=== PATIENT | female | born 1955 | race African-American/Black ===

== ENCOUNTER 2017-09-14 10:41 | Observation (INO) | payer OTHER ==
--- OUTSIDE RECORDS SUMMARY | 2017-09-14 10:44 | XMS REPORT ---
:1955 [facility] [address] [place] [address] Care Team Providers Name Role Phone UNKNOWN, REFFERING Primary Care Provider Unavailable NOAH NAJERA Unavailable Unavailable Problems This patient has no known problems. Allergies, Adverse Reactions, Alerts This patient has no known allergies or adverse reactions. Medications This patient has no known medications. Results Test Description Test Time Test Comments Text Results Atomic Results Result Comments POC Glucose, Blood 2016-12-09 21:00:00 Test Item Value Reference Range Comments POC Glucose (test code=POCGLUC) 102 mg/dL 70-115 If you consider your patient critically ill, the Finn Accu-Chek InformII metershould not be used for Glucose determinations.Draw a venous Glucose and send to the Main Lab for Analysis. POC Glucose, [id number] 16:22:00 Test Item Value Reference Range Comments POC Glucose (test 82 mg/dL 70-115 If you consider your patient code=POCGLUC) critically ill, the Finn Accu-Chek InformII metershould not be used for Glucose determinations.Draw a venous Glucose and send to the Main Lab for Analysis. POC Glucose, [id number] 08:07:00 Test Item Value Reference Range Comments POC Glucose (test 76 mg/dL 70-115 If you consider your patient code=POCGLUC) critically ill, the Finn Accu-Chek InformII metershould not be used for Glucose determinations.Draw a venous Glucose and send to the Main Lab for Analysis. POC Glucose, [id number] 20:48:00 Test Item Value Reference Range Comments POC Glucose (test 107 mg/dL 70-115 If you consider your patient code=POCGLUC) critically ill, the Finn Accu-Chek InformII metershould not be used for Glucose determinations.Draw a venous Glucose and send to the Main Lab for Analysis. POC Glucose, [id number] 07:18:00 Test Item Value Reference Range Comments POC Glucose (test 75 mg/dL 70-115 If you consider your patient code=POCGLUC) critically ill, the Finn Accu-Chek InformII metershould not be used for Glucose determinations.Draw a venous Glucose and send to the Main Lab for Analysis. POC Glucose, [id number] 21:10:00 Test Item Value Reference Range Comments POC Glucose (test 129 mg/dL 70-115 If you consider your patient code=POCGLUC) critically ill, the Finn Accu-Chek InformII metershould not be used for Glucose determinations.Draw a venous Glucose and send to the Main Lab for Analysis. POC Glucose, [id number] 07:44:00 Test Item Value Reference Range Comments POC Glucose (test 91 mg/dL 70-115 If you consider your patient code=POCGLUC) critically ill, the Finn Accu-Chek InformII metershould not be used for Glucose determinations.Draw a venous Glucose and send to the Main Lab for Analysis. US ABD B-SCAN, [id number] 09:21:21DICTATION LOCATION: [id number]: distended. COMPARISON: None available.TECHNIQUE: Sonography ofthe abdomen. Color and spectral Doppler of theportal vein was performed.FINDINGS:Liver: 19.0 cm. Heterogeneous echotexture.Bile ducts: Normal caliber. Common hepatic duct measures 4 mm. Theportal vein is patent and demonstrates normal directional flow.Gallbladder: Status post cholecystectomy.Pancreas: Visualized portions are within normal limits.Spleen: 9.8 cm. Grossly unremarkableRight kidney: 8.8cm. 8 mm right renal cyst. Cortical atrophy withincreased cortical echogenicity. No hydronephrosis.Left kidney: 8.3 cm. Cortical atrophy with increased corticalechogenicity. No hydronephrosis.Ascites: Abdominopelvic ascites noted.Aorta and IVC: Limited grayscale evaluation of the aorta and IVC areunremarkable. IMPRESSION: 1. Hepatomegaly with heterogeneous echotexture. Findings may representhepatic steatosis or underlying hepatic dysfunction. Correlateclinically with LFTs.2. Renal cortical atrophywith increased cortical echogenicitycompatible with medical renal disease. No hydronephrosis.3. Status post cholecystectomy.4. Abdominopelvic ascites.XR ABDOMEN [id number] 07: 58:20EXAM: KUBLocation: [id number]: DistendedCOMPARISON: NoneDISCUSSION:A frontal view of the abdomen is submitted.There is overall increased density of the abdomen with relativelycentralized bowel gas and obscured abdominal fat planes, suggestive ofascites. Right upper quadrant surgical clips suggest priorcholecystectomy. No bowel obstruction or gross evidence ofintra-abdominal free air is seen. No acute bony or normalities areidentified.IMPRESSION: Findings suggest ascites. No evidence of bowel obstructionor intraperitoneal free air.POC Glucose, [id number] 20:27:00 Test Item Value Reference Range Comments POC Glucose (test 107 mg/dL 70-115 If you consider your patient code=POCGLUC) critically ill, the Finn Accu-Chek InformII metershould not be used for Glucose determinations.Draw a venous Glucose and send to the Main Lab for Analysis. POC Glucose, [id number] 21:14:00 Test Item Value Reference Range Comments POC Glucose (test 141 mg/dL 70-115 If you consider your patient code=POCGLUC) critically ill, the Finn Accu-Chek InformII metershould not be used for Glucose determinations.Draw a venous Glucose and send to the Main Lab for Analysis. Comprehensive Metabolic [id number] 06:45:00 Test Item Value Reference Range Comments Sodium (test code=NA) 135 mmol/L 135-145 Potassium (test code=K) 4.5 mmol/L 3.5-5.1 Chloride (test code=CL) 94 mmol/L 98-105 Carbon Dioxide (test 27 mmol/L 22-29 code=CO2) Glucose (test code=GLU) 90 mg/dL 70-115 Blood Urea Nitrogen (test 28 mg/dL 8-23 code=BUN) Creatinine (test 6.6 mg/dL 0.5-0.9 code=CREAT) Calcium (test code=CA) 9.2 mg/dL 8.3-10.5 Prot Total (test code=TP) 8.7 g/dL 6.4-8.3 Albumin (test code=ALB) 4.2 g/dL 3.5-5.2 A/G Ratio (test 0.9 Ratio code=AGRATIO) Globulin (test code=GLOB) 4.5 2.9-3.1 Bili Total (test 0.6 mg/dL 0.1-0.9 code=TBIL) Alk Phos (test 83 U/L 35-104 code=APHOS) AST (test code=AST) 11 U/L 1-32 ALT (test code=ALT) 7 U/L 1-33 BUN/Creatinine Ratio 4.2 (test code=BCRATIO) Anion Gap (test 14 mmol/L 7-16 code=AGAP) Estimated GFR (test 8 mL/min/1.73m2 eGFR (estimated Glomerular code=GFR) Filtration Rate) is an estimated value,calculated from the patient's serum creatinine using the MDRD equation.It is NOT the patient's actual GFR. The eGFR provides a more clinicallyuseful measure of kidney disease than serum creatinine alone.This calculation takes sex and race into account, if the informationis provided. If the race is not provided, and the patient isAfrican-Cymraes, multiply by 1.212. If sex is not provided, and thepatient is female, multiply by 0.742. Results for patients <18 years ofage have not been validated by the MDRD study and should be interpretedwith caution.eGFR Result Interpretation:eGFR > or=60 is in the Normal RangeeGFR < 60 may mean kidney diseaseeGFR < 15 may mean kidney failureRanges recommended by the National Kidney Foundation,http://nkdep.nih. gov CBC with [id number] 06:27:00 Test Item Value Reference Range Comments WBC (test code=WBC) 4.2 K/cumm 4.4-10.5 RBC (test code=RBC) 4.34 M/cumm 3.75-5.20 Hemoglobin (test code=HGB) 11.8 gm/dL 12.2-14.8 Hematocrit (test code=HCT) 39.4 % 36.5-44.4 MCV (test code=MCV) 90.9 fL 80-100 MCH (test code=MCH) 27.2 pg 27.0-32.5 MCHC (test code=MCHC) 29.9 g/dL 32.0-37.5 RDW (test code=RDW) 17.2 % 11.5-14.5 Platelet Count (test code=PLTCT) 146 K/cumm 140-440 MPV (test code=MPV) 9.1 fL Diff Method (test code=DIFFM) Auto Neutrophil (test code=NEUT) 60.0 % 36-70 Lymphocyte (test code=LYMPH) 27.5 % 12-44 Monocyte (test code=MONO) 8.2 % 0-11 Eosinophil (test code=EOS) 3.8 % 0-7 Basophil (test code=BASO) 0.4 % 0-2 Neutro Abs (test code=ANEUT) 2.5 K/cumm 1.6-7.4 Lymph Abs (test code=ALYMPH) 1.1 K/cumm 0.5-4.6 Monona Abs (test code=AMONO) 0.4 K/cumm 0.0-1.2 Eos Abs (test code=AEOS) 0.16 K/cumm 0.00-0.74 Baso Abs (test code=ABASO) 0.0 K/cumm 0.00-0.21 Hypochromic (test code=HYPO) Slight Hep B Surface [id number] 21:04:00 Test Item Value Reference Range Comments Hep Bs Ag (test code=HBSAG) Nonreactive Non-Reactive [id number] 14:36:00 Test Item Value Reference Range Comments NT ProBnp (test code=PBNP) >03060 pg/mL 0-124 Troponin [id number] 14:36:00 Test Item Value Reference Range Comments Troponin T (test code=AARON) 0.040 ng/mL 0.000-0.090 CBC with [id number] 14:14:00 Test Item Value Reference Range Comments WBC (test code=WBC) 4.0 K/cumm 4.4-10.5 RBC (test code=RBC) 4.45 M/cumm 3.75-5.20 Hemoglobin (test code=HGB) 12.0 gm/dL 12.2-14.8 Hematocrit (test code=HCT) 41.8 % 36.5-44.4 MCV (test code=MCV) 94.0 fL 80-100 MCH (test code=MCH) 26.9 pg 27.0-32.5 MCHC (test code=MCHC) 28.6 g/dL 32.0-37.5 RDW (test code=RDW) 18.4 % 11.5-14.5 Platelet Count (test code=PLTCT) 137 K/cumm 140-440 MPV (test code=MPV) 10.7 fL Diff Method (test code=DIFFM) Manual Neutrophil (test code=NEUT) 53.0 % 36-70 Lymphocyte (test code=LYMPH) 28.8 % 12-44 Monocyte (test code=MONO) 13.5 % 0-11 Eosinophil (test code=EOS) 4.2 % 0-7 Basophil (test code=BASO) 0.5 % 0-2 Neutro Abs (test code=ANEUT) 2.1 K/cumm 1.6-7.4 Monona Abs (test code=AMONO) 0.5 K/cumm 0.0-1.2 Eos Abs (test code=AEOS) 0.17 K/cumm 0.00-0.74 Baso Abs (test code=ABASO) 0.0 K/cumm 0.00-0.21 RBC Morphology (test code=RBCMRPH) Normal Platelet Est (test code=PLTEST) Normal Platelet on Smear Prothrombin [id number] 14:07:00 Test Item Value Reference Range Comments PT (test code=PT) 13.30 seconds 9.78-13.35 INR (test code=INR) 1.17 Ratio 0.6-1.2 Partial Thromboplastin [id number] 14:07:00 Test Item Value Reference Range Comments aPTT (test code=PTT) 37.50 seconds 24.39-37.25 Basic Metabolic [id number] 13:57:00 Test Item Value Reference Range Comments Sodium (test code=NA) 132 mmol/L 135-145 Potassium (test code=K) 5.8 mmol/L 3.5-5.1 Chloride (test code=CL) 95 mmol/L 98-105 Carbon Dioxide (test 23 mmol/L 22-29 code=CO2) Glucose (test code=GLU) 97 mg/dL 70-115 Blood Urea Nitrogen (test 47 mg/dL 8-23 code=BUN) Creatinine (test 8.2 mg/dL 0.5-0.9 code=CREAT) Calcium (test code=CA) 9.0 mg/dL 8.3-10.5 BUN/Creatinine Ratio 5.7 (test code=BCRATIO) Anion Gap (test 14 mmol/L 7-16 code=AGAP) Estimated GFR (test 5 mL/min/1.73m2 eGFR (estimated Glomerular code=GFR) Filtration Rate) is an estimated value,calculated from the patient's serum creatinine using the MDRD equation.It is NOT the patient's actual GFR. The eGFR provides a more clinicallyuseful measure of kidney disease than serum creatinine alone.This calculation takes sex and race into account, if the informationis provided. If the race is not provided, and the patient isAfrican-[place]ym[place], multiply by 1.212. If sex is not provided, and thepatient is female, multiply by 0.742. Results for patients <18 years ofage have not been validated by the MDRD study and should be interpretedwith caution.eGFR Result Interpretation:eGFR > or=60 is in the Normal RangeeGFR < 60 may mean kidney diseaseeGFR < 15 may mean kidney failureRanges recommended by the National Kidney Foundation,http://nkdep.nih. gov XR CHEST 1 [id number] 13:31:50CLINICAL INFORMATION: End-stage renal disease. Missed dialysis recently.Dictation Location: R 16Comparison: No prior study available at this time. Technique: Portable AP upright 1255 hoursFINDINGS : There is globular cardiomegaly with central vascularprominence. Mild aortic tortuosity. Elevated right hemidiaphragm.Nonspecific increase in lung markings. No destructive bone lesionidentified.Impression:1. Changes in the chest suggest cardiac decompensation or fluidoverload.2. Chronic appearing elevated right hemidiaphragm.
--- OUTSIDE RECORDS SUMMARY | 2017-09-14 10:44 | XMS REPORT | Clinical Summary ---
:1955 Author Organization [facility] Address [address] [place] [address] Care Team Providers Name Role Phone Asked, No Pcp Primary Care Provider Unavailable Allergies Active Allergy Reactions Severity Noted Date Comments Aspirin 04/21/2017 On Plavix Clonidine 04/21/2017 Nausea, vomiting Codeine 04/21/2017 Hallucinations Prochlorperazine Edisylate 04/21/2017 Nausea, vomiting Propoxyphene N-Acetaminophen Other (See Comments) 04/21/2017 drowsiness Meperidine Other (See Comments) 04/21/2017 hallucinations Hydromorphone Other (See Comments) 04/21/2017 hallucinations Hydroxyzine 04/21/2017 Levofloxacin 04/21/2017 hallucinations Morphine Other (See Comments) 04/21/2017 hallucinations No Known Drug Allergies 08/19/2015 Ondansetron 04/21/2017 Nausea, vomitong Pantoprazole 04/21/2017 Nausea, vomiting Promethazine 04/21/2017 Nausea, vomiting Tramadol 04/21/2017 Hallucinations Current Medications Prescription Sig. Disp. Refills Start Date End Date Status gabapentin Take 300 mg by Active (NEURONTIN) 300 mg mouth nightly. capsule clopidogrel Take 75 mg by Active (PLAVIX) 75 mg mouth daily. tablet Every other day, taken midodrine Take 15 mg by Active (PROAMATINE) 10 MG mouth 2 (two) tablet times a day. latanoprost Administer 1 1.5 mL 0 04/26/2017 (XALATAN) 0.005 % drop to both 8 ophthalmic eyes nightly for solution 30 days. timolol (TIMOPTIC) Administer 1 0.31 mL 0 04/27/2017 0.5 % ophthalmic drop to both 8 solution eyes every morning for 30 days. cephalexin Take 1 capsule 56 capsule 0 04/26/2017 Discontinued (KEFLEX) 250 MG (250 mg total) 8 capsule by mouth 4 (four) times a day for 14 days. cephalexin Take 1 capsule 14 capsule 0 04/26/2017 (KEFLEX) 500 MG (500 mg total) 8 capsule by mouth daily for 14 days. Active Problems Problem Noted Date Pain 04/24/2017 Low blood pressure 04/22/2017 Hypotension 04/21/2017 Encounters Date Type Specialty Care Team Description 08/29/2017 Hospital Encounter Procedural Hernesto Mcclendon Encounter for other preprocedural examination ; Cardiology MD Jane Encounter regarding vascular access for dialysis for ESRD 08/26/2017 Orders Only General Surgery Kasey, Encounter regarding vascular access for dialysis for ESRD (Primary Dx); CATHRYN Nash Encounter for other preprocedural examination 08/25/2017 Office Visit General Surgery Hernesto Mcclendon ESRD (end stage renal MD Jane disease) on dialysis (Primary Dx) 07/10/2017 Office Visit General Surgery Hernesto Mcclendon End-stage renal MD Jane disease (Primary Dx) 05/15/2017 Office Visit General Surgery Hernesto Mcclendon End-stage renal disease (Primary Dx); MD Jane Surgery follow-up examination; AV graft malfunction, sequela 05/12/2017 Abstract Transplant Stock, Lolis 05/01/2017 Telephone General Surgery Pat Monreal PA 04/24/2017 Anesthesia Event General Surgery Stanley Cabrera MD 04/24/2017 Procedure Pass General Surgery 04/24/2017 Surgery General Surgery Hernesto Mcclendon INSERTION OF TUNNELED MD Jane DIALYSIS CATHETER WITH C-ARM 04/21/2017 - Hospital Encounter General Surgery Hernesto Mcclendon Hypotension , unspecified hypotension type (Primary Dx); 04/26/2017 MD Jane Severe anemia; Zeus Cook Hemorrhage; MD Toi A-V fistula; Vicki, ESRD (end stage renal disease); MD Susanna Metabolic acidosis; Anmol Irvin Hypoalbuminemia; MD Iris Chronic arterial ischemic stroke; End stage renal disease 04/21/2017 Anesthesia Event General Surgery Stanley Cabrera MD 04/21/2017 Procedure Pass General Surgery 04/21/2017 Surgery General Surgery Hernesto Mcclendon LEFT LUCY Lara MD ARTERIOVENOUS GRAFT EXCISION, LEFT FEMORAL DIALYSIS CATHETER PLACEMENT after 09/13/2016 Social History Tobacco Use Types Packs/Day Years Used Date Never Smoker Smokeless Tobacco: Never Used Sex Assigned at Date Recorded Not on file Last Filed Vital Signs Vital Sign Reading Time Taken Blood Pressure 108/54 04/26/2017 1:46 PM [employer] Pulse 71 04/26/2017 1:46 PM [employer] Temperature 36.5 C (97.7 F) 04/26/2017 11:44 AM [employer] Respiratory Rate 18 04/26/2017 11:44 AM [employer] Oxygen Saturation 98% 04/26/2017 11:44 AM [employer] Inhaled Oxygen Concentration - - Weight 79.4 kg (175 lb) 04/24/2017 2:48 PM [employer] Height 160 cm (5' 3") 04/24/2017 2:48 PM [employer] Body Mass Index 31 04/24/2017 2:48 PM [employer] Plan of Treatment Health Maintenance Due Date Last Done Comments CERVICAL CANCER SCREENING 1976 COLON CANCER SCREENING 2005 SHINGRIX VACCINE (#1) 2005 BREAST CANCER SCREENING 09/01/2010 09/01/2008 ZOSTER VACCINE 2015 INFLUENZA VACCINE 11/05/2017 Implants Implanted Type Area Camera Systems Engineer Device Expiration Model / Identifier Date Serial / Lot Catheter Emboltmy Nenita 5fr 80cm Artrl Tube Pack - [id number] Surgical Left : THURMAN 11/05/2018 [id number] / Implanted: Qty: 1 on 04/21/2017 by Hernesto Mcclendon MD Implants; Arm LIFESCIENCES / Expanders; Extenders; Surgical Wires Tray Cath Dialys Straight 3lumen 24cm 13fr Power-Trialysis - [id number] Surgical Right: BARD ACCESS 09/04/2017 [id number] / Implanted: Qty: 1 on 04/21/2017 by Isaura Parikh MD Implants; Arm SYSTEMS / Expanders; Extenders; Surgical Wires Explanted Type Area Camera Systems Engineer Device Expiration Model / Identifier Date Serial / Lot Catheter Dialysis Glidepath [id number] Symmetric Tip - [id number] Implantable Left: BARD PERIPHERAL 08/04/2018 [id number] / Implanted: Qty: 1 Infusion Ports Groin VASCULAR / Explanted: Qty: 1 on 04/21/2017 by Dennis Sorto MD or Accessories [id number] Procedures Procedure Name Priority Date/Time Associated Diagnosis Comments HEMODIALYSIS Routine 04/25/2017 2:21 PM [employer] RI AN ELECTIVE Routine 04/24/2017 4:09 PM SUPRAGLOTTIC AIRWAY [employer] Procedure Note - Ramon Nava MD - 04/24/2017 4:08 PM [employer] Airway Performed by: RAMON NAVA Authorized by: RAMON NAVA Location: OR Urgency: Elective Difficult Airway: No Anesthesiologist: RAMON NAVA Preoxygenated with 100% O2: Yes C-spine Precautions Maintained Throughout: Yes Mask Ventilation: Not attempted Final Airway Type: Supraglottic airway Final LMA: Classic LMA Size: 4 Number of Attempts at Approach: 1 INSERTION OF TUNNELED DIALYSIS 04/24/2017 3:00 PM [employer] End stage renal disease CATHETER WITH C-ARM Special Needs C-ARM HEMODIALYSIS Routine 04/23/2017 3:53 PM [employer] HEMODIALYSIS Routine 04/21/2017 4:33 PM [employer] ANESTHESIA INTUBATION Routine 04/21/2017 9:22 AM [employer] Procedure Note - Stanley Cabrera MD - 04/21/2017 9:21 AM [employer] Airway Performed by: STANLEY CABRERA Authorized by: STANLEY CABRERA Location: OR Difficult Airway: No Preoxygenated with 100% O2: Yes C-spine Precautions Maintained Throughout: Yes Mask Ventilation: Easy mask Final Airway Type: Endotracheal airway Final Endotracheal Airway: ETT Cuffed: Yes Blade Type: Moncada Laryngoscope Blade/Videolaryngoscope Blade Size: 2 ETT Size (mm): 7.0 Cuff at minimum occlusion pressure: Yes Measured from: Lips ETT to Lips (cm): 21 Placement Verified by: CO2 detection, direct visualization and equal breath sounds Rapid Sequence Induction (RSI): No Modified RSI: No Number of Attempts at Approach: 1 LEFT ARM ARTERIOVENOUS GRAFT 04/21/2017 7:30 AM [employer] AV GRAFT MALFUNCTION EXCISION, LEFT FEMORAL DIALYSIS CATHETER PLACEMENT after 09/13/2016 Results Pv duplex venous upper extremity (08/29/2017 11:51 AM) Specimen Performing Laboratory [facility] [address] [place] [address] Narrative Vascular Ultrasound Laboratory Upper Extremity Venous Report [id number] [address] Pat.Name:GREGORIA PADILLA Pat.ID:[id number] .Date: 08/29/2017 Refer.MD:HERNESTO MCCLENDON MD Exam Time: 11:16:00 AM Study Type:UE Venous DOBAge:1955,62YSex: FEMALE Sonogrphr: Elio Montilla RN, RVTPat. Stat.:Outpatient TapeVol: DP, CPT - 4: 68042 Echo Event ID:[id number] Order ID:[id number] Reason for Study:Left upper arm pain status post excisxion of infected AVG., 05/2017. Procedures:Colorflow, Grayscale/2D, Pulsed wave Doppler Race:-[place] SUMMARY: DUPLEX SCAN OBSERVATIONS Right Left IJNormal Normal SubclavianNormal Normal AxillaryNormal Normal BrachialNormal Normal BasilicNormal Not Visualized CephalicNot Visualized Not Visualized RIGHT:There is normal compressibility and no evidence of echogenic material noted within the lumen of the visualized veins. Colorflow and Doppler signals are normal. LEFT:There is normal compressibility and no evidence of echogenic material noted within the lumen of the visualized veins. Colorflow and Doppler signals are normal. PRELIMINARY FINDINGS 1.Normal venous duplex scan of the visualized veins. PHYSICIAN INTERPRETATION 1.Venous examination of both upper extremities and neck demonstrates no evidence of venous thrombosis. Signed 08/30/2017 08:06 AM Stephan Huffman MD Procedure Note Interface, Radiology Results In - 08/30/2017 8:07 AM CDT Vascular Ultrasound Laboratory Upper Extremity Venous Report [address] [place] [address] Pat.Name: GREGORIA PADILLA Pat.ID: [id number] .Date: 08/29/2017 Refer.MD: HERNESTO MCCLENDON MD Exam Time: 11:16:00 AM Study Type:UE Venous Age: 12 1955,62Y Sex: FEMALE Sonogrphr: Elio Montilla RN, RVT Pat. Stat.:Outpatient Tape Vol: DP, CPT - 4: 24428 Echo Event ID:[id number] Order ID: [id number] Reason for Study:Left upper arm pain status post excisxion of infected AVG., 05/2017. Procedures:Colorflow, Grayscale/2D, Pulsed wave Doppler Race: -[place] SUMMARY: DUPLEX SCAN OBSERVATIONS Right Left IJ Normal Normal Subclavian Normal Normal Axillary Normal Normal Brachial Normal Normal Basilic Normal Not Visualized Cephalic Not Visualized Not Visualized RIGHT: There is normal compressibility and no evidence of echogenic material noted within the lumen of the visualized veins. Colorflow and Doppler signals are normal. LEFT: There is normal compressibility and no evidence of echogenic material noted within the lumen of the visualized veins. Colorflow and Doppler signals are normal. PRELIMINARY FINDINGS 1. Normal venous duplex scan of the visualized veins. PHYSICIAN INTERPRETATION 1. Venous examination of both upper extremities and neck demonstrates no evidence of venous thrombosis. Signed 08/30/2017 08:06 AM Stephan Huffman MD POC glucose (04/26/2017 11:43 AM)Only the most recent of22 resultswithin the time period is included. Component Value Ref Range POC glucose 103 (H) 65 - 99 mg/dL Comment: [facility] Notified RN Meter ID: [id number] [employer] Superintendent: Nelia Qiu Specimen Performing Laboratory [facility] DEPARTMENT OF PATHOLOGY AND GENOMIC MEDICINE [address] [place] [address] Estimated GFR (04/26/2017 4:34 AM)Only the most recent of7 resultswithin the time period is included. Component Value Ref Range GFR Non Af Amer 11 (A) mL/min/1.73 m2 GFR Af Amer 14 (A) mL/min/1.73 m2 Comment: Chronic kidney disease: <60 mL/min/1.73m2 Kidney failure: <15 mL/min/1.73m2 The estimated GFR is calculated from the IDMS-traceable Modification of Diet in Renal Disease Equation. The accuracy of the calculation is poor when the creatinine is normal. Calculated values >90 mL/min/1.73m2 are not reported. This equation has not been validated in children (<18 years), women, the elderly (>70 years), or ethnic groups other than Caucasians and Americans. Specimen Performing Laboratory Plasma specimen [facility] DEPARTMENT OF PATHOLOGY AND GENOMIC MEDICINE [address] [place] [address] CBC with platelet and differential (04/26/2017 4:34 AM)Only the most recent of6 resultswithin the time period is included. Component Value Ref Range WBC 4.68Comment: WBC was corrected for NRBCs 4.50 - 11.00 k/uL RBC 2.74 (L) 4.20 - 5.50 m/uL HGB 7.7 (L) 12.0 - 16.0 g/dL HCT 26.0 (L) 37.0 - 47.0 % MCV 94.9 82.0 - 100.0 fL MCH 28.1 27.0 - 34.0 pg MCHC 29.6 (L) 31.0 - 37.0 g/dL RDW - SD 59.8 (H) 37.0 - 55.0 fL MPV 10.3 8.8 - 13.2 fL Platelet count 148 (L) 150 - 400 k/uL Nucleated RBC 2.60 /100 WBC Neutrophils 58.7 39.0 - 69.0 % Lymphocytes 21.4 (L) 25.0 - 45.0 % Monocytes 13.9 (H) 0.0 - 10.0 % Eosinophils 4.7 0.0 - 5.0 % Basophils 0.4 0.0 - 1.0 % Immature granulocytes 0.9Comment: "Immature granulocytes" 0.0 - 1.0 % (promyelocytes, myelocytes, metamyelocytes) Specimen Performing Laboratory Blood [facility] DEPARTMENT OF PATHOLOGY AND [facility] MEDICINE [address] [place] [address] Basic metabolic panel (04/26/2017 4:34 AM)Only the most recent of5 resultswithin the time period is included. Component Value Ref Range Sodium 138 135 - 148 mEq/L Potassium 4.2 3.5 - 5.0 mEq/L Chloride 96 (L) 98 - 112 mEq/L CO2 25 24 - 31 mEq/L Anion gap 17 (H) 7 - 15 mEq/L Comment: Starting from July , anion gap calculation no longer incorporates potassium. Please note the change. BUN 14 8 - 23 mg/dL Creatinine 4.0 (H) 0.5 - 0.9 mg/dL Glucose 96 65 - 99 mg/dL Calcium 8.2 (L) 8.8 - 10.2 mg/dL Specimen Performing Laboratory Plasma specimen [facility] DEPARTMENT OF PATHOLOGY AND GENOMIC MEDICINE [address] [place] [address] XR Chest 1 Vw Portable (04/24/2017 5:30 PM)Only the most recent of3 resultswithin the time period is included. Specimen [facility] [address] [place] [address] Narrative EXAMINATION:XR CHEST 1 VW PORTABLE CLINICAL HISTORY:New dialysis catheter COMPARISON:None. IMPRESSION: Right dialysis catheter terminates in the superior vena cava, there is no evidence of pneumothorax Heart is enlarged Atelectasis in the lung bases. Degenerative changes are present throughout the bony structures without evidence of a suspicious focal lesion. [facility]-[id number] Procedure Note Interface, Radiology Results Incoming - 04/24/2017 6:28 PM [employer] EXAMINATION: XR CHEST 1 VW PORTABLE CLINICAL HISTORY: New dialysis catheter COMPARISON: None. IMPRESSION: Right dialysis catheter terminates in the superior vena cava, there is no evidence of pneumothorax Heart is enlarged Atelectasis in the lung bases. Degenerative changes are present throughout the bony structures without evidence of a suspicious focal lesion. [facility]-[id number] OR [place] < 1 Hour (04/24/2017 4:50 PM) Specimen Performing Laboratory [address] [address] Narrative EXAMINATION:OR [place] 1 HOUR C-arm fluoroscopy was requested in OR. LOCATION: [facility] OR 06 PROCEDURE: C-Arm for INSERTION OF TUNNELED DIALYSIS CATHETER START TIME: 1635 FINISH TIME: 1650 FLUORO TIME: 0.1 min DOSE: mGy:1.06 TECH(S): PHAN MENDOZA IMPRESSION: Separate operative report will be issued by the physician performing the procedure. [id number] Procedure Note Interface, Radiology Results Incoming - 04/24/2017 10:13 PM [employer] EXAMINATION: OR [place] 1 HOUR C-arm fluoroscopy was requested in OR. LOCATION: [facility] OR 06 PROCEDURE: C-Arm for INSERTION OF TUNNELED DIALYSIS CATHETER START TIME: 1635 FINISH TIME: 1650 FLUORO TIME: 0.1 min DOSE: mGy: 1.06 TECH(S): PHAN MENDOZA IMPRESSION: Separate operative report will be issued by the physician performing the procedure. [id number] Partial thromboplastin time, activated (04/24/2017 4:05 AM)Only the most recent of2 resultswithin the time period is included. Component Value Ref Range PTT 35.1 23.0 - 36.0 sec Comment: PTT therapeutic range for unfractionated heparin is 61.0-112.0 seconds which corresponds to Anti-Xa 0.3-0.7 U/ml. Specimen Performing Laboratory Blood [facility] DEPARTMENT OF PATHOLOGY AND [facility] MEDICINE [address] [place] [address] Prothrombin time with INR (04/24/2017 4:05 AM)Only the most recent of3 resultswithin the time period is included. Component Value Ref Range Prothrombin time 15.5 (H) 12.0 - 15.0 sec INR 1.2 Comment: The International Normalized Ratio (INR) is a therapeutic monitoring tool for patients who are stable on oral anticoagulant therapy. An INR of 2.0-3.0 is suggested for deep vein thrombosis/pulmonary embolism. Specimen Performing Laboratory Blood [facility] DEPARTMENT OF PATHOLOGY AND [facility] MEDICINE [address] [place] [address] Phosphorus level (04/24/2017 4:00 AM) Component Value Ref Range Phosphorus 3.9 2.4 - 4.5 mg/dL Specimen Performing Laboratory Plasma specimen [facility] DEPARTMENT OF PATHOLOGY AND [address] [address] Magnesium level (04/24/2017 4:00 AM) Component Value Ref Range Magnesium 1.9 1.6 - 2.4 mg/dL Specimen Performing Laboratory Plasma specimen [facility] DEPARTMENT OF PATHOLOGY AND [facility] MEDICINE [address] [place] [address] Vancomycin level, random (04/23/2017 9:55 AM) Component Value Ref Range Vancomycin, random 9.1 ug/mL Specimen Performing Laboratory Serum [facility] DEPARTMENT OF PATHOLOGY [facility] MEDICINE [address] [place] [address] ECG 12 lead (04/23/2017 9:45 AM) Component Value Ref Range Ventricular rate 80 Atrial rate 80 RI interval 214 QRSD interval 166 QT interval 436 QTC interval 502 P axis 1 51 QRS axis 1 -62 T wave axis -1 EKG impression Sinus rhythm with sinus arrhythmia with 1st degree AV block- Left axis deviation-Right bundle branch block-T wave abnormality, consider lateral ischemia-Abnormal ECG-In automated comparison with ECG of 1 05-FEB-2014 19:02,-T wave inversion more evident in Anterior leads-Electronically Signed By Fitz Hogan ([id number]) on 2017 8:15:04 AM Specimen Performing Laboratory [facility] MUSE [address] [place] [address] Comprehensive metabolic panel (04/22/2017 4:00 AM)Only the most recent of2 resultswithin the time period is included. Component Value Ref Range Sodium 140 135 - 148 mEq/L Potassium 4.7 3.5 - 5.0 mEq/L Chloride 98 98 - 112 mEq/L CO2 26 24 - 31 mEq/L Anion gap 16 (H) 7 - 15 mEq/L Comment: Starting from July , anion gap calculation no longer incorporates potassium. Please note the change. BUN 20 8 - 23 mg/dL Creatinine 4.6 (H) 0.5 - 0.9 mg/dL Glucose 105 (H) 65 - 99 mg/dL Calcium 8.6 (L) 8.8 - 10.2 mg/dL Protein 7.7 6.3 - 8.3 g/dL Comment: [place] 4.6-7.0 g/dL 1 week 4.4-7.6 g/dL 7 months-1year5.1-7.3 g/dL 1-2 years5.6-7.5 g/dL >3 years6.0-8.0 g/dL 18-150 6.3-8.3 g/dL Albumin 3.2 (L) 3.5 - 5.0 g/dL A/G ratio 0.7 0.7 - 3.8 Alkaline phosphatase 102 35 - 104 U/L AST 16 10 - 35 U/L ALT 7 5 - 50 U/L Total bilirubin 0.4 0.0 - 1.2 mg/dL Specimen Performing Laboratory Plasma specimen [facility] DEPARTMENT OF PATHOLOGY AND GENOMIC MEDICINE [address] [place] [address] ECG ED Preliminary Interpretation - NOT AN ORDER (04/21/2017 5:55 PM) Pat Cook MD 04/21/20175:55 PM ECG ED Preliminary Interpretation - Not an Order Performed by: ZEUS COOK Authorized by: ZEUS COOK ECG reviewed by ED Physician in the absence of a metal inspector: yes Interpretation: Interpretation: normal Rate: ECG rate:74 ECG rate assessment: normal Rhythm: Rhythm: sinus rhythm QRS: QRS axis:Normal QRS intervals:Normal ST segments: ST segments:Normal Hepatitis B surface antigen (04/21/2017 2:16 PM) Component Value Ref Range Hepatitis B surface Ag Non-reactive Non-reactive Specimen Performing Laboratory Blood [facility] DEPARTMENT OF PATHOLOGY AND GENOMIC MEDICINE [address] [place] [address] Surgical pathology request (04/21/2017 10:58 AM) Component Value Ref Range Surgical pathology report See link below for PDF Lab Report Result status This is Final Report to [id number] Specimen Performing Laboratory [facility] DEPARTMENT OF PATHOLOGY AND GENOMIC MEDICINE [address] [place] [address] Fungus smear (04/21/2017 10:04 AM) Component Value Ref Range Fungus smear No fungi observed. Comment: Specimen Information Specimen Source: Graft Specimen Site: left arm arteriovenous graft Specimen Performing Laboratory [facility] DEPARTMENT OF PATHOLOGY AND GENOMIC MEDICINE [address] [place] [address] AFB culture (04/21/2017 10:04 AM) Component Value Ref Range AFB culture isolate No growth after 6 weeks of incubation. Comment: Specimen Information Specimen Source: Graft Specimen Site: left arm arteriovenous graft Specimen Performing Laboratory Implant - Other [facility] DEPARTMENT OF PATHOLOGY AND GENOMIC MEDICINE [address] [place] [address] Aerobic culture (04/21/2017 10:04 AM) Component Value Ref Range Aerobic culture isolate Staphylococcus aureus Occasional This organism is Methicillin Sensitive. (A) Comment: Specimen Information Specimen Source: Graft Specimen Site: left arm arteriovenous graft Specimen Performing Laboratory [facility] DEPARTMENT OF PATHOLOGY AND GENOMIC MEDICINE [address] [place] [address] Organism Antibiotic Method Susceptibility Staphylococcus aureus Ampicillin MANI mcg/mL: Resistant Staphylococcus aureus Clindamycin MANI <=0.5 mcg/mL: Susceptible Staphylococcus aureus Erythromycin MANI <=0.5 mcg/mL: Susceptible Staphylococcus aureus Levofloxacin MANI <=1 mcg/mL: Susceptible Staphylococcus aureus Linezolid MANI <=1 mcg/mL: Susceptible Staphylococcus aureus Minocycline MANI <=1 mcg/mL: Susceptible Staphylococcus aureus Oxacillin MANI 0.5 mcg/mL: Susceptible Staphylococcus aureus Penicillin G MANI >1 mcg/mL: Resistant Staphylococcus aureus Rifampin MANI <=0.5 mcg/mL: Susceptible Staphylococcus aureus Trimethoprim/Sulfamethoxazo MANI <=0.5/9.5 mcg/mL: Susceptible le Staphylococcus aureus Tetracycline MANI <=0.5 mcg/mL: Susceptible Staphylococcus aureus Vancomycin MANI 1 mcg/mL: Susceptible Gram stain (04/21/2017 10:04 AM) Component Value Ref Range Gram stain isolate Few WBC's No organisms seen Comment: Specimen Information Specimen Source: Graft Specimen Site: left arm arteriovenous graft Specimen Performing Laboratory [facility] DEPARTMENT OF PATHOLOGY AND GENOMIC MEDICINE [address] [place] [address] AFB stain (04/21/2017 10:04 AM) Component Value Ref Range AFB stain No acid fast bacilli (AFB) seen. Comment: Specimen Information Specimen Source: Graft Specimen Site: left arm arteriovenous graft Specimen Performing Laboratory [facility] [place] [address] Fungus culture (04/21/2017 10:04 AM) Component Value Ref Range Fungus culture isolate No growth after 4 weeks of incubation. Comment: Specimen Information Specimen Source: Graft Specimen Site: left arm arteriovenous graft Specimen Performing Laboratory Implant - Other [facility] DEPARTMENT OF PATHOLOGY AND GENOMIC MEDICINE [address] [place] [address] Transfuse RBC (04/21/2017 7:08 AM)Troponin (04/21/2017 3:59 AM)Only the most recent of2 resultswithin the time period is included. Component Value Ref Range Troponin <0.30 0.00 - 0.30 ng/mL Comment: 0.30 - 1.49 ng/mlMay indicate increased risk of acute coronary syndrome. >=1.5 ng/mlConsistent with acute myocardial infarction. The diagnostic value of a single normal or non-diagnostic result is questionable.Serial samples at 2-6 hour intervals are required to rule out acute myocardial injury. Specimen Performing Laboratory Plasma specimen [facility] DEPARTMENT OF PATHOLOGY AND [facility] MEDICINE [address] [place] [address] Blood culture, aerobic & anaerobic (04/21/2017 3:59 AM) Component Value Ref Range Blood culture isolate No growth after 5 days of incubation. Comment: Specimen Information Specimen Source: Blood Specimen Site: Peripheral Arm Right Specimen Performing Laboratory Blood [facility] DEPARTMENT OF PATHOLOGY AND GENOMIC MEDICINE [address] [place], [place] [id number] Hepatic function panel (04/21/2017 3:59 AM) Component Value Ref Range Albumin 3.0 (L) 3.5 - 5.0 g/dL Total bilirubin <0.2 0.0 - 1.2 mg/dL Bilirubin direct <0.2 0.0 - 0.3 mg/dL Alkaline phosphatase 109 (H) 35 - 104 U/L Protein 7.4 6.3 - 8.3 g/dL Comment: 4.6-7.0 g/dL 1 week 4.4-7.6 g/dL 7 months-1year5.1-7.3 g/dL 1-2 years5.6-7.5 g/dL >3 years6.0-8.0 g/dL 18-150 6.3-8.3 g/dL ALT 13 5 - 50 U/L AST 15 10 - 35 U/L Specimen Performing Laboratory Plasma specimen [facility] DEPARTMENT OF PATHOLOGY AND GENOMIC MEDICINE [address] [place] [address] [id number] ALT (SGPT) (04/21/2017 2:39 AM) Component Value Ref Range ALT Footnote 5 - 50 U/L Specimen Performing Laboratory Plasma specimen [facility] DEPARTMENT OF PATHOLOGY AND GENOMIC MEDICINE [address] [place] [address] [id number] AST (SGOT) (04/21/2017 2:39 AM) Component Value Ref Range AST Footnote 10 - 35 U/L Specimen Performing Laboratory Plasma specimen [facility] DEPARTMENT OF PATHOLOGY AND GENOMIC MEDICINE [address] [place] [address] [id number] Potassium level (04/21/2017 2:39 AM) Component Value Ref Range Potassium Footnote 3.5 - 5.0 mEq/L Comment: Unable to perform testing, specimen is HEMOLYZED.Recollect requested for K,AST,ALT.RUSSEL GRESHAM notified by KXG at04/21/201703:48 . Specimen Performing Laboratory Plasma specimen [facility] DEPARTMENT OF PATHOLOGY AND [facility] MEDICINE [address] [place] [address] [id number] Prepare RBC, 2 Units (04/21/2017 1:35 AM) Component Value Ref Range Product name Red Cells AS1 Leukored Irrad Unit number [id number] Product code [id number] Dispense status Transfused Blood expiration date 20170504 Blood type code 7300 Blood type B POSITIVE Product name Red Cells AS1 Leukored Irrad Unit number [id number] Product code [id number] Dispense status Transfused Blood expiration date 20170505 Blood type code 7300 Blood type B POSITIVE Specimen Performing Laboratory [facility] DEPARTMENT OF PATHOLOGY AND GENOMIC MEDICINE [address] [place] [address] [id number] Type and screen (04/21/2017 1:35 AM) Component Value Ref Range ABO grouping B Rh type POS Antibody screen (gel) NEG Specimen Performing Laboratory Blood [facility] DEPARTMENT OF PATHOLOGY AND GENOMIC MEDICINE [address] [place] [address] 61721 B natriuretic peptide (04/21/2017 1:35 AM) Component Value Ref Range BNP 582 (H) 0 - 100 pg/mL Specimen Performing Laboratory Blood [facility] DEPARTMENT OF PATHOLOGY AND GENOMIC MEDICINE [address] [place] [id number] after 09/13/2016 Insurance Payer Benefit Plan / Group Subscriber ID Type Phone Address MEDICARE MEDICARE PART A AND B xxxxxxxxxxx Medicare [place], [place]
[2017-09-14] MEDS ORDERED: D50W 25 GM/50 ML SYRINGE IV ONE ×3 (11:03→12:53)
[2017-09-14] MEDS ORDERED: D5 0.45 NS 1,000 ML IV ONE (11:15)
[2017-09-14 11:45] LABS: Absolute Lymphocytes (CBC) 0.7 K/uL (0.7-4.9); Absolute Monocytes 0.3 K/uL (0.1-1.3); Absolute Neutrophil 2.1 K/uL (1.8-8.0); Basophils % 0.8 % (0-1.3); Eosinophils % 3.9 % (0-4.4); Hematocrit 36.7 % (36.0-45.0); Lymphocytes % 21.2 % (15.3-44.8); MCH 25.7 pg (27.0-35.0); MCV 83.6 fL (80-100); MPV 9.8 fL (7.6-11.3); Monocytes % 8.9 % (3.3-12.3); RBC Red Blood Cell Count 4.39 M/uL (3.86-4.86)
[2017-09-14 11:51] LABS: Protime INR 1.11
[2017-09-14 12:13] LABS: Albumin 4.1 g/dL (3.2-5.5); Bilirubin Direct 0.1 mg/dL (0-0.2); Bilirubin Total 0.7 mg/dL (0.3-1.2); CKMB Creatine Kinase MB 2.4 ng/ml (0.3-4.0); Magnesium 2.1 mg/dL (1.8-2.5); Protein, Total 8.9 g/dL (6.0-8.3)
[2017-09-14 12:15] LABS: Potassium 7.6 mEq/L (3.6-5.0)
--- NOTE | 2017-09-14 12:33 | RAD REPORT ---
EXAM DESCRIPTION: CT - Chest Abd Pelvis Wo Con - 09/14/2017 11:59 am CLINICAL HISTORY: Chest and abdominal pain COMPARISON: December 2016 TECHNIQUE: Computed axial tomography of the chest, abdomen and pelvis was obtained. Oral contrast wa s given. IV contrast was not requested. All CT scans are performed using dose optimization technique as appropriate and may include automated exposure control or mA/KV adjustment according to patient size. FINDINGS: The evaluation of mediastinum, alf, vessels and solid organs is limited secondary to the lack of IV contrast administration No mediastinal or hilar lymphadenopathy is seen. The heart is enlarged A pleural effusion is not present. A pericardial effusion is not seen. Mild ground-glass opacities are present within the lungs. The liver, spleen, pancreas, and adrenals appear grossly normal. The kidneys are mildly diminished in size. There is no evidence of diverticulitis. A small umbilical hernia is present. A moderate to large amount of ascites is present. It has diminished in caliber since the prior CAT sc an IMPRESSION: Mild ground-glass opacities within the lungs indicative of a mild alveolitis Moderate to large amount of ascites diminished in caliber from the prior CAT scan
--- NOTE | 2017-09-14 12:34 | RAD REPORT ---
EXAM DESCRIPTION: [facility] Single View09/14/2017 11:31 am CLINICAL HISTORY: cough COMPARISON: April 2017 FINDINGS: Mild bilateral pulmonary opacities are present. The heart is moderately enlarged Central venous catheter has its tip in the proximal superior vena cava IMPRESSION: Mild bilateral pulmonary opacities may indicate mild interstitial pulmonary edema
[2017-09-14] MEDS ORDERED: INSULIN -REGULAR HUMAN 50 UNIT/0.5 ML ML ONE (12:53)
[2017-09-14] MEDS ORDERED: SOD POLYSTYREN SUL 15 GM/60 ML UCUP ONE (12:53)
[2017-09-14] MEDS ORDERED: ALBUTEROL 2.5 MG/3 ML NEB SOL ONE (12:53)
--- NOTE | 2017-09-14 12:56 | ER ---
Nurse's Notes [facility] Name: Liya Sullivan Age: 62 yrs Sex: Female : 1955 Arrival Date: 09/14/2017 Time: 10:52 Bed 15 Private MD: Diagnosis: End stage renal disease;Hyperkalemia;Hypoglycemia, unspecified Presentation: 09/14 10:50 Presenting complaint: EMS states: low blood sugar, hypertension and weakness. Patient aj1 states that she woke up this morning feeling weak and disoriented. Patient appears drowsy, responds to verbal stimuli, answer questions appropriately, but slowly. FSBS on EMS arrivan was 52. Patient was given oral glucose twice, which only brought here FSBS up to 57. 10:50 Transition of care: patient was not received from another setting of care. Onset of aj1 symptoms is unknown. Risk Assessment: Do you want to hurt yourself or someone else? Patient reports no desire to harm self or others. Initial Sepsis Screen: Does the patient meet any 2 criteria? No. Patient's initial sepsis screen is negative. Does the patient have a suspected source of infection? No. Patient's initial sepsis screen is negative. Care prior to arrival: None. 10:50 Method Of Arrival: EMS: [facility] aj1 10:50 Acuity: STEPHNAIE 2 aj1 Triage Assessment: 11:34 General: Appears in no apparent distress. uncomfortable, Behavior is drowsy. Pain: aj1 Complains of pain in generalized body aches. Historical: - Allergies: 11:34 Aspirin; aj1 11:34 butorphanol tartrate; aj1 11:34 Clonidine; aj1 11:34 Codeine; aj1 11:34 Compazine; aj1 11:34 Darvocet-N 100; aj1 11:34 Demerol; aj1 11:34 diphenhydramine HCl; aj1 11:34 Hydromorphone; aj1 11:34 hydroxyzine HCl; aj1 11:34 Levaquin; aj1 11:34 Levofloxacin; aj1 11:34 Morphine; aj1 11:34 Ondansetron HCl; aj1 11:34 pantoprazole sodium; aj1 11:34 promethazine HCl; aj1 11:34 Protonix; aj1 11:34 Stadol; aj1 11:34 tramadol; aj1 - Home Meds: 11:34 Acetaminophen Oral [Active]; cephalexin 500 mg Oral tab daily [Active]; clopidogrel 75 aj1 mg Oral tab 1 tab once daily [Active]; gabapentin 300 mg Oral cap 1 cap every night [Active]; latanoprost 0.005 % ophthalmic drop 1 drop once daily [Active]; midodrine 15mg Oral tab 1 tab twice a day [Active]; timolol maleate 0.5 % Opht drop 1 drop to both eyes every morning [Active]; - PMHx: 11:34 CVA; Diabetes - IDDM; Dialysis; ESRD; aj1 - Immunization history:: Flu vaccine is up to date. - Social history:: Smoking status: Patient/guardian denies using tobacco. - Family history:: not pertinent. - Ebola Screening: : Patient denies travel to an Ebola-affected area in the 21 days before illness onset. Screenin:50 Abuse screen: Denies threats or abuse. Denies injuries from another. Nutritional aj1 screening: No deficits noted. Tuberculosis screening: No symptoms or risk factors identified. 14:03 Fall Risk No fall in past 12 months (0 pts). No secondary diagnosis (0 pts). IV access aj1 (20 points). Ambulatory Aid- None/Bed Rest/Nurse Assist (0 pts). Gait- Impaired (20 pts.). Mental Status- Oriented to own ability (0 pts). Assessment: 10:50 General: Appears uncomfortable, Behavior is drowsy, restless. Pain: Complains of pain aj1 in generalized body aches Unable to use pain scale. When asked to rate pain on scale of 1 to 10 patient states "I can't, it just hurts". Neuro: Level of Consciousness is obeys commands, drowsy. Oriented to person, place, time, situation, Speech slow. Cardiovascular: Patient's skin is warm and dry. Respiratory: Airway is patent Respiratory effort is even, unlabored, Respiratory pattern is regular, symmetrical. GI: Abdomen is round distended, Abd is soft X 4 quads Abdomen is tender to palpation X 4 quads. : Reports that she missed dialysis on Friday because she was not feeling good. EENT: No signs and/or symptoms were reported regarding the EENT system. Derm: No signs and/or symptoms reported regarding the dermatologic system. Skin is normal. Musculoskeletal: Circulation, motion, and sensation intact. 11:46 Reassessment: Patient appears in no apparent distress at this time. No changes from aj1 previously documented assessment. Patient and/or family updated on plan of care and expected duration. Pain level reassessed. Patient is alert, oriented x 3, equal unlabored respirations, skin warm/dry/pink. Patient transported to CT via stretcher. 12:42 Reassessment: Patient appears in no apparent distress at this time. No changes from aj1 previously documented assessment. Patient and/or family updated on plan of care and expected duration. Pain level reassessed. Patient is alert, oriented x 3, equal unlabored respirations, skin warm/dry/pink. 13:45 Reassessment: Patient appears in no apparent distress at this time. No changes from aj1 previously documented assessment. Patient and/or family updated on plan of care and expected duration. Pain level reassessed. Patient is alert, oriented x 3, equal unlabored respirations, skin warm/dry/pink. Vital Signs: 10:50 BP 113 / 96; Pulse 72; Resp 20; Temp 97.5(O); Pulse Ox 96% on 2 lpm NC; Weight 77.11 aj1 kg; Height 5 ft. 3 in. (160.02 cm); 11:45 BP 119 / 73; Pulse 81; Resp 17; Pulse Ox 97% on 2 lpm NC; aj1 12:19 BP 132 / 82; Pulse 91; Resp 18; Pulse Ox 98% on 2 lpm NC; aj1 12:41 BP 147 / 88; Pulse 71; Resp 18; Pulse Ox 98% on 2 lpm NC; aj1 10:50 Body Mass Index 30.11 (77.11 kg, 160.02 cm) [facility] ED Course: 10:50 No provider procedures requiring assistance completed. Missed attempt(s): 22 gauge in aj right antecubital area. Bleeding controlled, band aid applied, catheter tip intact. 10:50 Patient has correct armband on for positive identification. Bed in low position. Call [facility] light in reach. Side rails up X 1. 10:52 Patient arrived in ED. iw 10:59 Rima Canela RN is Primary Nurse. aj 11:00 Gildardo Florez MD is Attending Physician. phil 11:05 Inserted saline lock: 22 gauge in right wrist, using aseptic technique. Blood collected.aj1 11:25 Inserted saline lock: 18 gauge in right EJ, using aseptic technique. Blood collected. iw IV inserted by Dr. Florez. 11:31 XRAY Chest (1 view) In Process Unspecified. EDMS 11:31 X-ray completed. Portable x-ray completed in exam room. Patient tolerated procedure kw well. 11:31 Triage completed. aj1 11:34 Arm band placed on. aj1 11:59 CT Chest Abdomen Pelvis W/O Contrast: no oral, no iv In Process Unspecified. EDMS 12:54 Vern Kovacs MD is Hospitalizing Provider. [facility] 13:41 Report given to KRISTINA Stewart in ICU. aj1 14:01 Patient admitted, IV remains in place. aj1 Administered Medications: Discontinued: D5-1/2 NS 1000 ml IV at 75 ml/hr continuous 11:05 Drug: D50W 50 ml Route: IVP; Site: left wrist; aj1 11:40 Follow up: Response: No adverse reaction; Blood sugar is elevated iw 11:25 Drug: D5-1/2 NS 1000 ml Route: IV; Rate: 75 ml/hr; Site: right jugular; iw 13:00 Drug: Sodium Bicarbonate 1 amp Route: IVP; Site: right jugular; iw 13:25 Follow up: Response: No adverse reaction iw 13:00 Drug: D50W 50 ml Route: IVP; Site: left jugular; iw 13:15 Follow up: Response: No adverse reaction iw 13:05 Drug: Insulin Regular Human 10 units {Co-Signature: em (Alberto Landeros SALES ARCHITECT).} Route: IVP; iw Site: right jugular; 13:59 Follow up: Response: No adverse reaction iw 13:15 Drug: Albuterol - atroVENT (3:1) (2.5 mg - 0.5 mg) 3 ml Route: Nebulizer; iw 13:58 Follow up: Response: No adverse reaction iw 13:20 Drug: Lasix 100 mg Route: IVP; Site: right jugular; iw 13:45 Follow up: Response: No adverse reaction iw 13:25 Drug: Calcium Gluconate 1 grams Route: IVPB; Infused Over: 10 mins; Site: right jugular;iw 13:35 Follow up: IV Status: Completed infusion iw 13:44 Drug: Kayexalate 60 grams {Note: pt only able to drink 30 gm.} Route: PO; iw 13:58 Follow up: Response: No adverse reaction iw Point of Care Testing: Blood Glucose: 10:50 Blood Glucose: 58 mg/dL; aj1 11:45 Blood Glucose: 82 mg/dL; aj1 12:41 Blood Glucose: 102 mg/dL; aj1 13:30 Blood Glucose: 153 mg/dL; iw Ranges: Outcome: 12:56 Decision to Hospitalize by Provider. phil 14:04 Admitted to ICU accompanied by nurse, accompanied by tech, via stretcher, with oxygen, aj1 on monitor, with chart. 14:04 critical 14:04 Instructed on the need for admit, Demonstrated understanding of instructions. 14:08 Patient left the ED. aj1 Signatures: Dispatcher [employer] Rima Fang, KRISTINA RN aj1 Gildardo Florez MD MD cha Williams, Irene, Akiko Grewal RN SALES ARCHITECT em Corrections: (The following items were deleted from the chart) 11:37 11:34 BP 113 / 96; Pulse 72bpm; Resp 20bpm; Pulse Ox 96% 2 lpm Nasal Cannula; Temp aj1 97.5F Oral; 77.11 kg; Height 5 ft. 3 in.; BMI: 30.1; aj1
--- NOTE | 2017-09-14 12:57 | EDPHYS ---
Physician Documentation [facility] Name: Liya Sullivan Age: 62 yrs Sex: Female : 1955 Arrival Date: 09/14/2017 Time: 10:52 Bed 15 Private MD: ED Physician Gildardo Florez HPI: 09/14 11:22 This 62 yrs old Black Female presents to ER via Unassigned with complaints of Low Blood phil Sugar. 11:22 This 62 yrs old Black Female presents to ER via Unassigned with complaints of Low Blood phil Sugar. 11:22 The patient or guardian reports hypoglycemia, that was potentially precipitated by no phil particular event. Onset: The symptoms/episode began/occurred just prior to arrival. Associated signs and symptoms: Pertinent positives: nausea. Current symptoms: In the emergency department the patient's symptoms are unchanged from the initial presentation, despite home interventions. The patient has experienced similar episodes in the past, a few times. Historical: - Allergies: 11:34 Aspirin; aj1 11:34 butorphanol tartrate; aj1 11:34 Clonidine; aj1 11:34 Codeine; aj1 11:34 Compazine; aj1 11:34 Darvocet-N 100; aj1 11:34 Demerol; aj1 11:34 diphenhydramine HCl; aj1 11:34 Hydromorphone; aj1 11:34 hydroxyzine HCl; aj1 11:34 Levaquin; aj1 11:34 Levofloxacin; aj1 11:34 Morphine; aj1 11:34 Ondansetron HCl; aj1 11:34 pantoprazole sodium; aj1 11:34 promethazine HCl; aj1 11:34 Protonix; aj1 11:34 Stadol; aj1 11:34 tramadol; aj1 - Home Meds: 11:34 Acetaminophen Oral [Active]; cephalexin 500 mg Oral tab daily [Active]; clopidogrel 75 aj1 mg Oral tab 1 tab once daily [Active]; gabapentin 300 mg Oral cap 1 cap every night [Active]; latanoprost 0.005 % ophthalmic drop 1 drop once daily [Active]; midodrine 15mg Oral tab 1 tab twice a day [Active]; timolol maleate 0.5 % Opht drop 1 drop to both eyes every morning [Active]; - PMHx: 11:34 CVA; Diabetes - IDDM; Dialysis; ESRD; aj1 - Immunization history:: Flu vaccine is up to date. - Social history:: Smoking status: Patient/guardian denies using tobacco. - Family history:: not pertinent. - Ebola Screening: : Patient denies travel to an Ebola-affected area in the 21 days before illness onset. ROS: 11:23 Constitutional: Negative for fever, chills, and weight loss, Eyes: Negative for injury, phil pain, redness, and discharge, ENT: Negative for injury, pain, and discharge, Neck: Negative for injury, pain, and swelling, Cardiovascular: Negative for chest pain, palpitations, and edema, Respiratory: Negative for shortness of breath, cough, wheezing, and pleuritic chest pain, Back: Negative for injury and pain, : Negative for injury, bleeding, discharge, and swelling, MS/Extremity: Negative for injury and deformity, Skin: Negative for injury, rash, and discoloration, Psych: Negative for depression, anxiety, suicide ideation, homicidal ideation, and hallucinations, Allergy/Immunology: Negative for hives, rash, and allergies, Endocrine: Negative for neck swelling, polydipsia, polyuria, polyphagia, and marked weight changes. 11:23 Abdomen/GI: Positive for abdominal pain, abdominal cramps, abdominal distension. 11:23 Neuro: Positive for altered mental status, dizziness, weakness. Exam: 11:23 Constitutional: This is a well developed, well nourished patient who is awake, alert, phil and in no acute distress. Head/Face: Normocephalic, atraumatic. Eyes: Pupils equal round and reactive to light, extra-ocular motions intact. Lids and lashes normal. Conjunctiva and sclera are non-icteric and not injected. Cornea within normal limits. Periorbital areas with no swelling, redness, or edema. ENT: Nares patent. No nasal discharge, no septal abnormalities noted. Tympanic membranes are normal and external auditory canals are clear. Oropharynx with no redness, swelling, or masses, exudates, or evidence of obstruction, uvula midline. Mucous membranes moist. Neck: Trachea midline, no thyromegaly or masses palpated, and no cervical lymphadenopathy. Supple, full range of motion without nuchal rigidity, or vertebral point tenderness. No Meningismus. Chest/axilla: Normal chest wall appearance and motion. Nontender with no deformity. No lesions are appreciated. Cardiovascular: Regular rate and rhythm with a normal S1 and S2. No gallops, murmurs, or rubs. Normal PMI, no JVD. No pulse deficits. Respiratory: Lungs have equal breath sounds bilaterally, clear to auscultation and percussion. No rales, rhonchi or wheezes noted. No increased work of breathing, no retractions or nasal flaring. Back: No spinal tenderness. No costovertebral tenderness. Full range of motion. Female : Normal external genitalia. Skin: Warm, dry with normal turgor. Normal color with no rashes, no lesions, and no evidence of cellulitis. MS/ Extremity: Pulses equal, no cyanosis. Neurovascular intact. Full, normal range of motion. Psych: Awake, alert, with orientation to person, place and time. Behavior, mood, and affect are within normal limits. 11:23 Abdomen/GI: Inspection: distension, Bowel sounds: normal, Palpation: mild abdominal tenderness, moderate abdominal tenderness, in all quadrants, Liver: no appreciated palpable abnormalities, Hernia: incarceration. 11:23 Skin: Appearance: Color: normal in color, Temperature: warm, Moisture: dry, petechiae, noted on the right arm and left arm, ecchymosis, not noted. Vital Signs: 10:50 BP 113 / 96; Pulse 72; Resp 20; Temp 97.5(O); Pulse Ox 96% on 2 lpm NC; Weight 77.11 aj1 kg; Height 5 ft. 3 in. (160.02 cm); 11:45 BP 119 / 73; Pulse 81; Resp 17; Pulse Ox 97% on 2 lpm NC; aj1 12:19 BP 132 / 82; Pulse 91; Resp 18; Pulse Ox 98% on 2 lpm NC; aj1 12:41 BP 147 / 88; Pulse 71; Resp 18; Pulse Ox 98% on 2 lpm NC; aj1 10:50 Body Mass Index 30.11 (77.11 kg, 160.02 cm) aj1 MDM: 11:00 [facility]. [facility] 11[facility]25 Data reviewed: vital signs, nurses notes, lab test result(s), EKG, radiologic studies, [facility] scan, plain films. 09/14 11:02 Order name: Basic Metabolic Panel; Complete Time: 12:46 [facility] 09/14 11:02 Order name: BNP; Complete Time: 12:46 [facility] 09/14 11:02 Order name: CBC with Diff; Complete Time: 12:06 [facility] 09/14 11:02 Order name: Ckmb; Complete Time: 12:46 [facility] 09/14 11:02 Order name: CPK; Complete Time: 12:46 [facility] 09/14 11:02 Order name: LFT's; Complete Time: 12:46 [facility] 09/14 11:02 Order name: Magnesium; Complete Time: 12:46 [facility] 09/14 11:02 Order name: PT-INR; Complete Time: 12:06 [facility] 09/14 11:02 Order name: Ptt, Activated; Complete Time: 12:06 [facility] 09/14 11:02 Order name: Troponin (emerg Dept Use Only); Complete Time: 12:46 [facility] 09/14 11:02 Order name: Urine Culture [facility] 09/14 11:02 Order name: Blood Culture Adult (2) [facility] 09/14 13:02 Order name: Basic Metabolic Panel [facility] 09/14 13:02 Order name: Basic Metabolic Panel [facility] 09/14 11:02 Order name: XRAY Chest (1 view); Complete Time: 12:46 [facility] 09/14 11:22 Order name: CT Chest Abdomen Pelvis W/O Contrast: no oral, no iv; Complete Time: 12:46 [facility] 09/14 13:02 Order name: CBC with Automated Diff [facility] 09/14 13:02 Order name: CBC with Automated Diff [facility] 09/14 13:02 Order name: Troponin I [facility] 09/14 13:02 Order name: Troponin I [facility] 09/14 13:02 Order name: Troponin I [facility] 09/14 13:02 Order name: Chest Single View [facility] 09/14 13:02 Order name: Chest Single View [facility] 09/14 11:02 Order name: EKG; Complete Time: 11:02 [facility] 09/14 11:02 Order name: Cardiac monitoring; Complete Time: 12:05 [facility] 09/14 11:02 Order name: EKG - Nurse/Tech; Complete Time: 12:17 [facility] 09/14 11:02 Order name: IV Saline Lock; Complete Time: 11:26 [facility] 09/14 11:02 Order name: Labs collected and sent; Complete Time: 11:26 [facility] 09/14 11:02 Order name: O2 Per Protocol; Complete Time: 11:26 [facility] 09/14 11:02 Order name: O2 Sat Monitoring; Complete Time: 11:26 [facility] 09/14 13:02 Order name: CONS Physician Consult EDMS 09/14 13:02 Order name: Consistent Carb (ADA) 1800 Julio EDMS 09/14 13:02 Order name: EKG Electrocardiogram EDMS 09/14 13:02 Order name: EKG Electrocardiogram EDMS 09/14 13:02 Order name: EKG Electrocardiogram EDMS 09/14 13:02 Order name: EKG Electrocardiogram EDMS Administered Medications: Discontinued: D5-1/2 NS 1000 ml IV at 75 ml/hr continuous 11:05 Drug: D50W 50 ml Route: IVP; Site: left wrist; aj1 11:40 Follow up: Response: No adverse reaction; Blood sugar is elevated iw 11:25 Drug: D5-1/2 NS 1000 ml Route: IV; Rate: 75 ml/hr; Site: right jugular; iw 13:00 Drug: Sodium Bicarbonate 1 amp Route: IVP; Site: right jugular; iw 13:25 Follow up: Response: No adverse reaction iw 13:00 Drug: D50W 50 ml Route: IVP; Site: left jugular; iw 13:15 Follow up: Response: No adverse reaction iw 13:05 Drug: Insulin Regular Human 10 units {Co-Signature: milan (Alberto Landeros [employer]ISTANT).} Route: IVP; iw Site: right jugular; 13:59 Follow up: Response: No adverse reaction iw 13:15 Drug: Albuterol - atroVENT (3:1) (2.5 mg - 0.5 mg) 3 ml Route: Nebulizer; iw 13:58 Follow up: Response: No adverse reaction iw 13:20 Drug: Lasix 100 mg Route: IVP; Site: right jugular; iw 13:45 Follow up: Response: No adverse reaction iw 13:25 Drug: Calcium Gluconate 1 grams Route: IVPB; Infused Over: 10 mins; Site: right jugular;iw 13:35 Follow up: IV Status: Completed infusion iw 13:44 Drug: Kayexalate 60 grams {Note: pt only able to drink 30 gm.} Route: PO; iw 13:58 Follow up: Response: No adverse reaction iw Point of Care Testing: Blood Glucose: 10:50 Blood Glucose: 58 mg/dL; aj1 11:45 Blood Glucose: 82 mg/dL; aj1 12:41 Blood Glucose: 102 mg/dL; 1 13:30 Blood Glucose: 153 mg/dL; Ranges: Critical Glucose Levels:Adult <50 mg/dl or >400 mg/dl <40 mg/dl or >180 mg/dl Disposition: 09/14/17 12:56 Hospitalization ordered by Vern Kovacs for Inpatient Admission. Preliminary diagnosis are End stage renal disease, Hyperkalemia, Hypoglycemia, unspecified. - Bed requested for Intensive Care Unit. - Status is Inpatient Admission. aj1 - Condition is Serious. - Problem is new. - Symptoms have improved. UTI on Admission? No Signatures: Dispatcher [employer] EDSharon Rouse Angela, KRISTINA ACEVEDO aj1 Gildardo Florez MD MD cha Williams, Irene, RN RN Alberto CHRISTIANSONN em Corrections: (The following items were deleted from the chart) 13:15 12:56 Hospitalization Ordered by Vern Kovacs MD for Inpatient Admission. Preliminary bd diagnosis is End stage renal disease; Hyperkalemia; Hypoglycemia, unspecified. Bed requested for Intensive Care Unit. Status is Inpatient Admission. Condition is Serious. Problem is new. Symptoms have improved. UTI on Admission? No. [facility] 14:00 11:02 Urine Dipstick-Ancillary ordered. [facility] 14:08 13:15 09/14/2017 12:56 Hospitalization Ordered by Vern Kovacs MD for Inpatient [facility] Admission. Preliminary diagnosis is End stage renal disease; Hyperkalemia; Hypoglycemia, unspecified. Bed requested for Intensive Care Unit. Status is Inpatient Admission. Condition is Serious. Problem is new. Symptoms have improved. UTI on Admission? No. bd
[2017-09-14] MEDS ORDERED: ONDANSETRON 4 MG/2 ML VIAL IV PRN (12:59)
[2017-09-14] MEDS ORDERED: GLUCAGON 1 MG/VIAL IM PRN (13:00)
[2017-09-14] MEDS ORDERED: D50W 25 GM/50 ML SYRINGE IV PRN (13:00)
[2017-09-14] MEDS ORDERED: FUROSEMIDE 100 MG/10 ML VIAL IV ONE (13:18)
[2017-09-14] MEDS ORDERED: ALBUMIN HUMAN 25% 50 ML IV SCH (14:00)
[2017-09-14] MEDS ORDERED: NA CHLORIDE 0.9% 1,000 ML IV PRN (14:00)
[2017-09-14] MEDS ORDERED: CALCIUM GLUCONATE 1gm/100 ML NS (4.65 mEq/100mL) IV ONE ×2 (14:00)
[2017-09-14] MEDS ORDERED: MANNITOL 25% 12.5 GM/50 ML VIAL IV PRN (14:00)
[2017-09-14] MEDS: ALBUTEROL 2.5 MG/3 ML NEB SOL NEB SCH ×2 (14:00→21:06)
[2017-09-14] MEDS ORDERED: LIDOCAINE 1% MPF 5 ML VIAL IJ SCH (15:00)
[2017-09-14] MEDS ORDERED: FUROSEMIDE 40 MG/4 ML VIAL IV ONE (15:44)
[2017-09-14] MEDS: INSULIN -REGULAR HUMAN 50 UNIT/0.5 ML ML SQ SCH ×2 (16:30→20:47)
--- NOTE | 2017-09-14 17:09 | HP ---
Date of Admission: 09/14/2017 History Of Present Illness: The patient is a 62-year-old female with end-stage renal disease, on kenia lysis, has dialysis appointments this week. She started feeling disoriented, fatigued and tired, cam e to emergency room. She was found to be having volume overload with hyperkalemia and she was admitt ed for that. Review of Systems: General: Fatigue. Cardiovascular: No complaints. Gastrointestinal: Mild nausea. No vomiting. No other complaints. Genitourinary: No complaints. Skeletomuscular: No complaints. Neurological: No complaints. Past Medical History: 1.As mentioned, end-stage renal dialysis, on dialysis. 2.Type 2 diabetes. 3.History of CVA in the past. 4.Anemia of chronic illness. 5.Congestive heart failure, diastolic. 6.Hypertension. 7.Peripheral neuropathy. 8.History of anxiety. Family History: Noncontributory. Social History: No smoking, alcohol, or drug abuse history. Medications: Include Plavix 75 mg daily, Neurontin 300 mg p.o. at bedtime, promethazine 50 mg p.o. t .i.d., insulin NPH 20 units subcutaneous at bedtime. Allergies: PROMETHAZINE, LEVOFLOXACIN, ASPIRIN, AND BUTORPHANOL. Physical Examination: General: The patient is sitting, in no acute distress. She knew me as soon as I stepped into the ro om. She is not disoriented. She just complained to me of being fatigued and lethargic. Vital Signs: Her blood pressure 120/74, pulse 80, temperature 98.2, pulse oximetry on 2 L oxygen lila al cannula 97%. Heart: Regular rate and rhythm. Chest: Clear to auscultation. Abdomen: Soft, nontender. Bowel sounds are active. Extremities: 1+ pedal and tibial edema. Neurological: Alert, oriented, nonfocal. Grossly intact. Imaging: Chest x-ray; mild interstitial pulmonary edema. Abdominal and pelvic CT; mild alveolitis i n the lungs, [id number] amount of ascites. Laboratory Data: White cell count 3.2, hemoglobin 11.3, hematocrit 36.7, platelets 123. Potassium 7 .6, creatinine 13.3. Troponin 0.03. BNP 1118. Assessment And Plan: 1.Hyperkalemia secondary to end-stage renal disease, on dialysis which has been skipped by the patie nt. 2.Volume overload secondary to also noncompliance with dialysis. The patient is being admitted. Ka yexalate q.6 hours given to the patient. Nephrology consulted for dialysis. We will continue home m edications. We will monitor her electrolytes, also monitor her blood sugar fingersticks. We will pu t her on regular insulin sliding scale. Look orders for details. MFS/MODL Voice ID: [id number]
[2017-09-14] MEDS ORDERED: SOD POLYSTYREN SUL 15 GM/60 ML UCUP PO SCH (20:00)
[2017-09-15] MEDS: ACETAMINOPHEN 500 MG TAB PO PRN ×3 (01:15→14:52)
[2017-09-15] MEDS: ALBUTEROL 2.5 MG/3 ML NEB SOL NEB SCH ×4 (01:29→19:45)
[2017-09-15 05:30] LABS: Absolute Lymphocytes (CBC) 0.5 K/uL (0.7-4.9); Absolute Monocytes 0.3 K/uL (0.1-1.3); Absolute Neutrophil 2.9 K/uL (1.8-8.0); Basophils % 0.6 % (0-1.3); Eosinophils % 2.8 % (0-4.4); Hematocrit 32.4 % (36.0-45.0); Lymphocytes % 12.1 % (15.3-44.8); MCV 82.4 fL (80-100); MPV 9.2 fL (7.6-11.3); Monocytes % 8.6 % (3.3-12.3); RBC Red Blood Cell Count 3.93 M/uL (3.86-4.86)
[2017-09-15 05:55] LABS: Potassium 4.6 mEq/L (3.6-5.0)
--- NOTE | 2017-09-15 06:31 | EKG ---
Test Date: 2017-09-14 Test Time: 12:12:44 Rn Oncology Research: DORIS MEASUREMENT RESULTS: Intervals: Rate: 75 [place]: 184 QRSD: 170 QT: 486 QTc: 542 [place]: P: 64 [place]: 184 QRS: -61 T: 16 INTERPRETIVE STATEMENTS: Normal sinus rhythm Right bundle branch block Left anterior fascicular block Bifascicular block Abnormal ECG Compared to ECG 04/20/2017 20:27:20 no significant change from previous ECG Electronically Signed On 09-15-17 06:29:49 CDT by Charles Jaimes
[2017-09-15] MEDS: INSULIN -REGULAR HUMAN 50 UNIT/0.5 ML ML SQ SCH ×4 (07:30→21:00)
--- NOTE | 2017-09-15 08:26 | RAD REPORT ---
EXAM DESCRIPTION: Laith Single View09/15/2017 6:36 am CLINICAL HISTORY: Chest pain COMPARISON: September 14, 2017 FINDINGS: The mild bilateral interstitial lung opacities have resolved. The heart remains enlarged. Central venous catheter remains in place. IMPRESSION: Resolution of mild interstitial pulmonary edema
--- NOTE | 2017-09-15 09:28 | EKG ---
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
[2017-09-15] MEDS ORDERED: MIDODRINE HCL 5 MG TABLET PO SCH (13:00)
[2017-09-15] MEDS: SEVELAMER CARBONATE 800 MG TABLET PO SCH ×2 (13:10→17:15)
--- NOTE | 2017-09-15 13:59 | PN ---
Subjective: The patient is doing well. No new complaint. She is being dialyzed right now with seco nd time since this admission. Objective: Vital Signs: Blood pressure 102/56, pulse 84, temperature 97. Heart: Regular rate and rhythm. Chest: Clear to auscultation. Abdomen: Soft, benign. Neurological: Alert, oriented, nonfocal. Grossly intact. Laboratory Data: White cell count 3.9, hemoglobin 10.2, hematocrit 32.4, platelets 106. Chemistry; BUN 64, creatinine 11.19. Assessment And Plan: Volume overload and end-stage renal disease, on dialysis with hyperkalemia. Th e patient's potassium dropped down to 4.6 on Kayexalate and dialysis, and she has been dialyzed the s econd time. Now, I think the patient is recovering well. We will continue her treatment for chronic medical illnesses and discharge is according to Nephrology. MFS/MODL Voice ID: [id number] Report ID: [id number]
[2017-09-15] MEDS ORDERED: CYCLOBENZAPRINE 10 MG TAB PO ONE (14:00)
[2017-09-15] MEDS ORDERED: ALPRAZOLAM 0.25 MG TABLET PO PRN (16:05)
--- NOTE | 2017-09-16 01:30 | CON ---
Date of Consultation: 09/15/2017 Chief Complaint: End-stage renal disease on dialysis. History Of Present Illness: The patient presented to the hospital because of generalized weakness, fatigue, and altered mental status. She was found to have severe hyperkalemia. Potassium was 7.4 and stat dialysis was ordered to control hyperkalemia. The patient received dialysis yesterday. The patient came to the hospital yesterday and was found to have metabolic acidosis. Bicarbonate was 18. The patient has history of intradialytic hypotension. She is admitted to ICU and started on midodrine for blood pressure support. Today, potassium improved to 4.6, and the patient is to have dialysis for metabolic clearance. The patient is a 62-year-old female with history of end-stage renal disease, on dialysis. She came because she was confused, disoriented, and fatigued, came to the emergency room and was evaluated for fatigue. Cardiac workup was started and the patient was admitted to ICU because of severe hyperkalemia. Nephrology consultation was requested for emergent dialysis and dialysis was done last night. Review of Systems: Constitutional: Denies syncope. Eyes: Denies vision changes. Ears, Nose, Mouth, and Throat: Denies sore throat or earache. Respiratory: Had some dyspnea on exertion. GI: Denies nausea or vomiting. : Denies dysuria or hematuria. Musculoskeletal: Complaining of generalized weakness, muscle aches. All other systems reviewed and all are negative. Past Medical History: End-stage renal disease, on dialysis; diabetes mellitus type 2; diabetic neuropathy, nephropathy, retinopathy; history of CVA; anemia of chronic kidney disease; congestive heart failure; diastolic dysfunction; hypertension; peripheral neuropathy; and anxiety. Family History: No kidney disease in the family. Social History: Denies tobacco, alcohol, or illicit drugs. Physical Examination: General: Not in acute distress. Eyes: Anicteric sclerae. EOMI. Ears, Nose, mouth, and Throat: Oral mucosa moist. No pallor. Neck: Supple. No JVD. No bruit. Lungs: Few crackles at bases. Heart: S1, S2. No pericardial friction rub. Abdomen: Obese, soft, nontender. Extremities: Slight edema in both legs. Vital Signs: Blood pressure 120/74, heart rate 80, temperature 98.2, SpO2 of 97 % on 2 L of nasal cannula. Neurological: Moving extremities. Cranial nerves intact. Psychiatric: Alert and oriented x3. Normal affect. Laboratory Data: Sodium 134, potassium 7.6, chloride 102, CO2 of 18. BUN 86, creatinine 13.3, glucose 72, calcium 8.9, magnesium 2.1. AST 11, ALT 9, total protein 8.9. Troponin 0.03. BNP 1118. Albumin is 4.1. Hemoglobin 10.2, WBC 3.9, platelet count 106,000. Diagnostic Data: Chest x-ray, bilateral pulmonary opacities indicating mild interstitial pulmonary edema. CT scan of the abdomen and pelvis without contrast showed mild ground-glass opacities in the lungs indicative of mild alveolitis, iyclhvhz-[id number] amount of ascites. Kidneys mildly diminished in size. Liver, spleen, pancreas, adrenal glands normal. Pericardial effusion is not seen. Impression And Plan: 1. End-stage renal disease, severe hyperkalemia. The patient was treated with stat dialysis and received medication to stabilize potassium. After dialysis, potassium level has improved. Today potassium is 4.6, sodium 139, chloride 105, CO2 of 24. BUN 64, creatinine 11.9, calcium 8.3. The patient received dialysis for metabolic clearance and to provide ultrafiltration. The patient was found to have pulmonary edema. She presented to the hospital because of severe fatigue, which was due to congestive heart failure with diastolic dysfunction, [id number], triggered by fluid overload. The patient will continue p.o. fluid restriction and strict prerenal diet with low potassium diet. I discussed with the patient low-potassium diet and necessity and importance to follow low-potassium diet instruction. 2. Anemia in chronic kidney disease. Monitor hemoglobin level. Continue to adjust BRITTANY as needed. 3. Renal osteodystrophy. Monitor phosphorus level. Adjust binders. The patient will resume Renvela. 4. Intradialytic hypotension. The patient will resume midodrine for blood pressure support to facilitate ultrafiltration to prevent intradialytic hypotension. 5. Lqjyx-kx-npbavep congestive heart failure. Workup was initiated to rule out acute coronary syndrome. Troponin level was within normal limits. JOSLYN/KURT Voice ID: [id number] Report ID: [id number] GRACIA
[2017-09-16] MEDS: ALBUTEROL 2.5 MG/3 ML NEB SOL NEB SCH ×4 (01:44→19:51)
[2017-09-16] MEDS: INSULIN -REGULAR HUMAN 50 UNIT/0.5 ML ML SQ SCH ×4 (07:30→21:00)
[2017-09-16] MEDS: SEVELAMER CARBONATE 800 MG TABLET PO SCH ×3 (08:00→17:17)
--- NOTE | 2017-09-17 01:57 | PN ---
Date of Progress Note: 09/16/2017 Subjective: The patient is doing better. Was admitted with hyperkalemia, overload, stat status post dialysis [id number] the day before and yesterday, tolerated well. Physical Examination: Vital Signs: Blood pressure 121/79, pulse of 80. Chest: Crackles in the base. Heart: S1, S2. Regular. Abdomen: Soft, nontender. Extremities: No edema. Laboratory Data: WBC 3.9, H and H 10.2/32.4, platelet 106. Sodium 139, potassium 4.6, bicarb 24, BU N 64, creatinine 11.1, calcium 8.3. Medications: Current medications include; 1.Renvela. 2.Flexeril. 3.Albuterol. 4.Heparin. 5.Tylenol. 6.Zofran. 7.Insulin. Assessment And Plan: 1.End-stage renal disease, over volume with hyperkalemia, recovered. Normal volume currently. 2.Hypertension, controlled, optimal. I am going to continue current medication. 3.Congestive heart failure with over volume, recovered, resolved. 4.Hyperkalemia, status post dialysis, resolved. JACKLYN Voice ID: [id number] Report ID: [id number]
[2017-09-17] MEDS: ALBUTEROL 2.5 MG/3 ML NEB SOL NEB SCH ×2 (02:00→07:47)
[2017-09-17 03:02] LABS: HBsAG Nonreactive (Nonreactive)
[2017-09-17 05:19] LABS: Potassium 4.9 mEq/L (3.6-5.0)
[2017-09-17 06:19] VITALS: BMI 29.8
[2017-09-17] MEDS: INSULIN -REGULAR HUMAN 50 UNIT/0.5 ML ML SQ SCH ×2 (07:30→11:30)
[2017-09-17] MEDS: SEVELAMER CARBONATE 800 MG TABLET PO SCH ×2 (08:30→13:00)
--- NOTE | 2017-09-17 11:49 | PN ---
Date of Progress Note: 09/17/2017 Subjective: The patient doing better. No nausea. No vomiting. Still complaining from itching. Physical Examination: Vital Signs: Blood pressure 120/52, pulse of 67. Chest: Clear to auscultation. Heart: S1, S2. Regular. Abdomen: Soft, nontender. Extremity: No edema. Laboratory Data: WBC 3.9, H and H 10.2/32.4. Sodium 136, potassium 4.9, bicarb 21, BUN 58, creatini ne of 10.7, calcium of 9. Medications: Current medications the patient on its include: 1.Albuterol. 2.Midodrine. 3.Tylenol. 4.Alprazolam. 5.Renvela. 6.Zofran. Assessment And Plan: 1.End-stage renal disease with hyperkalemia and over volume, currently normal volume. Hyperkalemia resolved. We will continue dialysis Friday, Friday, Friday. The patient will be cleared from the Renal standpoint for discharge planning after dialysis today. 2.Hypotension. Continue midodrine predialysis. 3.Hyperkalemia status post dialysis, recovered, resolved. 4.Secondary hyperparathyroidism. Continue Renvela. 5.Anemia. Continue Epogen. 6.Over volume status post dialysis, currently normal volume. Continue dialysis Friday, Friday, Friday. Case discussed with the patient. Discussed with Dr. Sa nunez, agreed on the plan. JACKLYN Voice ID: [id number] Report ID: [id number]
[2017-09-17 13:58] VITALS: O2SAT 99
[2017-09-17 16:02] VITALS: BP 126/81; TEMP 97.5
--- NOTE | 2017-11-07 14:46 | DS ---
Date of Discharge: 09/17/2017 History Of Present Illness: A 62-year-old female with end-stage renal disease, on dialysis. She has been skipping dialysis sessions and presented to emergency room with increased shortness of breath, fatigue, and being disoriented. She was found to have fluid overload and was admitted for that. Past Medical History: As per admit note. Social History: As per admit note. Family History: As per admit note. Medications: As per admit note. Allergies: PER ADMIT NOTE. Physical Examination: As per admit note. Diagnostic Data: As per admit note. Hospital Course: The patient was admitted to the hospital. Nephrology was consulted for dialysis an d also for her hyperkalemia. We put her on Kayexalate orally. We monitored her electrolytes. We al so monitored her blood sugar fingersticks and put her on a sliding scale. We continued the rest of h er home medicines for her chronic medical illnesses. The patient was dialyzed and put back on her di alysis regimen with Nephrology. Her potassium also dropped down to 4.6 with fluid overload. The pat ient improved significantly. The patient is stable enough to be discharged with emphasis for her to follow up with dialysis and not to skip and continue the rest of her home medications for her chronic medical illnesses. Look discharge orders for details. MFS/MODL Voice ID: [id number] Report ID: [id number]
== END 2017-09-17 15:30 | disposition home or self-care (01) ==
LOC: ER 10:41 → INTOOBSV 12:57 → ERHOLD 12:57 → 3RD-ICU 13:40
PROVIDERS: ADMIT Internal Medicine; ATTEND Internal Medicine
PROC: 5A1D70Z Performance of Urinary Filtration, Intermittent, Less than 6 Hours Per Day (ICD-10-PCS; principal; 2017-09-14)
PROC: 5A1D70Z Performance of Urinary Filtration, Intermittent, Less than 6 Hours Per Day (ICD-10-PCS; 2017-09-14)
PROC: 5A1D70Z Performance of Urinary Filtration, Intermittent, Less than 6 Hours Per Day (ICD-10-PCS; 2017-09-14)
DX: I13.2 Hypertensive heart and chronic kidney disease with heart failure and with stage 5 chronic kidney disease, or end stage renal disease (principal); E11.22 Type 2 diabetes mellitus with diabetic chronic kidney disease; N18.6 End stage renal disease; I50.33 Acute on chronic diastolic (congestive) heart failure; E87.5 Hyperkalemia; E87.2 Acidosis; I95.3 Hypotension of hemodialysis; Z86.73 Personal history of transient ischemic attack (TIA), and cerebral infarction without residual deficits; Z91.15 Patient's noncompliance with renal dialysis
CPT/HCPCS: 36415 ×2; 71045 ×2; 71250; 74176; 80048 ×3; 80076; 82550; 82553; 82962 ×20; 83735; 83880; 84132; 84484 ×3; 85025 ×2; 85610; 85730; 86317; 86704; 86706; 87040 ×2; 87340; 90935 ×3; 93005 ×2; 94640; 99285; G0378 ×2; J0610; J7030 ×2

== ENCOUNTER 2017-11-03 11:05 | Inpatient (IN) | payer OTHER ==
--- OUTSIDE RECORDS SUMMARY | 2017-11-03 11:09 | XMS REPORT ---
:1955 [facility] Address [address] [place] [address] Care Team Providers Name Role Phone UNKNOWN, [...] the Main Lab for Analysis. POC Glucose, [id number] 16:22:00 Test Item Value Reference Range Comments POC Glucose (test 82 mg/dL 70-115 If you consider your patient code=POCGLUC) critically ill, the Finn Accu-Chek InformII metershould not be used for Glucose determinations.Draw a venous Glucose and send to the Main Lab for Analysis. POC Glucose, [id number] 08:07:00 Test Item Value Reference Range Comments POC Glucose (test 76 mg/dL 70-115 If you consider your patient code=POCGLUC) critically ill, the [place] Accu-Chek InformII metershould not be used for Glucose determinations.Draw a venous Glucose and send to the Main Lab for Analysis. POC Glucose, [id number] 20:48:00 Test Item Value Reference Range Comments POC Glucose (test 107 mg/dL 70-115 If you consider your patient code=POCGLUC) critically ill, the [place] Accu-Chek InformII metershould not be used for Glucose determinations.Draw a venous Glucose and send to the Main Lab for Analysis. POC Glucose, [id number] 07:18:00 Test Item Value Reference Range Comments POC Glucose (test 75 mg/dL 70-115 If you consider your patient code=POCGLUC) critically ill, the [place] Accu-Chek InformII metershould not be used for Glucose determinations.Draw a venous Glucose and send to the Main Lab for Analysis. POC Glucose, [id number] 21:10:00 Test Item Value Reference Range Comments POC Glucose (test 129 mg/dL 70-115 If you consider your patient code=POCGLUC) critically ill, the [place] Accu-Chek InformII metershould not be used for Glucose determinations.Draw a venous Glucose and send to the Main Lab for Analysis. POC Glucose, [id number] 07:44:00 Test Item Value Reference Range Comments POC Glucose (test 91 mg/dL 70-115 If you consider your patient code=POCGLUC) critically ill, the [place] Accu-Chek InformII metershould not be used for Glucose determinations.Draw a venous Glucose and send to the Main Lab for Analysis. US ABD B-SCAN, [id number] 09:21:21DICTATION LOCATION: [id number]: distended. COMPARISON: None available.TECHNIQUE: Sonography ofthe abdomen. [...] Status post cholecystectomy.4. Abdominopelvic ascites.XR ABDOMEN KUB [id number] 07: 58:20EXAM: KUBLocation: [id number]: DistendedCOMPARISON: NoneDISCUSSION:A frontal view of the abdomen is submitted.There is overall increased density of the abdomen with relativelycentralized bowel gas and obscured abdominal fat planes, suggestive ofascites. Right upper quadrant surgical clips suggest priorcholecystectomy. No bowel obstruction or gross evidence ofintra-abdominal free air is seen. No acute bony or normalities areidentified.IMPRESSION: Findings suggest ascites. No evidence of bowel obstructionor intraperitoneal free air.POC Glucose, [id number] 20:27:00 Test Item Value Reference Range Comments POC Glucose (test 107 mg/dL 70-115 If you consider your patient code=POCGLUC) critically ill, the [place] Accu-Chek InformII metershould not be used for Glucose determinations.Draw a venous Glucose and send to the Main Lab for Analysis. POC Glucose, [id number] 21:14:00 Test Item Value Reference Range Comments POC Glucose (test 141 mg/dL 70-115 If you consider your patient code=POCGLUC) critically ill, the [place] Accu-Chek InformII metershould not be used for Glucose determinations.Draw a venous Glucose and send to the Main Lab for Analysis. Comprehensive Metabolic [id number] 06:45:00 Test Item Value Reference Range Comments [...] race is not provided, and the patient isAfrican-Bruneian, multiply by 1.212. If sex is not [...] the National [employer] Foundation,http://nkdep.nih. gov CBC with [id number] 06:27:00 Test Item Value Reference Range Comments [...] Lymph Abs (test code=ALYMPH) 1.1 K/cumm 0.5-4.6 [place] Abs (test code=AMONO) 0.4 K/cumm 0.0-1.2 Eos Abs (test code=AEOS) 0.16 K/cumm 0.00-0.74 Baso Abs (test code=ABASO) 0.0 K/cumm 0.00-0.21 Hypochromic (test code=HYPO) Slight Hep B Surface [id number] 21:04:00 Test Item Value Reference Range Comments Hep Bs Ag (test code=HBSAG) Nonreactive Non-Reactive [id number] 14:36:00 Test Item Value Reference Range Comments NT ProBnp (test code=PBNP) >31240 pg/mL 0-124 Troponin [id number] 14:36:00 Test Item Value Reference Range Comments Troponin T (test code=AARON) 0.040 ng/mL 0.000-0.090 CBC with [id number] 14:14:00 Test Item Value Reference Range Comments [...] Neutro Abs (test code=ANEUT) 2.1 K/cumm 1.6-7.4 [place] Abs (test code=AMONO) 0.5 K/cumm 0.0-1.2 Eos Abs (test code=AEOS) 0.17 K/cumm 0.00-0.74 Baso Abs (test code=ABASO) 0.0 K/cumm 0.00-0.21 RBC Morphology (test code=RBCMRPH) Normal Platelet Est (test code=PLTEST) Normal Platelet on Smear Prothrombin [id number] 14:07:00 Test Item Value Reference Range Comments PT (test code=PT) 13.30 seconds 9.78-13.35 INR (test code=INR) 1.17 Ratio 0.6-1.2 Partial Thromboplastin [id number] 14:07:00 Test Item Value Reference Range Comments aPTT (test code=PTT) 37.50 seconds 24.39-37.25 Basic Metabolic [id number] 13:57:00 Test Item Value Reference Range Comments [...] race is not provided, and the patient isAfrican-Bruneian, multiply by 1.212. If sex is not [...] National Kidney Foundation,http://nkdep.nih. gov XR CHEST 1 [id number] 13:31:50CLINICAL INFORMATION: End-stage renal disease. Missed dialysis [...]
--- OUTSIDE RECORDS SUMMARY | 2017-11-03 11:09 | XMS REPORT | Clinical Summary ---
:1955 Author Organization [facility] Address [address] [place] [address] Care Team Providers Name Role Phone Asked, [...] EXCISION, LEFT FEMORAL DIALYSIS CATHETER PLACEMENT after 11/02/2016 Social History Tobacco Use Types Packs/Day Years Used Date Never Smoker Smokeless Tobacco: Never Used Sex Assigned at Date Recorded Not on file Last Filed Vital Signs Vital Sign Reading Time Taken Blood Pressure 108/54 04/26/2017 1:46 PM [facility] Pulse 71 04/26/2017 1:46 PM [facility] Temperature 36.5 C (97.7 F) 04/26/2017 11:44 AM [facility] Respiratory Rate 18 04/26/2017 11:44 AM [facility] Oxygen Saturation 98% 04/26/2017 11:44 AM [facility] Inhaled Oxygen Concentration - - Weight 79.4 kg (175 lb) 04/24/2017 2:48 PM [facility] Height 160 cm (5' 3") 04/24/2017 2:48 PM [facility] Body Mass Index 31 04/24/2017 2:48 PM [facility] Plan of Treatment Health Maintenance Due Date Last Done Comments CERVICAL CANCER SCREENING 1976 COLON CANCER SCREENING 2005 SHINGRIX VACCINE (#1) 2005 BREAST CANCER SCREENING 09/01/2010 09/01/2008 ZOSTER VACCINE 2015 INFLUENZA VACCINE 11/05/2017 Implants Implanted Type Area Manager Urology Device Expiration Model / Identifier Date Serial / Lot Catheter Emboltmy Nenita 5fr 80cm Artrl Tube Pack - [id number] Surgical Left : THURMAN 11/05/2018 [id number] / Implanted: Qty: 1 on 04/21/2017 by Hernesto Mcclendon MD Implants; Arm [employer] / Expanders; Extenders; Surgical Wires Tray Cath Dialys Straight 3lumen 24cm 13fr Power-Trialysis - [id number] Surgical Right: BARD ACCESS 09/04/2017 [id number] / Implanted: Qty: 1 on 04/21/2017 by Isaura Parikh MD Implants; Arm SYSTEMS / Expanders; Extenders; Surgical Wires Explanted Type Area Manager Urology Device Expiration Model / Identifier Date Serial / Lot Catheter Dialysis Glidepath [id number] Symmetric Tip - [id number] Implantable Left: BARD PERIPHERAL 08/04/2018 [id number] / Implanted: Qty: 1 Infusion Ports Groin VASCULAR / Explanted: Qty: 1 on 04/21/2017 by Dennis Sorto MD or Accessories [id number] Procedures Procedure Name Priority Date/Time Associated Diagnosis Comments US DUPLEX VENOUS Routine 08/29/2017 11:51 Encounter for other Results for this UPPER EXTREMITY AM CDT preprocedural procedure are in BILATERAL examination the results Encounter regarding section. vascular access for dialysis for ESRD POC GLUCOSE Routine 04/26/2017 11:43 Results for this AM [facility] procedure are in the results section. POC GLUCOSE Routine 04/26/2017 9:42 Results for this AM [facility] procedure are in the results section. POC GLUCOSE Routine 04/26/2017 8:24 Results for this AM [facility] procedure are in the results section. ESTIMATED GFR Routine 04/26/2017 4:34 Results for this AM [facility] procedure are in the results section. HC COMPLETE BLD COUNT Routine 04/26/2017 4:34 Results for this W/AUTO DIFF AM [facility] procedure are in the results section. BASIC METABOLIC PANEL Routine 04/26/2017 4:34 Results for this AM [facility] procedure are in the results section. POC GLUCOSE Routine 04/26/2017 12:26 Results for this AM [facility] procedure are in the results section. HEMODIALYSIS Routine 04/25/2017 2:21 PM [facility] POC GLUCOSE Routine 04/25/2017 11:52 Results for this AM [facility] procedure are in the results section. POC GLUCOSE Routine 04/25/2017 10:52 Results for this AM [facility] procedure are in the results section. POC GLUCOSE Routine 04/25/2017 7:44 Results for this AM [facility] procedure are in the results section. ESTIMATED GFR Routine 04/25/2017 4:00 Results for this AM [facility] procedure are in the results section. BASIC METABOLIC PANEL Routine 04/25/2017 4:00 Results for this AM [facility] procedure are in the results section. HC COMPLETE BLD COUNT Routine 04/25/2017 3:50 Results for this W/AUTO DIFF AM [facility] procedure are in the results section. POC GLUCOSE Routine 04/24/2017 11:32 Results for this PM [facility] procedure are in the results section. POC GLUCOSE Routine 04/24/2017 6:42 Results for this PM [facility] procedure are in the results section. XR CHEST 1 VW STAT 04/24/2017 5:30 Results for this PORTABLE PM [facility] procedure are in the results section. POC GLUCOSE Routine 04/24/2017 5:07 Results for this PM [facility] procedure are in the results section. OR FL < 1 HOUR Routine 04/24/2017 4:50 End stage renal Results for this PM [facility] disease procedure are in the results section. UT AN ELECTIVE Routine 04/24/2017 4:09 SUPRAGLOTTIC AIRWAY PM [facility] Procedure Note - Ramon Nava MD - 04/24/2017 4:08 PM [facility] Airway Performed by: RAMON NAVA Authorized by: RAMON NAVA Location: OR Urgency: Elective Difficult Airway: No Anesthesiologist: RAMON NAVA Preoxygenated with 100% O2: Yes C-spine Precautions Maintained Throughout: Yes Mask Ventilation: Not attempted Final Airway Type: Supraglottic airway Final LMA: Classic LMA Size: 4 Number of Attempts at Approach: 1 CATHETER REMOVAL, TUNNELED 04/24/2017 3:00 PM [facility] End stage renal disease CENTRAL VENOUS, WITH PORT Special Needs C-ARM POC GLUCOSE Routine 04/24/2017 12:21 PM [facility] POC GLUCOSE Routine 04/24/2017 8:00 AM [facility] PROTHROMBIN TIME WITH INR Routine 04/24/2017 4:05 AM [facility] PARTIAL THROMBOPLASTIN TIME Routine 04/24/2017 4:05 AM [facility] Results for this (PTT) procedure are in the results section. CBC WITH PLATELET AND Routine 04/24/2017 4:05 AM [facility] Results for this DIFFERENTIAL procedure are in the results section. ESTIMATED GFR Routine 04/24/2017 4:00 AM [facility] PHOSPHORUS LEVEL Routine 04/24/2017 4:00 AM [facility] MAGNESIUM LEVEL Routine 04/24/2017 4:00 AM [facility] BASIC METABOLIC PANEL Routine 04/24/2017 4:00 AM [facility] POC GLUCOSE Routine 04/23/2017 8:11 PM [facility] HEMODIALYSIS Routine 04/23/2017 3:53 PM [facility] POC GLUCOSE Routine 04/23/2017 11:20 AM [facility] VANCOMYCIN LEVEL, RANDOM Routine 04/23/2017 9:55 AM [facility] ECG 12-LEAD STAT 04/23/2017 9:45 AM [facility] XR CHEST 1 VW PORTABLE Routine 04/23/2017 7:57 AM [facility] POC GLUCOSE Routine 04/23/2017 7:21 AM [facility] POC GLUCOSE Routine 04/22/2017 11:28 PM [facility] POC GLUCOSE Routine 04/22/2017 7:43 PM [facility] POC GLUCOSE Routine 04/22/2017 3:30 PM [facility] POC GLUCOSE Routine 04/22/2017 11:25 AM [facility] POC GLUCOSE Routine 04/22/2017 7:27 AM [facility] HC COMPLETE BLD COUNT W/AUTO Routine 04/22/2017 5:00 AM [facility] Results for this DIFF procedure are in the results section. ESTIMATED GFR Routine 04/22/2017 4:00 AM [facility] COMPREHENSIVE METABOLIC Routine 04/22/2017 4:00 AM [facility] Results for this PANEL procedure are in the results section. ECG ED PRELIMINARY Routine 04/21/2017 5:55 PM [facility] Results for this INTERPRETATION procedure are in the results section. HEMODIALYSIS Routine 04/21/2017 4:33 PM [facility] HEPATITIS B SURFACE ANTIGEN Routine 04/21/2017 2:16 PM [facility] PROTHROMBIN TIME WITH INR Routine 04/21/2017 11:27 AM [facility] ESTIMATED GFR Routine 04/21/2017 11:27 AM [facility] HC COMPLETE BLD COUNT W/AUTO Routine 04/21/2017 11:27 AM [facility] Results for this DIFF procedure are in the results section. BASIC METABOLIC PANEL Routine 04/21/2017 11:27 AM [facility] POC GLUCOSE Routine 04/21/2017 11:10 AM [facility] SURGICAL PATHOLOGY REQUEST Routine 04/21/2017 10:58 AM [facility] AFB STAIN Timed 04/21/2017 10:04 AM [facility] GRAM STAIN Timed 04/21/2017 10:04 AM [facility] FUNGUS SMEAR Timed 04/21/2017 10:04 AM [facility] AEROBIC CULTURE Timed 04/21/2017 10:04 AM [facility] AFB CULTURE Timed 04/21/2017 10:04 AM [facility] FUNGUS CULTURE Timed 04/21/2017 10:04 AM [facility] ANESTHESIA INTUBATION Routine 04/21/2017 9:22 AM [facility] Procedure Note - Stanley Cabrera, MD - 04/21/2017 9:21 AM [facility] Airway Performed by: STANLEY CABRERA Authorized by: [...] No Number of Attempts at Approach: 1 POC GLUCOSE Routine 04/21/2017 8:22 Results for this AM [facility] procedure are in the results section. REVISION, ARTERIOVENOUS 04/21/2017 7:30 AV GRAFT GRAFT, WITH ANGIOGRAPHY AM [facility] MALFUNCTION XR CHEST 1 VW PORTABLE STAT 04/21/2017 7:14 Results for this AM [facility] procedure are in the results section. TRANSFUSE RED BLOOD STAT 04/21/2017 7:08 CELLS AM [facility] TROPONIN STAT 04/21/2017 3:59 Results for this AM [facility] procedure are in the results section. ESTIMATED GFR STAT 04/21/2017 3:59 Results for this AM [facility] procedure are in the results section. HEPATIC FUNCTION PANEL STAT 04/21/2017 3:59 Results for this AM [facility] procedure are in the results section. BASIC METABOLIC PANEL STAT 04/21/2017 3:59 Results for this AM [facility] procedure are in the results section. BLOOD CULTURE, AEROBIC Routine 04/21/2017 3:59 Results for this & ANAEROBIC AM [facility] procedure are in the results section. ALT (SGPT) STAT 04/21/2017 2:39 Results for this AM [facility] procedure are in the results section. AST (SGOT) STAT 04/21/2017 2:39 Results for this AM [facility] procedure are in the results section. POTASSIUM LEVEL STAT 04/21/2017 2:39 Results for this AM [facility] procedure are in the results section. PREPARE RBC Timed 04/21/2017 1:35 Results for this AM [facility] procedure are in the results section. ESTIMATED GFR STAT 04/21/2017 1:35 Results for this AM [facility] procedure are in the results section. B NATRIURETIC PEPTIDE STAT 04/21/2017 1:35 Results for this AM [facility] procedure are in the results section. TROPONIN STAT 04/21/2017 1:35 Results for this AM [facility] procedure are in the results section. COMPREHENSIVE METABOLIC STAT 04/21/2017 1:35 Results for this PANEL AM [facility] procedure are in the results section. TYPE AND SCREEN Timed 04/21/2017 1:35 Results for this AM [facility] procedure are in the results section. PARTIAL THROMBOPLASTIN STAT 04/21/2017 1:35 Results for this TIME (PTT) AM [facility] procedure are in the results section. PROTHROMBIN TIME WITH STAT 04/21/2017 1:35 Results for this INR AM [facility] procedure are in the results section. HC COMPLETE BLD COUNT STAT 04/21/2017 1:35 Results for this W/AUTO DIFF AM [facility] procedure are in the results section. after 11/02/2016 Results Pv duplex venous upper extremity (08/29/2017 11:51 AM) Narrative Performed At [facility] Vascular Ultrasound Laboratory Upper Extremity Venous Report [address] [place] [address] Pat.Name:GREGORIA PADILLA Pat.ID:[id number] .Date: 08/29/2017 Refer.MD:HERNESTO MCCLENDON MD Exam Time: 11:16:00 AM Study Type:UE Venous DOBAge:1955,62YSex: FEMALE Sonogrphr: Elio Montilla RN, RVTPat. Stat.:Outpatient TapeVol: DP, CPT - 4: 06802 Echo Event ID:[id number] Order ID:[id number] Reason for Study:Left upper arm pain status post excisxion of infected AVG., 05/2017. Procedures:Colorflow, Grayscale/2D, Pulsed wave Doppler Race:-Beninese SUMMARY: DUPLEX SCAN OBSERVATIONS Right Left IJNormal [...] Ultrasound Laboratory Upper Extremity Venous Report [address] [place] [address] Pat.Name: GREGORIA PADILLA Pat.ID: [id number] .Date: 08/29/2017 Refer.MD: HERNESTO MCCLENDON MD Exam Time: 11:16:00 AM Study Type:UE Venous Age: 12 1955,62Y Sex: FEMALE Sonogrphr: Elio Montilla RN, RVT Pat. Stat.:Outpatient Tape Vol: DP, CPT - 4: 12989 Echo Event ID:[id number] Order ID: [id number] Reason for Study:Left upper arm pain status post excisxion of infected AVG., 05/2017. Procedures:Colorflow, Grayscale/2D, Pulsed wave Doppler Race: -Beninese SUMMARY: DUPLEX SCAN OBSERVATIONS Right Left IJ [...] Signed 08/30/2017 08:06 AM Stephan Huffman MD Performing Organization Address City/State/Zipcode Phone Number [facility] [address] [place] [address] POC glucose (04/26/2017 11:43 AM)Only the most recent of22 resultswithin the time period is included. POC glucose 103 (H) 65 - 99 mg/dL [facility] DEPARTMENT OF PATHOLOGY AND Comment: GENOMIC MEDICINE COUNT INCLUDES THE [facility] Notified RN Meter ID: [id number] Re Examiner: Nelia Qiu Performing Organization Address [facility]/Myndnetcode Phone Number [facility] DEPARTMENT OF PATHOLOGY AND [address] [place] [address] [facility] Estimated GFR (04/26/2017 4:34 AM)Only the most recent of7 resultswithin the time period is included. GFR Non Af Amer 11 (A) mL/min/1.73 m2 [facility] DEPARTMENT OF PATHOLOGY AND GENOMIC MEDICINE GFR Af Amer 14 (A) mL/min/1.73 m2 [facility] DEPARTMENT OF Comment: PATHOLOGY AND GENOMIC Chronic kidney disease: <60 mL/min/1.73m2 MEDICINE Kidney failure: <15 mL/min/1.73m2 The estimated GFR is calculated from the IDMS-traceable Modification of Diet in Renal Disease Equation. The accuracy of the calculation is poor when the creatinine is normal. Calculated values >90 mL/min/1.73m2 are not reported. This equation has not been validated in children (<18 years), women, the elderly (>70 years), or ethnic groups other than Caucasians and Americans. Specimen Plasma specimen Performing Organization Address City/[facility]/Zipcode Phone Number [facility] DEPARTMENT OF PATHOLOGY AND [address] [place] [address] GENOMIC MEDICINE CBC with platelet and differential (04/26/2017 4:34 AM)Only the most recent of6 resultswithin the time period is included. WBC 4.68Comment: WBC was 4.50 - 11.00 k/uL [facility] DEPARTMENT OF corrected for NRBCs PATHOLOGY AND GENOMIC MEDICINE RBC 2.74 (L) 4.20 - 5.50 m/uL [facility] DEPARTMENT OF PATHOLOGY AND GENOMIC MEDICINE HGB 7.7 (L) 12.0 - 16.0 g/dL [facility] DEPARTMENT OF PATHOLOGY AND GENOMIC MEDICINE HCT 26.0 (L) 37.0 - 47.0 % [facility] DEPARTMENT OF PATHOLOGY AND GENOMIC MEDICINE MCV 94.9 82.0 - 100.0 fL [facility] DEPARTMENT OF PATHOLOGY AND GENOMIC MEDICINE MCH 28.1 27.0 - 34.0 pg [facility] DEPARTMENT OF PATHOLOGY AND GENOMIC MEDICINE MCHC 29.6 (L) 31.0 - 37.0 g/dL [facility] DEPARTMENT OF PATHOLOGY AND GENOMIC MEDICINE RDW - SD 59.8 (H) 37.0 - 55.0 fL [facility] DEPARTMENT OF PATHOLOGY AND GENOMIC MEDICINE MPV 10.3 8.8 - 13.2 fL [facility] DEPARTMENT OF PATHOLOGY AND GENOMIC MEDICINE Platelet count 148 (L) 150 - 400 k/uL [facility] DEPARTMENT OF PATHOLOGY AND GENOMIC MEDICINE Nucleated RBC 2.60 /100 WBC [facility] DEPARTMENT OF PATHOLOGY AND GENOMIC MEDICINE Neutrophils 58.7 39.0 - 69.0 % [facility] DEPARTMENT OF PATHOLOGY AND GENOMIC MEDICINE Lymphocytes 21.4 (L) 25.0 - 45.0 % [facility] DEPARTMENT OF PATHOLOGY AND GENOMIC MEDICINE Monocytes 13.9 (H) 0.0 - 10.0 % [facility] DEPARTMENT OF PATHOLOGY AND GENOMIC MEDICINE Eosinophils 4.7 0.0 - 5.0 % [facility] DEPARTMENT OF PATHOLOGY AND GENOMIC MEDICINE Basophils 0.4 0.0 - 1.0 % [facility] DEPARTMENT OF PATHOLOGY AND GENOMIC MEDICINE Immature granulocytes 0.9Comment: "Immature 0.0 - 1.0 % [facility] DEPARTMENT OF granulocytes" PATHOLOGY AND GENOMIC (promyelocytes, MEDICINE myelocytes, metamyelocytes) Specimen Blood Performing Organization Address City/State/Zipcode Phone Number [facility] DEPARTMENT OF PATHOLOGY AND [address] [place] [address] [employer] MEDICINE Basic metabolic panel (04/26/2017 4:34 AM)Only the most recent of5 resultswithin the time period is included. Sodium 138 135 - 148 mEq/L [facility] DEPARTMENT OF PATHOLOGY AND GENOMIC MEDICINE Potassium 4.2 3.5 - 5.0 mEq/L [facility] DEPARTMENT OF PATHOLOGY AND GENOMIC MEDICINE Chloride 96 (L) 98 - 112 mEq/L [facility] DEPARTMENT OF PATHOLOGY AND GENOMIC MEDICINE CO2 25 24 - 31 mEq/L [facility] DEPARTMENT OF PATHOLOGY AND GENOMIC MEDICINE Anion gap 17 (H) 7 - 15 mEq/L [facility] DEPARTMENT OF PATHOLOGY Comment: [facility] Starting from July , anion gap calculation no longer incorporates potassium. Please note the change. BUN 14 8 - 23 mg/dL [facility] DEPARTMENT OF PATHOLOGY AND GENOMIC MEDICINE Creatinine 4.0 (H) 0.5 - 0.9 mg/dL [facility] DEPARTMENT OF PATHOLOGY AND GENOMIC MEDICINE Glucose 96 65 - 99 mg/dL [facility] DEPARTMENT OF PATHOLOGY AND GENOMIC MEDICINE Calcium 8.2 (L) 8.8 - 10.2 mg/dL [facility] DEPARTMENT OF PATHOLOGY AND GENOMIC MEDICINE Specimen Plasma specimen Performing Organization Address City/[facility] Facility[facility] Phone Number [facility] DEPARTMENT OF PATHOLOGY AND [address] [place] [address] [facility] XR Chest 1 Vw Portable (04/24/2017 5:30 PM)Only the most recent of3 resultswithin the time period is included. Narrative Performed At EXAMINATION:XR CHEST 1 VW PORTABLE [facility] CLINICAL HISTORY:New dialysis catheter COMPARISON:None. IMPRESSION: Right dialysis catheter terminates in the superior vena cava, there is no evidence of pneumothorax Heart is enlarged Atelectasis in the lung bases. Degenerative changes are present throughout the bony structures without evidence of a suspicious focal lesion. [facility]-[id number] Procedure Note Interface, Radiology Results Incoming - 04/24/2017 6:28 PM [facility] EXAMINATION: XR CHEST 1 VW PORTABLE CLINICAL HISTORY: New dialysis catheter COMPARISON: None. IMPRESSION: Right dialysis catheter terminates in the superior vena cava, there is no evidence of pneumothorax Heart is enlarged Atelectasis in the lung bases. Degenerative changes are present throughout the bony structures without evidence of a suspicious focal lesion. [facility]-[id number] Performing Organization Address City/[facility] Facility[facility] Phone Number [facility] [address] [place] [address] OR [place] < 1 Hour (04/24/2017 4:50 PM) Narrative Performed At EXAMINATION:OR [place] 1 HOUR [facility] C-arm fluoroscopy was requested in OR. LOCATION: [place] [facility] OR 06 PROCEDURE: C-Arm for INSERTION OF TUNNELED DIALYSIS CATHETER START TIME: 1635 FINISH TIME: 1650 FLUORO TIME: 0.1 min DOSE: mGy:1.06 TECH(S): PHAN MENDOZA IMPRESSION: Separate operative report will be issued by the physician performing the procedure. [id number] Procedure Note Hm Interface, Radiology Results Incoming - 04/24/2017 10:13 PM [facility] EXAMINATION: OR [place] 1 HOUR C-arm fluoroscopy was requested in OR. LOCATION: [place] [facility] OR 06 PROCEDURE: C-Arm for INSERTION OF TUNNELED DIALYSIS CATHETER START TIME: 1635 FINISH TIME: 1650 FLUORO TIME: 0.1 min DOSE: mGy: 1.06 TECH(S): PHAN MENDOZA IMPRESSION: Separate operative report will be issued by the physician performing the procedure. [id number] Performing Organization Address [facility] Phone Number [facility] [address] [place] [phone] Partial thromboplastin time, activated (04/24/2017 4:05 AM)Only the most recent of2 resultswithin the time period is included. PTT 35.1 23.0 - 36.0 sec [facility] DEPARTMENT OF PATHOLOGY Comment: AND [employer] MEDICINE PTT therapeutic range for unfractionated heparin is 61.0-112.0 seconds which corresponds to Anti-Xa 0.3-0.7 U/ml. Specimen Blood Performing Organization Address [facility] Phone Number [facility] DEPARTMENT OF PATHOLOGY AND [address] [place] [phone] [facility] Prothrombin time with INR (04/24/2017 4:05 AM)Only the most recent of3 resultswithin the time period is included. Prothrombin time 15.5 (H) 12.0 - 15.0 sec [facility] DEPARTMENT OF PATHOLOGY AND GENOMIC MEDICINE INR 1.2 [facility] DEPARTMENT OF Comment: PATHOLOGY AND GENOMIC The International Normalized Ratio (INR) is a therapeutic MEDICINE monitoring tool for patients who are stable on oral anticoagulant therapy. An INR of 2.0-3.0 is suggested for deep vein thrombosis/pulmonary embolism. Specimen Blood Performing Organization Address [facility] Phone Number [facility] DEPARTMENT OF PATHOLOGY AND [address] [place] [phone] [facility] MEDICINE Phosphorus level (04/24/2017 4:00 AM) Phosphorus 3.9 2.4 - 4.5 mg/dL [facility] DEPARTMENT OF PATHOLOGY AND GENOMIC MEDICINE Specimen Plasma specimen Performing Organization Address [facility] Phone Number [facility] DEPARTMENT OF PATHOLOGY AND [address] [place] [address] MEDICINE Magnesium level (04/24/2017 4:00 AM) Magnesium 1.9 1.6 - 2.4 mg/dL [facility] DEPARTMENT OF PATHOLOGY AND GENOMIC MEDICINE Specimen Plasma specimen Performing Organization Address [facility] Facilitycowv Phone Number [facility] DEPARTMENT OF PATHOLOGY AND [address] [place] [phone] [place] [address] Vancomycin level, random (04/23/2017 9:55 AM) Vancomycin, random 9.1 ug/mL [facility] DEPARTMENT OF PATHOLOGY AND GENOMIC MEDICINE Specimen Serum Performing Organization Address [facility] Phone Number [facility] DEPARTMENT OF PATHOLOGY AND [address] [place] [address] ECG 12 lead (04/23/2017 9:45 AM) Ventricular rate 80 [facility] M[facility] Atrial rate 80 [facility] UT interval 214 [facility] QRSD interval 166 [facility] QT interval 436 [facility] QTC interval 502 [facility] M[facility] P axis 1 51 [facility] M[facility] QRS axis 1 -62 [facility] M[facility] T wave axis -1 [facility] EKG impression Sinus rhythm with sinus arrhythmia with 1st degree AV block- Left axis deviation-Right bundle branch block-T wave abnormality, consider lateral ischemia-Abnormal ECG-In automated comparison with ECG of 1 [facility] MUSE -FEB-2014 19:02,-T wave inversion more evident in Anterior leads-Electronically Signed By Fitz Hogan ([id number]) on 2017 8:15:04 AM Performing Organization Address [facility] Phone Number [facility] [address] [place], [place] [phone] Comprehensive metabolic panel (04/22/2017 4:00 AM)Only the most recent of2 resultswithin the time period is included. Sodium 140 135 - 148 mEq/L [facility] DEPARTMENT OF PATHOLOGY AND GENOMIC MEDICINE Potassium 4.7 3.5 - 5.0 mEq/L [facility] DEPARTMENT OF PATHOLOGY AND GENOMIC MEDICINE Chloride 98 98 - 112 mEq/L [facility] DEPARTMENT OF PATHOLOGY AND GENOMIC MEDICINE CO2 26 24 - 31 mEq/L [facility] DEPARTMENT OF PATHOLOGY AND GENOMIC MEDICINE Anion gap 16 (H) 7 - 15 mEq/L [facility] DEPARTMENT OF Comment: PATHOLOGY AND GENOMIC Starting from July , anion gap calculation MEDICINE no longer incorporates potassium. Please note the change. BUN 20 8 - 23 mg/dL [facility] DEPARTMENT OF PATHOLOGY AND GENOMIC MEDICINE Creatinine 4.6 (H) 0.5 - 0.9 mg/dL [facility] DEPARTMENT OF PATHOLOGY AND GENOMIC MEDICINE Glucose 105 (H) 65 - 99 mg/dL [facility] DEPARTMENT OF PATHOLOGY AND GENOMIC MEDICINE Calcium 8.6 (L) 8.8 - 10.2 mg/dL [facility] [facility] DEPARTMENT OF PATHOLOGY AND GENOMIC MEDICINE Protein 7.7 6.3 - 8.3 g/dL [facility] DEPARTMENT OF Comment: PATHOLOGY AND GENOMIC 4.6-7.0 g/dL MEDICINE 1 week 4.4-7.6 g/dL 7 months-1year5.1-7.3 g/dL 1-2 years5.6-7.5 g/dL >3 years6.0-8.0 g/dL 18-150 6.3-8.3 g/dL Albumin 3.2 (L) 3.5 - 5.0 g/dL [facility] DEPARTMENT OF PATHOLOGY AND GENOMIC MEDICINE A/G ratio 0.7 0.7 - 3.8 [facility] DEPARTMENT OF PATHOLOGY AND GENOMIC MEDICINE Alkaline phosphatase 102 35 - 104 U/L [facility] DEPARTMENT OF PATHOLOGY AND GENOMIC MEDICINE AST 16 10 - 35 U/L [facility] DEPARTMENT OF PATHOLOGY AND GENOMIC MEDICINE ALT 7 5 - 50 U/L [facility] DEPARTMENT OF PATHOLOGY AND GENOMIC MEDICINE Total bilirubin 0.4 0.0 - 1.2 mg/dL [facility] DEPARTMENT OF PATHOLOGY AND GENOMIC MEDICINE Specimen Plasma specimen Performing Organization Address City/State/Zipcode Phone Number [facility] DEPARTMENT OF PATHOLOGY AND [address] [place] [address] [facility] MEDICINE ECG ED Preliminary Interpretation - NOT AN ORDER (04/21/2017 5:55 PM) Narrative Performed At Zeus Cook MD 04/21/20175:55 PM ECG ED Preliminary Interpretation - Not an Order Performed by: ZEUS COOK Authorized by: ZEUS COOK ECG reviewed by ED Physician in the absence of a jury consultant: yes Interpretation: Interpretation: normal Rate: ECG rate:74 ECG rate assessment: normal Rhythm: Rhythm: sinus rhythm QRS: QRS axis:Normal QRS intervals:Normal ST segments: ST segments:Normal Hepatitis B surface antigen (04/21/2017 2:16 PM) Hepatitis B surface Ag Non-reactive Non-reactive [facility] DEPARTMENT OF PATHOLOGY AND GENOMIC MEDICINE Specimen Blood Performing Organization Address [facility] Phone Number [facility] DEPARTMENT OF PATHOLOGY AND [address] [place] [address] Surgical pathology request (04/21/2017 10:58 AM) [facility] DEPARTMENT OF PATHOLOGY AND GENOMIC MEDICINE Surgical pathology report See link below for PDF [facility] DEPARTMENT OF Lab Report PATHOLOGY AND GENOMIC MEDICINE Result status This is Final Report to [facility] DEPARTMENT OF [id number] PATHOLOGY AND GENOMIC MEDICINE Performing Organization Address [facility] [place] Number [facility] DEPARTMENT OF PATHOLOGY AND [address] [place] [address] MEDICINE Fungus smear (04/21/2017 10:04 AM) Fungus smear No fungi observed. [facility] DEPARTMENT OF PATHOLOGY Comment: AND GENOMIC MEDICINE Specimen Information Specimen Source: Graft Specimen Site: left arm arteriovenous graft Performing Organization Address [facility] Phone Number [facility] DEPARTMENT OF PATHOLOGY AND [address] [place] [address] MEDICINE AFB culture (04/21/2017 10:04 AM) AFB culture isolate No growth after 6 weeks of incubation. [facility] DEPARTMENT OF Comment: PATHOLOGY AND GENOMIC Specimen Information MEDICINE Specimen Source: Graft Specimen Site: left arm arteriovenous graft Specimen Implant - Other Performing Organization Address [facility] Phone Number [facility] DEPARTMENT OF PATHOLOGY AND [address] [place] [address] MEDICINE Aerobic culture (04/21/2017 10:04 AM) Aerobic culture isolate Staphylococcus aureus [facility] DEPARTMENT OF Occasional PATHOLOGY AND GENOMIC This organism is Methicillin Sensitive. MEDICINE (A) Comment: Specimen Information Specimen Source: Graft Specimen Site: left arm arteriovenous graft Organism Antibiotic Method Susceptibility Staphylococcus aureus Ampicillin [...] Staphylococcus aureus Vancomycin MANI 1 mcg/mL: Susceptible Performing Organization Address [facility] Phone Number [facility] DEPARTMENT OF PATHOLOGY AND [address] [place] [address] GENOMIC MEDICINE Gram stain (04/21/2017 10:04 AM) Gram stain isolate Few WBC's [facility] DEPARTMENT OF No organisms seen PATHOLOGY AND GENOMIC MEDICINE Comment: Specimen Information Specimen Source: Graft Specimen Site: left arm arteriovenous graft Performing Organization Address [facility] Phone Number [facility] DEPARTMENT OF PATHOLOGY AND [address] [place] [address] GENOMIC MEDICINE AFB stain (04/21/2017 10:04 AM) AFB stain No acid fast bacilli (AFB) seen. [facility] DEPARTMENT OF PATHOLOGY AND Comment: GENOMIC MEDICINE Specimen Information Specimen Source: Graft Specimen Site: left arm arteriovenous graft Performing Organization Address [facility] Phone Number [facility] DEPARTMENT OF PATHOLOGY AND [address] [place] [address] GENOMIC MEDICINE Fungus culture (04/21/2017 10:04 AM) Fungus culture isolate No growth after 4 weeks of incubation. [facility] DEPARTMENT OF Comment: PATHOLOGY AND GENOMIC Specimen Information MEDICINE Specimen Source: Graft Specimen Site: left arm arteriovenous graft Specimen Implant - Other Performing Organization Address [facility] Phone Number [facility] DEPARTMENT OF PATHOLOGY AND [address] [place] [phone] GENOMIC MEDICINE Transfuse RBC (04/21/2017 7:08 AM)Troponin (04/21/2017 3:59 AM)Only the most recent of2 resultswithin the time period is included. Troponin <0.30 0.00 - 0.30 ng/mL [facility] DEPARTMENT OF PATHOLOGY Comment: AND GENOMIC MEDICINE 0.30 - 1.49 ng/mlMay indicate increased risk of acute coronary syndrome. >=1.5 ng/mlConsistent with acute myocardial infarction. The diagnostic value of a single normal or non-diagnostic result is questionable.Serial samples at 2-6 hour intervals are required to rule out acute myocardial injury. Specimen Plasma specimen Performing Organization Address [facility] Phone Number [facility] DEPARTMENT OF PATHOLOGY AND [address] [place] [phone] [employer] MEDICINE Blood culture, aerobic & anaerobic (04/21/2017 3:59 AM) Blood culture isolate No growth after 5 days of incubation. [facility] DEPARTMENT OF Comment: PATHOLOGY AND GENOMIC Specimen Information MEDICINE Specimen Source: Blood Specimen Site: Peripheral Arm Right Specimen Blood Performing Organization Address [facility] Phone Number [facility] DEPARTMENT OF PATHOLOGY AND [address] [place] [phone] [place] [address] Hepatic function panel (04/21/2017 3:59 AM) Albumin 3.0 (L) 3.5 - 5.0 g/dL [facility] DEPARTMENT OF PATHOLOGY AND GENOMIC MEDICINE Total bilirubin <0.2 0.0 - 1.2 mg/dL [facility] DEPARTMENT OF PATHOLOGY AND GENOMIC MEDICINE Bilirubin direct <0.2 0.0 - 0.3 mg/dL [facility] DEPARTMENT OF PATHOLOGY AND GENOMIC MEDICINE Alkaline phosphatase 109 (H) 35 - 104 U/L [facility] DEPARTMENT OF PATHOLOGY AND GENOMIC MEDICINE Protein 7.4 6.3 - 8.3 g/dL [facility] DEPARTMENT OF Comment: PATHOLOGY AND GENOMIC 4.6-7.0 g/dL MEDICINE 1 week 4.4-7.6 g/dL 7 months-1year5.1-7.3 g/dL 1-2 years5.6-7.5 g/dL >3 years6.0-8.0 g/dL 18-150 6.3-8.3 g/dL ALT 13 5 - 50 U/L [facility] DEPARTMENT OF PATHOLOGY AND GENOMIC MEDICINE AST 15 10 - 35 U/L [facility] DEPARTMENT OF PATHOLOGY AND GENOMIC MEDICINE Specimen Plasma specimen Performing Organization Address [facility] Phone Number [facility] DEPARTMENT OF PATHOLOGY AND [address] [place] [phone] [facility] MEDICINE ALT (SGPT) (04/21/2017 2:39 AM) ALT Footnote 5 - 50 U/L [facility] DEPARTMENT OF PATHOLOGY AND GENOMIC MEDICINE Specimen Plasma specimen Performing Organization Address [facility] Phone Number [facility] DEPARTMENT OF PATHOLOGY AND [address] [place] [address] MEDICINE AST (SGOT) (04/21/2017 2:39 AM) AST Footnote 10 - 35 U/L [facility] DEPARTMENT OF PATHOLOGY AND GENOMIC MEDICINE Specimen Plasma specimen Performing Organization Address City/[facility]/Zipcode Phone Number [facility] DEPARTMENT OF PATHOLOGY AND [address] [place] [address] Potassium level (04/21/2017 2:39 AM) Potassium Footnote 3.5 - 5.0 mEq/L [facility] DEPARTMENT OF PATHOLOGY Comment: AND [employer] MEDICINE Unable to perform testing, specimen is HEMOLYZED.Recollect requested for K,AST,ALT.RUSSEL GRESHAM notified by KXG at04/21/201703:48 . Specimen Plasma specimen Performing Organization Address City/[facility] Phone Number [facility] DEPARTMENT OF PATHOLOGY AND [address] [place] [address] [employer] MEDICINE Prepare RBC, 2 Units (04/21/2017 1:35 AM) Product name Red Cells AS1 Leukored [facility] DEPARTMENT OF Irrad PATHOLOGY AND GENOMIC MEDICINE Unit number [id number] [facility] DEPARTMENT OF PATHOLOGY AND GENOMIC MEDICINE Product code [id number] [facility] DEPARTMENT OF PATHOLOGY AND GENOMIC MEDICINE Dispense status Transfused [facility] DEPARTMENT OF PATHOLOGY AND GENOMIC MEDICINE Blood expiration date [id number] [facility] DEPARTMENT OF PATHOLOGY AND GENOMIC MEDICINE Blood type code 7300 [facility] DEPARTMENT OF PATHOLOGY AND GENOMIC MEDICINE Blood type B POSITIVE [facility] DEPARTMENT OF PATHOLOGY AND GENOMIC MEDICINE Product name Red Cells AS1 Leukored [facility] DEPARTMENT OF Irrad PATHOLOGY AND GENOMIC MEDICINE Unit number [id number] [facility] DEPARTMENT OF PATHOLOGY AND GENOMIC MEDICINE Product code [id number] [facility] DEPARTMENT OF PATHOLOGY AND GENOMIC MEDICINE Dispense status Transfused [facility] DEPARTMENT OF PATHOLOGY AND GENOMIC MEDICINE Blood expiration date [id number] [facility] DEPARTMENT OF PATHOLOGY AND GENOMIC MEDICINE Blood type code 7300 [facility] DEPARTMENT OF PATHOLOGY AND GENOMIC MEDICINE Blood type B POSITIVE [facility] DEPARTMENT OF PATHOLOGY AND GENOMIC MEDICINE Performing Organization Address City/[facility] Phone Number [facility] DEPARTMENT OF PATHOLOGY AND [address] [place] [address] GENOMIC MEDICINE Type and screen (04/21/2017 1:35 AM) ABO grouping B [facility] DEPARTMENT OF PATHOLOGY AND GENOMIC MEDICINE Rh type POS [facility] DEPARTMENT OF PATHOLOGY AND GENOMIC MEDICINE Antibody screen (gel) NEG [facility] DEPARTMENT OF PATHOLOGY AND GENOMIC MEDICINE Specimen Blood Performing Organization Address City/[facility] Phone Number [facility] DEPARTMENT OF PATHOLOGY AND [address] [place] [address] GENOMIC MEDICINE B natriuretic peptide (04/21/2017 1:35 AM) BNP 582 (H) 0 - 100 pg/mL [facility] DEPARTMENT OF PATHOLOGY AND GENOMIC MEDICINE Specimen Blood Performing Organization Address [facility] Phone Number [facility] DEPARTMENT OF PATHOLOGY AND [address] [place] [address] GENOMIC MEDICINE after 11/02/2016 Insurance Payer Benefit Plan / Group Subscriber ID Type Phone Address MEDICARE MEDICARE PART A AND B xxxxxxxxxxx Medicare [place], [place] Home: [address] [facility] J [phone] [address]
[2017-11-03] MEDS ORDERED: D50W 25 GM/50 ML SYRINGE IV ONE ×2 (11:48→18:37)
[2017-11-03 12:12] LABS: Protime INR 1.1
[2017-11-03 12:43] LABS: Absolute Lymphocytes (CBC) 0.7 K/uL (0.7-4.9); Absolute Monocytes 0.4 K/uL (0.1-1.3); Absolute Neutrophil 1.8 K/uL (1.8-8.0); Basophils % 0.8 % (0-1.3); Eosinophils % 3.2 % (0-4.4); Lymphocytes % 24.1 % (15.3-44.8); MCH 27.9 pg (27.0-35.0); MCV 87.5 fL (80-100); MPV 8.9 fL (7.6-11.3); Monocytes % 12.2 % (3.3-12.3); RBC Red Blood Cell Count 3.89 M/uL (3.86-4.86)
[2017-11-03 12:57] LABS: Albumin 3.8 g/dL (3.4-5.0); Bilirubin Direct 0.1 mg/dL (0-0.2); Bilirubin Total 0.4 mg/dL (0.2-1.0); CKMB Creatine Kinase MB 1.2 ng/mL (0.3-3.6); Magnesium 2.3 mg/dL (1.8-2.4); Protein, Total 9.2 g/dL (6.4-8.2)
--- NOTE | 2017-11-03 13:12 | RAD REPORT ---
EXAM DESCRIPTION: RAD - Chest Single View - 11/03/2017 12:54 pm CLINICAL HISTORY: CHEST PAIN Chest pain. COMPARISON: Chest Single View dated 09/15/2017; Chest Single View dated 09/14/2017; Chest Single View dated 04/20/2017; Chest Single View dated 02/04/2017 FINDINGS: Portable technique limits examination quality. The lungs are grossly clear. The heart is mildly to moderately enlarged. Right-sided venous catheter has tip in the SVC. No displaced fractures. IMPRESSION: No acute intrathoracic process suspected.
--- NOTE | 2017-11-03 14:00 | EKG ---
Test Date: 2017-11-03 Test Time: 11:17:26 Screen Room Operator: CLARISSA MEASUREMENT RESULTS: Intervals: Rate: 76 TX: 206 QRSD: 160 QT: 470 QTc: 528 [place]: P: 57 TX: 206 QRS: -57 T: 17 INTERPRETIVE STATEMENTS: Normal sinus rhythm Right bundle branch block Left anterior fascicular block Bifascicular block Abnormal ECG Compared to ECG 09/15/2017 08:37:18 First degree AV block no longer present Bifascicular block still present Electronically Signed On 11-03-17 14:00:09 CDT by Charles Jaimes
--- NOTE | 2017-11-03 15:44 | EDPHYS ---
Physician Documentation [facility] Name: Liya Sullivan Age: 62 yrs Sex: Female : 1955 Arrival Date: 11/03/2017 Time: 11:26 Bed 24 Private MD: ED Physician Moises Scales HPI: 11/03 11:28 This 62 yrs old Black Female presents to ER via Unassigned with complaints of chest ps1 pain. 11:28 pain is localized to the center of the chest. It is reproducible to light touch of the ps1 skin. Does not radiate. Patient is a dialysis patient per Dr. Clement and goes MWF. States she has not missed any appointments. Pain rated as severe and out of proportion to exam. No remitting factors. . Historical: - Allergies: 11:34 Aspirin; iw 11:34 butorphanol tartrate; iw 11:34 Clonidine; iw 11:34 Codeine; iw 11:34 Compazine; iw 11:34 Darvocet-N 100; iw 11:34 Demerol; iw 11:34 diphenhydramine HCl; iw 11:34 Hydromorphone; iw 11:34 hydroxyzine HCl; iw 11:34 Levaquin; iw 11:34 Levofloxacin; iw 11:34 Morphine; iw 11:34 Ondansetron HCl; iw 11:34 pantoprazole sodium; iw 11:34 promethazine HCl; iw 11:34 Protonix; iw 11:34 Stadol; iw 11:34 tramadol; iw - PMHx: 11:34 CVA; Diabetes - IDDM; Dialysis; ESRD; iw - Immunization history:: Adult Immunizations unknown. - Ebola Screening: : Patient negative for fever greater than or equal to 101.5 degrees Fahrenheit, and additional compatible Ebola Virus Disease symptoms Patient denies exposure to infectious person Patient denies travel to an Ebola-affected area in the 21 days before illness onset No symptoms or risks identified at this time. - Social history:: Smoking status: Patient/guardian denies using tobacco. ROS: 11:28 Constitutional: Negative for fever, chills, and weight loss, Eyes: Negative for injury, ps1 pain, redness, and discharge, Respiratory: Negative for shortness of breath, cough, wheezing, and pleuritic chest pain, Abdomen/GI: Negative for abdominal pain, nausea, vomiting, diarrhea, and constipation, Back: Negative for injury and pain, MS/Extremity: Negative for injury and deformity, Skin: Negative for injury, rash, and discoloration. 11:28 Cardiovascular: Positive for chest pain, with movement, of the xyphoid area and mid-sternal area. Exam: 11:28 Constitutional: This is a well developed, well nourished patient who is awake, alert, ps1 and in no acute distress. Head/Face: Normocephalic, atraumatic. Eyes: Pupils equal round and reactive to light, extra-ocular motions intact. Lids and lashes normal. Conjunctiva and sclera are non-icteric and not injected. Chest/axilla: Normal chest wall appearance and motion. Nontender with no deformity. No lesions are appreciated. Respiratory: Lungs have equal breath sounds bilaterally, clear to auscultation and percussion. No rales, rhonchi or wheezes noted. No increased work of breathing, no retractions or nasal flaring. Abdomen/GI: Soft, non-tender, with normal bowel sounds. No distension or tympany. No guarding or rebound. No evidence of tenderness throughout. Skin: Warm, dry with normal turgor. Normal color with no rashes, no lesions, and no evidence of cellulitis. MS/ Extremity: Pulses equal, no cyanosis. Neurovascular intact. Full, normal range of motion. 11:28 Cardiovascular: Regular rate and rhythm. No gallops, murmurs, or rubs. Normal PMI, no JVD. No pulse deficits. 11:28 Chest/axilla: Inspection: normal, no rash, Palpation: tenderness, that is severe, of the xyphoid area and mid-sternal area. Vital Signs: 11:34 BP 145 / 73; Pulse 75; Resp 23; Pulse Ox 96% on R/A; dm5 11:34 Temp 97.1(TE); Weight 75 kg (R); dm5 12:37 BP 150 / 73; Pulse 74; Resp 14 S; Pulse Ox 100% on R/A; Pain 8/10; iw 13:26 BP 167 / 83; Pulse 73; Resp 18; Pulse Ox 99% on 2 lpm NC; kr2 14:16 BP 164 / 92; Pulse 77; Resp 17; Pulse Ox 95% on 2 lpm NC; kr2 15:06 BP 167 / 85; Pulse 88; Resp 17; Pulse Ox 95% on 2 lpm NC; kr2 16:24 BP 154 / 84; Pulse 71; Resp 18; Pulse Ox 99% on NC; kr2 17:38 BP 151 / 84; Pulse 85; Resp 17; Pulse Ox 99% on 2 lpm NC; kr2 MDM: 11:33 Patient medically screened. ps1 11/03 11:33 Order name: Basic Metabolic Panel; Complete Time: 13:05 5 11/03 11:33 Order name: CBC with Diff; Complete Time: 12:54 5 11/03 11:33 Order name: Ckmb; Complete Time: 13:05 5 11/03 11:33 Order name: CPK; Complete Time: 13:[facility] 11/03 11:33 Order name: LFT's; Complete Time: 13:05 5 11/03 11:33 Order name: Magnesium; Complete Time: 13:05 5 11/03 11:33 Order name: NT PRO-BNP; Complete Time: 13:[facility] 11/03 11:33 Order name: PT-INR; Complete Time: 12:19 5 11/03 11:33 Order name: Ptt, Activated; Complete Time: 12:19 [facility] 11/03 11:33 Order name: Troponin (emerg Dept Use Only); Complete Time: 12:30 5 11/03 15:47 Order name: Basic Metabolic Panel EDMN 11/03 15:47 Order name: Basic Metabolic Panel EDMN 11/03 15:47 Order name: CBC with Automated Diff EDMS 11/03 15:47 Order name: CBC with Automated Diff EDMS 11/03 11:33 Order name: XRAY Chest (1 view); Complete Time: 13:19 5 11/03 11:33 Order name: EKG; Complete Time: 11:34 5 11/03 11:33 Order name: Cardiac monitoring; Complete Time: 12:30 5 11/03 13:08 Order name: Diet Renal; Complete Time: 13:08 11/03 15:47 Order name: Regular EDMS 11/03 17:49 Order name: Glucose, Ancillary Testing; Complete Time: 17:54 EDMS 11/03 17:49 Order name: Glucose, Ancillary Testing; Complete Time: 17:54 EDMS 11/03 17:49 Order name: Glucose, Ancillary Testing; Complete Time: 17:54 EDMS 11/03 17:49 Order name: Glucose, Ancillary Testing; Complete Time: 17:54 EDMS 11/03 17:49 Order name: Glucose, Ancillary Testing; Complete Time: 17:54 EDMS 11/03 17:49 Order name: Glucose, Ancillary Testing; Complete Time: 17:54 EDMS 11/03 17:49 Order name: Glucose, Ancillary Testing; Complete Time: 17:54 EDMS 11/03 11:33 Order name: EKG - Nurse/Tech; Complete Time: 12:30 dm5 11/03 11:33 Order name: IV Saline Lock; Complete Time: 12:31 dm5 11/03 11:33 Order name: Labs collected and sent; Complete Time: 12:31 dm5 11/03 11:33 Order name: O2 Per Protocol; Complete Time: 12:31 dm5 11/03 11:33 Order name: O2 Sat Monitoring; Complete Time: 12:31 dm5 EC:17 Rate is 76 beats/min. Rhythm is regular. QRS Burr is Normal. MD interval is normal. QRS ps1 interval is prolonged. QT interval is prolonged. Q waves are Old. T waves are Normal. No ST changes noted. Clinical impression: RBBB, LAFB, NSR. Interpreted by me. Administered Medications: Discontinued: D5-1/2 NS 1000 ml IV at 30 ml/hr continuous 11:45 Drug: D50W 25 ml Route: IVP; Site: left jugular; iw 13:15 Follow up: Response: No adverse reaction; Blood sugar is elevated kr2 13:24 Drug: D50W 25 ml Route: IVP; Site: left jugular; kr2 14:30 Follow up: Response: No adverse reaction; Blood sugar is elevated kr2 16:01 Drug: D5-1/2 NS 1000 ml Route: IV; Rate: 30 ml/hr; Site: left jugular; kr2 17:22 Follow up: Response: No adverse reaction; IV Status: Order to discontinue infusion kr2 17:23 Drug: D5-1/2 NS 1000 ml Route: IV; Rate: 100 ml/hr; Site: left jugular; kr2 18:16 Follow up: Response: No adverse reaction; Blood sugar is elevated; IV Status: Infusion kr2 continued upon admission Point of Care Testing: Blood Glucose: 11:39 Blood Glucose: 43 mg/dL; iw 12:36 Blood Glucose: 50 mg/dL; iw 13:16 Blood Glucose: 67 mg/dL; kr2 14:15 Blood Glucose: 83 mg/dL; kr2 15:20 Blood Glucose: 77 mg/dL; kr2 16:24 Blood Glucose: 77 mg/dL; kr2 17:07 Blood Glucose: 89 mg/dL; kr2 15:20 Dr. Scales notified, patient eating at this time kr2 16:24 Dr. Scales notified kr2 Ranges: Critical Glucose Levels:Adult <50 mg/dl or >400 mg/dl <40 mg/dl or >180 mg/dl Disposition: 11/03/17 15:43 Hospitalization ordered by Vern Kovacs for Inpatient Admission. Preliminary diagnosis are Hypoglycemia, unspecified, Other chest pain. - Bed requested for Telemetry/MedSurg (Inpatient). - Status is Inpatient Admission. kr2 - Condition is Fair. - Problem is new. - Symptoms are unchanged. UTI on Admission? No Signatures: Dispatcher [employer] EDMS Sharon Almanza Deana RN RN dm5 Sharon Fisher RN RN iw Micki Howell RN RN kr2 Moises Scales MD MD ps1 Corrections: (The following items were deleted from the chart) 16:13 15:43 Hospitalization Ordered by Vern Kovacs MD for Inpatient Admission. Preliminary bd diagnosis is Hypoglycemia, unspecified; Other chest pain. Bed requested for Telemetry/MedSurg (Inpatient). Status is Inpatient Admission. Condition is Fair. Problem is new. Symptoms are unchanged. UTI on Admission? No. ps1 18:20 16:13 11/03/2017 15:43 Hospitalization Ordered by Vern Kovacs MD for Inpatient kr2 Admission. Preliminary diagnosis is Hypoglycemia, unspecified; Other chest pain. Bed requested for Telemetry/MedSurg (Inpatient). Status is Inpatient Admission. Condition is Fair. Problem is new. Symptoms are unchanged. UTI on Admission? No. bd
--- NOTE | 2017-11-03 15:44 | ER ---
Nurse's Notes [facility] Name: Liya Sullivan Age: 62 yrs Sex: Female : 1955 Arrival Date: 11/03/2017 Time: 11:26 Bed 24 Private MD: Diagnosis: Hypoglycemia, unspecified;Other chest pain Presentation: 11/03 11:30 Presenting complaint: Patient states: Chest pain since last night. Headache started dm5 today. Pt states the last time she felt like this her potassium was high. Pt is scheduled for dialysis today. Pt has high blood pressure. Transition of care: patient was not received from another setting of care. Onset of symptoms was November 02, 2017. Risk Assessment: Do you want to hurt yourself or someone else? Patient reports no desire to harm self or others. Initial Sepsis Screen: Does the patient meet any 2 criteria? No. Patient's initial sepsis screen is negative. Does the patient have a suspected source of infection? No. Patient's initial sepsis screen is negative. 11:30 Acuity: STEPHANIE 2 dm5 11:30 Method Of Arrival: EMS: [facility] 11:34 Care prior to arrival: pt was able to "take about half oral glucose dose" per EMS. dm5 Triage Assessment: 11:36 General: Appears in no apparent distress. uncomfortable, pt complains of pain on right dm5 side related to neuropathy . Behavior is calm, cooperative, drowsy. Pain: Complains of pain in chest, right sided neuropathy pain. Neuro: Level of Consciousness is alert, lethargic, Oriented to person, place, time, situation, Reports headache. Cardiovascular: Reports chest pain, since last night. Respiratory: Airway is patent Respiratory effort is even, unlabored, relaxed, Respiratory pattern is regular, symmetrical, Breath sounds are clear. GI: Patient currently denies abdominal pain. Derm: Skin is dry, Skin is pink, warm \\T\\ dry. Historical: - Allergies: 11:34 Aspirin; iw 11:34 butorphanol tartrate; iw 11:34 Clonidine; iw 11:34 Codeine; iw 11:34 Compazine; iw 11:34 Darvocet-N 100; iw 11:34 Demerol; iw 11:34 diphenhydramine HCl; iw 11:34 Hydromorphone; iw 11:34 hydroxyzine HCl; iw 11:34 Levaquin; iw 11:34 Levofloxacin; iw 11:34 Morphine; iw 11:34 Ondansetron HCl; iw 11:34 pantoprazole sodium; iw 11:34 promethazine HCl; iw 11:34 Protonix; iw 11:34 Stadol; iw 11:34 tramadol; iw - PMHx: 11:34 CVA; Diabetes - IDDM; Dialysis; ESRD; iw - Immunization history:: Adult Immunizations unknown. - Ebola Screening: : Patient negative for fever greater than or equal to 101.5 degrees Fahrenheit, and additional compatible Ebola Virus Disease symptoms Patient denies exposure to infectious person Patient denies travel to an Ebola-affected area in the 21 days before illness onset No symptoms or risks identified at this time. - Social history:: Smoking status: Patient/guardian denies using tobacco. Screenin:39 Abuse screen: Denies threats or abuse. Denies injuries from another. Nutritional iw screening: No deficits noted. Tuberculosis screening: No symptoms or risk factors identified. Fall Risk IV access (20 points). Assessment: 12:00 General: Appears in no apparent distress. Behavior is cooperative, drowsy. Pain: Denies iw pain. Neuro: Level of Consciousness is awake, obeys commands, Oriented to person, place, Moves all extremities. Cardiovascular: Patient's skin is warm and dry. Cardiovascular: Reports fatigue, Denies chest pain. Respiratory: Respiratory effort is even, unlabored, Respiratory pattern is regular, symmetrical. GI: Abdomen is non-distended. Derm: Skin is normal. 12:36 Reassessment: Patient appears in no apparent distress at this time. pt c/o pain all iw over, feels like stinging pain all over body. 13:25 Reassessment: Patient appears in no apparent distress at this time. Patient and/or kr2 family updated on plan of care and expected duration. Pain level reassessed. Patient is alert, oriented x 3, equal unlabored respirations, skin warm/dry/pink. Patient given sandwich and ordered medications, see MAR. 14:17 Reassessment: Patient appears in no apparent distress at this time. Patient and/or kr2 family updated on plan of care and expected duration. Pain level reassessed. Patient is alert, oriented x 3, equal unlabored respirations, skin warm/dry/pink. Patient complaining of headache, Dr. Sacles notified. 15:06 Reassessment: Patient appears in no apparent distress at this time. Patient and/or kr2 family updated on plan of care and expected duration. Pain level reassessed. Patient is alert, oriented x 3, equal unlabored respirations, skin warm/dry/pink. 15:31 Reassessment: Patient appears in no apparent distress at this time. Patient and/or kr2 family updated on plan of care and expected duration. Pain level reassessed. Patient is alert, oriented x 3, equal unlabored respirations, skin warm/dry/pink. Patient denies pain at this time. 16:24 Reassessment: Patient appears in no apparent distress at this time. Patient and/or kr2 family updated on plan of care and expected duration. Pain level reassessed. Patient is alert, oriented x 3, equal unlabored respirations, skin warm/dry/pink. Patient denies pain at this time. 17:37 Reassessment: Patient appears in no apparent distress at this time. Patient and/or kr2 family updated on plan of care and expected duration. Pain level reassessed. Patient is alert, oriented x 3, equal unlabored respirations, skin warm/dry/pink. Patient denies pain at this time. 18:15 Reassessment: Patient appears in no apparent distress at this time. Patient and/or kr2 family updated on plan of care and expected duration. Pain level reassessed. Patient is alert, oriented x 3, equal unlabored respirations, skin warm/dry/pink. Patient denies pain at this time. Vital Signs: 11:34 BP 145 / 73; Pulse 75; Resp 23; Pulse Ox 96% on R/A; dm5 11:34 Temp 97.1(TE); Weight 75 kg (R); dm5 12:37 BP 150 / 73; Pulse 74; Resp 14 S; Pulse Ox 100% on R/A; Pain 8/10; iw 13:26 BP 167 / 83; Pulse 73; Resp 18; Pulse Ox 99% on 2 lpm NC; kr2 14:16 BP 164 / 92; Pulse 77; Resp 17; Pulse Ox 95% on 2 lpm NC; kr2 15:06 BP 167 / 85; Pulse 88; Resp 17; Pulse Ox 95% on 2 lpm NC; kr2 16:24 BP 154 / 84; Pulse 71; Resp 18; Pulse Ox 99% on NC; kr2 17:38 BP 151 / 84; Pulse 85; Resp 17; Pulse Ox 99% on 2 lpm NC; kr2 ED Course: 11:26 Patient arrived in ED. iw 11:28 Moises Scales MD is Attending Physician. ps1 11:32 Sharon Fisher, RN is Primary Nurse. iw 11:32 EKG done, by ED staff, reviewed by Moises Scales MD. at1 11:33 Triage completed. dm5 11:36 Arm band placed on left wrist. 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 12:49 X-ray completed. Portable x-ray completed in exam room. Patient tolerated procedure mh1 well. 12:50 XRAY Chest (1 view) In Process Unspecified. EDMS 13:00 boiler mechanic on. Pulse ox on. NIBP on. Sitter at bedside. kr2 13:24 Notified ED physician of other Blood glucose 67. Orders received to repeat D50W 0.5 amp kr2 and feed patient. 14:15 Patient has correct armband on for positive identification. Bed in low position. Call kr2 light in reach. Side rails up X 1. 15:42 Vern Kovacs MD is Hospitalizing Provider. ps1 18:18 No provider procedures requiring assistance completed. Patient admitted, IV remains in kr2 place. Administered Medications: Discontinued: D5-1/2 NS 1000 ml IV at 30 ml/hr continuous 11:45 Drug: D50W 25 ml Route: IVP; Site: left jugular; iw 13:15 Follow up: Response: No adverse reaction; Blood sugar is elevated kr2 13:24 Drug: D50W 25 ml Route: IVP; Site: left jugular; kr2 14:30 Follow up: Response: No adverse reaction; Blood sugar is elevated kr2 16:01 Drug: D5-1/2 NS 1000 ml Route: IV; Rate: 30 ml/hr; Site: left jugular; kr2 17:22 Follow up: Response: No adverse reaction; IV Status: Order to discontinue infusion kr2 17:23 Drug: D5-1/2 NS 1000 ml Route: IV; Rate: 100 ml/hr; Site: left jugular; kr2 18:16 Follow up: Response: No adverse reaction; Blood sugar is elevated; IV Status: Infusion kr2 continued upon admission Point of Care Testing: Blood Glucose: 11:39 Blood Glucose: 43 mg/dL; iw 12:36 Blood Glucose: 50 mg/dL; iw 13:16 Blood Glucose: 67 mg/dL; kr2 14:15 Blood Glucose: 83 mg/dL; kr2 15:20 Blood Glucose: 77 mg/dL; kr2 16:24 Blood Glucose: 77 mg/dL; kr2 17:07 Blood Glucose: 89 mg/dL; kr2 15:20 Dr. Scales notified, patient eating at this time kr2 16:24 Dr. Scales notified kr2 Ranges: Outcome: 15:43 Decision to Hospitalize by Provider. ps1 18:18 Admitted to Tele accompanied by tech, via stretcher, room 415, with chart, Report kr2 called to Inna 18:18 Condition: stable 18:18 Instructed on the need for admit, Demonstrated understanding of instructions. 18:20 Patient left the ED. kr2 Signatures: Dispatcher [employer] Lucia Reilly, RN RN Naomi Morgan 1 Sharon Fisher RN RN iw Tess montes, sampler pickup EKG Tat1 Micki Howell RN RN kr2 Moises Scales MD MD ps1 Corrections: (The following items were deleted from the chart) 11:34 11:30 Care prior to arrival: None. dm5 dm5 17:37 13:26 BP 167 / 83; Pulse 73bpm; Resp 18bpm; Pulse Ox 99% RA; kr2 kr2 17:37 14:16 BP 164 / 92; Pulse 77bpm; Resp 17bpm; Pulse Ox 95% RA; kr2 kr2 17:37 15:06 BP 167 / 85; Pulse 88bpm; Resp 17bpm; Pulse Ox 95% RA; kr2 kr2 17:37 16:24 BP 154 / 84; Pulse 71bpm; Resp 18bpm; Pulse Ox 99% RA; kr2 kr2
[2017-11-03] MEDS ORDERED: D5 0.45 NS 0 ML IV ONE (15:58)
[2017-11-03] MEDS: D5 0.45 NS 1,000 ML IV SCH (16:00)
[2017-11-04 05:59] LABS: Potassium 5.5 mmol/L (3.5-5.1)
[2017-11-04 06:15] LABS: Absolute Lymphocytes (CBC) 0.8 K/uL (0.7-4.9); Absolute Monocytes 0.5 K/uL (0.1-1.3); Absolute Neutrophil 1.9 K/uL (1.8-8.0); Basophils % 0.6 % (0-1.3); Eosinophils % 3.4 % (0-4.4); Hematocrit 34.9 % (36.0-45.0); Lymphocytes % 24.1 % (15.3-44.8); MCV 86.8 fL (80-100); MPV 8.9 fL (7.6-11.3); Monocytes % 13.6 % (3.3-12.3); RBC Red Blood Cell Count 4.02 M/uL (3.86-4.86)
[2017-11-04] MEDS: ACETAMINOPHEN 500 MG TAB PO PRN (09:11)
[2017-11-04] MEDS: D5 0.45 NS 1,000 ML IV SCH (12:18)
[2017-11-04] MEDS: DEXTROSE 10%-WATER 500 ML IV SCH (15:29)
[2017-11-04] MEDS ORDERED: DIPHENHYDRAMINE 50 MG/ML VIAL IV ONE (16:00)
[2017-11-04] MEDS ORDERED: levETIRAcetam 1,000 MG in NA CHLORIDE 0.9% 100 ML IV ONE ×5 (17:55→19:00)
[2017-11-04] MEDS ORDERED: LORazepam 2 MG/ML VIAL IV ONE (17:55)
[2017-11-04] MEDS ORDERED: AMLODIPINE 5 MG TAB PO ONE (18:02)
--- NOTE | 2017-11-04 18:23 | RAD REPORT ---
EXAM DESCRIPTION: RAD - Chest Single View - 11/04/2017 6:14 pm CLINICAL HISTORY: Code yellow, respiratory distress COMPARISON: November 03 TECHNIQUE: AP portable chest image was obtained 1800 hours . FINDINGS: Lung volumes are low. Interstitial and alveolar opacification is present in the left lung field. Cardiomegaly is present with vascular engorgement. Heart size is not substantially different. Trachea is midline. No measurable pleural effusion and no pneumothorax. No gross bony abnormality see n. No acute aortic findings suspected. IMPRESSION: CHF/volume overload pattern is evident. Asymmetric prominence of the left lung opacification could indicate superimposed or concurrent pneumo mary.
--- NOTE | 2017-11-04 19:51 | EKG ---
Test Date: 2017-11-04 Test Time: 18:06:21 Process Lead: MARYJANE MEASUREMENT RESULTS: Intervals: Rate: 97 ID: [id number] QRSD: 168 QT: 434 QTc: 551 Antoine: P: 59 ID: [id number] QRS: -64 T: 40 INTERPRETIVE STATEMENTS: Normal sinus rhythm Right bundle branch block Left axis Abnormal ECG Compared to ECG 11/03/2017 11:17:26 no significant change from previous ECG Electronically Signed On 11-04-17 19:50:15 CDT by Charles Jaimes
[2017-11-04] MEDS ORDERED: GABAPENTIN 300 MG CAP PO SCH (21:00)
--- NOTE | 2017-11-04 21:25 | RAD REPORT ---
EXAM DESCRIPTION: MRI - Brain Wo Cont - 11/04/2017 8:49 pm CLINICAL HISTORY: New onset seizures COMPARISON: MRI 2011 TECHNIQUE: Sagittal T1-weighted images were obtained along with axial PD, heavily T2-weighted and T2 -FLAIR images. Axial DWI and ADC mapping sequences were also obtained along with coronal heavily T2-w eighted images. FINDINGS: No intracranial hemorrhage, mass or acute infarction. There is no edema or shift of midlin e structures. No extra-axial fluid collections. Valentin-matter/white matter junction is preserved. Signa l voids are seen as a normal finding in the major intracranial vessels. Focal signal abnormality is p resent in the right parietal and posterior left occipital lobes. These are new from 2011 but are not acute findings. Patient has atrophy change [id number] in degree. Ventricles are prominent and may be slightly o ut of proportion to the amount of volume loss. Ventricular size is a stable presentation. Prominent c hronic ischemic changes are present throughout the cerebral white matter and into the brainstem as we ll. No globe or orbital content abnormality. Mastoid air cells and paranasal sinuses are clear. IMPRESSION: No acute infarction. No mass, hemorrhage or acute intracranial abnormality. Prominent chronic ischemic changes are seen in the cerebral white matter and brainstem. Small areas of old infarction change right parietal and left occipital. These are new from 2011 but n ot acute findings. Atrophy changes are present and ventricles may be slightly out of proportion to the amount of volume loss. Correlation can be made with any normal pressure hydrocephalus exam findings. The ventricular e nlargement is similar to a 2011 study.
--- NOTE | 2017-11-05 03:24 | CON ---
Date of Consultation: 11/04/2017 Reason For Consultation: Elevated BUN, creatinine. History Of Present Illness: This is a pleasant 62-year-old female with significant past medical hist ory of diabetes, complicated with neuropathy and nephropathy; hypertension; hyperlipidemia; end-stage renal disease, on hemodialysis, Friday, Friday, Friday at [facility]; CVA; co ngestive heart failure diastolic dysfunction; peripheral vascular disease, the patient came to the [facility] as she missed her dialysis yesterday and found to have altered mental status with hypoglycemia for that reason, the patient was admitted to the hospital. In the hospital the patient today has so me myoclonic jerk during the dialysis with altered mental status, transferred to ICU. Past Medical History: 1.End-stage renal disease, on hemodialysis, Friday, Friday, Friday, hold her dialysis on Friday. 2.Diabetes complicated with neuropathy, retinopathy, and nephropathy. 3.CVA. 4.Anemia. 5.Hypertension. 6.Congestive heart failure, diastolic dysfunction. 7.Peripheral vascular disease. Family History: Positive for hypertension. Social History: Denies smoking, denies drinking, denies drug abuse. Review of Systems: Not obtainable, the patient altered mental status. Physical Examination: Vital Signs: When I saw the patient, blood pressure 110/80, pulse of 88. Chest: Crackles faint bilateral base. Heart: S1, S2. Systolic murmur. Abdomen: Soft, nontender. Extremity: Trace edema. Neuro: Sleepy, follow simple command, oriented to person and place. Medications: Home medications include Plavix, gabapentin. Current medication in the hospital include s Levaquin, Plavix and gabapentin. Laboratory Data: WBC 3.3, H and H 11.2/34.9, and platelet 106. Sodium 139, potassium 5.5, bicarb 20 , BUN 68, creatinine 4.5, calcium 8.3. Assessment And Plan: 1.End-stage renal disease. Last dialysis yesterday with hyperkalemia. I cannot go ahead and arrang e for dialysis today and we will monitor the patient. 2.Myoclonic movement possible side effect to gabapentin. I going to go ahead and discontinue gabape ntin, will follow up with Neurology. We will try to dialyze tomorrow. 3.Hypertension. Continue to monitor all her blood pressure medication. 4.Coronary artery disease, stable. 5.Hypoglycemia. Continue D10. 6.Altered mental status, procedure as by Neurology. 7.Hyperkalemia. We will try to dialyze the patient on 2 potassium baths and we will follow up the p atient. JACKLYN Voice ID: [id number] Report ID: [id number]
[2017-11-05 08:10] LABS: Potassium 5.4 mmol/L (3.5-5.1)
[2017-11-05] MEDS: levETIRAcetam 500 MG in NA CHLORIDE 0.9% 100 ML IV SCH ×2 (10:00→20:47)
[2017-11-05] MEDS: CLOPIDOGREL 75 MG TABLET PO SCH (10:01)
[2017-11-05] MEDS: DIPHENHYDRAMINE 25 MG TAB/CAP PO PRN ×2 (11:09→21:16)
--- NOTE | 2017-11-05 12:06 | PN ---
Date of Progress Note: 11/05/2017 Subjective: The patient had jerks movement questionable of seizure yesterday on the dialysis. Dialy sis was short. Today feeling better. Objective: Vital Signs: Blood pressure 143/89, pulse of 89. Chest: Crackles on the base. Heart: S1, S2. Regular. Abdomen: Soft, nontender. Extremities: No edema. Laboratory Data: WBC 3.3, H and H 11.2/34.9. Sodium 138, potassium 5.4, bicarb 20, BUN 57 creatinin e 11, calcium 8.5. Current Medications: The patient on include; 1.Phenergan. 2.Plavix. 3.Norvasc was discontinued. 4.Tylenol. 5.Keppra b.i.d. Assessment And Plan: 1.End-stage renal disease. We will continue dialysis. We will arrange for dialysis tomorrow. 2.Anemia of chronic kidney disease. No need for BRITTANY. 3.Secondary hyperparathyroidism. I going to follow up her phosphorus level. 4.Hyperkalemia. We will dialyze on low K bath. 5.Questionable seizure, follow up with neurology. CATHRYN/KURT Voice ID: [id number] Report ID: [id number]
--- NOTE | 2017-11-05 13:30 | SS ---
History Of Present Illness: A 62-year-old female with end-stage renal disease, on dialysis, in the e mergency room complaining of being dry; however, she also said she has been having some chest pain po inting to the anterior rib cage area that comes and goes, stays for a few seconds, it has been going on from the day of her admission. Evaluation in the emergency room showed the patient to have ribcag e tenderness in the anterior sternal area at the level of rib 6 to 7; however, during evaluation the patient was found to be hypoglycemic with a blood sugar of 50. She admits she has not been eating as much, but no nausea, no vomiting and no other complaints. Review of Systems: Cardiovascular: No complaints. Skeletomuscular: As above. ENT: No complaint. Gastrointestinal: No complaint. Neurological: No complaint. Skeletomuscular: As above. Past Medical History: 1.As above end-stage renal disease, on dialysis. 2.Type 2 diabetes. 3.Anemia of chronic illness. 4.Diastolic congestive heart failure. 5.Hypertension. 6.Peripheral neuropathy. 7.Anxiety. Social History: No smoking or drug abuse history. Family History: Noncontributory. Medications: Include Plavix 75 mg daily and gabapentin 300 mg at bedtime. The patient is on NPH p.r .n. per sliding scale. Allergies: PROMETHAZINE, LEVOFLOXACIN, ASPIRIN, BUTORPHANOL TARTRATE. Physical Examination: Vital Signs: Blood pressure 150/80, pulse 80, temperature 97.1. Heart: Regular rate and rhythm. Chest: Clear to auscultation. Abdomen: Soft, benign. Neurological: Alert, oriented x4. Nonfocal. Grossly intact. Chest wall examination showed tendern ess at the level of ribs 7 through 9. Mild very mild tenderness on both sides of the sternum which r eproduces the patient pain of complaint. Extremities: Trace edema. No cyanosis. Peripheral pulses are felt. Back: Chest x-ray, no acute pathology. EKG normal sinus rhythm, right bundle branch block, left anterior fascicular block. Laboratory Data: White cell count 3.3, hemoglobin 11.2, hematocrit 34.9, platelets 106. Chemistry: Potassium 5.5, BUN 68, creatinine 12.5. Blood sugar initially was 50 in the emergency room went up to 153 then 79, 55, and 92. Assessment And Plan: Osteochondritis. DICTATION ENDS HERE MFS/MODL Voice ID: [id number] Report ID: [id number]
--- NOTE | 2017-11-05 14:06 | PN ---
Subjective: The patient had yesterday during dialysis what reported to be some jerks in her limbs de scribed as myoclonic seizures by the dialysis people. The patient herself did not have any complaint s. No loss of consciousness. Dialysis was not completely done. We went ahead and transferred her t o the ICU because of that. The patient today feels well. She had no seizure activity since it was i nitially reported in the dialysis. She has no complaints. Physical Examination: Vital Signs: Blood pressure is 140/90, pulse 89, and temperature 97.4. Heart: Regular rate and rhythm. Chest: Bilateral crackles. Abdomen: Soft, benign. Neurological: Alert and oriented x4. Nonfocal. Grossly intact. Extremities: There is bilateral leg edema. Diagnostic Data: Brain MRI did not show any acute pathology or infarction or hemorrhage. Chest x-ra y showed pattern of volume overload. Her chemistry showed potassium of 5.4, BUN 57, creatinine 11.6. Following her blood sugar fingersticks, she has been ranging from 107 to 78. Assessment And Plan: 1.Seizure activity, myoclonic as described. Dr. Galicia, Neurology has seen the patient and EEG bates s been ordered for her. 2.Hypertension. The patient's blood pressure is better on amlodipine 5 mg. We will put with her da kaylin. 3.Hypoglycemia. The patient's oral intake is not well. Report by the nurse that she is not eating as much, we are going to supplement that with Glucerna; however, the patient is on no diabetic medica tions or insulin. 4.End-stage renal disease, on dialysis. Appreciate Neurology input also. The patient is scheduled to have dialysis. 5.Chest x-ray showing volume overload. I think that we control the dialysis. Look orders for deta ils. MFS/MODL Voice ID: [id number] Report ID: [id number]
[2017-11-05] MEDS: hydrOXYzine HCl 25 MG TAB PO PRN ×2 (15:00→23:22)
[2017-11-05] MEDS: DEXTROSE 10%-WATER 500 ML IV SCH (17:51)
--- NOTE | 2017-11-05 18:21 | CON ---
Reason For Consultation: Consultation called because of possible seizures. History Of Present Illness: Ms. Sullivan is a 62-year-old right-handed patient who has diabetes mellitus with diabetic neuropathy, nephropathy, end-stage renal disease, on hemodialysis, h ypertension, dyslipidemia, who apparently missed dialysis and became confused and came in for dialysi s. Actually was admitted and was in dialysis yesterday afternoon when she developed myoclonic type a ctivity reported as jerking and possible seizure. She was fully responsive during the event. There IS no full description of event in terms of duration and if there were is any focal jerking during th e episode such as one side versus the other. She was brought into the ICU and given 1 g of Keppra an d the activity subsided. Brain MRI study identified no acute ischemic or hemorrhagic change, however there was prominent chronic small vessel ischemic disease in addition to some lacunar strokes in the right parietal and left occipital area. Those were new compared to a study from 2012, but not. the radiologist did mention that the atrophy seems slightly out of proportion to the amount of volume lo ss and required correlation with conditions such as normal-pressure hydrocephalus. However, it shoul d be noted that the patient has multiple cardiovascular risk factors. End-stage renal disease is mor e likely the etiology of this changes of small vessel ischemic disease. Since being in ICU, she is recovering towards her baseline. Has not had additional seizure-like acti vity. Past Medical History: As indicated above in addition to congestive heart failure and peripheral vasc ular disease, chronic anemia. Social History: No alcohol, tobacco, or IV drug use. Family History: Hypertension. Current Medications: Keppra 500 mg twice daily, heparin 6000 units every hemodialysis and 5000 units subcutaneously daily for DVT prophylaxis, Atarax for itching 25 mg 3 times a day, Plavix 75 mg daily , Norvasc 2.5 mg daily, extra-strength Tylenol 500 mg every 6 hours as needed. Allergies: PROMETHAZINE, LEVOFLOXACIN, ASPIRIN, CLONIDINE, CODEINE, BUTORPHANOL, HYDROXYZINE, MORPHI NE, PROTONIX, COMPAZINE, DARVOCET, DILAUDID, ZOFRAN, PROCHLORPERAZINE Review of Systems: The patient is somewhat sedated and does not give a full review of systems, but denies currently any focal weakness, numbness in the face, arm, or leg. Does admit to being slightly sedated or somnolent . No current nausea. No significant abdominal pain. No myalgias, arthralgias. Physical Examination: Vital Signs: Blood pressure 138/85, pulse 77, respiratory rate 18, temperature 97.4, oxygen saturati on 100% on 2 L. Weight 165 pounds, height 5 feet. General: Ms. Sullivan is resting comfortably in bed in ICU, not intubated. HEENT: She is normocephalic and atraumatic. Sclerae are anicteric. Oropharynx is moist. Neck: Supple. Chest: Clear. Heart: Regular. Extremities: So significant edema and some venous stasis changes noted. Neurologic: She is alert, follows simple commands appropriately. She has no significant aphasia or any expressive or receptive aphasias. Cranial nerves 2 through 12 show no focal deficits. Motor exa mination, she does move both arms equally well, able to lift off the bed for at least 5-10 seconds an d leg hold off 5 seconds bilaterally. Sensation is stocking-glove loss to light touch temperature. Reflexes are absent at the heels and trace at the patellae, and absent in upper extremities. Coordin ation is slow but intact movements in the upper and lower extremities. The patient is in ICU bed and not ambulated. Laboratory Studies: White blood cell count 3.3, hemoglobin 11.2, hematocrit 34.9, platelets are 106. INR 1.1. Chemistries; sodium 138, potassium 5.4, chloride 107, carbon dioxide 28, BUN 57, creatini ne 11.6, glucose ranged from 73-82, calcium 8.5, AST 11, ALT 11, alkaline phosphatase 135. Her beta natriuretic peptide 47,977, normal is less than 125. Chest x-ray shows asymmetric prominence of the left lung, could indicate superimposed or concurrent pneumonia. Electrocardiogram shows normal sinus rhythm with right bundle-branch block. Assessment: Ms. Sullivan is a 62-year-old patient with possible new-onset seizures. However, the event may be myoclonic and related to chronic renal failure. In any event, she is already loaded with Kep pra and is on 500 mg twice daily and has had no further episodes. She has potential infection and el ectrolyte abnormalities, which may be contributing factors. She has chronic strokes and chronic smal l vessel ischemic disease. Plan: 1.Continue with anti-platelet medication, continue Plavix 75 mg daily. 2.Continue with Keppra 500 mg twice daily. 3.She on review of systems reports some itching in the head and she is on Atarax. We will continue with that. 4.Continue the Norvasc for management of hypertension. 5.Continue heparin for DVT prophylaxis. MARIANNA Voice ID: [id number] Report ID: [id number]
[2017-11-05] MEDS: LATANOPROST 0.005% 2.5ML OPTH OPTH SCH (21:00)
[2017-11-06] MEDS: ACETAMINOPHEN 500 MG TAB PO PRN ×2 (03:07→09:02)
[2017-11-06 06:10] LABS: Albumin 3.4 g/dL (3.4-5.0); Phosphorus 6.3 mg/dL (2.5-4.9); Potassium 4.8 mmol/L (3.5-5.1)
[2017-11-06 06:15] LABS: Absolute Lymphocytes (CBC) 0.9 K/uL (0.7-4.9); Absolute Monocytes 0.4 K/uL (0.1-1.3); Absolute Neutrophil 1.9 K/uL (1.8-8.0); Basophils % 0.6 % (0-1.3); Eosinophils % 4.9 % (0-4.4); Hematocrit 33.1 % (36.0-45.0); Lymphocytes % 26.7 % (15.3-44.8); MCH 27.5 pg (27.0-35.0); MCV 85.3 fL (80-100); MPV 9.6 fL (7.6-11.3); RBC Red Blood Cell Count 3.89 M/uL (3.86-4.86)
[2017-11-06] MEDS: AMLODIPINE 2.5 MG TAB PO SCH (09:00)
[2017-11-06] MEDS: TIMOLOL MALEATE 0.5% OPTH 5 ML BTL OPTH SCH (09:00)
[2017-11-06] MEDS: hydrOXYzine HCl 25 MG TAB PO PRN (09:18)
[2017-11-06] MEDS: levETIRAcetam 500 MG in NA CHLORIDE 0.9% 100 ML IV SCH ×2 (12:34→22:34)
[2017-11-06] MEDS: CLOPIDOGREL 75 MG TABLET PO SCH (12:51)
--- NOTE | 2017-11-06 16:43 | PN ---
Subjective: The patient has no new complaints. Objective: Vital Signs: Blood pressure 110/80, pulse 78. The patient is afebrile. Heart: Regular rate and rhythm. Chest: Clear to auscultation. Abdomen: Soft, benign. Neurologic: Alert, oriented, intact. Laboratory Data: CBC noted hemoglobin 10.7, hematocrit 33.1, platelets 104. Chemistry noted with BU N 61, hematocrit 12.7. Stools for C difficile toxin negative. Assessment And Plan: 1.Myoclonic seizures, new onset. Plan per Dr. Galicia to Keep her on Keppra. The patient has been stable. No seizures since then. 2.Hypoglycemia. Her blood sugar fingersticks have been more than 60. 3.End-stage renal disease, on dialysis. Continue regimen of dialysis as per nephrology. 4.Should the patient continue to do well, we will transfer to the floor and expect discharge in 1-2 days. Look orders for details. MFS/MODL Voice ID: [id number] Report ID: [id number]
[2017-11-06] MEDS: DEXTROSE 10%-WATER 500 ML IV SCH (17:40)
[2017-11-06] MEDS: LATANOPROST 0.005% 2.5ML OPTH OPTH SCH (21:00)
[2017-11-06] MEDS: DIPHENHYDRAMINE 25 MG TAB/CAP PO PRN (22:46)
--- NOTE | 2017-11-07 01:27 | PN ---
Date of Progress Note: 11/06/2017 Chief Complaint: End-stage renal disease, on dialysis. Subjective: The patient was admitted to ICU. The patient has history of diabetes mellitus. The pat ient was found to have hypoglycemia. She has multiple medical problems including history of congesti ve heart failure, diastolic dysfunction, intradialytic hypotension, peripheral vascular disease, and CVA. The patient presented to the hospital because of altered mental status and was found to have hy poglycemia. Review of Systems: The patient is feeling better today. Denies and fever or chills. Objective: Lungs: Clear to auscultation bilaterally. Heart: S1, S2. Abdomen: Soft, benign. Extremities: Minimal edema. Vital Signs: Blood pressure 111/60, heart rate 76, temperature 97.0. Laboratory Data: Hemoglobin 10.7, WBC 3.4, platelet count is 104,000. Chemistry showed sodium 135, potassium 4.8, chloride 105, CO2 19, BUN 61, creatinine 12.7, glucose 77, calcium 8.3, phosphorus 6.3 . Impression And Plan: 1.Hypoglycemia, resolving. Recent blood glucose 122. 2.Hyponatremia, mild, secondary to fluid overload. The patient received dialysis with ultrafiltrati on. Procedure was well tolerated. 3.Renal osteodystrophy. Continue renal diet and binders. 4.Hyperphosphatemia. Continue dialysis and adjust parameters to obtain adequate clearance. 5.Continue binders for hyperphosphatemia control. JOSLYN/KURT Voice ID: [id number] Report ID: [id number]
[2017-11-07 05:25] LABS: Albumin 3.6 g/dL (3.4-5.0); Phosphorus 5.6 mg/dL (2.5-4.9); Potassium 5.1 mmol/L (3.5-5.1)
[2017-11-07] MEDS: TIMOLOL MALEATE 0.5% OPTH 5 ML BTL OPTH SCH (09:00)
[2017-11-07] MEDS: CLOPIDOGREL 75 MG TABLET PO SCH (09:40)
[2017-11-07] MEDS: AMLODIPINE 2.5 MG TAB PO SCH (09:41)
--- NOTE | 2017-11-07 10:22 | EEG ---
CHART: [id number] TEST ID#: [id number] DATE OF STUDY: 11-05-2017 THE EEG WAS RECORDED PORTABLE IN THE ICU ON A 17 CHANNEL MACHINE. ELECTRODES WERE APPLIED IN THE USUAL MANNER USING THE INTERNATIONAL 10-20 SYSTEM. THE WAKING BACKGROUND RHYTHM IN THIS RECORD CONSISTS OF POORLY DEVELOPED AND POORLY ORGANIZED WAVES OF 6-7 HZ., IN A WIDE DISTRIBUTION WHICH ATTENUATE POORLY WITH EYE OPENING. LOW-VLTAGE 15-18 HZ ACTIVITY IS EXPRESSED IN THE FRONTAL AND CENTRAL REGIONS. THERE ARE NO FOCAL OR LATERALIZING FEATURES. NO EPILEPTIFORM ACTIVITY APPEARS. SLEEP OCCURRED NATURALLY. NORMAL SLEEP PATTERNS ARE PRESENT. HYPERVENTILATION WAS NOT PERFORMED. PHOTIC STIMULATION PRODUCED NO DRIVING BILATERALLY. IMPRESSION: THIS IS A MILDLY ABNORMAL EEG DUE TO A MILDLY SLOW BACKGROUND. THIS IS A NON-SPECIFIC FINDING INDICATING THE PRESENCE OF A MILD DIFFUSE DISTURBANCE IN CEREBRAL ACTIVITY.
[2017-11-07] MEDS: levETIRAcetam 500 MG in NA CHLORIDE 0.9% 100 ML IV SCH ×2 (10:51→20:34)
--- NOTE | 2017-11-07 14:34 | PN ---
Subjective: The patient is comfortable. She is cooperative slightly more with food intake. No new complaints. Objective: Vital Signs: Blood pressure 120/70, pulse 75, temperature 96.4. Heart: Regular rate and rhythm. Chest: Clear to auscultation. Abdomen: Soft, benign. Neurological: Alert. She knew my name and she would answer simply questions appropriate. Grossly i ntact. Extremities: Trace edema bilaterally. Assessment And Plan: 1.Hypoglycemia. Blood sugar fingersticks still between 70-100. I have asked the nurses to encourag e the patient to eat and we will supplement again with Glucerna. We will also ask Physical Biochemist co nsult for discharge planning. Most likely, the patient will need more help at home for daily living activity and food intake. 2.Myoclonic seizures, at this time on Keppra. The patient had no seizure activity since then. 3.End-stage renal disease, on dialysis regimen. 4.Hypertension, better controlled. Continue current treatment. The patient's labs have been noted. Chemistry is noted with a creatinine of 10 and the patient's CBC has noted no significant change. Look orders for details. MFS/MODL Voice ID: [id number] Report ID: [id number]
[2017-11-07] MEDS: DEXTROSE 10%-WATER 500 ML IV SCH (17:05)
--- NOTE | 2017-11-07 19:16 | PN ---
Date of Progress Note: 11/07/2017 Subjective: The patient has still poor intake, low blood pressure, on D10. Physical Examination: Vital Signs: When I saw the patient, blood pressure 120/70, pulse of 72, afebrile. Chest: Clear to auscultation. Heart: S1, S2. Irregular. Systolic murmur. Abdomen: Soft, nontender. Extremities: Plus edema. Laboratory Data: WBC 3.4, H and H 10.7/33.1, platelets 104. Sodium 132, potassium 5.1, bicarb 24, B UN 42, creatinine of 10, calcium 8.8, phosphorus 5.6. Medications: Current medications the patient on include: 1.D10 at 20 per hour. 2.Amlodipine. 3.Plavix. 4.Atarax. 5.Keppra. Assessment And Plan: 1.End-stage renal disease with marginal hyperkalemia, status post dialysis today. Continue dialysis Friday, Friday, Friday. 2.Secondary hyperparathyroidism, stable. No need for binder. 3.Anemia of chronic kidney disease. We will continue BRITTANY. Hyperkalemia. The patient already dialyz ed on 2 potassium bath. 4.Seizure. We will continue to follow up with Neurology, continue Keppra. 5.Persistent hypoglycemia. No source of infection. Cortisol level within normal limits. We will follow up with primary. The patient cleared from the renal standpoint for discharge planning. JACKLYN Voice ID: [id number] Report ID: [id number]
[2017-11-07] MEDS: LATANOPROST 0.005% 2.5ML OPTH OPTH SCH (20:34)
[2017-11-07] MEDS: hydrOXYzine HCl 25 MG TAB PO PRN (21:57)
[2017-11-08] MEDS: DIPHENHYDRAMINE 25 MG TAB/CAP PO PRN (04:37)
[2017-11-08 05:24] LABS: Albumin 3.5 g/dL (3.4-5.0); Phosphorus 4.8 mg/dL (2.5-4.9); Potassium 5.1 mmol/L (3.5-5.1)
[2017-11-08] MEDS: CLOPIDOGREL 75 MG TABLET PO SCH (08:43)
[2017-11-08] MEDS: AMLODIPINE 2.5 MG TAB PO SCH (08:43)
[2017-11-08] MEDS: TIMOLOL MALEATE 0.5% OPTH 5 ML BTL OPTH SCH (09:00)
[2017-11-08] MEDS: levETIRAcetam 500 MG in NA CHLORIDE 0.9% 100 ML IV SCH ×2 (09:53→20:17)
[2017-11-08] MEDS: hydrOXYzine HCl 25 MG TAB PO PRN (10:03)
[2017-11-08] MEDS: DEXTROSE 10%-WATER 500 ML IV SCH (17:18)
[2017-11-08] MEDS: LATANOPROST 0.005% 2.5ML OPTH OPTH SCH (20:30)
--- NOTE | 2017-11-08 21:27 | PN ---
Date of Progress Note: 11/08/2017 Subjective: The patient doing better but still hypoglycemic. The patient has poor intake. Physical Examination: Vital Signs: Blood pressure 101/57, pulse of 72, afebrile. Chest: Crackles in the base. Heart: S1, S2. Regular. Abdomen: Soft, nontender. Extremity: No edema. Laboratory Data: H and H 10.7/33.1. Sodium 137, potassium 5.1, bicarb 21, BUN 27, creatinine 7.6, c alcium 8.7, phosphorus 4.8. Medications: Current medications the patient on include: 1.Heparin. 2.Plavix. 3.Keppra. Assessment And Plan: 1.End-stage renal disease. We will continue the patient on dialysis Friday, Friday, Friday. 2.Secondary hyperparathyroidism. Continue binder. 3.Coronary artery disease, stable. 4.Hypoglycemia. We will follow up with the primary. Continue current support. Encourage oral inta ke. 5.Seizure, on Keppra. We will follow up with the primary and Neurology. CATHRYN/KURT Voice ID: [id number] Report ID: [id number]
[2017-11-09 05:28] LABS: Albumin 3.4 g/dL (3.4-5.0); Phosphorus 5.6 mg/dL (2.5-4.9); Potassium 4.9 mmol/L (3.5-5.1)
[2017-11-09] MEDS: TIMOLOL MALEATE 0.5% OPTH 5 ML BTL OPTH SCH (09:00)
[2017-11-09] MEDS: AMLODIPINE 2.5 MG TAB PO SCH (09:00)
[2017-11-09] MEDS: CLOPIDOGREL 75 MG TABLET PO SCH (09:00)
[2017-11-09] MEDS: levETIRAcetam 500 MG in NA CHLORIDE 0.9% 100 ML IV SCH ×2 (09:50→21:00)
--- NOTE | 2017-11-09 13:52 | PN ---
Date of Progress Note: 11/09/2017 Subjective: The patient is still sleepy. Low blood sugar. Refused eating. Physical Examination: Vital Signs: Blood pressure 138/63, pulse of 74, afebrile. Chest: Clear to auscultation. Heart: S1, S2. Systolic murmur. Abdomen: Soft, nontender. Extremities: Trace edema. Laboratory Data: WBC 3.4, H and H 10.7/33.1, platelets 104. Sodium 135 potassium 4.9, bicarb 21, BU N 36, creatinine 9.5. Medications: Current medications the patient on include; 1.Atarax. 2.Phenergan. 3.Plavix. 4.Norvasc. 5.Keppra. Assessment And Plan: 1.End-stage renal disease. Continue the patient on dialysis Friday, Friday, Friday. We will fri itor the patient. 2.Failure to thrive, refused eating, with hypoglycemia. I am going to place the patient on Megace. We will discuss with her family. If the patient continues that way, the patient may need a PEG tube . 3.Hypertension, controlled, optimal. Off blood pressure medications. 4.Chronic obstructive pulmonary disease. Continue supportive treatment. 5.Seizure. Continue Keppra. CATHRYN/KURT Voice ID: [id number] Report ID: [id number]
[2017-11-09] MEDS: DEXTROSE 10%-WATER 500 ML IV SCH (17:25)
[2017-11-09] MEDS: LATANOPROST 0.005% 2.5ML OPTH OPTH SCH (20:56)
[2017-11-09] MEDS: D50W 25 GM/50 ML SYRINGE IV PRN (21:20)
[2017-11-10] MEDS: D50W 25 GM/50 ML SYRINGE IV PRN ×3 (02:23→12:37)
[2017-11-10 05:21] LABS: Albumin 3.4 g/dL (3.4-5.0); Phosphorus 6.1 mg/dL (2.5-4.9); Potassium 5.1 mmol/L (3.5-5.1)
[2017-11-10] MEDS: MEGESTROL 400 MG/10 ML UCUP PO SCH (08:18)
[2017-11-10] MEDS: AMLODIPINE 2.5 MG TAB PO SCH (08:18)
[2017-11-10] MEDS: TIMOLOL MALEATE 0.5% OPTH 5 ML BTL OPTH SCH (08:18)
[2017-11-10] MEDS: CLOPIDOGREL 75 MG TABLET PO SCH (08:19)
[2017-11-10] MEDS: DIPHENHYDRAMINE 25 MG TAB/CAP PO PRN (10:37)
[2017-11-10] MEDS: levETIRAcetam 500 MG in NA CHLORIDE 0.9% 100 ML IV SCH ×2 (12:37→20:08)
--- NOTE | 2017-11-10 16:02 | PN ---
Subjective: The patient is well alert and oriented. She has no new complaint. She is being dialyze d. Objective: Vital Signs: The patient's blood pressure 115/72, pulse 80, temperature 98.2. Heart: Regular rate and rhythm. Chest: Clear to auscultation. Abdomen: Soft, benign. Extremities: Trace edema bilateral. Neurological: Alert and oriented x4. Nonfocal. Grossly intact. Diagnostic Data: EEG showed nonconclusive pattern. Chem-7; sodium 134, BUN 41, creatinine 11. The patient's blood sugar fingersticks followed between 129 and 68. Assessment And Plan: 1.Hypoglycemia. The patient's oral intake for 4 days very minimal for which she drops down sometime s into the 50s of blood sugar fingersticks. I have explained to the patient and encouraged her to ea t more, and we will follow her blood sugar fingersticks. If her oral intake will not improve, I have explained that a fpc may be the best other choice for her because she needs to be followed closely from that standpoint. The patient is on no diabetic medication and also she is refusing any feeding tube or any other intervention from that standpoint. 2.Episode of myoclonic seizure, no recurrence. We will continue Keppra. 3.End-stage dialysis patient on dialysis. We will follow Nephrology recommendations for that. 4.Appreciate Social Service's input pending and pending discussion with the patient's daughter also about discharge planning. Look orders for details. MFS/MODL Voice ID: [id number] Report ID: [id number]
[2017-11-10] MEDS: DEXTROSE 10%-WATER 500 ML IV SCH (20:05)
[2017-11-10] MEDS: LATANOPROST 0.005% 2.5ML OPTH OPTH SCH (20:08)
[2017-11-10] MEDS: NEPRO SHAKE 237 ML CAN PO SCH (21:00)
--- NOTE | 2017-11-11 00:53 | PN ---
Date of Progress Note: 11/10/2017 Chief Complaint: End-stage renal disease. The patient received dialysis today to obtain metabolic clearance and ultrafiltration. The patient is feeling better today. P.o. intake is improving. Review of Systems: Denies fever or chills. Physical Examination: Lungs: Clear to auscultation bilaterally. Heart: S1 and S2. Abdomen: Soft, benign. Extremities: Trace edema. Laboratory Data: Hemoglobin 10.7, WBC 3.4. Creatinine 9.5, BUN 36, potassium 4.9, bicarbonate 21. Impression And Plan: 1. End-stage renal disease. Dialysis was scheduled for today. Procedure was well tolerated. 2. Anemia in chronic kidney disease. Hemoglobin level is stable, in acceptable range. Continue to monitor and adjust treatment with BRITTANY. 3. Renal osteodystrophy. Phosphorus level is 6.1. Adjust binders. Monitor calcium and phosphorus level. 4. Predialysis lab work showed potassium of 5.1 and sodium 134. The patient had some fluid overload and developed dilutional hyponatremia. The patient received ultrafiltration. Monitor electrolytes. Continue low-sodium diet and p.o. fluid restriction. 5. Continue low potassium diet and monitor electrolytes. There is no evidence of a significant metabolic acidosis. JOSLYN/MODIsrael Voice ID: [id number] Report ID: [id number] GRACIA
[2017-11-11 05:41] LABS: Potassium 4.8 mmol/L (3.5-5.1)
[2017-11-11] MEDS: TIMOLOL MALEATE 0.5% OPTH 5 ML BTL OPTH SCH (09:00)
[2017-11-11] MEDS: levETIRAcetam 500 MG in NA CHLORIDE 0.9% 100 ML IV SCH ×2 (09:00→20:35)
[2017-11-11] MEDS: MEGESTROL 400 MG/10 ML UCUP PO SCH ×2 (09:00→09:17)
[2017-11-11] MEDS: AMLODIPINE 2.5 MG TAB PO SCH (09:17)
[2017-11-11] MEDS: SEVELAMER CARBONATE 800 MG TABLET PO SCH ×3 (09:17→16:44)
[2017-11-11] MEDS: CLOPIDOGREL 75 MG TABLET PO SCH (09:18)
[2017-11-11] MEDS: NEPRO SHAKE 237 ML CAN PO SCH ×2 (09:18→20:33)
--- NOTE | 2017-11-11 17:21 | PN ---
Date of Progress Note: 11/11/2017 Subjective: The patient with still poor intake, more awake. Physical Examination: Vital Signs: When I saw the patient, blood pressure 147/72, pulse of 73, afebrile. Chest: Faint crackles on the base. Heart: S1, S2. Regular. Systolic murmur. Abdomen: Soft, nontender. Extremity: Trace edema. Laboratory Data: WBC 3.4, H and H 10.7/33.1, platelet 104. Sodium 137, potassium 4.8, bicarb 21, BU N 27, creatinine 8.8, calcium 8.9. Medications: Current medications the patient on include: 1.Phenergan. 2.Megestrol. 3.Plavix. 4.Norvasc 2.5. 5.Keppra. 6.Renvela 1600 with each meal. Assessment And Plan: 1.End-stage renal disease. Normal volume. We will continue dialyzing the patient on Friday, and Friday. 2.Secondary hyperparathyroidism. Continue binder. 3.Hypoglycemia secondary to poor intake. The patient off any blood sugar medication. The patient w as started on Megace. I am going to go ahead and get cortisol level for the patient and we will foll ow up. JACKLYN Voice ID: [id number] Report ID: [id number]
[2017-11-11] MEDS: LATANOPROST 0.005% 2.5ML OPTH OPTH SCH (20:26)
[2017-11-11] MEDS: DEXTROSE 10%-WATER 500 ML IV SCH (20:33)
[2017-11-11] MEDS: levETIRAcetam 500 MG TAB PO SCH (21:28)
--- NOTE | 2017-11-11 23:30 | PN ---
Subjective: No new complaint. The patient is clinically stable. Objective: Vital Signs: Blood pressure 124/70, pulse 70, temperature 97. Heart: Regular rate and rhythm. Clear to auscultation. Abdomen: Soft, benign. Neurological: Alert and oriented x4. Grossly intact. Laboratory Data: Blood sugar fingersticks in the 80s and 70s. Assessment And Plan: 1.Hypoglycemia due to poor oral intake. Reports that the patient to have slightly increased food in take. However, she is still on D10W at 50 cc an hour. 2.Agree with checking cortisol level as per Dr. Lou. Also was pending a social service recomme ndation for discharge planning. 3.End-stage renal disease. Plan as per Nephrology. Continue dialysis. 4.No more seizures, on Keppra. Continue current treatment. We will discharge the patient when arra ngements and we will follow recommendation of manager social work from that standpoint which is still pen ding. MFS/MODL Voice ID: [id number] Report ID: [id number]
[2017-11-12 06:38] VITALS: BMI 30.4
[2017-11-12] MEDS: TIMOLOL MALEATE 0.5% OPTH 5 ML BTL OPTH SCH (09:00)
[2017-11-12] MEDS: AMLODIPINE 2.5 MG TAB PO SCH (09:00)
[2017-11-12] MEDS: MEGESTROL 400 MG/10 ML UCUP PO SCH (09:18)
[2017-11-12] MEDS: levETIRAcetam 500 MG TAB PO SCH ×2 (09:19→20:19)
[2017-11-12] MEDS: SEVELAMER CARBONATE 800 MG TABLET PO SCH ×3 (09:19→16:36)
[2017-11-12] MEDS: CLOPIDOGREL 75 MG TABLET PO SCH (09:19)
[2017-11-12] MEDS: NEPRO SHAKE 237 ML CAN PO SCH ×2 (09:20→20:35)
--- NOTE | 2017-11-12 14:52 | PN ---
Date of Progress Note: 11/12/2017 Subjective: The patient more awake today. Its look even she has snack, seen on dialysis. Objective: Vital Signs: Blood pressure 129/65, pulse of 79, afebrile. Chest: Faint crackles with mild wheezing. Heart: S1, S2. Systolic murmur. Abdomen: Soft, nontender. Extremities: Trace edema. Laboratory Data: WBC 3.4, H and H 10.7/33.1, platelets 104. Sodium 137, potassium 4.8, bicarb 21, B UN 27, creatinine 8.8, calcium 8.9. Medications: Current medications the patient on its include; Phenergan as needed, Atarax, megestrol 400 daily, Plavix, amlodipine 2.5, Keppra, Renvela 1600 with each meal. Assessment And Plan: 1.End-stage renal disease, slightly on the wet side. We will challenge the patient on dialysis toda y and we will monitor. 2.Hypertension, controlled, optimal. Currently blood pressure on the lower side. I am going to go ahead and discontinue the amlodipine. 3.Secondary hyperparathyroidism. Continue Renvela. 4.Anemia, stable. We will continue to monitor. Continue BRITTANY. 5.Hypoglycemia, poor intake. Continue megestrol. The patient started improving. We will follow up with primary. 6.Seizure, stable, asymptomatic. Continue Keppra. Follow up with Neurology. CATHRYN/KURT Voice ID: [id number] Report ID: [id number]
[2017-11-12] MEDS: LATANOPROST 0.005% 2.5ML OPTH OPTH SCH (20:19)
[2017-11-12] MEDS: DEXTROSE 10%-WATER 500 ML IV SCH (22:45)
[2017-11-13] MEDS: SEVELAMER CARBONATE 800 MG TABLET PO SCH ×4 (08:00→17:00)
[2017-11-13] MEDS: NEPRO SHAKE 237 ML CAN PO SCH ×2 (09:00→20:53)
[2017-11-13] MEDS: levETIRAcetam 500 MG TAB PO SCH ×2 (09:18→20:52)
[2017-11-13] MEDS: MEGESTROL 400 MG/10 ML UCUP PO SCH (09:18)
[2017-11-13] MEDS: CLOPIDOGREL 75 MG TABLET PO SCH (09:18)
[2017-11-13] MEDS: DEXTROSE 10%-WATER 500 ML IV SCH (09:19)
[2017-11-13] MEDS: TIMOLOL MALEATE 0.5% OPTH 5 ML BTL OPTH SCH (09:19)
--- NOTE | 2017-11-13 14:08 | PN ---
Subjective: The patient is stable, has no complaints. Objective: Vital Signs: Blood pressure 100/55, pulse 70, temperature 97.1. Heart: Regular rate and rhythm. Chest: Clear to auscultation. Abdomen: Soft, benign. Neurological: Alert and oriented x4. Grossly intact. Extremities: Trace edema bilateral. Laboratory Data: Blood sugar fingersticks this morning 122 and . Assessment And Plan: 1.Hypoglycemia, improving. The patient is on megestrol . 2.We will ask Physical Therapy for her ambulation and see how the patient will do with that. Meanwh ile, we will continue to follow up recommendation for discharge planning. This is being confirmed by Flight Engineer Performance Qualified. 3.End-stage renal disease, clinically stable. 4.Continue Keppra. Rest of current treatment. MFS/MODL Voice ID: [id number] Report ID: [id number]
--- NOTE | 2017-11-13 14:46 | PN ---
Date of Progress Note: 11/13/2017 Subjective: The patient is slightly more awake. Still poor intake. Physical Examination: Vital Signs: Blood pressure 109/58, pulse of 81. Chest: Faint crackles on the base. Heart: S1, S2. Regular. Abdomen: Soft, nontender. Extremities: No edema. Laboratory Data: Sodium 137, potassium 4.8, bicarb 21, BUN 27, creatinine 8.8, calcium 8.9. WBC 3.4 , H and H 10.7/33.1. Medications: Current medications the patient on its include Atarax, Plavix, Tylenol, Keppra, Renvela . Assessment And Plan: 1.End-stage renal disease, slightly on the wet side. I am going to go ahead and arrange for dialysi s tomorrow. 2.Hypertension, controlled, optimal. Continue current medication. 3.Secondary hyperparathyroidism. Continue with binder. 4.Failure to thrive. Continue Megace. We will follow up with primary and Social Service. 5.Hyperkalemia, resolved. JACKLYN Voice ID: [id number] Report ID: [id number]
[2017-11-13 20:38] VITALS: O2SAT 99
[2017-11-13] MEDS: LATANOPROST 0.005% 2.5ML OPTH OPTH SCH (21:00)
[2017-11-14] MEDS: SEVELAMER CARBONATE 800 MG TABLET PO SCH ×3 (08:00→16:00)
[2017-11-14] MEDS: NEPRO SHAKE 237 ML CAN PO SCH ×2 (09:00→15:43)
[2017-11-14] MEDS: levETIRAcetam 500 MG TAB PO SCH (09:00)
[2017-11-14] MEDS: TIMOLOL MALEATE 0.5% OPTH 5 ML BTL OPTH SCH (09:00)
[2017-11-14] MEDS: MEGESTROL 400 MG/10 ML UCUP PO SCH (09:00)
[2017-11-14] MEDS: CLOPIDOGREL 75 MG TABLET PO SCH (09:00)
[2017-11-14] MEDS: ACETAMINOPHEN 500 MG TAB PO PRN (16:00)
[2017-11-14 17:21] VITALS: BP 95/54; TEMP 97.6
--- NOTE | 2017-11-14 22:15 | PN ---
Date of Progress Note: 11/14/2017 Chief Complaint: The patient has end-stage renal disease. She is undergoing dialysis for metabolic clearance and ultrafiltration. The patient presented to the hospital and was found to have altered m ental status. She was admitted to ICU. The patient is more alert today. She denies complaints. Physical Examination: Lungs: Clear to auscultation bilaterally. Heart: S1, S2. Abdomen: Soft, benign. Extremities: Slight edema in both ankles. Blood Work: BUN 27, creatinine 8.8, potassium 4.8, sodium 137. WBC 3.4, hemoglobin 10.7. Impression And Plan: 1.End-stage renal disease. The patient will continue low-sodium diet, p.o. fluid restriction to mehnaz id hypervolemia. Continue ultrafiltration with dialysis. The patient will continue dialysis 3 times per week. 2.Hypertension, controlled. Continue to monitor blood pressure during dialysis. Adjust the ultrafi ltration goal to avoid intradialytic hypotension. 3.Secondary hyperparathyroidism. Continue binders. 4.Failure to thrive. The patient was started on Megace. 5.Hyperkalemia, resolved. Continue low-potassium diet. EB/MODL Voice ID: [id number] Report ID: [id number]
--- NOTE | 2017-11-15 04:03 | DS ---
Date of Discharge: 11/14/2017 History: A 62-year-old female who was admitted to the hospital because of fatigue secondary to skipp ing some dialysis and also low blood sugars. Past Medical History: As per admit note. Social History: As per admit note. Family History: As per admit note. Medications: As per admit note. Allergies: PER ADMIT NOTE. Family History: As per admit note. Allergies: PER ADMIT NOTE. Physical Examination: As per admit note. Diagnostic Data: As per admit note. Hospital Course: The patient was admitted to the hospital. Consulted Renal to put her back on sched ule for dialysis which they started doing that and a fluid overload improved. We monitored her blood sugar fingersticks. We will put her initially on D10W IV fluid and then that was stopped. The antwan ent's food intake was very minimal; however, it improved gradually on Megace. She was fatigued and t ired and we asked Director [employer] for discharge planning. The patient improved to where she is ambul ating with assistance; however, because that she needs transfer to dialysis 3 times a week, I had to talk to her daughter about her home arrangements because the patient is refusing to go anywhere with home, and the daughter said that they have a caregiver during the day with her and in the afternoon t here are 2 sisters that they take care of their mother and they have arrangements for her to go to [facility] and they will take care of her needs, and with this reassurance, I think we can go ahead and d ischarge the patient. During the patient's stay in the hospital, she had 1 episode of myoclonic seiz ure, for which Neurology was consulted and workup for that was nonrevealing and the etiology was not clear, however, could have been from hypoglycemia. We put the patient on Keppra and we will keep her on that. Her blood sugar fingersticks monitor has been more than 90 with improved food intake, so w e will go ahead and discharge the patient. Look discharge orders for details. MFS/MODL Voice ID: [id number] Report ID: [id number]
== END 2017-11-14 18:42 | disposition home health service (06) | DRG 638 ==
LOC: ER 11:05 → ERHOLD 15:49 → 4TH 17:06 → 3RD-ICU 11-04 18:20 → 2ND 11-06 18:05
PROVIDERS: ADMIT Internal Medicine; ATTEND Internal Medicine
PROC: 5A1D70Z Performance of Urinary Filtration, Intermittent, Less than 6 Hours Per Day (ICD-10-PCS; principal; 2017-11-04)
DX: E11.649 Type 2 diabetes mellitus with hypoglycemia without coma (principal); E87.1 Hypo-osmolality and hyponatremia; I13.2 Hypertensive heart and chronic kidney disease with heart failure and with stage 5 chronic kidney disease, or end stage renal disease; I50.32 Chronic diastolic (congestive) heart failure; N18.6 End stage renal disease; N25.81 Secondary hyperparathyroidism of renal origin; E87.70 Fluid overload, unspecified; R56.9 Unspecified convulsions; R62.7 Adult failure to thrive; D63.1 Anemia in chronic kidney disease; N25.0 Renal osteodystrophy; J44.9 Chronic obstructive pulmonary disease, unspecified; I25.10 Atherosclerotic heart disease of native coronary artery without angina pectoris; I95.3 Hypotension of hemodialysis; M94.0 Chondrocostal junction syndrome [Tietze]; E11.21 Type 2 diabetes mellitus with diabetic nephropathy; E11.22 Type 2 diabetes mellitus with diabetic chronic kidney disease; E11.319 Type 2 diabetes mellitus with unspecified diabetic retinopathy without macular edema; E11.51 Type 2 diabetes mellitus with diabetic peripheral angiopathy without gangrene; G25.3 Myoclonus; T42.6X5A Adverse effect of other antiepileptic and sedative-hypnotic drugs, initial encounter; E11.42 Type 2 diabetes mellitus with diabetic polyneuropathy; E83.39 Other disorders of phosphorus metabolism; Z91.15 Patient's noncompliance with renal dialysis; Z99.2 Dependence on renal dialysis; Z79.02 Long term (current) use of antithrombotics/antiplatelets; Z88.6 Allergy status to analgesic agent; Z88.1 Allergy status to other antibiotic agents; Z88.5 Allergy status to narcotic agent; Z88.8 Allergy status to other drugs, medicaments and biological substances
CPT/HCPCS: 36415; 70551; 71045; 80048; 80069; 80076; 82533; 82550; 82553; 82947; 82962; 83525; 83735; 83880; 84484; 85025; 85610; 85730; 87493; 90935; 93005; 95816; 96361; 96374; 97163; 99285; J1953

== ENCOUNTER 2017-12-01 10:48 | Inpatient (IN) | payer OTHER ==
--- OUTSIDE RECORDS SUMMARY | 2017-12-01 10:50 | XMS REPORT | Clinical Summary ---
:1955 Author Organization [facility] Address [address] [place] [address] Care Team Providers Name Role Phone Asked, [...] EXCISION, LEFT FEMORAL DIALYSIS CATHETER PLACEMENT after 11/30/2016 Social History Tobacco Use Types Packs/Day Years Used Date Never Smoker Smokeless Tobacco: Never Used Sex Assigned at Date Recorded Not on file Last Filed Vital Signs Vital Sign Reading Time Taken Blood Pressure 108/54 04/26/2017 1:46 PM FUGITIVE INVESTIGATOR Pulse 71 04/26/2017 1:46 PM FUGITIVE INVESTIGATOR Temperature 36.5 C (97.7 F) 04/26/2017 11:44 AM FUGITIVE INVESTIGATOR Respiratory Rate 18 04/26/2017 11:44 AM FUGITIVE INVESTIGATOR Oxygen Saturation 98% 04/26/2017 11:44 AM FUGITIVE INVESTIGATOR Inhaled Oxygen Concentration - - Weight 79.4 kg (175 lb) 04/24/2017 2:48 PM FUGITIVE INVESTIGATOR Height 160 cm (5' 3") 04/24/2017 2:48 PM FUGITIVE INVESTIGATOR Body Mass Index 31 04/24/2017 2:48 PM FUGITIVE INVESTIGATOR Plan of Treatment Health Maintenance Due Date Last Done Comments CERVICAL CANCER SCREENING 1976 COLON CANCER SCREENING 2005 SHINGRIX VACCINE (#1) 2005 BREAST CANCER SCREENING 09/01/2010 09/01/2008 ZOSTER VACCINE 2015 INFLUENZA VACCINE 11/05/2017 Implants Implanted Type Area Full Stack Php Developer Device Expiration Model / Identifier Date Serial / Lot Catheter Emboltmy Nenita 5fr 80cm Artrl Tube Pack - [id number] Surgical Left : THURMAN 11/05/2018 [id number] / Implanted: Qty: 1 on 04/21/2017 by Hernesto Mcclendon MD Implants; Arm LIFESCIENCES / Expanders; Extenders; Surgical Wires Tray Cath Dialys Straight 3lumen 24cm 13fr Power-Trialysis - [id number] Surgical Right: BARD ACCESS 09/04/2017 [id number] / Implanted: Qty: 1 on 04/21/2017 by Isaura Parikh MD Implants; Arm SYSTEMS / Expanders; Extenders; Surgical Wires Explanted Type Area Full Stack Php Developer Device Expiration Model / Identifier Date Serial / Lot Catheter Dialysis Glidepath [id number] Symmetric Tip - [id number] Implantable Left: BARD PERIPHERAL 08/04/2018 [id number] / Implanted: Qty: 1 Infusion Ports Groin VASCULAR / Explanted: Qty: 1 on 04/21/2017 by Dennis Sorto MD or Accessories [id number] Procedures Procedure Name Priority Date/Time Associated Diagnosis Comments US DUPLEX VENOUS Routine 08/29/2017 11:51 Encounter for other Results for this UPPER EXTREMITY AM CDT preprocedural procedure are in BILATERAL examination the results Encounter regarding section. vascular access for dialysis for ESRD POC GLUCOSE Routine 04/26/2017 11:43 Results for this AM FUGITIVE INVESTIGATOR procedure are in the results section. POC GLUCOSE Routine 04/26/2017 9:42 Results for this AM FUGITIVE INVESTIGATOR procedure are in the results section. POC GLUCOSE Routine 04/26/2017 8:24 Results for this AM FUGITIVE INVESTIGATOR procedure are in the results section. ESTIMATED GFR Routine 04/26/2017 4:34 Results for this AM FUGITIVE INVESTIGATOR procedure are in the results section. HC COMPLETE BLD COUNT Routine 04/26/2017 4:34 Results for this W/AUTO DIFF AM FUGITIVE INVESTIGATOR procedure are in the results section. BASIC METABOLIC PANEL Routine 04/26/2017 4:34 Results for this AM FUGITIVE INVESTIGATOR procedure are in the results section. POC GLUCOSE Routine 04/26/2017 12:26 Results for this AM FUGITIVE INVESTIGATOR procedure are in the results section. HEMODIALYSIS Routine 04/25/2017 2:21 PM FUGITIVE INVESTIGATOR POC GLUCOSE Routine 04/25/2017 11:52 Results for this AM FUGITIVE INVESTIGATOR procedure are in the results section. POC GLUCOSE Routine 04/25/2017 10:52 Results for this AM FUGITIVE INVESTIGATOR procedure are in the results section. POC GLUCOSE Routine 04/25/2017 7:44 Results for this AM FUGITIVE INVESTIGATOR procedure are in the results section. ESTIMATED GFR Routine 04/25/2017 4:00 Results for this AM FUGITIVE INVESTIGATOR procedure are in the results section. BASIC METABOLIC PANEL Routine 04/25/2017 4:00 Results for this AM FUGITIVE INVESTIGATOR procedure are in the results section. HC COMPLETE BLD COUNT Routine 04/25/2017 3:50 Results for this W/AUTO DIFF AM FUGITIVE INVESTIGATOR procedure are in the results section. POC GLUCOSE Routine 04/24/2017 11:32 Results for this PM FUGITIVE INVESTIGATOR procedure are in the results section. POC GLUCOSE Routine 04/24/2017 6:42 Results for this PM FUGITIVE INVESTIGATOR procedure are in the results section. XR CHEST 1 VW STAT 04/24/2017 5:30 Results for this PORTABLE PM FUGITIVE INVESTIGATOR procedure are in the results section. POC GLUCOSE Routine 04/24/2017 5:07 Results for this PM FUGITIVE INVESTIGATOR procedure are in the results section. OR FL < 1 HOUR Routine 04/24/2017 4:50 End stage renal Results for this PM FUGITIVE INVESTIGATOR disease procedure are in the results section. GA AN ELECTIVE Routine 04/24/2017 4:09 SUPRAGLOTTIC AIRWAY PM FUGITIVE INVESTIGATOR Procedure Note - Ramon Nava MD - 04/24/2017 4:08 PM FUGITIVE INVESTIGATOR Airway Performed by: RAMON NAVA Authorized by: RAMON NAVA Location: OR Urgency: Elective Difficult Airway: No Anesthesiologist: RAMON NAVA Preoxygenated with 100% O2: Yes C-spine Precautions Maintained Throughout: Yes Mask Ventilation: Not attempted Final Airway Type: Supraglottic airway Final LMA: Classic LMA Size: 4 Number of Attempts at Approach: 1 CATHETER REMOVAL, TUNNELED 04/24/2017 3:00 PM FUGITIVE INVESTIGATOR End stage renal disease CENTRAL VENOUS, WITH PORT Special Needs C-ARM POC GLUCOSE Routine 04/24/2017 12:21 PM FUGITIVE INVESTIGATOR POC GLUCOSE Routine 04/24/2017 8:00 AM FUGITIVE INVESTIGATOR PROTHROMBIN TIME WITH INR Routine 04/24/2017 4:05 AM FUGITIVE INVESTIGATOR PARTIAL THROMBOPLASTIN TIME Routine 04/24/2017 4:05 AM FUGITIVE INVESTIGATOR Results for this (PTT) procedure are in the results section. CBC WITH PLATELET AND Routine 04/24/2017 4:05 AM FUGITIVE INVESTIGATOR Results for this DIFFERENTIAL procedure are in the results section. ESTIMATED GFR Routine 04/24/2017 4:00 AM FUGITIVE INVESTIGATOR PHOSPHORUS LEVEL Routine 04/24/2017 4:00 AM FUGITIVE INVESTIGATOR MAGNESIUM LEVEL Routine 04/24/2017 4:00 AM FUGITIVE INVESTIGATOR BASIC METABOLIC PANEL Routine 04/24/2017 4:00 AM FUGITIVE INVESTIGATOR POC GLUCOSE Routine 04/23/2017 8:11 PM FUGITIVE INVESTIGATOR HEMODIALYSIS Routine 04/23/2017 3:53 PM FUGITIVE INVESTIGATOR POC GLUCOSE Routine 04/23/2017 11:20 AM FUGITIVE INVESTIGATOR VANCOMYCIN LEVEL, RANDOM Routine 04/23/2017 9:55 AM FUGITIVE INVESTIGATOR ECG 12-LEAD STAT 04/23/2017 9:45 AM FUGITIVE INVESTIGATOR XR CHEST 1 VW PORTABLE Routine 04/23/2017 7:57 AM FUGITIVE INVESTIGATOR POC GLUCOSE Routine 04/23/2017 7:21 AM FUGITIVE INVESTIGATOR POC GLUCOSE Routine 04/22/2017 11:28 PM FUGITIVE INVESTIGATOR POC GLUCOSE Routine 04/22/2017 7:43 PM FUGITIVE INVESTIGATOR POC GLUCOSE Routine 04/22/2017 3:30 PM FUGITIVE INVESTIGATOR POC GLUCOSE Routine 04/22/2017 11:25 AM FUGITIVE INVESTIGATOR POC GLUCOSE Routine 04/22/2017 7:27 AM FUGITIVE INVESTIGATOR HC COMPLETE BLD COUNT W/AUTO Routine 04/22/2017 5:00 AM FUGITIVE INVESTIGATOR Results for this DIFF procedure are in the results section. ESTIMATED GFR Routine 04/22/2017 4:00 AM FUGITIVE INVESTIGATOR COMPREHENSIVE METABOLIC Routine 04/22/2017 4:00 AM FUGITIVE INVESTIGATOR Results for this PANEL procedure are in the results section. ECG ED PRELIMINARY Routine 04/21/2017 5:55 PM FUGITIVE INVESTIGATOR Results for this INTERPRETATION procedure are in the results section. HEMODIALYSIS Routine 04/21/2017 4:33 PM FUGITIVE INVESTIGATOR HEPATITIS B SURFACE ANTIGEN Routine 04/21/2017 2:16 PM FUGITIVE INVESTIGATOR PROTHROMBIN TIME WITH INR Routine 04/21/2017 11:27 AM FUGITIVE INVESTIGATOR ESTIMATED GFR Routine 04/21/2017 11:27 AM FUGITIVE INVESTIGATOR HC COMPLETE BLD COUNT W/AUTO Routine 04/21/2017 11:27 AM FUGITIVE INVESTIGATOR Results for this DIFF procedure are in the results section. BASIC METABOLIC PANEL Routine 04/21/2017 11:27 AM FUGITIVE INVESTIGATOR POC GLUCOSE Routine 04/21/2017 11:10 AM FUGITIVE INVESTIGATOR SURGICAL PATHOLOGY REQUEST Routine 04/21/2017 10:58 AM FUGITIVE INVESTIGATOR AFB STAIN Timed 04/21/2017 10:04 AM FUGITIVE INVESTIGATOR GRAM STAIN Timed 04/21/2017 10:04 AM FUGITIVE INVESTIGATOR FUNGUS SMEAR Timed 04/21/2017 10:04 AM FUGITIVE INVESTIGATOR AEROBIC CULTURE Timed 04/21/2017 10:04 AM FUGITIVE INVESTIGATOR AFB CULTURE Timed 04/21/2017 10:04 AM FUGITIVE INVESTIGATOR FUNGUS CULTURE Timed 04/21/2017 10:04 AM FUGITIVE INVESTIGATOR ANESTHESIA INTUBATION Routine 04/21/2017 9:22 AM FUGITIVE INVESTIGATOR Procedure Note - Stanley Cabrera, MD - 04/21/2017 9:21 AM FUGITIVE INVESTIGATOR Airway Performed by: STANLEY CABRERA Authorized by: [...] Routine 04/21/2017 8:22 Results for this AM FUGITIVE INVESTIGATOR procedure are in the results section. REVISION, ARTERIOVENOUS 04/21/2017 7:30 AV GRAFT GRAFT, WITH ANGIOGRAPHY AM FUGITIVE INVESTIGATOR MALFUNCTION XR CHEST 1 VW PORTABLE STAT 04/21/2017 7:14 Results for this AM FUGITIVE INVESTIGATOR procedure are in the results section. TRANSFUSE RED BLOOD STAT 04/21/2017 7:08 CELLS AM FUGITIVE INVESTIGATOR TROPONIN STAT 04/21/2017 3:59 Results for this AM FUGITIVE INVESTIGATOR procedure are in the results section. ESTIMATED GFR STAT 04/21/2017 3:59 Results for this AM FUGITIVE INVESTIGATOR procedure are in the results section. HEPATIC FUNCTION PANEL STAT 04/21/2017 3:59 Results for this AM FUGITIVE INVESTIGATOR procedure are in the results section. BASIC METABOLIC PANEL STAT 04/21/2017 3:59 Results for this AM FUGITIVE INVESTIGATOR procedure are in the results section. BLOOD CULTURE, AEROBIC Routine 04/21/2017 3:59 Results for this & ANAEROBIC AM FUGITIVE INVESTIGATOR procedure are in the results section. ALT (SGPT) STAT 04/21/2017 2:39 Results for this AM FUGITIVE INVESTIGATOR procedure are in the results section. AST (SGOT) STAT 04/21/2017 2:39 Results for this AM FUGITIVE INVESTIGATOR procedure are in the results section. POTASSIUM LEVEL STAT 04/21/2017 2:39 Results for this AM FUGITIVE INVESTIGATOR procedure are in the results section. PREPARE RBC Timed 04/21/2017 1:35 Results for this AM FUGITIVE INVESTIGATOR procedure are in the results section. ESTIMATED GFR STAT 04/21/2017 1:35 Results for this AM FUGITIVE INVESTIGATOR procedure are in the results section. B NATRIURETIC PEPTIDE STAT 04/21/2017 1:35 Results for this AM FUGITIVE INVESTIGATOR procedure are in the results section. TROPONIN STAT 04/21/2017 1:35 Results for this AM FUGITIVE INVESTIGATOR procedure are in the results section. COMPREHENSIVE METABOLIC STAT 04/21/2017 1:35 Results for this PANEL AM FUGITIVE INVESTIGATOR procedure are in the results section. TYPE AND SCREEN Timed 04/21/2017 1:35 Results for this AM FUGITIVE INVESTIGATOR procedure are in the results section. PARTIAL THROMBOPLASTIN STAT 04/21/2017 1:35 Results for this TIME (PTT) AM FUGITIVE INVESTIGATOR procedure are in the results section. PROTHROMBIN TIME WITH STAT 04/21/2017 1:35 Results for this INR AM FUGITIVE INVESTIGATOR procedure are in the results section. HC COMPLETE BLD COUNT STAT 04/21/2017 1:35 Results for this W/AUTO DIFF AM FUGITIVE INVESTIGATOR procedure are in the results section. after 11/30/2016 Results Pv duplex venous upper extremity (08/29/2017 11:51 AM) Narrative Performed At [facility] Vascular Ultrasound Laboratory Upper Extremity Venous Report [address] [place] [address] Pat.Name:GREGORIA PADILLA Pat.ID:[id number] .Date: 08/29/2017 Refer.MD:HERNESTO MCCLENDON MD Exam Time: 11:16:00 AM Study Type:UE Venous DOBAge:1955,62YSex: FEMALE Sonogrphr: Elio Montilla RN, RVTPat. Stat.:Outpatient TapeVol: DP, CPT - 4: 63342 Echo Event ID:[id number] Order ID:[id number] Reason for Study:Left upper arm pain status post excisxion of infected AVG., 05/2017. Procedures:Colorflow, Grayscale/2D, Pulsed wave Doppler Race:-Nauruan SUMMARY: DUPLEX SCAN OBSERVATIONS Right Left IJNormal [...] Ultrasound Laboratory Upper Extremity Venous Report [address] [place] [address] Pat.Name: GREGORIA PADILLA Pat.ID: [id number] .Date: 08/29/2017 Refer.MD: HERNESTO MCCLENDON MD Exam Time: 11:16:00 AM Study Type:UE Venous Age: 12 1955,62Y Sex: FEMALE Sonogrphr: Elio Montilla RN, RVT Pat. Stat.:Outpatient Tape Vol: DP, CPT - 4: 42589 Echo Event ID:[id number] Order ID: [id number] Reason for Study:Left upper arm pain status post excisxion of infected AVG., 05/2017. Procedures:Colorflow, Grayscale/2D, Pulsed wave Doppler Race: -Nauruan SUMMARY: DUPLEX SCAN OBSERVATIONS Right Left IJ [...] MD Performing Organization Address City/State/Zipcode Phone Number [facility] [address] [place] [address] POC glucose (04/26/2017 11:43 AM)Only the most recent of22 resultswithin the time period is included. POC glucose 103 (H) 65 - 99 mg/dL [facility] DEPARTMENT OF PATHOLOGY AND Comment: GENOMIC MEDICINE [facility] Notified RN Meter ID: [id number] Supervisor Airplane Flight Attendant: Nelia Qiu Performing Organization Address [facility]/[employer] Phone Number [facility] DEPARTMENT OF PATHOLOGY AND [address] [place] [address] [facility] MEDICINE Estimated GFR (04/26/2017 4:34 AM)Only the most recent of7 resultswithin the time period is included. GFR Non Af Amer 11 (A) mL/min/1.73 m2 [facility] DEPARTMENT OF PATHOLOGY AND GENOMIC MEDICINE GFR Af Amer 14 (A) mL/min/1.73 m2 [facility] DEPARTMENT OF Comment: PATHOLOGY AND GENOMIC [...] Americans. Specimen Plasma specimen Performing Organization Address City/[facility]/Zipcode Phone Number [facility] DEPARTMENT OF PATHOLOGY AND [address] [place] [address] GENOMIC MEDICINE CBC with platelet and differential (04/26/2017 4:34 AM)Only the most recent of6 resultswithin the time period is included. WBC 4.68Comment: WBC was 4.50 - 11.00 k/uL [facility] DEPARTMENT OF corrected for NRBCs PATHOLOGY AND GENOMIC MEDICINE RBC 2.74 (L) 4.20 - 5.50 m/uL [facility] DEPARTMENT OF PATHOLOGY AND GENOMIC MEDICINE HGB 7.7 (L) 12.0 - 16.0 g/dL [facility] DEPARTMENT OF PATHOLOGY AND GENOMIC MEDICINE HCT 26.0 (L) 37.0 - 47.0 % [facility] DEPARTMENT OF PATHOLOGY AND GENOMIC MEDICINE MCV 94.9 82.0 - 100.0 fL [facility] DEPARTMENT OF PATHOLOGY AND GENOMIC MEDICINE MCH 28.1 27.0 - 34.0 pg [facility] DEPARTMENT OF PATHOLOGY AND GENOMIC MEDICINE MCHC 29.6 (L) 31.0 - 37.0 g/dL [facility] DEPARTMENT OF PATHOLOGY AND GENOMIC MEDICINE RDW - SD 59.8 (H) 37.0 - 55.0 fL [facility] DEPARTMENT OF PATHOLOGY AND GENOMIC MEDICINE MPV 10.3 8.8 - 13.2 fL [facility] DEPARTMENT OF PATHOLOGY AND GENOMIC MEDICINE Platelet count 148 (L) 150 - 400 k/uL [facility] DEPARTMENT OF PATHOLOGY AND GENOMIC MEDICINE Nucleated RBC 2.60 /100 WBC [facility] DEPARTMENT OF PATHOLOGY AND GENOMIC MEDICINE Neutrophils 58.7 39.0 - 69.0 % [facility] DEPARTMENT OF PATHOLOGY AND GENOMIC MEDICINE Lymphocytes 21.4 (L) 25.0 - 45.0 % [facility] DEPARTMENT OF PATHOLOGY AND GENOMIC MEDICINE Monocytes 13.9 (H) 0.0 - 10.0 % [facility] DEPARTMENT OF PATHOLOGY AND GENOMIC MEDICINE Eosinophils 4.7 0.0 - 5.0 % [facility] DEPARTMENT OF PATHOLOGY AND GENOMIC MEDICINE Basophils 0.4 0.0 - 1.0 % [facility] DEPARTMENT OF PATHOLOGY AND GENOMIC MEDICINE Immature granulocytes 0.9Comment: "Immature 0.0 - 1.0 % [facility] DEPARTMENT OF granulocytes" PATHOLOGY AND GENOMIC (promyelocytes, MEDICINE myelocytes, metamyelocytes) Specimen Blood Performing Organization Address City/State/Zipcode Phone Number [facility] DEPARTMENT OF PATHOLOGY AND [address] [place] [address] [place] MEDICINE Basic metabolic panel (04/26/2017 4:34 AM)Only the most recent of5 resultswithin the time period is included. Sodium 138 135 - 148 mEq/L [facility] DEPARTMENT OF PATHOLOGY AND GENOMIC MEDICINE Potassium 4.2 3.5 - 5.0 mEq/L [facility] DEPARTMENT OF PATHOLOGY AND GENOMIC MEDICINE Chloride 96 (L) 98 - 112 mEq/L [facility] DEPARTMENT OF PATHOLOGY AND GENOMIC MEDICINE CO2 25 24 - 31 mEq/L [facility] DEPARTMENT OF PATHOLOGY AND GENOMIC MEDICINE Anion gap 17 (H) 7 - 15 mEq/L [facility] DEPARTMENT OF PATHOLOGY Comment: [facility] Starting from July , anion gap calculation no longer incorporates potassium. Please note the change. BUN 14 8 - 23 mg/dL [facility] DEPARTMENT OF PATHOLOGY AND GENOMIC MEDICINE Creatinine 4.0 (H) 0.5 - 0.9 mg/dL [facility] DEPARTMENT OF PATHOLOGY AND GENOMIC MEDICINE Glucose 96 65 - 99 mg/dL [facility] DEPARTMENT OF PATHOLOGY AND GENOMIC MEDICINE Calcium 8.2 (L) 8.8 - 10.2 mg/dL [facility] DEPARTMENT OF PATHOLOGY AND GENOMIC MEDICINE Specimen Plasma specimen Performing Organization Address City/[facility] Phone Number [facility] DEPARTMENT OF PATHOLOGY AND [address] [place] [address] [facility] XR Chest [...] without evidence of a suspicious focal lesion. [facility]-[id number] Procedure Note Interface, Radiology Results Incoming - 04/24/2017 6:28 PM FUGITIVE INVESTIGATOR EXAMINATION: XR CHEST 1 VW PORTABLE CLINICAL HISTORY: New dialysis catheter COMPARISON: None. IMPRESSION: Right dialysis catheter terminates in the superior vena cava, there is no evidence of pneumothorax Heart is enlarged Atelectasis in the lung bases. Degenerative changes are present throughout the bony structures without evidence of a suspicious focal lesion. [facility]-[id number] Performing Organization Address City/[facility] Centercode Phone Number [facility] [address] [place] [address] [place] < 1 Hour (04/24/2017 4:50 PM) Narrative Performed At EXAMINATION:[place] 1 HOUR [facility] C-arm fluoroscopy was requested in OR. LOCATION: [place] [facility] OR 06 PROCEDURE: C-Arm for INSERTION OF TUNNELED DIALYSIS CATHETER START TIME: 1635 FINISH TIME: 1650 FLUORO TIME: 0.1 min DOSE: mGy:1.06 TECH(S): PHAN MENDOZA IMPRESSION: Separate operative report will be issued by the physician performing the procedure. [id number] Procedure Note Hm Interface, Radiology Results Incoming - 04/24/2017 10:13 PM FUGITIVE INVESTIGATOR EXAMINATION: [place] 1 HOUR C-arm fluoroscopy was requested in OR. LOCATION: [place] [facility] OR 06 PROCEDURE: C-Arm for INSERTION OF TUNNELED DIALYSIS CATHETER START TIME: 1635 FINISH TIME: 1650 FLUORO TIME: 0.1 min DOSE: mGy: 1.06 TECH(S): PHAN MENDOZA IMPRESSION: Separate operative report will be issued by the physician performing the procedure. [id number] Performing Organization Address [facility] Phone Number [facility] [address] [place] [phone] Partial thromboplastin time, activated (04/24/2017 4:05 AM)Only the most recent of2 resultswithin the time period is included. PTT 35.1 23.0 - 36.0 sec [facility] DEPARTMENT OF PATHOLOGY Comment: AND [place] [facility] PTT therapeutic range for unfractionated heparin is 61.0-112.0 seconds which corresponds to Anti-Xa 0.3-0.7 U/ml. Specimen Blood Performing Organization Address [facility] Phone Number [facility] DEPARTMENT OF PATHOLOGY AND [address] [place] [phone] [place] [facility] Prothrombin time with INR (04/24/2017 4:05 AM)Only the most recent of3 resultswithin the time period is included. Prothrombin time 15.5 (H) 12.0 - 15.0 sec [facility] DEPARTMENT OF PATHOLOGY AND GENOMIC MEDICINE INR 1.2 [facility] DEPARTMENT OF Comment: PATHOLOGY AND GENOMIC The International Normalized Ratio (INR) is a therapeutic MEDICINE monitoring tool for patients who are stable on oral anticoagulant therapy. An INR of 2.0-3.0 is suggested for deep vein thrombosis/pulmonary embolism. Specimen Blood Performing Organization Address [facility] Phone Number [facility] DEPARTMENT OF PATHOLOGY AND [address] [place] [phone] [facility] MEDICINE Phosphorus level (04/24/2017 4:00 AM) Phosphorus 3.9 2.4 - 4.5 mg/dL [facility] DEPARTMENT OF PATHOLOGY AND GENOMIC MEDICINE Specimen Plasma specimen Performing Organization Address [facility] Phone Number [facility] DEPARTMENT OF PATHOLOGY AND [address] [place] [address] MEDICINE Magnesium level (04/24/2017 4:00 AM) Magnesium 1.9 1.6 - 2.4 mg/dL [facility] DEPARTMENT OF PATHOLOGY AND GENOMIC MEDICINE Specimen Plasma specimen Performing Organization Address [facility] Centercoor Phone Number [facility] DEPARTMENT OF PATHOLOGY AND [address] [place] [id number] [place] [address] Vancomycin level, random (04/23/2017 9:55 AM) Vancomycin, random 9.1 ug/mL [facility] DEPARTMENT OF PATHOLOGY AND GENOMIC MEDICINE Specimen Serum Performing Organization Address [facility] Phone Number [facility] DEPARTMENT OF PATHOLOGY AND [address] [place] [address] ECG 12 lead (04/23/2017 9:45 AM) Ventricular rate 80 [facility] MUSE Atrial rate 80 [facility] MUSE GA interval 214 [facility] MUSE QRSD interval 166 [facility] M[facility] QT interval 436 [facility] M[facility] QTC interval 502 [facility] MUSE P axis 1 51 [facility] MUSE QRS axis 1 -62 [facility] MUSE T wave axis -1 [facility] MUSE EKG impression Sinus rhythm with sinus arrhythmia with 1st degree AV block- Left axis deviation-Right bundle branch block-T wave abnormality, consider lateral ischemia-Abnormal ECG-In automated comparison with ECG of 1 [facility] MUSE -FEB-2014 19:02,-T wave inversion more evident in Anterior leads-Electronically Signed By Fitz Hogan ([id number]) on 2017 8:15:04 AM Performing Organization Address [facility] Phone Number [facility] MUSE [address] [place], [place] [id number] Comprehensive metabolic panel (04/22/2017 4:00 AM)Only the most recent of2 resultswithin the time period is included. Sodium 140 135 - 148 mEq/L [facility] DEPARTMENT OF PATHOLOGY AND GENOMIC MEDICINE Potassium 4.7 3.5 - 5.0 mEq/L [facility] DEPARTMENT OF PATHOLOGY AND GENOMIC MEDICINE Chloride 98 98 - 112 mEq/L [facility] DEPARTMENT OF PATHOLOGY AND GENOMIC MEDICINE CO2 26 24 - 31 mEq/L [facility] DEPARTMENT OF PATHOLOGY AND GENOMIC MEDICINE Anion gap 16 (H) 7 - 15 mEq/L [facility] DEPARTMENT OF Comment: PATHOLOGY AND GENOMIC Starting from July , anion gap calculation MEDICINE no longer incorporates potassium. Please note the change. BUN 20 8 - 23 mg/dL [facility] DEPARTMENT OF PATHOLOGY AND GENOMIC MEDICINE Creatinine 4.6 (H) 0.5 - 0.9 mg/dL [facility] DEPARTMENT OF PATHOLOGY AND GENOMIC MEDICINE Glucose 105 (H) 65 - 99 mg/dL [facility] DEPARTMENT OF PATHOLOGY AND GENOMIC MEDICINE Calcium 8.6 (L) 8.8 - 10.2 mg/dL [facility] DEPARTMENT OF PATHOLOGY AND GENOMIC MEDICINE Protein 7.7 6.3 - 8.3 g/dL [facility] DEPARTMENT OF Comment: PATHOLOGY AND GENOMIC 4.6-7.0 g/dL MEDICINE 1 week 4.4-7.6 g/dL 7 months-1year5.1-7.3 g/dL 1-2 years5.6-7.5 g/dL >3 years6.0-8.0 g/dL 18-150 6.3-8.3 g/dL Albumin 3.2 (L) 3.5 - 5.0 g/dL [facility] DEPARTMENT OF PATHOLOGY AND GENOMIC MEDICINE A/G ratio 0.7 0.7 - 3.8 [facility] DEPARTMENT OF PATHOLOGY AND GENOMIC MEDICINE Alkaline phosphatase 102 35 - 104 U/L [facility] DEPARTMENT OF PATHOLOGY AND GENOMIC MEDICINE AST 16 10 - 35 U/L [facility] DEPARTMENT OF PATHOLOGY AND GENOMIC MEDICINE ALT 7 5 - 50 U/L [facility] DEPARTMENT OF PATHOLOGY AND GENOMIC MEDICINE Total bilirubin 0.4 0.0 - 1.2 mg/dL [facility] DEPARTMENT OF PATHOLOGY AND GENOMIC MEDICINE Specimen Plasma specimen Performing Organization Address City/State/Zipcode Phone Number [facility] DEPARTMENT OF PATHOLOGY AND [address] [place] [address] [facility] MEDICINE ECG ED Preliminary Interpretation - NOT AN ORDER (04/21/2017 5:55 PM) Narrative Performed At Zeus Cook MD 04/21/20175:55 PM ECG ED Preliminary Interpretation - Not an Order Performed by: ZEUS COOK Authorized by: ZEUS COOK ECG reviewed by ED Physician in the absence of a clutch inspector: yes Interpretation: Interpretation: normal Rate: ECG rate:74 ECG rate assessment: normal Rhythm: Rhythm: sinus rhythm QRS: QRS axis:Normal QRS intervals:Normal ST segments: ST segments:Normal Hepatitis B surface antigen (04/21/2017 2:16 PM) Hepatitis B surface Ag Non-reactive Non-reactive [facility] DEPARTMENT OF PATHOLOGY AND GENOMIC MEDICINE Specimen Blood Performing Organization Address [facility] Phone Number [facility] DEPARTMENT OF PATHOLOGY AND [address] [place] [address] Surgical pathology request (04/21/2017 10:58 AM) [facility] DEPARTMENT OF PATHOLOGY AND GENOMIC MEDICINE Surgical pathology report See link below for PDF [facility] DEPARTMENT OF Lab Report PATHOLOGY AND GENOMIC MEDICINE Result status This is Final Report to [facility] DEPARTMENT OF [id number] PATHOLOGY AND GENOMIC MEDICINE Performing Organization Address [facility] Phone Number [facility] DEPARTMENT OF PATHOLOGY AND [address] [place] [address] MEDICINE Fungus smear (04/21/2017 10:04 AM) Fungus smear No fungi observed. [facility] DEPARTMENT OF PATHOLOGY Comment: AND GENOMIC MEDICINE Specimen Information Specimen Source: Graft Specimen Site: left arm arteriovenous graft Performing Organization Address [facility] Phone Number [facility] DEPARTMENT OF PATHOLOGY AND [address] [place] [address] MEDICINE AFB culture (04/21/2017 10:04 AM) AFB culture isolate No growth after 6 weeks of incubation. [facility] DEPARTMENT OF Comment: PATHOLOGY AND GENOMIC Specimen Information MEDICINE Specimen Source: Graft Specimen Site: left arm arteriovenous graft Specimen Implant - Other Performing Organization Address [facility] Phone Number [facility] DEPARTMENT OF PATHOLOGY AND [address] [place] [address] MEDICINE Aerobic culture (04/21/2017 10:04 AM) Aerobic culture isolate Staphylococcus aureus [facility] DEPARTMENT OF Occasional PATHOLOGY AND GENOMIC [...] MANI 1 mcg/mL: Susceptible Performing Organization Address [facility] Phone Number [facility] DEPARTMENT OF PATHOLOGY AND [address] [place] [address] GENOMIC MEDICINE Gram stain (04/21/2017 10:04 AM) Gram stain isolate Few WBC's [facility] DEPARTMENT OF No organisms seen PATHOLOGY AND GENOMIC MEDICINE Comment: Specimen Information Specimen Source: Graft Specimen Site: left arm arteriovenous graft Performing Organization Address [facility] Phone Number [facility] DEPARTMENT OF PATHOLOGY AND [address] [place] [address] GENOMIC MEDICINE AFB stain (04/21/2017 10:04 AM) AFB stain No acid fast bacilli (AFB) seen. [facility] DEPARTMENT OF PATHOLOGY AND Comment: GENOMIC MEDICINE Specimen Information Specimen Source: Graft Specimen Site: left arm arteriovenous graft Performing Organization Address [facility] Phone Number [facility] DEPARTMENT OF PATHOLOGY AND [address] [place] [address] GENOMIC MEDICINE Fungus culture (04/21/2017 10:04 AM) Fungus culture isolate No growth after 4 weeks of incubation. [facility] DEPARTMENT OF Comment: PATHOLOGY AND GENOMIC Specimen Information MEDICINE Specimen Source: Graft Specimen Site: left arm arteriovenous graft Specimen Implant - Other Performing Organization Address [facility] Phone Number [facility] DEPARTMENT OF PATHOLOGY AND [address] [place] [id number] GENOMIC MEDICINE Transfuse RBC (04/21/2017 7:08 AM)Troponin (04/21/2017 3:59 AM)Only the most recent of2 resultswithin the time period is included. Troponin <0.30 0.00 - 0.30 ng/mL [facility] DEPARTMENT OF PATHOLOGY Comment: AND GENOMIC MEDICINE 0.30 - 1.49 ng/mlMay indicate increased risk of acute coronary syndrome. >=1.5 ng/mlConsistent with acute myocardial infarction. The diagnostic value of a single normal or non-diagnostic result is questionable.Serial samples at 2-6 hour intervals are required to rule out acute myocardial injury. Specimen Plasma specimen Performing Organization Address [facility] Phone Number [facility] DEPARTMENT OF PATHOLOGY AND [address] [place] [id number] [place] MEDICINE Blood culture, aerobic & anaerobic (04/21/2017 3:59 AM) Blood culture isolate No growth after 5 days of incubation. [facility] DEPARTMENT OF Comment: PATHOLOGY AND GENOMIC Specimen Information MEDICINE Specimen Source: Blood Specimen Site: Peripheral Arm Right Specimen Blood Performing Organization Address [facility] Phone Number [facility] DEPARTMENT OF PATHOLOGY AND [address] [place] [id number] [place] [address] Hepatic function panel (04/21/2017 3:59 AM) Albumin 3.0 (L) 3.5 - 5.0 g/dL [facility] DEPARTMENT OF PATHOLOGY AND GENOMIC MEDICINE Total bilirubin <0.2 0.0 - 1.2 mg/dL [facility] DEPARTMENT OF PATHOLOGY AND GENOMIC MEDICINE Bilirubin direct <0.2 0.0 - 0.3 mg/dL [facility] DEPARTMENT OF PATHOLOGY AND GENOMIC MEDICINE Alkaline phosphatase 109 (H) 35 - 104 U/L [facility] DEPARTMENT OF PATHOLOGY AND GENOMIC MEDICINE Protein 7.4 6.3 - 8.3 g/dL [facility] DEPARTMENT OF Comment: PATHOLOGY AND GENOMIC [place] 4.6-7.0 g/dL MEDICINE 1 week 4.4-7.6 g/dL 7 months-1year5.1-7.3 g/dL 1-2 years5.6-7.5 g/dL >3 years6.0-8.0 g/dL 18-150 6.3-8.3 g/dL ALT 13 5 - 50 U/L [facility] DEPARTMENT OF PATHOLOGY AND GENOMIC MEDICINE AST 15 10 - 35 U/L [facility] DEPARTMENT OF PATHOLOGY AND GENOMIC MEDICINE Specimen Plasma specimen Performing Organization Address [facility] Phone Number [facility] DEPARTMENT OF PATHOLOGY AND [address] [place] [address] [facility] MEDICINE ALT (SGPT) (04/21/2017 2:39 AM) ALT Footnote 5 - 50 U/L [facility] DEPARTMENT OF PATHOLOGY AND GENOMIC MEDICINE Specimen Plasma specimen Performing Organization Address [facility] Phone Number [facility] DEPARTMENT OF PATHOLOGY AND [address] [place] [address] MEDICINE AST (SGOT) (04/21/2017 2:39 AM) AST Footnote 10 - 35 U/L [facility] DEPARTMENT OF PATHOLOGY AND GENOMIC MEDICINE Specimen Plasma specimen Performing Organization Address City/[facility]/Zipcode Phone Number [facility] DEPARTMENT OF PATHOLOGY AND [address] [place] [address] Potassium level (04/21/2017 2:39 AM) Potassium Footnote 3.5 - 5.0 mEq/L [facility] DEPARTMENT OF PATHOLOGY Comment: AND [place] MEDICINE Unable to perform testing, specimen is HEMOLYZED.Recollect requested for K,AST,ALT.RUSSEL GRESHAM notified by KXG at04/21/201703:48 . Specimen Plasma specimen Performing Organization Address City/[facility] Phone Number [facility] DEPARTMENT OF PATHOLOGY AND [address] [place] [address] [place] MEDICINE Prepare RBC, 2 Units (04/21/2017 1:35 AM) Product name Red Cells AS1 Leukored [facility] DEPARTMENT OF Irrad PATHOLOGY AND GENOMIC MEDICINE Unit number [id number] [facility] DEPARTMENT OF PATHOLOGY AND GENOMIC MEDICINE Product code [id number] [facility] DEPARTMENT OF PATHOLOGY AND GENOMIC MEDICINE Dispense status Transfused [facility] DEPARTMENT OF PATHOLOGY AND GENOMIC MEDICINE Blood expiration date [id number] [facility] DEPARTMENT OF PATHOLOGY AND GENOMIC MEDICINE Blood type code 7300 [facility] DEPARTMENT OF PATHOLOGY AND GENOMIC MEDICINE Blood type B POSITIVE [facility] DEPARTMENT OF PATHOLOGY AND GENOMIC MEDICINE Product name Red Cells AS1 Leukored [facility] DEPARTMENT OF Irrad PATHOLOGY AND GENOMIC MEDICINE Unit number [id number] [facility] DEPARTMENT OF PATHOLOGY AND GENOMIC MEDICINE Product code [id number] [facility] DEPARTMENT OF PATHOLOGY AND GENOMIC MEDICINE Dispense status Transfused [facility] DEPARTMENT OF PATHOLOGY AND GENOMIC MEDICINE Blood expiration date [id number] [facility] DEPARTMENT OF PATHOLOGY AND GENOMIC MEDICINE Blood type code 7300 [facility] DEPARTMENT OF PATHOLOGY AND GENOMIC MEDICINE Blood type B POSITIVE [facility] DEPARTMENT OF PATHOLOGY AND GENOMIC MEDICINE Performing Organization Address City/[facility] Phone Number [facility] DEPARTMENT OF PATHOLOGY AND [address] [place] [address] GENOMIC MEDICINE Type and screen (04/21/2017 1:35 AM) ABO grouping B [facility] DEPARTMENT OF PATHOLOGY AND GENOMIC MEDICINE Rh type POS [facility] DEPARTMENT OF PATHOLOGY AND GENOMIC MEDICINE Antibody screen (gel) NEG [facility] DEPARTMENT OF PATHOLOGY AND GENOMIC MEDICINE Specimen Blood Performing Organization Address City/[facility] Phone Number [facility] DEPARTMENT OF PATHOLOGY AND [address] [place] [address] GENOMIC MEDICINE B natriuretic peptide (04/21/2017 1:35 AM) BNP 582 (H) 0 - 100 pg/mL [facility] DEPARTMENT OF PATHOLOGY AND GENOMIC MEDICINE Specimen Blood Performing Organization Address City/[facility] Phone Number [facility] DEPARTMENT OF PATHOLOGY AND [address] [place] [address] GENOMIC MEDICINE after 11/30/2016 Insurance Payer Benefit Plan / Group Subscriber ID Type Phone Address MEDICARE MEDICARE PART A AND B xxxxxxxxxxx Medicare [place], [place] Home: [address] [facility] [facility] J [phone] [address]
--- OUTSIDE RECORDS SUMMARY | 2017-12-01 10:51 | XMS REPORT ---
:1955 Author Organization [facility] Address [address] [place] [address] Care Team Providers Name Role Phone UNKNOWN, [...] the Main Lab for Analysis. POC Glucose, [id number] 16:22:00 Test Item Value Reference Range Comments POC Glucose (test 82 mg/dL 70-115 If you consider your patient code=POCGLUC) critically ill, the Finn Accu-Chek InformII metershould not be used for Glucose determinations.Draw a venous Glucose and send to the Main Lab for Analysis. POC Glucose, [id number] 08:07:00 Test Item Value Reference Range Comments POC Glucose (test 76 mg/dL 70-115 If you consider your patient code=POCGLUC) critically ill, the Finn Accu-Chek InformII metershould not be used for Glucose determinations.Draw a venous Glucose and send to the Main Lab for Analysis. POC Glucose, [id number] 20:48:00 Test Item Value Reference Range Comments POC Glucose (test 107 mg/dL 70-115 If you consider your patient code=POCGLUC) critically ill, the Finn Accu-Chek InformII metershould not be used for Glucose determinations.Draw a venous Glucose and send to the Main Lab for Analysis. POC Glucose, [id number] 07:18:00 Test Item Value Reference Range Comments POC Glucose (test 75 mg/dL 70-115 If you consider your patient code=POCGLUC) critically ill, the Finn Accu-Chek InformII metershould not be used for Glucose determinations.Draw a venous Glucose and send to the Main Lab for Analysis. POC Glucose, [id number] 21:10:00 Test Item Value Reference Range Comments POC Glucose (test 129 mg/dL 70-115 If you consider your patient code=POCGLUC) critically ill, the Finn Accu-Chek InformII metershould not be used for Glucose determinations.Draw a venous Glucose and send to the Main Lab for Analysis. POC Glucose, [id number] 07:44:00 Test Item Value Reference Range Comments POC Glucose (test 91 mg/dL 70-115 If you consider your patient code=POCGLUC) critically ill, the Finn Accu-Chek InformII metershould not be used for Glucose determinations.Draw a venous Glucose and send to the Main Lab for Analysis. US ABD B-SCAN, [id number] 09:21:21DICTATION LOCATION: [id number]: distended. COMPARISON: None available.TECHNIQUE: Sonography ofthe abdomen. [...] Status post cholecystectomy.4. Abdominopelvic ascites.XR ABDOMEN KUB [id number] 07: 58:20EXAM: KUBLocation: [id number]: DistendedCOMPARISON: NoneDISCUSSION:A frontal view of the abdomen is submitted.There is overall increased density of the abdomen with relativelycentralized bowel gas and obscured abdominal fat planes, suggestive ofascites. Right upper quadrant surgical clips suggest priorcholecystectomy. No bowel obstruction or gross evidence ofintra-abdominal free air is seen. No acute bony or normalities areidentified.IMPRESSION: Findings suggest ascites. No evidence of bowel obstructionor intraperitoneal free air.POC Glucose, [id number] 20:27:00 Test Item Value Reference Range Comments POC Glucose (test 107 mg/dL 70-115 If you consider your patient code=POCGLUC) critically ill, the Finn Accu-Chek InformII metershould not be used for Glucose determinations.Draw a venous Glucose and send to the Main Lab for Analysis. POC Glucose, [id number] 21:14:00 Test Item Value Reference Range Comments POC Glucose (test 141 mg/dL 70-115 If you consider your patient code=POCGLUC) critically ill, the Finn Accu-Chek InformII metershould not be used for Glucose determinations.Draw a venous Glucose and send to the Main Lab for Analysis. Comprehensive Metabolic [id number] 06:45:00 Test Item Value Reference Range Comments [...] race is not provided, and the patient isAfrican-South Korean, multiply by 1.212. If sex is not [...] the National Kidney Foundation,http://nkdep.nih. gov CBC with [id number] 06:27:00 Test Item Value Reference Range Comments [...] Lymph Abs (test code=ALYMPH) 1.1 K/cumm 0.5-4.6 [place]oke Abs (test code=AMONO) 0.4 K/cumm 0.0-1.2 Eos Abs (test code=AEOS) 0.16 K/cumm 0.00-0.74 Baso Abs (test code=ABASO) 0.0 K/cumm 0.00-0.21 Hypochromic (test code=HYPO) Slight Hep B Surface [id number] 21:04:00 Test Item Value Reference Range Comments Hep Bs Ag (test code=HBSAG) Nonreactive Non-Reactive [id number] 14:36:00 Test Item Value Reference Range Comments NT ProBnp (test code=PBNP) >02580 pg/mL 0-124 Troponin [id number] 14:36:00 Test Item Value Reference Range Comments Troponin T (test code=AARON) 0.040 ng/mL 0.000-0.090 CBC with [id number] 14:14:00 Test Item Value Reference Range Comments [...] Neutro Abs (test code=ANEUT) 2.1 K/cumm 1.6-7.4 Cooke Abs (test code=AMONO) 0.5 K/cumm 0.0-1.2 Eos Abs (test code=AEOS) 0.17 K/cumm 0.00-0.74 Baso Abs (test code=ABASO) 0.0 K/cumm 0.00-0.21 RBC Morphology (test code=RBCMRPH) Normal Platelet Est (test code=PLTEST) Normal Platelet on Smear Prothrombin [id number] 14:07:00 Test Item Value Reference Range Comments PT (test code=PT) 13.30 seconds 9.78-13.35 INR (test code=INR) 1.17 Ratio 0.6-1.2 Partial Thromboplastin [id number] 14:07:00 Test Item Value Reference Range Comments aPTT (test code=PTT) 37.50 seconds 24.39-37.25 Basic Metabolic [id number] 13:57:00 Test Item Value Reference Range Comments [...] race is not provided, and the patient isAfrican-South Korean, multiply by 1.212. If sex is not [...] National Kidney Foundation,http://nkdep.nih. gov XR CHEST 1 [id number] 13:31:50CLINICAL INFORMATION: End-stage renal disease. Missed dialysis [...]
--- NOTE | 2017-12-01 12:47 | RAD REPORT ---
EXAM DESCRIPTION: RAD - Chest Single View - 12/01/2017 12:20 pm CLINICAL HISTORY: Choking sensation, congestion COMPARISON: November 04, November 03 TECHNIQUE: AP portable chest image was obtained 1157 hours . FINDINGS: No peripheral mass or consolidation. Vascular engorgement and parenchymal edema pattern se en November 04 has resolved or nearly fully resolved. Cardiomegaly is present similar to comparison. No vascular engorgement. Dialysis catheter is in place. No measurable pleural effusion and no pneumotho rax. No gross bony abnormality seen. No acute aortic findings suspected. IMPRESSION: Cardiomegaly without vascular engorgement. No focal infiltrates seen and no significant failure or volume overload at this time.
[2017-12-01 14:32] LABS: Absolute Lymphocytes (CBC) 1.1 K/uL (0.7-4.9); Absolute Monocytes 0.5 K/uL (0.1-1.3); Absolute Neutrophil 3.3 K/uL (1.8-8.0); Basophils % 0.6 % (0-1.3); Eosinophils % 3.7 % (0-4.4); Lymphocytes % 21.3 % (15.3-44.8); MCH 27.5 pg (27.0-35.0); MCV 87.9 fL (80-100); Protime INR 1.06; RBC Red Blood Cell Count 4.43 M/uL (3.86-4.86)
[2017-12-01 14:57] LABS: ALT/SGPT 16 U/L (12-78); AST/SGOT 15 U/L (15-37); Albumin 3.8 g/dL (3.4-5.0); Alkaline Phosphatase 115 U/L (45-117); BUN Blood Urea Nitrogen 86 mg/dL (7-18); Bicarbonate 22 mmol/L (21-32); Bilirubin Direct < 0.1 mg/dL (0-0.2); Bilirubin Total 0.3 mg/dL (0.2-1.0); Glucose Level 104 mg/dL (74-106); Lipase 337 U/L (73-393); Magnesium 2.2 mg/dL (1.8-2.4); NT PRO-BNP 27074 pg/mL (<125); Protein, Total 9.1 g/dL (6.4-8.2); Sodium Level 140 mmol/L (136-145)
[2017-12-01 15:01] LABS: Potassium 6.3 mmol/L (3.5-5.1)
--- NOTE | 2017-12-01 15:43 | EDPHYS ---
Physician Documentation [facility] Name: Liya Sullivan Age: 62 yrs Sex: Female : 1955 Arrival Date: 12/01/2017 Time: 10:53 Bed 13 Private MD: ED Physician Addi Espinal HPI: 12/01 17:58 The patient presents to the emergency department with weakness of the entire body, gs generalized weakness. Onset: The symptoms/episode began/occurred yesterday, and became persistent. Associated signs and symptoms: Pertinent negatives: altered mental status, fever, nausea. Severity of symptoms: At their worst the symptoms were moderate in the emergency department the symptoms are unchanged. The patient has experienced similar episodes in the past, a few times. was eating a burger at dialysis choked , resolved no esophageal impaction signs able to tolerate liquids. Historical: - Allergies: 11:04 Aspirin; hj 11:04 butorphanol tartrate; hj 11:04 Clonidine; hj 11:04 Codeine; hj 11:04 Compazine; hj 11:04 Darvocet-N 100; hj 11:04 Demerol; hj 11:04 diphenhydramine HCl; hj 11:04 Hydromorphone; hj 11:04 hydroxyzine HCl; hj 11:04 Levaquin; hj 11:04 Levofloxacin; hj 11:04 Morphine; hj 11:04 Ondansetron HCl; hj 11:04 pantoprazole sodium; hj 11:04 promethazine HCl; hj 11:04 Protonix; hj 11:04 Stadol; hj 11:04 tramadol; hj - Home Meds: 11:04 Acetaminophen Oral [Active]; clopidogrel 75 mg Oral tab 1 tab once daily [Active]; hj gabapentin 300 mg Oral cap 1 cap every night [Active]; latanoprost 0.005 % ophthalmic drop 1 drop once daily [Active]; timolol maleate 0.5 % Opht drop 1 drop to both eyes every morning [Active]; midodrine 15mg Oral tab 1 tab twice a day [Active]; - PMHx: 11:04 CVA; Diabetes - IDDM; Dialysis; ESRD; hj - PSHx: 11:04 Unable to obtain; hj - Immunization history:: Adult Immunizations unknown. - Social history:: Smoking status: Patient/guardian denies using tobacco, Patient/guardian denies using alcohol. - Ebola Screening: : Patient negative for fever greater than or equal to 101.5 degrees Fahrenheit, and additional compatible Ebola Virus Disease symptoms Patient denies exposure to infectious person Patient denies travel to an Ebola-affected area in the 21 days before illness onset. ROS: 17:58 All other systems are negative. gs Exam: 17:58 Head/Face: Normocephalic, atraumatic. Neck: Trachea midline, no thyromegaly or masses gs palpated, and no cervical lymphadenopathy. Supple, full range of motion without nuchal rigidity, or vertebral point tenderness. No Meningismus. Cardiovascular: Regular rate and rhythm with a normal S1 and S2. No gallops, murmurs, or rubs. Normal PMI, no JVD. No pulse deficits. Respiratory: Lungs have equal breath sounds bilaterally, clear to auscultation and percussion. No rales, rhonchi or wheezes noted. No increased work of breathing, no retractions or nasal flaring. Abdomen/GI: Soft, non-tender, with normal bowel sounds. No distension or tympany. No guarding or rebound. No evidence of tenderness throughout. Skin: Warm, dry with normal turgor. Normal color with no rashes, no lesions, and no evidence of cellulitis. MS/ Extremity: Pulses equal, no cyanosis. Neurovascular intact. Full, normal range of motion. Neuro: Awake and alert, GCS 15, oriented to person, place, time, and situation. Cranial nerves II-XII grossly intact. Motor strength 5/5 in all extremities. Sensory grossly intact. Cerebellar exam normal. Normal gait. 17:58 Constitutional: The patient appears alert, awake. 18:11 ECG was reviewed by the Attending Physician. Vital Signs: 11:07 BP 115 / 65; Pulse 86; Resp 18; Temp 98.4(O); Pulse Ox 99% on R/A; Weight 77.11 kg; hj Height 5 ft. 4 in. (162.56 cm); 12:19 BP 119 / 64; Pulse 85; Resp 18; Pulse Ox 100% ; hj 13:50 BP 118 / 65; Pulse 84; Resp 18; Pulse Ox 99% on R/A; hj 14:29 BP 118 / 67; Pulse 79; Resp 18; Pulse Ox 99% on R/A; hj 16:19 BP 127 / 79; Pulse 85; Resp 18; Pulse Ox 100% on R/A; 17:34 BP 135 / 65; Pulse 81; Resp 18; Pulse Ox 98% on R/A; 11:07 Body Mass Index 29.18 (77.11 kg, 162.56 cm) Procedures: 17:58 Peripheral line: by aseptic technique a peripheral line was placed in the left external gs jugular vein. MDM: 11:12 Patient medically screened. 17:58 Data reviewed: vital signs, nurses notes. Response to treatment: the patient's symptoms gs have markedly improved after treatment, and as a result, I will admit patient. ED course: weakness, esophageal impaction, hyperkalemia, mi. 12/01 11:16 Order name: Basic Metabolic Panel; Complete Time: 15:46 12/01 11:16 Order name: CBC with Diff; Complete Time: 14:56 12/01 11:16 Order name: LFT's; Complete Time: 15:46 12/01 11:16 Order name: Magnesium; Complete Time: 15:46 12/01 11:16 Order name: NT PRO-BNP; Complete Time: 15:46 12/01 11:16 Order name: PT-INR; Complete Time: 14:56 12/01 11:16 Order name: Troponin (emerg Dept Use Only); Complete Time: 14:56 12/01 11:16 Order name: XRAY Chest (1 view); Complete Time: 14:56 12/01 11:16 Order name: Lipase; Complete Time: 15:46 12/01 11:16 Order name: AMMONIA; Complete Time: 14:56 12/01 15:50 Order name: Basic Metabolic Panel [facility] 12/01 15:50 Order name: Basic Metabolic Panel [facility] 12/01 16:54 Order name: Glucose, Ancillary Testing [facility] 12/01 17:30 Order name: ABG Arterial Blood Gas [facility] 12/01 11:16 Order name: EKG; Complete Time: 11:17 12/01 11:16 Order name: Cardiac monitoring; Complete Time: 11:17 12/01 11:16 Order name: EKG - Nurse/Tech; Complete Time: 11:17 12/01 11:16 Order name: IV Saline Lock; Complete Time: 14:19 12/01 11:16 Order name: Labs collected and sent; Complete Time: 14:19 12/01 11:16 Order name: O2 Per Protocol; Complete Time: :18 12/01 11:16 Order name: O2 Sat Monitoring; Complete Time: : 12/01 12:51 Order name: consult Vywar-Pmdxpqtpxm-VpeoDelfin Wilkerson MD (Nephrology) snw 12/01 15:49 Order name: CONS Physician Consult EDMS 12/01 15:50 Order name: Consistent Carb (ADA) 1800 Julio EDMS EC:11 Rate is 85 beats/min. Rhythm is regular. RI interval is normal. QRS interval is gs prolonged. QT interval is prolonged. T waves are Normal. No ST changes noted. Clinical impression: Abnormal EKG without significant change. Interpreted by me. Administered Medications: No medications were administered Point of Care Testing: Blood Glucose: 11:39 Blood Glucose: 105 mg/dL; hj 16:53 Blood Glucose: 116 mg/dL; em1 Ranges: Critical Glucose Levels:Adult <50 mg/dl or >400 mg/dl <40 mg/dl or >180 mg/dl Disposition: 12/01/17 15:42 Hospitalization ordered by Vern Kovacs for Observation. Preliminary diagnosis is Weakness. - Bed requested for Telemetry/MedSurg (observation). - Status is Observation. iw - Condition is Stable. - Problem is new. - Symptoms have improved. UTI on Admission? No Signatures: Dispatcher [employer] [facility] Sharon Fisher RN RN Josep Everett RN RN Addi Espinal MD MD Corrections: (The following items were deleted from the chart) 16:45 15:42 Hospitalization Ordered by Vern Kovacs MD for Observation. Preliminary iw diagnosis is Weakness. Bed requested for Telemetry/MedSurg (observation). Status is Observation. Condition is Stable. Problem is new. Symptoms have improved. UTI on Admission? No. gs 18:02 16:45 12/01/2017 15:42 Hospitalization Ordered by Vern Kovacs MD for Observation. iw Preliminary diagnosis is Weakness. Bed requested for Telemetry/MedSurg (observation). Status is Observation. Condition is Stable. Problem is new. Symptoms have improved. UTI on Admission? No. iw
--- NOTE | 2017-12-01 15:43 | ER ---
Nurse's Notes [facility] Name: Liya Sullivan Age: 62 yrs Sex: Female : 1955 Arrival Date: 12/01/2017 Time: 10:53 Bed 13 Private MD: Diagnosis: Weakness Presentation: 12/01 10:55 Presenting complaint: EMS states: coming from [facility], dialysis pt, hasn't been dialyzed hj today, complained of choking a piece of burger meat, someone did Heimlich maneuver x 10, looks like able to get the piece of meat; pt was altered mentally; complaints of L upper abd pain; denies chest pain; denies SOB; BGL- 105; BP- 125/76;. Transition of care: [facility]. Onset of symptoms was December 01, 2017. Risk Assessment: Do you want to hurt yourself or someone else? Patient reports no desire to harm self or others. Initial Sepsis Screen: Does the patient meet any 2 criteria? No. Patient's initial sepsis screen is negative. Does the patient have a suspected source of infection? No. Patient's initial sepsis screen is negative. Care prior to arrival: None. 10:55 Method Of Arrival: Ambulatory 10:55 Acuity: STEPHANIE 3 hj Triage Assessment: 11:05 General: Appears in no apparent distress. uncomfortable, Behavior is cooperative, hj appropriate for age, quiet. General: denies dialysis today;. Pain: Complains of pain in left upper quadrant and left lower quadrant. EENT: Oral mucosa is dry. Neuro: Level of Consciousness is awake, alert, obeys commands, Oriented to person, place, time, situation, Appropriate for age. Cardiovascular: Capillary refill < 3 seconds Patient's skin is warm and dry. Respiratory: Airway is patent Respiratory effort is even, unlabored, Respiratory pattern is regular, symmetrical. GI: Reports lower abdominal pain, upper abdominal pain. : No signs and/or symptoms were reported regarding the genitourinary system. Derm: No signs and/or symptoms reported regarding the dermatologic system. Musculoskeletal: No signs and/or symptoms reported regarding the musculoskeletal system. Historical: - Allergies: 11:04 Aspirin; hj 11:04 butorphanol tartrate; hj 11:04 Clonidine; hj 11:04 Codeine; hj 11:04 Compazine; hj 11:04 Darvocet-N 100; hj 11:04 Demerol; hj 11:04 diphenhydramine HCl; hj 11:04 Hydromorphone; hj 11:04 hydroxyzine HCl; hj 11:04 Levaquin; hj 11:04 Levofloxacin; hj 11:04 Morphine; hj 11:04 Ondansetron HCl; hj 11:04 pantoprazole sodium; hj 11:04 promethazine HCl; hj 11:04 Protonix; hj 11:04 Stadol; hj 11:04 tramadol; hj - Home Meds: 11:04 Acetaminophen Oral [Active]; clopidogrel 75 mg Oral tab 1 tab once daily [Active]; hj gabapentin 300 mg Oral cap 1 cap every night [Active]; latanoprost 0.005 % ophthalmic drop 1 drop once daily [Active]; timolol maleate 0.5 % Opht drop 1 drop to both eyes every morning [Active]; midodrine 15mg Oral tab 1 tab twice a day [Active]; - PMHx: 11:04 CVA; Diabetes - IDDM; Dialysis; ESRD; hj - PSHx: 11:04 Unable to obtain; hj - Immunization history:: Adult Immunizations unknown. - Social history:: Smoking status: Patient/guardian denies using tobacco, Patient/guardian denies using alcohol. - Ebola Screening: : Patient negative for fever greater than or equal to 101.5 degrees Fahrenheit, and additional compatible Ebola Virus Disease symptoms Patient denies exposure to infectious person Patient denies travel to an Ebola-affected area in the 21 days before illness onset. Screenin:07 Abuse screen: Denies threats or abuse. Denies injuries from another. Nutritional hj screening: No deficits noted. Tuberculosis screening: No symptoms or risk factors identified. Fall Risk Assessment: 11:08 Reassessment: see triage for assessment;. hj 11:47 Reassessment: Patient and/or family updated on plan of care and expected duration. Pain hj level reassessed. Patient is alert, oriented x 3, equal unlabored respirations, skin warm/dry/pink. pt refused anything to be done to her; notified; with orders to let the pt sip or drink juice/ water;. 12:04 Reassessment: pt refused oral intake, juice or water; to call sister to come and be hj with pt;. 12:13 Reassessment: called Romel and got her sister Geovanna's number, [phone];. hj Reassessment: called Geovanna and left a voicemail to call back regarding pt;. 12:32 Reassessment: spoke with Geovanna and updated her with pt condition; she says she is hj heading here around 1:30pm to be with pt and discuss things with her sister;. 12:43 Reassessment: pt sister Ada called and is coming to talk to pt;. hj 13:49 Reassessment: sister Jessica in room; spoke with pt; pt agreed for lab draw;. hj 14:04 Reassessment: lab in room for blood draw;;. hj 14:27 Reassessment: Patient and/or family updated on plan of care and expected duration. Pain hj level reassessed. Patient is alert, oriented x 3, equal unlabored respirations, skin warm/dry/pink. awaiting results;. 15:30 Reassessment: Patient and/or family updated on plan of care and expected duration. Pain hj level reassessed. Patient is alert, oriented x 3, equal unlabored respirations, skin warm/dry/pink. sister Geovanna spoke with provider and discuss POC: for possible admit and dialysis;. 16:28 Reassessment: Patient and/or family updated on plan of care and expected duration. Pain hj level reassessed. Patient is alert, oriented x 3, equal unlabored respirations, skin warm/dry/pink. awaiting room placement;. 17:34 Reassessment: Patient and/or family updated on plan of care and expected duration. Pain hj level reassessed. Patient is alert, oriented x 3, equal unlabored respirations, skin warm/dry/pink. attempting to call report on 2nd; for admit 229;. Vital Signs: 11:07 BP 115 / 65; Pulse 86; Resp 18; Temp 98.4(O); Pulse Ox 99% on R/A; Weight 77.11 kg; hj Height 5 ft. 4 in. (162.56 cm); 12:19 BP 119 / 64; Pulse 85; Resp 18; Pulse Ox 100% ; hj 13:50 BP 118 / 65; Pulse 84; Resp 18; Pulse Ox 99% on R/A; hj 14:29 BP 118 / 67; Pulse 79; Resp 18; Pulse Ox 99% on R/A; hj 16:19 BP 127 / 79; Pulse 85; Resp 18; Pulse Ox 100% on R/A; hj 17:34 BP 135 / 65; Pulse 81; Resp 18; Pulse Ox 98% on R/A; hj 11:07 Body Mass Index 29.18 (77.11 kg, 162.56 cm) ED Course: 10:53 Patient arrived in ED. hj 10:58 Triage completed. hj 11:00 Addi Espinal MD is Attending Physician. gs 11:06 Arm band placed on right wrist. hj 11:07 Patient has correct armband on for positive identification. Bed in low position. Call hj light in reach. Side rails up X2. 11:10 EKG done, by medical lab technician. reviewed by Addi Espinal MD. at1 11:17 Josep Everett, RN is Primary Nurse. hj 12:18 X-ray completed. Portable x-ray completed in exam room. Patient tolerated procedure ml well. 12:20 XRAY Chest (1 view) In Process Unspecified. EDMS 15:00 Notified ED physician of a critical lab result(s). potassium 6.3, creatinine 13. dm5 15:42 Vern Kovacs MD is Hospitalizing Provider. gs 17:35 No provider procedures requiring assistance completed. Inserted saline lock: 18 gauge hj in left EJ, using aseptic technique. ,using aseptic technique. Dr. Espinal;. 18:03 Patient admitted, IV remains in place. intact. hj Administered Medications: No medications were administered Point of Care Testing: Blood Glucose: 11:39 Blood Glucose: 105 mg/dL; hj 16:53 Blood Glucose: 116 mg/dL; em1 Ranges: Outcome: 15:42 Decision to Hospitalize by Provider. gs 18:01 Admitted to Med/surg accompanied by tech, via stretcher, room 229, with chart, Report hj called to KRISTINA Barker 18:01 Condition: stable 18:01 Instructed on the need for admit, Demonstrated understanding of instructions. 18:02 Patient left the ED. iw Signatures: Dispatcher [employer] EDSC Lucia Nguyen, KRISTINA RN dm5 Sharon Fisher RN RN iw Lali Navarrete Eric em1 Tess Oneil, pellet press operator EKG Tat1 Josep Everett RN RN hj Starr, Gregory, MD MD gs
--- NOTE | 2017-12-01 15:47 | EKG ---
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
[2017-12-01] MEDS ORDERED: ACETAMINOPHEN 500 MG TAB PO PRN (15:49)
[2017-12-01] MEDS ORDERED: SOD POLYSTYREN SUL 15 GM/60 ML UCUP PR ONE (16:31)
[2017-12-01] MEDS ORDERED: D50W 25 GM/50 ML SYRINGE IV PRN (16:33)
[2017-12-01] MEDS ORDERED: GLUCAGON 1 MG/VIAL IM PRN (16:33)
[2017-12-01] MEDS ORDERED: ALBUTEROL 2.5 MG/3 ML NEB SOL NEB ONE (16:35)
[2017-12-01] MEDS ORDERED: INSULIN -REGULAR HUMAN 50 UNIT/0.5 ML ML IV ONE (16:45)
[2017-12-01] MEDS ORDERED: SOD POLYSTYREN SUL 15 GM/60 ML UCUP ONE (16:57)
[2017-12-01] MEDS ORDERED: INSULIN -REGULAR HUMAN 50 UNIT/0.5 ML ML ONE (16:57)
[2017-12-01] MEDS ORDERED: ALBUTEROL 2.5 MG/3 ML NEB SOL ONE (16:58)
[2017-12-01] MEDS ORDERED: CALCIUM GLUC 10% INJ 4.65 MEQ in NA CHLORIDE 0.9% 100 ML IV ONE (17:00)
[2017-12-01 17:27] LABS: Arterial Blood Carboxyhemoglob 0.9 % (0-1.5); Blood Gas Oxyhemoglobin 94.5 % (94-97); Blood O2 Saturation 96.4 % (92-98.5)
[2017-12-01] MEDS ORDERED: D50W 25 GM/50 ML SYRINGE IV ONE (17:32)
[2017-12-01] MEDS ORDERED: MANNITOL 25% 12.5 GM/50 ML VIAL IV PRN (18:40)
[2017-12-01] MEDS ORDERED: NA CHLORIDE 0.9% 1,000 ML IV PRN (18:40)
[2017-12-01] MEDS ORDERED: ALBUMIN HUMAN 25% 50 ML IV SCH (19:00)
--- NOTE | 2017-12-02 03:38 | CON ---
Date of Consultation: 12/01/2017 Chief Complaint: End-stage renal disease on dialysis. The patient was brought to the hospital because of generalized weakness, altered mental status. Primarily, she choked on food and had altered mental status afterwards. Apparently, she was eating burger at [facility]. Currently, she is tolerating fluids, although she remains very lethargic. She is admitted to the hospital and she was evaluated in the emergency room and was found to have severe hyperkalemia, potassium was 6.2. She had metabolic acidosis. ABG showed pH of 7.31, pCO2 was 37. The patient was scheduled to have emergent dialysis for control of hyperkalemia. The patient received IV calcium gluconate, IV dextrose, and IV Regular insulin was given to control hyperkalemia. Nebulizer with albuterol was used to control hyperkalemia. The patient has history of congestive heart failure and intradialytic hypotension and a stat dialysis was ordered for treatment of hyperkalemia. Review of Systems: The patient denies fever, chills. Eyes: Denies vision changes. Ears, Nose, Mouth, and Throat: Denies sore throat, earache. Respiratory: Has shortness of breath. Denies wheezing. GI: Denies nausea, vomiting. : Denies dysuria, hematuria. Musculoskeletal: Denies muscle aches or joint swelling. All other systems reviewed and all are negative. Past Medical History: End-stage renal disease, hypertension, anemia in CKD, renal osteodystrophy, intradialytic hypotension, obesity, history of congestive heart failure, pneumonia, hyperlipidemia, hypertensive heart and kidney disease , obstructive sleep apnea, deconditioning, history of CVA, diabetic retinopathy , nephropathy, neuropathy, diabetic gastroparesis, GERD, osteoarthritis, peripheral vascular disease, chronic back pain. Family History: No kidney disease in the family. Social History: Denies tobacco, alcohol, or illicit drugs. Physical Examination: General: The patient is awake, alert. Vital Signs: Blood pressure 100/80, heart rate 82. Eyes: Anicteric sclerae. EOMI. Ears, Nose, Mouth, and Throat: Oral mucosa moist. No pallor. Neck: Supple. No bruits. Chest: Equal chest expansion. Crackles bilaterally at base. Heart: S1, S2. Systolic murmur 2/6, lower left sternal border. Abdomen: Obese, soft, nontender. No rebound. No guarding. Extremities: Edema present in both ankles. No cellulitis. Neurologic: Moving extremities. Cranial nerves intact. psychiatric: Alert, oriented x2, lethargic. Laboratory Data: Hemoglobin 12.2, WBC 5.1, platelet count is 169,000. Sodium 140, potassium 6.3, chloride 106, CO2 22, BUN 96, creatinine 13, calcium 8.0, total bilirubin 0.3, and magnesium 2.2. Troponin level is pending. First set of troponin 0.02. Albumin 3.8, total protein is 9.1. Impression And Plan: End-stage renal disease, fluid overload, hyperkalemia. The patient will have stat dialysis for metabolic clearance and ultrafiltration. 1. Intradialytic hypotension. Advance ultrafiltration and modify ultrafiltration according to blood pressure. The patient has intradialytic hypotension. The patient may need midodrine for blood pressure support. 2. Anemia in CKD. Monitor hemoglobin level, adjust BRITTANY. 3. Renal osteodystrophy. Monitor phosphorus level. Continue binders. 4. History of altered mental status. Further workup by primary team. The patient may need work-up to rule out seizure activity. JOSLYN/MODIsrael Voice ID: [id number] Report ID: [id number] GRACIA
[2017-12-02 07:24] LABS: Potassium 6.3 mmol/L (3.5-5.1)
[2017-12-02] MEDS: NEPRO SHAKE 237 ML CAN PO SCH (21:53)
--- NOTE | 2017-12-02 22:51 | HP ---
Date of Admission: 12/01/2017 History Of Present Illness: A 62-year-old female, end-stage renal disease, on dialysis. She was in dialysis center when she was eating sandwich. She was noted to probably have choked on that and she was brought to the emergency room, however and in the emergency room workup, she did not have aspirat ion yet. The patient had hyperkalemia and volume overload and also she was noted to be a little bit confused from the history that is in her records, but not at the time of my interview with her. The patient voiced no other complaints. Review of Systems: Cardiovascular: No complaint. Neurological: Possible confusion off and on. Respiratory: No complaint. Gastrointestinal: No complaint. Genitourinary: No complaint. Skeletomuscular: No complaint. Past Medical History: Kindly look at her recent admit and discharge summaries. Social History: Kindly look at her recent admit and discharge summaries. Family History: Kindly look at her recent admit and discharge summaries. Medications: Kindly look at her recent admit and discharge summaries. Allergies: KINDLY LOOK AT HER RECENT ADMIT AND DISCHARGE SUMMARIES. Physical Examination: Vital Signs: Blood pressure 138/74, pulse 83, temperature 98, room air temperature 98%. Heart: Regular rate and rhythm. Chest: Clear to auscultation. Abdomen: Soft, benign. Neurological: Alert and oriented x4. Grossly intact. Extremities: Trace edema, bilateral. Imaging: Chest x-ray: No acute pathology, no infiltrate. EKG: Normal sinus rhythm, right bundle-b ranch block. CBC noted. ABGs on room air; pH 7.31, pCO2 31.7, PO2 98.9, and saturation 96.4. Chemi stry: Potassium 6.3, creatinine 1.2, CO2 17, BUN 55, blood sugar fingersticks noted, and calcium 9.1 . Assessment And Plan: 1.End-stage renal disease with hyperkalemia, fatigue, and altered mental status. The patient by Nep hrology needed to be dialyzed for overload 2 times today and tomorrow, so being been admitted for kenia lysis. We will ask Neurology to see the patient considering if she is having any seizure activity ca using her mental status change, off and on. 2.Hyperkalemia will be corrected with dialysis. 3.Type 2 diabetes and chronic medical illnesses. We will continue the patient's home medications an d monitor her blood sugar fingersticks. Look orders for details. TORRI/KURT Voice ID: [id number]
--- NOTE | 2017-12-03 03:31 | PN ---
Date of Progress Note: 12/02/2017 Subjective: The patient doing the same, still weak. The patient had persistent hyperkalemia even af ter dialysis yesterday on low potassium bath. The patient had anemia. Physical Examination: Vital Signs: When I saw the patient, blood pressure 128/75, pulse of 94. Chest: Clear to auscultation. Heart: S1, S2. Systolic murmur. Abdomen: Soft, nontender. Extremities: No edema. Laboratory Data: Potassium 6.3, bicarb 17, BUN 55, creatinine 9.2. Medications: Current medications the patient on its include: 1.Albuterol. 2.Albumin. 3.Tylenol. 4.Nepro. 5.Insulin. Assessment And Plan: 1.End-stage renal disease, stable with hyperkalemia. I am going to again repeat the dialysis today on 1 potassium bath and will follow up the patient. 2.Hypertension, controlled optimal. We will keep the patient off blood pressure medication. 3.Hyperkalemia persist even with low potassium bath. I am going to go ahead and send for CT abdomen and pelvis. We will send for CK and TSH and we will follow up the patient. 4.Failure to thrive. Continue supportive care. JACKLYN Voice ID: [id number] Report ID: [id number]
[2017-12-03 07:26] LABS: CKMB Creatine Kinase MB 1.1 ng/mL (0.3-3.6); Thyroid Stimulating Hormone 2.29 uIU/mL (0.36-3.74)
[2017-12-03] MEDS: NEPRO SHAKE 237 ML CAN PO SCH ×2 (09:29→20:33)
[2017-12-03 10:43] LABS: Potassium 5.3 mmol/L (3.5-5.1)
--- NOTE | 2017-12-03 14:57 | RAD REPORT ---
EXAM DESCRIPTION: CT - Abdomen Pelvis W Contrast - 12/03/2017 2:36 pm CLINICAL HISTORY: persistent hyper K<Reason For Exam>persistent hyper K COMPARISON: CT ABD PELVIS W CONTRAST dated 08/02/2007<Comparisons> TECHNIQUE: CT imaging of the abdomen and pelvis was performed following hand injection of 60 cc ml n on-ionic IV contrast. No oral contrast. All CT scans are performed using dose optimization technique as appropriate and may include automated exposure control or mA/KV adjustment according to patient size. FINDINGS: Cardiomegaly is present without pericardial thickening or effusion. No acute pleural or pa renchymal finding at the lung base. The liver, spleen, and pancreas show no suspicious findings. Cholecystectomy clips are present. No bi liary tree dilatation. Symmetric renal function is seen with no hydronephrosis or suspicious renal mass. No pyelonephritis o r acute renal parenchymal process. Numerous small cortical cysts are present. No adrenal mass is pres ent. Urinary bladder is contracted. Uterus has atrophied since the prior examination and developed nu merous benign calcifications. No ovarian or adnexal mass identifiable. Right ovary and right adnexa a ssessment is limited due to the presence of isodense multiple small bowel loops. No gastric dilatation or gastric wall thickening. No dilated small bowel loops. There are several pro ximal small bowel loops that show wall thickening. A discrete small bowel mass is not seen. No acute colon process. No free air, free fluid or inflammatory stranding. No mass or bulky lymphadenopathy seen. Bilateral fat filled inguinal hernias are present. Patient has an umbilical hernia 2.8 cm in diameter with a 9 millimeter neck. There is herniated fat that has a congested or edematous appearance. No bowel involv ement. Disc and bony degenerative changes are present. No acute bone process. IMPRESSION: No adrenal mass, lymphadenopathy or other suspicious or emergent abdomen or pelvis findi ng. A few prominent proximal small bowel loops. No discrete mass is seen. Correlation is needed with any enteritis findings. Cardiomegaly without pericardial effusion. Approximately 3 centimeter umbilical hernia containing only fat. The fat does have a congested appear ance and correlation is needed for any periumbilical pain symptoms.
--- NOTE | 2017-12-03 20:49 | PN ---
Subjective: The patient has no complaints, and she is well oriented, pleasant. Objective: Vital Signs: Blood pressure 128/66, pulse 89, temperature 97.7. Heart: Regular rate and rhythm. Chest: Clear to auscultation. Abdomen: Soft, benign. Bowel sounds are active. Extremities: No edema. Pulses are felt. Neurological: Alert and oriented x4. Grossly intact. Laboratory Data: Blood sugar fingersticks noted. Assessment And Plan: 1.The patient had no seizure activity since admission. I doubt if she is having that, however, pend ing Neurology consult on this. 2.Chronic renal insufficiency, on dialysis. We will follow Nephrology recommendation on that standp oint. 3.Chronic medical problems, clinically stable. We will continue monitoring the patient. Pending Ne urology recommendation, and if there is no inpatient workup for her, we may go ahead and discharge he r to follow up with Neurology and with Nephrology and with me. MFS/MODL Voice ID: [id number] Report ID: [id number]
[2017-12-04] MEDS ORDERED: LEVETIRACETAM 500 MG/5 ML VIAL IV ONE (00:10)
[2017-12-04] MEDS ORDERED: NA CHLORIDE 0.9% 100 ML ONE (00:13)
[2017-12-04] MEDS: levETIRAcetam 500 MG in NA CHLORIDE 0.9% 100 ML IV SCH ×3 (00:14→20:52)
--- NOTE | 2017-12-04 02:26 | PN ---
Date of Progress Note: 12/03/2017 Subjective: The patient is still sleepy today. Potassium down to 5.3. Objective: Vital Signs: Blood pressure of 132/80, pulse of 88, afebrile. Chest: Crackles on the base. Heart: S1, S2. Systolic murmur. Abdomen: Soft, nontender. Extremities: Trace edema. Laboratory Data: WBC 5.1, H and H of 12.2/39, platelets 169. Sodium 133, potassium 5.3, bicarb 23, BUN 44, creatinine 8.4, calcium 9.5, TSH 2.2. Current Medications: The patient on its include; 1.Tylenol. 2.Nepro. Assessment And Plan: 1.End-stage renal disease with persistent hyperkalemia. We will arrange for dialysis tomorrow. The patient is going to be dialyze on low potassium and we will follow up the patient. 2.Hypertension. The patient is going to be dialyzed on sodium module. 3.Hyperkalemia. CT abdomen was negative. I am going to go ahead and send for fecal occult. TSH wi thin normal limit. The patient is going to be dialyzed on low potassium bath. 4.Failure to thrive. Continue supportive treatment. Follow up with the primary. JACKLYN Voice ID: [id number] Report ID: [id number]
[2017-12-04] MEDS: D50W 25 GM/50 ML SYRINGE IV PRN ×2 (08:29→16:57)
[2017-12-04 09:13] LABS: Albumin 3.7 g/dL (3.4-5.0); Phosphorus 9.2 mg/dL (2.5-4.9)
[2017-12-04 09:14] LABS: Potassium 6.9 mmol/L (3.5-5.1)
[2017-12-04] MEDS ORDERED: SODIUM BICARB 50 MEQ/50ML VIAL IV ONE (09:45)
[2017-12-04] MEDS ORDERED: CALCIUM GLUC 10% INJ 4.65 MEQ in NA CHLORIDE 0.9% 100 ML IV ONE (09:46)
[2017-12-04] MEDS ORDERED: ALBUTEROL 2.5 MG/3 ML NEB SOL NEB ONE (09:47)
[2017-12-04] MEDS ORDERED: SOD POLYSTYREN SUL 15 GM/60 ML UCUP PO ONE (09:48)
[2017-12-04] MEDS ORDERED: D50W 25 GM/50 ML SYRINGE IV ONE (09:49)
[2017-12-04] MEDS: NEPRO SHAKE 237 ML CAN PO SCH ×3 (09:50→21:00)
[2017-12-04] MEDS: SEVELAMER CARBONATE 800 MG TABLET PO SCH ×2 (12:00→17:00)
[2017-12-04] MEDS ORDERED: CA ACETATE 667 MG CAP PO SCH (12:00)
[2017-12-04] MEDS ORDERED: THIAMINE 200 MG/2 ML INJ IVP ONE (21:38)
--- NOTE | 2017-12-04 21:49 | PN ---
Subjective: The patient is doing very well today. She is communicating well. She said she is eatin g much better, and she is ambulating in bed only and doing well. She had no complaint. Objective: VITAL SIGNS: Her blood pressure 130/75, pulse 83, temperature 97.9. Heart: Regular rate and rhythm. Chest: Clear to auscultation. Abdomen: Soft, benign. Neurologic: Alert, oriented x4. Grossly intact. Extremities: No edema. No cyanosis. Laboratory Data: The patient's Chem-7 noted her potassium 6.9, creatinine at 11, phosphorus at 9.2. Assessment/plan: 1.The patient is showing no signs of failure to thrive at this time. She is well, alert, oriented, and she is saying that she is eating well, and she will eat more because of the hypoglycemia noted wh en she does not eat as much. 2.Dialysis patient with electrolyte imbalance, hyperkalemia, and phosphatemia. Nephrology notified and dialyzed the patient. 3.Rest of chronic medical illnesses stable. The patient has shown no seizure activity. I think if after dialysis today and tomorrow she continues to be stable like this, we are going to discharge her home. Look orders for details. MFS/MODL Voice ID: [id number] Report ID: [id number]
[2017-12-04] MEDS ORDERED: D5 0.9 NS 1,000 ML IV SCH (22:00)
--- NOTE | 2017-12-05 02:30 | PN ---
Date of Progress Note: 12/04/2017 Chief Complaint: End-stage renal disease, on dialysis. The patient was found to have severe hyperkalemia today. The patient received stat dialysis. Potassium was 6.8. The patient was scheduled to have Kayexalate IV, calcium gluconate, albuterol, and stat dialysis was ordered with 1 potassium dialysate. The patient was found to have fluid overload and had ultrafiltration done. The patient has failure to thrive, and she is tolerating p.o. intake. Review of Systems: The patient denies fever, chills. Physical Examination: Lungs: Clear to auscultation bilaterally. Heart: S1, S2. Abdomen: Soft, benign. Extremities: Trace edema. Laboratory Data: Predialysis lab work today showed severe hyperkalemia. Potassium was 6.9, sodium 134, chloride 103, CO2 17, BUN 66, creatinine 11.1, phosphorus 9.21, calcium 8.8. Impression: 1. The patient received dialysis today with 1 potassium dialysate. 2. Metabolic acidosis was treated with dialysis. 3. Hyperphosphatemia, severe. The patient was started on binders. 4. Hypoglycemia. The patient received D50 for hypoglycemia. I spent total 36 min including 26 min to coordinate care plan. JOSLYN/KURT Voice ID: [id number] Report ID: [id number] GRACIA
[2017-12-05 05:12] VITALS: BMI 28.1
[2017-12-05 05:43] LABS: Albumin 3.4 g/dL (3.4-5.0); Phosphorus 7.6 mg/dL (2.5-4.9)
[2017-12-05 05:46] LABS: Potassium 5.6 mmol/L (3.5-5.1)
[2017-12-05] MEDS: SEVELAMER CARBONATE 800 MG TABLET PO SCH ×2 (08:00→12:00)
[2017-12-05] MEDS ORDERED: PNEUMOCOCCAL VACCINE 0.5 ML IMVAC ONE (08:00)
[2017-12-05] MEDS: levETIRAcetam 500 MG in NA CHLORIDE 0.9% 100 ML IV SCH (09:21)
[2017-12-05] MEDS: NEPRO SHAKE 237 ML CAN PO SCH (09:24)
[2017-12-05] MEDS: ALTEPLASE 2 MG/VIAL IV SCH ×2 (10:00→10:15)
[2017-12-05 13:28] VITALS: O2SAT 94
[2017-12-05 17:44] VITALS: BP 143/63; TEMP 97.4
--- NOTE | 2017-12-06 04:23 | PN ---
Subjective: The patient was admitted with failure to thrive, hyperkalemia. Physical Examination: Vital Signs: When I saw the patient, blood pressure of 143/63, pulse of 70. Chest: Clear to auscultation. Heart: S1, S2. Systolic murmur. Abdomen: Soft, nontender. Extremities: Trace edema. Neurologic: Alert, nonfocal. Laboratory Data: H and H 12.2/39. Sodium 138, potassium 5.6, bicarb 23, BUN 44, creatinine 8.8, andrey cium 8.3, phosphorus 7.6. Assessment And Plan: 1.End-stage renal disease with hyperkalemia, status post dialysis today. We will continue dialysis Friday, Friday, Friday. 2.Secondary hyperparathyroidism, stable. 3.Hypertension, controlled optimal. Continue current medication. 4.Hyperkalemia, all workup has been negative. The patient needs to be on 1K Bath, on the outpatient , and we will follow up. 5.Failure to thrive. Continue supportive treatment. Family does not want the patient to be in the jail even after explaining risks, benefits, alternatives, and the patient needing 24-hour [facility] lth care. Both the patient and family want to go home. We will follow up. JACKLYN Voice ID: [id number] Report ID: [id number]
== END 2017-12-05 16:48 | disposition home or self-care (01) | DRG 640 ==
LOC: ER 10:48 → ERHOLD 15:48 → 2ND 17:52 → OBSVTOIN 12-04 16:01
PROVIDERS: ADMIT Internal Medicine; ATTEND Internal Medicine
PROC: 5A1D70Z Performance of Urinary Filtration, Intermittent, Less than 6 Hours Per Day (ICD-10-PCS; principal; 2017-12-01)
DX: E87.5 Hyperkalemia (principal); N18.6 End stage renal disease; I12.0 Hypertensive chronic kidney disease with stage 5 chronic kidney disease or end stage renal disease; N25.81 Secondary hyperparathyroidism of renal origin; I13.2 Hypertensive heart and chronic kidney disease with heart failure and with stage 5 chronic kidney disease, or end stage renal disease; Z99.2 Dependence on renal dialysis; R62.7 Adult failure to thrive; E83.39 Other disorders of phosphorus metabolism; E11.22 Type 2 diabetes mellitus with diabetic chronic kidney disease; Z79.4 Long term (current) use of insulin; E11.649 Type 2 diabetes mellitus with hypoglycemia without coma; E87.2 Acidosis; D63.1 Anemia in chronic kidney disease; N25.0 Renal osteodystrophy; I95.3 Hypotension of hemodialysis; I50.9 Heart failure, unspecified; E78.5 Hyperlipidemia, unspecified; G47.33 Obstructive sleep apnea (adult) (pediatric); E11.21 Type 2 diabetes mellitus with diabetic nephropathy; E11.319 Type 2 diabetes mellitus with unspecified diabetic retinopathy without macular edema; E11.43 Type 2 diabetes mellitus with diabetic autonomic (poly)neuropathy; K31.84 Gastroparesis; K21.9 Gastro-esophageal reflux disease without esophagitis; E11.51 Type 2 diabetes mellitus with diabetic peripheral angiopathy without gangrene; M54.9 Dorsalgia, unspecified; G89.29 Other chronic pain; Z88.6 Allergy status to analgesic agent; Z88.1 Allergy status to other antibiotic agents; Z88.5 Allergy status to narcotic agent; Z88.8 Allergy status to other drugs, medicaments and biological substances; Z79.02 Long term (current) use of antithrombotics/antiplatelets
CPT/HCPCS: 36415; 71045; 74177; 80048; 80069; 80076; 82140; 82553; 82805; 82962; 83690; 83735; 83880; 84443; 84484; 85025; 85610; 90935; 93005; 94640; 99285; G0378; J0610; J1953; J2997; J3411; Q9967

== ENCOUNTER 2018-02-27 13:49 | Emergency (ER) | payer OTHER ==
--- OUTSIDE RECORDS SUMMARY | 2018-02-27 13:52 | XMS REPORT | Clinical Summary ---
:1955 Author Organization [facility] Address [address] [place] [address] Care Team Providers Name Role Phone Asked, [...] Promethazine 04/21/2017 Nausea, vomiting Tramadol 04/21/2017 Hallucinations Medications Medication Sig Dispensed Refills Start Date End Date Status gabapentin Take 300 mg by 0 Active (NEURONTIN) 300 mouth nightly. mg capsule clopidogrel Take 75 mg by 0 Active (PLAVIX) 75 mg mouth daily. tablet Every other day, taken midodrine Take 15 mg by 0 Active (PROAMATINE) 10 mouth 2 (two) MG tablet times a day. latanoprost Administer 1 1.5 mL 0 04/26/2017 (XALATAN) 0.005 % drop to both 8 ophthalmic eyes nightly for solution 30 days. timolol Administer 1 0.31 mL 0 04/27/2017 (TIMOPTIC) 0.5 % drop to both 8 ophthalmic eyes every solution morning for 30 days. cephalexin Take 1 [...] Event General Surgery Stanley Cabrera MD 04/24/2017 Surgery General Surgery Hernesto Mcclendon INSERTION OF TUNNELED MD Jane DIALYSIS CATHETER WITH C-ARM 04/21/2017 Anesthesia Event General Surgery Stanley Cabrera MD 04/21/2017 Surgery General Surgery Hernesto Mcclendon LEFT ARM MD Jane ARTERIOVENOUS GRAFT EXCISION, LEFT FEMORAL DIALYSIS CATHETER PLACEMENT 04/21/2017 - Hospital Encounter General Surgery Hernesto Mcclendon Hypotension , unspecified hypotension type (Primary Dx); 04/26/2017 MD Jane Severe anemia; Zeus Cook Hemorrhage; MD Toi A-V fistula; Vicki, ESRD (end stage renal disease); MD Susanna Metabolic acidosis; Anmol Irvin Hypoalbuminemia; MD Iris Chronic arterial ischemic stroke; End stage renal disease after 02/26/2017 Social History Tobacco Use Types Packs/Day Years Used Date Never Smoker Smokeless Tobacco: Never Used Sex Assigned at Date Recorded Not on file Job Start Date Occupation Industry Not on file Not on file Not on file Travel History Travel Start Travel End No recent travel history available. Last Filed Vital Signs Vital Sign Reading Time Taken Blood Pressure 108/54 04/26/2017 1:46 PM [facility] Pulse 71 04/26/2017 1:46 PM [facility] Temperature 36.5 C (97.7 F) 04/26/2017 11:44 AM [facility] Respiratory Rate 18 04/26/2017 11:44 AM [facility] Oxygen Saturation 98% 04/26/2017 11:44 AM [facility] Inhaled Oxygen Concentration - - Weight 79.4 kg (175 lb) 04/24/2017 2:48 PM [facility] Height 160 cm (5' 3") 04/24/2017 2:48 PM [facility] Body Mass Index 31 04/24/2017 2:48 PM [facility] Plan of Treatment Health Maintenance Due Date Last Done Comments CERVICAL CANCER SCREENING 1976 COLON CANCER SCREENING 2005 SHINGRIX VACCINE (1 of 2) 2005 BREAST CANCER SCREENING 09/01/2010 09/01/2008 ZOSTER VACCINE 2015 INFLUENZA VACCINE 11/05/2017 Implants Implanted Type Area Reserve Officer Device Shelf Model / Identifier Expiration Serial / Date Lot Catheter Emboltmy Nenita 5fr 80cm Artrl Tube Pack - [id number] Surgical Left : THURMAN 11/05/2018 [id number] / Implanted: Qty: 1 on 04/21/2017 by Hernesto Mcclendon MD Implants; Arm LIF[employer]CI[employer]ES / Expanders; Extenders; Surgical Wires Tray Cath Dialys Straight 3lumen 24cm 13fr Power-Trialysis - [id number] Surgical Right: BARD ACCESS 09/04/2017 [id number] / Implanted: Qty: 1 on 04/21/2017 by Isaura Parikh MD Implants; Arm SYSTEMS / Expanders; Extenders; Surgical Wires Explanted Type Area Reserve Officer Device Shelf Model / Identifier Expiration Serial / Date Lot Catheter Dialysis Glidepath [id number] Symmetric Tip - [id number] Implantable Left: BARD PERIPHERAL 08/04/2018 [id number] / Implanted: Qty: 1 Infusion Ports Groin VASCULAR / Explanted: Qty: 1 on 04/21/2017 by Dennis Sorto MD or Accessories [id number] Procedures Procedure Name Priority Date/Time Associated Diagnosis Comments TRANSFUSE RED BLOOD STAT 12/10/2017 5:48 CELLS PM CDT US DUPLEX VENOUS Routine 08/29/2017 11:51 Encounter for other Results for this UPPER EXTREMITY AM CDT preprocedural procedure are in BILATERAL examination the results Encounter regarding section. vascular access for dialysis for ESRD POC GLUCOSE Routine 04/26/2017 11:43 Results for this AM [facility] procedure are in the results section. POC GLUCOSE Routine 04/26/2017 9:42 Results for this AM [facility] procedure are in the results section. POC GLUCOSE Routine 04/26/2017 8:24 Results for this AM [facility] procedure are in the results section. ZZESTIMATED GFR Routine 04/26/2017 4:34 Results for this AM [facility] procedure are in the results section. HC COMPLETE BLD COUNT Routine 04/26/2017 4:34 Results for this W/AUTO DIFF AM [facility] procedure are in the results section. BASIC METABOLIC PANEL Routine 04/26/2017 4:34 Results for this AM [facility] procedure are in the results section. POC GLUCOSE Routine 04/26/2017 12:26 Results for this AM [facility] procedure are in the results section. HEMODIALYSIS Routine 04/25/2017 2:21 PM [facility] POC GLUCOSE Routine 04/25/2017 11:52 Results for this AM [facility] procedure are in the results section. POC GLUCOSE Routine 04/25/2017 10:52 Results for this AM [facility] procedure are in the results section. POC GLUCOSE Routine 04/25/2017 7:44 Results for this AM [facility] procedure are in the results section. ZZESTIMATED GFR Routine 04/25/2017 4:00 Results for this AM [facility] procedure are in the results section. BASIC METABOLIC PANEL Routine 04/25/2017 4:00 Results for this AM [facility] procedure are in the results section. HC COMPLETE BLD COUNT Routine 04/25/2017 3:50 Results for this W/AUTO DIFF AM [facility] procedure are in the results section. POC GLUCOSE Routine 04/24/2017 11:32 Results for this PM [facility] procedure are in the results section. POC GLUCOSE Routine 04/24/2017 6:42 Results for this PM [facility] procedure are in the results section. XR CHEST 1 VW STAT 04/24/2017 5:30 Results for this PORTABLE PM [facility] procedure are in the results section. POC GLUCOSE Routine 04/24/2017 5:07 Results for this PM [facility] procedure are in the results section. OR FL < 1 HOUR Routine 04/24/2017 4:50 End stage renal Results for this PM [facility] disease procedure are in the results section. NC AN ELECTIVE Routine 04/24/2017 4:09 SUPRAGLOTTIC AIRWAY PM [facility] Procedure Note - Ramon Nava MD - 04/24/2017 4:08 PM [facility] Airway Performed by: RAMON NAVA Authorized by: RAMON NAVA Location: OR Urgency: Elective Difficult Airway: No Anesthesiologist: RAMON NAVA Preoxygenated with 100% O2: Yes C-spine Precautions Maintained Throughout: Yes Mask Ventilation: Not attempted Final Airway Type: Supraglottic airway Final LMA: Classic LMA Size: 4 Number of Attempts at Approach: 1 CATHETER REMOVAL, TUNNELED 04/24/2017 3:00 PM [facility] End stage renal disease CENTRAL VENOUS, WITH PORT Special Needs C-ARM POC GLUCOSE Routine 04/24/2017 12:21 PM [facility] POC GLUCOSE Routine 04/24/2017 8:00 AM [facility] PROTHROMBIN TIME WITH INR Routine 04/24/2017 4:05 AM [facility] PARTIAL THROMBOPLASTIN TIME Routine 04/24/2017 4:05 AM [facility]ER Results for this (PTT) procedure are in the results section. CBC WITH PLATELET AND Routine 04/24/2017 4:05 AM [facility] Results for this DIFFERENTIAL procedure are in the results section. ZZESTIMATED GFR Routine 04/24/2017 4:00 AM [facility] PHOSPHORUS LEVEL Routine 04/24/2017 4:00 AM [facility] MAGNESIUM LEVEL Routine 04/24/2017 4:00 AM [facility] BASIC METABOLIC PANEL Routine 04/24/2017 4:00 AM [facility] POC GLUCOSE Routine 04/23/2017 8:11 PM [facility] HEMODIALYSIS Routine 04/23/2017 3:53 PM [facility] POC GLUCOSE Routine 04/23/2017 11:20 AM [facility] VANCOMYCIN LEVEL, RANDOM Routine 04/23/2017 9:55 AM [facility] ECG 12-LEAD STAT 04/23/2017 9:45 AM [facility] XR CHEST 1 VW PORTABLE Routine 04/23/2017 7:57 AM [facility] POC GLUCOSE Routine 04/23/2017 7:21 AM [facility] POC GLUCOSE Routine 04/22/2017 11:28 PM [facility] POC GLUCOSE Routine 04/22/2017 7:43 PM [facility] POC GLUCOSE Routine 04/22/2017 3:30 PM [facility] POC GLUCOSE Routine 04/22/2017 11:25 AM [facility] POC GLUCOSE Routine 04/22/2017 7:27 AM [facility] HC COMPLETE BLD COUNT W/AUTO Routine 04/22/2017 5:00 AM [facility] Results for this DIFF procedure are in the results section. ZZESTIMATED GFR Routine 04/22/2017 4:00 AM [facility] COMPREHENSIVE METABOLIC Routine 04/22/2017 4:00 AM [facility] Results for this PANEL procedure are in the results section. ECG ED PRELIMINARY Routine 04/21/2017 5:55 PM [facility] Results for this INTERPRETATION procedure are in the results section. HEMODIALYSIS Routine 04/21/2017 4:33 PM [facility] HEPATITIS B SURFACE ANTIGEN Routine 04/21/2017 2:16 PM [facility] PROTHROMBIN TIME WITH INR Routine 04/21/2017 11:27 AM [facility] ZZESTIMATED GFR Routine 04/21/2017 11:27 AM [facility] HC COMPLETE BLD COUNT W/AUTO Routine 04/21/2017 11:27 AM [facility] Results for this DIFF procedure are in the results section. BASIC METABOLIC PANEL Routine 04/21/2017 11:27 AM [facility] POC GLUCOSE Routine 04/21/2017 11:10 AM [facility] SURGICAL PATHOLOGY REQUEST Routine 04/21/2017 10:58 AM [facility] AFB STAIN Timed 04/21/2017 10:04 AM [facility] GRAM STAIN Timed 04/21/2017 10:04 AM [facility] FUNGUS SMEAR Timed 04/21/2017 10:04 AM [facility] AEROBIC CULTURE Timed 04/21/2017 10:04 AM [facility] AFB CULTURE Timed 04/21/2017 10:04 AM [facility] FUNGUS CULTURE Timed 04/21/2017 10:04 AM [facility] ANESTHESIA INTUBATION Routine 04/21/2017 9:22 AM [facility] Procedure Note - Stanley Cabrera MD - 04/21/2017 9:21 AM [facility] Airway Performed by: STANLEY CABRERA Authorized by: [...] Routine 04/21/2017 8:22 Results for this AM [facility] procedure are in the results section. REVISION, ARTERIOVENOUS 04/21/2017 7:30 AV GRAFT GRAFT, WITH ANGIOGRAPHY AM [facility] MALFUNCTION XR CHEST 1 VW PORTABLE STAT 04/21/2017 7:14 Results for this AM [facility] procedure are in the results section. TRANSFUSE RED BLOOD STAT 04/21/2017 7:08 CELLS AM [facility] TROPONIN STAT 04/21/2017 3:59 Results for this AM [facility] procedure are in the results section. ZZESTIMATED GFR STAT 04/21/2017 3:59 Results for this AM [facility] procedure are in the results section. HEPATIC FUNCTION PANEL STAT 04/21/2017 3:59 Results for this AM [facility] procedure are in the results section. BASIC METABOLIC PANEL STAT 04/21/2017 3:59 Results for this AM [facility] procedure are in the results section. BLOOD CULTURE, AEROBIC Routine 04/21/2017 3:59 Results for this & ANAEROBIC AM [facility] procedure are in the results section. ALT (SGPT) STAT 04/21/2017 2:39 Results for this AM [facility] procedure are in the results section. AST (SGOT) STAT 04/21/2017 2:39 Results for this AM [facility] procedure are in the results section. POTASSIUM LEVEL STAT 04/21/2017 2:39 Results for this AM [facility] procedure are in the results section. PREPARE RBC Timed 04/21/2017 1:35 Results for this AM [facility] procedure are in the results section. ZZESTIMATED GFR STAT 04/21/2017 1:35 Results for this AM [facility] procedure are in the results section. B NATRIURETIC PEPTIDE STAT 04/21/2017 1:35 Results for this AM [facility] procedure are in the results section. TROPONIN STAT 04/21/2017 1:35 Results for this AM [facility] procedure are in the results section. COMPREHENSIVE METABOLIC STAT 04/21/2017 1:35 Results for this PANEL AM [facility] procedure are in the results section. TYPE AND SCREEN Timed 04/21/2017 1:35 Results for this AM [facility] procedure are in the results section. PARTIAL THROMBOPLASTIN STAT 04/21/2017 1:35 Results for this TIME (PTT) AM [facility] procedure are in the results section. PROTHROMBIN TIME WITH STAT 04/21/2017 1:35 Results for this INR AM [facility] procedure are in the results section. HC COMPLETE BLD COUNT STAT 04/21/2017 1:35 Results for this W/AUTO DIFF AM [facility] procedure are in the results section. after 02/26/2017 Results Transfuse RBC (12/10/2017 5:48 PM CDT)Only the most recent of2 resultswithin the time period is included.Pv duplex venous upper extremity (08/29/2017 11:51 AM CDT) Narrative Performed At [facility] Vascular Ultrasound Laboratory Upper Extremity Venous Report [id number]Name:GREGORIA PADILLA.ID:[id number] St.Date: 08/29/2017 Refer.MD:HERNESTO MCCLENDON MD Exam Time: 11:16:00 AM Study Type:UE Venous DOBAge:1955,62YSex: FEMALE Sonogrphr: Elio Montilla RN, RVTPat. Stat.:Outpatient TapeVol: DP, CPT - 4: 16861 Echo Event ID:[id number] Order ID:[id number] Reason for Study:Left upper arm pain status post excisxion of infected AVG., 05/2017. Procedures:Colorflow, Grayscale/2D, Pulsed wave Doppler Race:-Citizen Of [place] SUMMARY: DUPLEX SCAN OBSERVATIONS Right Left IJNormal [...] Radiology Results In - 08/30/2017 8:07 AM T Vascular Ultrasound Laboratory Upper Extremity Venous Report [address] [place] [address] Pat.Name: GREGORIA PADILLA Pat.ID: [id number] .Date: 08/29/2017 Refer.MD: HERNESTO MCCLENDON MD Exam Time: 11:16:00 AM Study Type:UE Venous Age: 12 1955,62Y Sex: FEMALE Sonogrphr: Elio Montilla RN, RVT Pat. Stat.:Outpatient Tape Vol: HECTOR, CPT - 4: 69555 Echo Event ID:[id number] Order ID: [id number] Reason for Study:Left upper arm pain status post excisxion of infected AVG., 05/2017. Procedures:Colorflow, Grayscale/2D, Pulsed wave Doppler Race: -Citizen Of [place] SUMMARY: DUPLEX SCAN OBSERVATIONS Right Left IJ [...] AM Stephan Huffman MD Performing Organization Address City/[facility] Cent[facility]ode Phone Number [facility] [address] [place] [address] POC glucose (04/26/2017 11:43 AM BEATER [facility]ER)Only the most recent of22 resultswithin the time period is included. POC glucose 103 (H) 65 - 99 mg/dL [facility] DEPARTMENT OF PATHOLOGY AND Comment: GENOMIC MEDICINE [facility] Notified RN Meter ID: [id number] Finance Intern: Nelia Qiu Performing Organization Address [facility] Centercode Phone Number [facility] DEPARTMENT OF PATHOLOGY AND [address] [place], [place] [id number] [employer] MEDICINE Estimated GFR (04/26/2017 4:34 AM BEATER [facility]ER)Only the most recent of7 resultswithin the time period is included. GFR Non Af Amer 11 (A) mL/min/1.[address] [facility] DEPARTMENT OF PATHOLOGY AND GENOMIC MEDICINE GFR Af Amer 14 (A) mL/min/1.[address] [facility] DEPARTMENT OF Comment: PATHOLOGY AND GENOMIC Chronic [...] Americans. Specimen Plasma specimen Performing Organization Address City/State/Zipcode Phone Number [facility] DEPARTMENT OF PATHOLOGY AND [address] [place] [address] GENOMIC [facility] CBC with platelet and differential (04/26/2017 4:34 AM [facility]ER)Only the most recent of6 resultswithin the time period is included. WBC 4.68Comment: WBC was 4.50 - 11.00 k/uL [facility] DEPARTMENT OF corrected for NRBCs PATHOLOGY AND GENOMIC MEDICINE RBC 2.74 (L) 4.20 - 5.50 m/uL [facility] DEPARTMENT OF PATHOLOGY AND GENOMIC MEDICINE HGB 7.7 (L) 12.0 - 16.0 g/dL [facility] DEPARTMENT OF PATHOLOGY AND GENOMIC MEDICINE HCT 26.0 (L) 37.0 - 47.0 % [facility] DEPARTMENT OF PATHOLOGY AND GENOMIC MEDICINE MCV 94.9 82.0 - 100.[address] [facility] DEPARTMENT OF PATHOLOGY AND GENOMIC MEDICINE MCH 28.1 27.0 - 34.[address] [facility] DEPARTMENT OF PATHOLOGY AND GENOMIC MEDICINE MCHC 29.6 (L) 31.0 - 37.0 g/dL [facility] DEPARTMENT OF PATHOLOGY AND GENOMIC MEDICINE RDW - SD 59.8 (H) 37.0 - 55.[address] [facility] DEPARTMENT OF PATHOLOGY AND GENOMIC MEDICINE MPV 10.3 8.8 - 13.[address] [facility] DEPARTMENT OF PATHOLOGY AND GENOMIC MEDICINE Platelet count 148 (L) 150 - 400 k/uL [facility] DEPARTMENT OF PATHOLOGY AND GENOMIC MEDICINE Nucleated RBC 2.60 /[address] [facility] DEPARTMENT OF PATHOLOGY AND GENOMIC MEDICINE Neutrophils 58.7 39.0 - 69.0 % [facility] DEPARTMENT OF PATHOLOGY AND GENOMIC MEDICINE Lymphocytes 21.4 (L) 25.0 - 45.0 % [facility] DEPARTMENT OF PATHOLOGY AND GENOMIC MEDICINE Monocytes 13.9 (H) 0.0 - 10.0 % [facility] DEPARTMENT OF PATHOLOGY AND GENOMIC MEDICINE Eosinophils 4.7 0.0 - 5.0 % [facility] DEPARTMENT OF PATHOLOGY AND GENOMIC MEDICINE Basophils 0.4 0.0 - 1.0 % [facility] DEPARTMENT OF PATHOLOGY AND GENOMIC MEDICINE Immature granulocytes 0.9Comment: "Immature 0.0 - 1.0 % [facility] DEPARTMENT OF granulocytes" PATHOLOGY AND GENOMIC (promyelocytes, MEDICINE myelocytes, metamyelocytes) Specimen Blood Performing Organization Address City/[facility]/Zipcode Phone Number [facility] DEPARTMENT OF PATHOLOGY AND [address] [place] [address] [facility] MEDICINE Basic metabolic panel (04/26/2017 4:34 AM BEATER [facility]ER)Only the most recent of5 resultswithin the time period is included. Sodium 138 135 - 148 mEq/L [facility] DEPARTMENT OF PATHOLOGY AND GENOMIC MEDICINE Potassium 4.2 3.5 - 5.0 mEq/L [facility] DEPARTMENT OF PATHOLOGY AND GENOMIC MEDICINE Chloride 96 (L) 98 - 112 mEq/L [facility] DEPARTMENT OF PATHOLOGY AND GENOMIC MEDICINE CO2 25 24 - 31 mEq/L [facility] DEPARTMENT OF PATHOLOGY AND GENOMIC MEDICINE Anion gap 17 (H) 7 - 15 mEq/L [facility] DEPARTMENT OF PATHOLOGY Comment: [facility] Starting from July , anion gap calculation no longer incorporates potassium. Please note the change. BUN 14 8 - 23 mg/dL [facility] DEPARTMENT OF PATHOLOGY AND GENOMIC MEDICINE Creatinine 4.0 (H) 0.5 - 0.9 mg/dL [facility] DEPARTMENT OF PATHOLOGY AND GENOMIC MEDICINE Glucose 96 65 - 99 mg/dL [facility] DEPARTMENT OF PATHOLOGY AND GENOMIC MEDICINE Calcium 8.2 (L) 8.8 - 10.2 mg/dL [facility] DEPARTMENT OF PATHOLOGY AND GENOMIC MEDICINE Specimen Plasma specimen Performing Organization Address City/[facility] Centercode Phone Number [facility] DEPARTMENT OF PATHOLOGY AND [address] [place] [address] [facility] XR Chest 1 Vw Portable (04/24/2017 5:30 PM BEATER [facility]ER)Only the most recent of3 resultswithin the time period is included. Narrative Performed At EXAMINATION:XR CHEST 1 VW PORTABLE RADIANT CLINICAL HISTORY:New dialysis catheter COMPARISON:None. IMPRESSION: Right dialysis catheter terminates in the superior vena cava, there is no evidence of pneumothorax Heart is enlarged Atelectasis in the lung bases. Degenerative changes are present throughout the bony structures without evidence of a suspicious focal lesion. [facility]-[id number] Procedure Note Interface, Radiology Results Incoming - 04/24/2017 6:28 PM [facility]ER EXAMINATION: XR CHEST 1 VW PORTABLE CLINICAL HISTORY: New dialysis catheter COMPARISON: None. IMPRESSION: Right dialysis catheter terminates in the superior vena cava, there is no evidence of pneumothorax Heart is enlarged Atelectasis in the lung bases. Degenerative changes are present throughout the bony structures without evidence of a suspicious focal lesion. [facility]-[id number] Performing Organization Address [facility] Centercode Phone Number [facility] [address] [place] [address] [place] < 1 Hour (04/24/2017 4:50 PM BEATER DUMPER) Narrative Performed At EXAMINATION:[place] 1 [facility] C-arm fluoroscopy was requested in OR. LOCATION: [facility] OR 06 PROCEDURE: C-Arm for INSERTION OF TUNNELED DIALYSIS CATHETER START TIME: 1635 FINISH TIME: 1650 FLUORO TIME: 0.1 min DOSE: mGy:1.06 TECH(S): PHAN MENDOZA IMPRESSION: Separate operative report will be issued by the physician performing the procedure. [id number] Procedure Note [facility], Radiology Results Incoming - 04/24/2017 10:13 PM [facility]ER EXAMINATION: OR [place] 1 HOUR C-arm fluoroscopy was requested in OR. LOCATION: [facility] OR 06 PROCEDURE: C-Arm for INSERTION OF TUNNELED DIALYSIS CATHETER START TIME: 1635 FINISH TIME: 1650 FLUORO TIME: 0.1 min DOSE: mGy: 1.06 TECH(S): PHAN MENDOZA IMPRESSION: Separate operative report will be issued by the physician performing the procedure. [id number] Performing Organization Address [facility] Centercori Phone Number [facility] [address] [place] [address] Partial thromboplastin time, activated (04/24/2017 4:05 AM BEATER DUMPER)Only the most recent of2 resultswithin the time period is included. PTT 35.1 23.0 - 36.[address] [facility] DEPARTMENT OF PATHOLOGY Comment: AND GENOMIC MEDICINE PTT therapeutic range for unfractionated heparin is 61.0-112.0 seconds which corresponds to Anti-Xa 0.3-0.7 U/ml. Specimen Blood Performing Organization Address [facility]/Zipcode Phone Number [facility] DEPARTMENT OF PATHOLOGY AND [address] [place] [address] [employer] Prothrombin time with INR (04/24/2017 4:05 AM BEATER DUMPER)Only the most recent of3 resultswithin the time period is included. Prothrombin time 15.5 (H) 12.0 - 15.[address] [facility] DEPARTMENT OF PATHOLOGY AND GENOMIC MEDICINE INR 1.[address] [facility] DEPARTMENT OF Comment: PATHOLOGY AND GENOMIC The International Normalized Ratio (INR) is a therapeutic MEDICINE monitoring tool for patients who are stable on oral anticoagulant therapy. An INR of 2.0-3.0 is suggested for deep vein thrombosis/pulmonary embolism. Specimen Blood Performing Organization Address City/[facility]/Zipcode Phone Number [facility] DEPARTMENT OF PATHOLOGY AND [address] [place] [address] Phosphorus level (04/24/2017 4:00 AM BEATER DUMPER) Phosphorus 3.9 2.4 - 4.5 mg/dL [facility] DEPARTMENT OF PATHOLOGY AND GENOMIC MEDICINE Specimen Plasma specimen Performing Organization Address [facility] Centercode Phone Number [facility] DEPARTMENT OF PATHOLOGY AND [address] [place] [address] Magnesium level (04/24/2017 4:00 AM BEATER DUMPER) Magnesium 1.9 1.6 - 2.4 mg/dL [facility] DEPARTMENT OF PATHOLOGY AND GENOMIC MEDICINE Specimen Plasma specimen Performing Organization Address [facility]ercori Phone Number [facility] DEPARTMENT OF PATHOLOGY AND [address] [place] [address] Vancomycin level, random (04/23/2017 9:55 AM BEATER DUMPER) Vancomycin, random 9.1 ug/mL [facility] DEPARTMENT OF PATHOLOGY AND GENOMIC MEDICINE Specimen Serum Performing Organization Address [facility] Phone Number [facility] DEPARTMENT OF PATHOLOGY AND [address] [place] [address] ECG 12 lead (04/23/2017 9:45 AM BEATER DUMPER) Ventricular rate [address] [facility] MUSE Atrial rate [address] [facility] MUSE NC interval [address] [address] [facility] [facility] QRSD interval 166 [facility] QT interval [address] [facility] MUSE QTC interval [address] [facility] MUSE P axis 1 51 [facility] QRS axis 1 -[address] [facility] MUSE T wave axis -[address] [facility] MUSE EKG impression Sinus rhythm with sinus arrhythmia with 1st degree AV block- Left axis deviation-Right bundle branch block-T wave abnormality, consider lateral ischemia-Abnormal ECG-In automated comparison with ECG of [address] [facility] MUSE -FEB-2014 19:02,-T wave inversion more evident in Anterior leads-Electronically Signed By Fitz Hogan ([id number]) on 2017 8:15:04 AM Performing Organization Address City/[facility] Centercode Phone Number [facility] M[facility] [address] [place] [address] Comprehensive metabolic panel (04/22/2017 4:00 AM BEATER DUMPER)Only the most recent of2 resultswithin the time period is included. Sodium 140 135 - 148 mEq/L [facility] DEPARTMENT OF PATHOLOGY AND GENOMIC MEDICINE Potassium 4.7 3.5 - 5.0 mEq/L [facility] DEPARTMENT OF PATHOLOGY AND GENOMIC MEDICINE Chloride 98 98 - 112 mEq/L [facility] DEPARTMENT OF PATHOLOGY AND GENOMIC MEDICINE CO2 26 24 - 31 mEq/L [facility] DEPARTMENT OF PATHOLOGY AND GENOMIC MEDICINE Anion gap 16 (H) 7 - 15 mEq/L [facility] DEPARTMENT OF Comment: PATHOLOGY AND GENOMIC Starting from July , anion gap calculation MEDICINE no longer incorporates potassium. Please note the change. BUN 20 8 - 23 mg/dL [facility] DEPARTMENT OF PATHOLOGY AND GENOMIC MEDICINE Creatinine 4.6 (H) 0.5 - 0.9 mg/dL [facility] DEPARTMENT OF PATHOLOGY AND GENOMIC MEDICINE Glucose 105 (H) 65 - 99 mg/dL [facility] DEPARTMENT OF PATHOLOGY AND GENOMIC MEDICINE Calcium 8.6 (L) 8.8 - 10.2 mg/dL [facility] DEPARTMENT OF PATHOLOGY AND GENOMIC MEDICINE Protein 7.7 6.3 - 8.3 g/dL [facility] DEPARTMENT OF Comment: PATHOLOGY AND GENOMIC 4.6-7.0 g/dL MEDICINE 1 week 4.4-7.6 g/dL 7 months-1year5.1-7.3 g/dL 1-2 years5.6-7.5 g/dL >3 years6.0-8.0 g/dL 18-150 6.3-8.3 g/dL Albumin 3.2 (L) 3.5 - 5.0 g/dL [facility] DEPARTMENT OF PATHOLOGY AND GENOMIC MEDICINE A/G ratio 0.7 0.7 - 3.[address] [facility] DEPARTMENT OF PATHOLOGY AND GENOMIC MEDICINE Alkaline phosphatase 102 35 - 104 U/L [facility] DEPARTMENT OF PATHOLOGY AND GENOMIC MEDICINE AST 16 10 - 35 U/L [facility] DEPARTMENT OF PATHOLOGY AND GENOMIC MEDICINE ALT 7 5 - 50 U/L [facility] DEPARTMENT OF PATHOLOGY AND GENOMIC MEDICINE Total bilirubin 0.4 0.0 - 1.2 mg/dL [facility] DEPARTMENT OF PATHOLOGY AND GENOMIC MEDICINE Specimen Plasma specimen Performing Organization Address City/State/Zipcode Phone Number [facility] DEPARTMENT OF PATHOLOGY AND [address] [place] [address] GENOMIC MEDICINE ECG ED Preliminary Interpretation - NOT AN ORDER (04/21/2017 5:55 PM BEATER DUMPER) Narrative Performed At Zeus Cook MD 04/21/20175:55 PM ECG ED Preliminary Interpretation - Not an Order Performed by: ZEUS COOK Authorized by: ZEUS COOK ECG reviewed by ED Physician in the absence of a information security specialist: yes Interpretation: Interpretation: normal Rate: ECG rate:74 ECG rate assessment: normal Rhythm: Rhythm: sinus rhythm QRS: QRS axis:Normal QRS intervals:Normal ST segments: ST segments:Normal Hepatitis B surface antigen (04/21/2017 2:16 PM BEATER DUMPER) Hepatitis B surface Ag Non-reactive Non-reactive [facility] DEPARTMENT OF PATHOLOGY AND GENOMIC MEDICINE Specimen Blood Performing Organization Address [facility] Centercori Phone Number [facility] DEPARTMENT OF PATHOLOGY AND [address] [place] [address] GENOMIC MEDICINE Surgical pathology request (04/21/2017 10:58 AM BEATER DUMPER) [facility] DEPARTMENT OF PATHOLOGY AND GENOMIC MEDICINE Surgical pathology report See link below for PDF [facility] DEPARTMENT OF Lab Report PATHOLOGY AND GENOMIC MEDICINE Result status This is Final Report to [facility] DEPARTMENT OF [id number] PATHOLOGY AND GENOMIC MEDICINE Performing Organization Address [facility] Centercode Phone Number [facility] DEPARTMENT OF PATHOLOGY AND [address] [place] [address] GENOMIC MEDICINE Fungus smear (04/21/2017 10:04 AM BEATER DUMPER) Fungus smear No fungi observed. [facility] DEPARTMENT OF PATHOLOGY Comment: AND GENOMIC MEDICINE Specimen Information Specimen Source: Graft Specimen Site: left arm arteriovenous graft Performing Organization Address City/[facility] Centercode Phone Number [facility] DEPARTMENT OF PATHOLOGY AND [address] [place] [address] GENOMIC MEDICINE AFB culture (04/21/2017 10:04 AM BEATER DUMPER) AFB culture isolate No growth after 6 weeks of incubation[address] [facility] DEPARTMENT OF Comment: PATHOLOGY AND GENOMIC Specimen Information MEDICINE Specimen Source: Graft Specimen Site: left arm arteriovenous graft Specimen Implant - Other- Detailed Description Required Performing Organization Address City/[facility] Centercode Phone Number [facility] DEPARTMENT OF PATHOLOGY AND [address] [place] [address] GENOMIC MEDICINE Aerobic culture (04/21/2017 10:04 AM BEATER DUMPER) Aerobic culture isolate Staphylococcus aureus [facility] DEPARTMENT OF Occasional PATHOLOGY AND GENOMIC This [...] MANI 1 mcg/mL: Susceptible Performing Organization Address City/[facility] Centercode Phone Number [facility] DEPARTMENT OF PATHOLOGY AND [address] [place] [address] Gram stain (04/21/2017 10:04 AM BEATER DUMPER) Gram stain isolate Few WBC's [facility] DEPARTMENT OF No organisms seen PATHOLOGY AND GENOMIC MEDICINE Comment: Specimen Information Specimen Source: Graft Specimen Site: left arm arteriovenous graft Performing Organization Address City/[facility] Centerde Phone Number [facility] DEPARTMENT OF PATHOLOGY AND [address] [place] [address] MEDICINE AFB stain (04/21/2017 10:04 AM BEATER DUMPER) AFB stain No acid fast bacilli (AFB) seen. [facility] DEPARTMENT OF PATHOLOGY AND Comment: GENOMIC MEDICINE Specimen Information Specimen Source: Graft Specimen Site: left arm arteriovenous graft Performing Organization Address City/[facility] Centercode Phone Number [facility] DEPARTMENT OF PATHOLOGY AND [address] [place] [address] Fungus culture (04/21/2017 10:04 AM BEATER DUMPER) Fungus culture isolate No growth after 4 weeks of incubation[address] [facility] DEPARTMENT OF Comment: PATHOLOGY AND GENOMIC Specimen Information MEDICINE Specimen Source: Graft Specimen Site: left arm arteriovenous graft Specimen Implant - Other- Detailed Description Required Performing Organization Address City/State/Zipcode Phone Number [facility] DEPARTMENT OF PATHOLOGY AND [address] [place] [phone] [facility] MEDICINE Troponin (04/21/2017 3:59 AM BEATER DUMPER)Only the most recent of2 resultswithin the time period is included. Troponin <0.30 0.00 - 0.30 ng/mL [facility] DEPARTMENT OF PATHOLOGY Comment: AND GENOMIC MEDICINE 0.30 - 1.49 ng/mlMay indicate increased risk of acute coronary syndrome. >=1.5 ng/mlConsistent with acute myocardial infarction. The diagnostic value of a single normal or non-diagnostic result is questionable.Serial samples at 2-6 hour intervals are required to rule out acute myocardial injury. Specimen Plasma specimen Performing Organization Address City/[facility]/Zipcode Phone Number [facility] DEPARTMENT OF PATHOLOGY AND [address] [place] [phone] [facility] Blood culture, aerobic & anaerobic (04/21/2017 3:59 AM BEATER DUMPER) Blood culture isolate No growth after 5 days of incubation[address] [facility] DEPARTMENT OF Comment: PATHOLOGY AND GENOMIC Specimen Information MEDICINE Specimen Source: Blood Specimen Site: Peripheral Arm Right Specimen Blood Performing Organization Address City/State/Zipcode Phone Number [facility] DEPARTMENT OF PATHOLOGY AND [address] [place] [phone] [employer] [facility] Hepatic function panel (04/21/2017 3:59 AM BEATER DUMPER) Albumin 3.0 (L) 3.5 - 5.0 g/dL [facility] DEPARTMENT OF PATHOLOGY AND GENOMIC MEDICINE Total bilirubin <0.2 0.0 - 1.2 mg/dL [facility] DEPARTMENT OF PATHOLOGY AND GENOMIC MEDICINE Bilirubin direct <0.2 0.0 - 0.3 mg/dL [facility] DEPARTMENT OF PATHOLOGY AND GENOMIC MEDICINE Alkaline phosphatase 109 (H) 35 - 104 U/L [facility] DEPARTMENT OF PATHOLOGY AND GENOMIC MEDICINE Protein 7.4 6.3 - 8.3 g/dL [facility] DEPARTMENT OF Comment: PATHOLOGY AND GENOMIC [place] 4.6-7.0 g/dL MEDICINE 1 week 4.4-7.6 g/dL 7 months-1year5.1-7.3 g/dL 1-2 years5.6-7.5 g/dL >3 years6.0-8.0 g/dL 18-150 6.3-8.3 g/dL ALT 13 5 - 50 U/L [facility] DEPARTMENT OF PATHOLOGY AND GENOMIC MEDICINE AST 15 10 - 35 U/L [facility] DEPARTMENT OF PATHOLOGY AND GENOMIC MEDICINE Specimen Plasma specimen Performing Organization Address City/[facility]/Zipcode Phone Number [facility] DEPARTMENT OF PATHOLOGY AND [address] [place] [address] ALT (SGPT) (04/21/2017 2:39 AM BEATER DUMPER) ALT Footnote 5 - 50 U/L [facility] DEPARTMENT OF PATHOLOGY AND GENOMIC MEDICINE Specimen Plasma specimen Performing Organization Address City/[facility] Centercode Phone Number [facility] DEPARTMENT OF PATHOLOGY AND [address] [place] [address] AST (SGOT) (04/21/2017 2:39 AM BEATER DUMPER) AST Footnote 10 - 35 U/L [facility] DEPARTMENT OF PATHOLOGY AND GENOMIC MEDICINE Specimen Plasma specimen Performing Organization Address [facility] Centercori Phone Number [facility] DEPARTMENT OF PATHOLOGY AND [address] [place] [address] Potassium level (04/21/2017 2:39 AM BEATER DUMPER) Potassium Footnote 3.5 - 5.0 mEq/L [facility] DEPARTMENT OF PATHOLOGY Comment: AND [employer] MEDICINE Unable to perform testing, specimen is HEMOLYZED.Recollect requested for K,AST,ALT.RUSSEL GRESHAM notified by KXG at04/21/201703:48 . Specimen Plasma specimen Performing Organization Address [facility] Centercori Phone Number [facility] DEPARTMENT OF PATHOLOGY AND [address] [place] [address] Prepare RBC, 2 Units (04/21/2017 1:35 AM BEATER DUMPER) Product name Red Cells AS1 Leukored [facility] DEPARTMENT OF Irrad PATHOLOGY AND GENOMIC MEDICINE Unit number [id number] [facility] DEPARTMENT OF PATHOLOGY AND GENOMIC MEDICINE Product code [id number] [facility] DEPARTMENT OF PATHOLOGY AND GENOMIC MEDICINE Dispense status Transfused [facility] DEPARTMENT OF PATHOLOGY AND GENOMIC MEDICINE Blood expiration date [id number] [facility] DEPARTMENT OF PATHOLOGY AND GENOMIC MEDICINE Blood type code [address] [facility] DEPARTMENT OF PATHOLOGY AND GENOMIC MEDICINE Blood type B POSITIVE [facility] DEPARTMENT OF PATHOLOGY AND GENOMIC MEDICINE Product name Red Cells AS1 Leukored [facility] DEPARTMENT OF Irrad PATHOLOGY AND GENOMIC MEDICINE Unit number [id number] [facility] DEPARTMENT OF PATHOLOGY AND GENOMIC MEDICINE Product code [id number] [facility] DEPARTMENT OF PATHOLOGY AND GENOMIC MEDICINE Dispense status Transfused [facility] DEPARTMENT OF PATHOLOGY AND GENOMIC MEDICINE Blood expiration date [id number] [facility] DEPARTMENT OF PATHOLOGY AND GENOMIC MEDICINE Blood type code [address] [facility] DEPARTMENT OF PATHOLOGY AND GENOMIC MEDICINE Blood type B POSITIVE [facility] DEPARTMENT OF PATHOLOGY AND GENOMIC MEDICINE Performing Organization Address City/[facility] Centercode Phone Number [facility] DEPARTMENT OF PATHOLOGY AND [address] [place] [address] GENOMIC MEDICINE Type and screen (04/21/2017 1:35 AM BEATER DUMPER) ABO grouping B [facility] DEPARTMENT OF PATHOLOGY AND GENOMIC MEDICINE Rh type POS [facility] DEPARTMENT OF PATHOLOGY AND GENOMIC MEDICINE Antibody screen (gel) NEG [facility] DEPARTMENT OF PATHOLOGY AND GENOMIC MEDICINE Specimen Blood Performing Organization Address City/[facility]/Zipcode Phone Number [facility] DEPARTMENT OF PATHOLOGY AND [address] [place] [address] [facility] B natriuretic peptide (04/21/2017 1:35 AM BEATER DUMPER) BNP 582 (H) 0 - 100 pg/mL [facility] DEPARTMENT OF PATHOLOGY AND GENOMIC MEDICINE Specimen Blood Performing Organization Address City/[facility] Centercode Phone Number [facility] DEPARTMENT OF PATHOLOGY AND [address] [place] [phone] GENOMIC MEDICINE after 02/26/2017 Insurance Payer Benefit Plan / Group Subscriber ID Type Phone Address MEDICARE MEDICARE PART A AND B xxxxxxxxxxx Medicare [place], [place] Advance Directives Patient has advance care planning documents on file. For more information, please contact:Vivek Roy[address] [place] [address]
--- OUTSIDE RECORDS SUMMARY | 2018-02-27 13:53 | XMS REPORT ---
:1955 [facility] Address [address] [place] [address] Care Team Providers Name Role Phone UNKNOWN, [...] the Main Lab for Analysis. POC Glucose, [id number] 16:22:00 Test Item Value Reference Range Comments POC Glucose (test 82 mg/dL 70-115 If you consider your patient code=POCGLUC) critically ill, the Finn Accu-Chek InformII metershould not be used for Glucose determinations.Draw a venous Glucose and send to the Main Lab for Analysis. POC Glucose, [id number] 08:07:00 Test Item Value Reference Range Comments POC Glucose (test 76 mg/dL 70-115 If you consider your patient code=POCGLUC) critically ill, the Finn Accu-Chek InformII metershould not be used for Glucose determinations.Draw a venous Glucose and send to the Main Lab for Analysis. POC Glucose, [id number] 20:48:00 Test Item Value Reference Range Comments POC Glucose (test 107 mg/dL 70-115 If you consider your patient code=POCGLUC) critically ill, the Finn Accu-Chek InformII metershould not be used for Glucose determinations.Draw a venous Glucose and send to the Main Lab for Analysis. POC Glucose, [id number] 07:18:00 Test Item Value Reference Range Comments POC Glucose (test 75 mg/dL 70-115 If you consider your patient code=POCGLUC) critically ill, the Finn Accu-Chek InformII metershould not be used for Glucose determinations.Draw a venous Glucose and send to the Main Lab for Analysis. POC Glucose, [id number] 21:10:00 Test Item Value Reference Range Comments POC Glucose (test 129 mg/dL 70-115 If you consider your patient code=POCGLUC) critically ill, the Finn Accu-Chek InformII metershould not be used for Glucose determinations.Draw a venous Glucose and send to the Main Lab for Analysis. POC Glucose, [id number] 07:44:00 Test Item Value Reference Range Comments POC Glucose (test 91 mg/dL 70-115 If you consider your patient code=POCGLUC) critically ill, the Finn Accu-Chek InformII metershould not be used for Glucose determinations.Draw a venous Glucose and send to the Main Lab for Analysis. US ABD B-SCAN, [id number] 09:21:21DICTATION LOCATION: [id number]: distended. COMPARISON: None available.TECHNIQUE: Sonography ofthe abdomen. [...] Status post cholecystectomy.4. Abdominopelvic ascites.XR ABDOMEN KUB [id number] 07: 58:20EXAM: KUBLocation: [id number]: DistendedCOMPARISON: NoneDISCUSSION:A frontal view of the abdomen is submitted.There is overall increased density of the abdomen with relativelycentralized bowel gas and obscured abdominal fat planes, suggestive ofascites. Right upper quadrant surgical clips suggest priorcholecystectomy. No bowel obstruction or gross evidence ofintra-abdominal free air is seen. No acute bony or normalities areidentified.IMPRESSION: Findings suggest ascites. No evidence of bowel obstructionor intraperitoneal free air.POC Glucose, [id number] 20:27:00 Test Item Value Reference Range Comments POC Glucose (test 107 mg/dL 70-115 If you consider your patient code=POCGLUC) critically ill, the Finn Accu-Chek InformII metershould not be used for Glucose determinations.Draw a venous Glucose and send to the Main Lab for Analysis. POC Glucose, [id number] 21:14:00 Test Item Value Reference Range Comments POC Glucose (test 141 mg/dL 70-115 If you consider your patient code=POCGLUC) critically ill, the Finn Accu-Chek InformII metershould not be used for Glucose determinations.Draw a venous Glucose and send to the Main Lab for Analysis. Comprehensive Metabolic [id number] 06:45:00 Test Item Value Reference Range Comments [...] race is not provided, and the patient isAfrican-Chadian, multiply by 1.212. If sex is not [...] the National Kidney Foundation,http://nkdep.nih. gov CBC with [id number] 06:27:00 Test Item Value Reference Range Comments [...] Lymph Abs (test code=ALYMPH) 1.1 K/cumm 0.5-4.6 [place] Abs (test code=AMONO) 0.4 K/cumm 0.0-1.2 Eos Abs (test code=AEOS) 0.16 K/cumm 0.00-0.74 Baso Abs (test code=ABASO) 0.0 K/cumm 0.00-0.21 Hypochromic (test code=HYPO) Slight Hep B Surface [id number] 21:04:00 Test Item Value Reference Range Comments Hep Bs Ag (test code=HBSAG) Nonreactive Non-Reactive [id number] 14:36:00 Test Item Value Reference Range Comments NT ProBnp (test code=PBNP) >11520 pg/mL 0-124 Troponin [id number] 14:36:00 Test Item Value Reference Range Comments Troponin T (test code=AARON) 0.040 ng/mL 0.000-0.090 CBC with [id number] 14:14:00 Test Item Value Reference Range Comments [...] Neutro Abs (test code=ANEUT) 2.1 K/cumm 1.6-7.4 [place] Abs (test code=AMONO) 0.5 K/cumm 0.0-1.2 Eos Abs (test code=AEOS) 0.17 K/cumm 0.00-0.74 Baso Abs (test code=ABASO) 0.0 K/cumm 0.00-0.21 RBC Morphology (test code=RBCMRPH) Normal Platelet Est (test code=PLTEST) Normal Platelet on Smear Prothrombin [id number] 14:07:00 Test Item Value Reference Range Comments PT (test code=PT) 13.30 seconds 9.78-13.35 INR (test code=INR) 1.17 Ratio 0.6-1.2 Partial Thromboplastin [id number] 14:07:00 Test Item Value Reference Range Comments aPTT (test code=PTT) 37.50 seconds 24.39-37.25 Basic Metabolic [id number] 13:57:00 Test Item Value Reference Range Comments [...] race is not provided, and the patient isAfrican-Chadian, multiply by 1.212. If sex is not [...] National Kidney Foundation,http://nkdep.nih. gov XR CHEST 1 [id number] 13:31:50CLINICAL INFORMATION: End-stage renal disease. Missed dialysis [...]
[2018-02-27 15:25] LABS: Absolute Lymphocytes (CBC) 1.2 K/uL (0.7-4.9); Absolute Monocytes 0.5 K/uL (0.1-1.3); Absolute Neutrophil 3.3 K/uL (1.8-8.0); Basophils % 0.5 % (0-1.3); Eosinophils % 5.2 % (0-4.4); Hematocrit 42.1 % (36.0-45.0); Lymphocytes % 22.6 % (15.3-44.8); MCH 30.1 pg (27.0-35.0); MPV 9.3 fL (7.6-11.3); Monocytes % 9.8 % (3.3-12.3); RBC Red Blood Cell Count 4.47 M/uL (3.86-4.86)
[2018-02-27 15:28] LABS: Protime INR 1.04
[2018-02-27 15:52] LABS: Albumin 3.7 g/dL (3.4-5.0); Bilirubin Direct 0.1 mg/dL (0-0.2); Bilirubin Total 0.3 mg/dL (0.2-1.0); Potassium 4.4 mmol/L (3.5-5.1); Troponin (Emerg Dept Use Only) 0.02 ng/mL (0.0-0.045)
--- NOTE | 2018-02-27 16:18 | ER ---
Nurse's Notes [facility] Name: Liya Sullivan Age: 62 yrs Sex: Female : 1955 Arrival Date: 02/27/2018 Time: 13:49 Bed 28 Private MD: Diagnosis: Chest pain, unspecified Presentation: 02/27 13:50 Presenting complaint: EMS states: pt was at dialysis and had an episode of chest pain tl3 that was a 6/10 but has since resolved, no treatment was given per EMS en route. Transition of care: Dialysis Center. Onset of symptoms was February 27, 2018. Risk Assessment: Do you want to hurt yourself or someone else? Patient reports no desire to harm self or others. Initial Sepsis Screen: Does the patient meet any 2 criteria? No. Patient's initial sepsis screen is negative. Does the patient have a suspected source of infection? No. Patient's initial sepsis screen is negative. Care prior to arrival: None. 13:50 Method Of Arrival: EMS: [facility] tl3 13:50 Acuity: STEPHANIE 3 tl3 Triage Assessment: 13:56 General: Appears well developed, well nourished, Behavior is calm, cooperative, tl3 appropriate for age. Pain: Complains of pain in chest. EENT: No deficits noted. Neuro: No deficits noted. Cardiovascular: Patient's skin is warm and dry. Rhythm is regular. Respiratory: Airway is patent Respiratory effort is even, unlabored, Respiratory pattern is regular, symmetrical. GI: No signs and/or symptoms were reported involving the gastrointestinal system. : No signs and/or symptoms were reported regarding the genitourinary system. Derm: No signs and/or symptoms reported regarding the dermatologic system. Musculoskeletal: No signs and/or symptoms reported regarding the musculoskeletal system. 13:56 General: pt was at dialysis and had an episode of chest pain. tl3 Historical: - Allergies: 13:56 Aspirin; tl3 13:56 butorphanol tartrate; tl3 13:56 Clonidine; tl3 13:56 Codeine; tl3 13:56 Compazine; tl3 13:56 Darvocet-N 100; tl3 13:56 Demerol; tl3 13:56 diphenhydramine HCl; tl3 13:56 Hydromorphone; tl3 13:56 hydroxyzine HCl; tl3 13:56 Levaquin; tl3 13:56 Levofloxacin; tl3 13:56 Morphine; tl3 13:56 Ondansetron HCl; tl3 13:56 pantoprazole sodium; tl3 13:56 promethazine HCl; tl3 13:56 Protonix; tl3 13:56 Stadol; tl3 13:56 tramadol; tl3 - Home Meds: 13:56 Acetaminophen Oral [Active]; clopidogrel 75 mg Oral tab 1 tab once daily [Active]; tl3 gabapentin 300 mg Oral cap 1 cap every night [Active]; latanoprost 0.005 % ophthalmic drop 1 drop once daily [Active]; midodrine 15mg Oral tab 1 tab twice a day [Active]; timolol maleate 0.5 % Opht drop 1 drop to both eyes every morning [Active]; - PMHx: 13:56 CVA; Diabetes - IDDM; Dialysis; ESRD; tl3 - PSHx: 13:56 Unable to obtain; tl3 - Immunization history:: Adult Immunizations up to date. - Social history:: Smoking status: unknown. - Ebola Screening: : No symptoms or risks identified at this time. Screenin:58 Abuse screen: Denies threats or abuse. Nutritional screening: No deficits noted. tl3 Tuberculosis screening: No symptoms or risk factors identified. Fall Risk None identified. Assessment: 13:58 Reassessment: No changes from previously documented assessment. tl3 15:05 Reassessment: Patient appears in no apparent distress at this time. No changes from tl3 previously documented assessment. Patient and/or family updated on plan of care and expected duration. Pain level reassessed. Patient is alert, oriented x 3, equal unlabored respirations, skin warm/dry/pink. lab at bedside for blood draw, blanket offered, no further needs at this time. 16:22 Reassessment: Patient appears in no apparent distress at this time. No changes from tl3 previously documented assessment. Patient and/or family updated on plan of care and expected duration. Pain level reassessed. Patient is alert, oriented x 3, equal unlabored respirations, skin warm/dry/pink. Marvel at bedside discussing discharge plan. Pain: Denies pain. 17:35 Reassessment: Patient appears in no apparent distress at this time. No changes from tl3 previously documented assessment. Patient and/or family updated on plan of care and expected duration. Pain level reassessed. Patient is alert, oriented x 3, equal unlabored respirations, skin warm/dry/pink. 17:36 Pain: Pain does not radiate. Pain began suddenly. tl3 Vital Signs: 13:56 BP 124 / 68; Pulse 75; Resp 18; Pulse Ox 96% on R/A; tl3 15:05 BP 130 / 79; Pulse 76; Resp 18; Pulse Ox 96% on R/A; tl3 16:22 BP 131 / 77; Pulse 72; Resp 18; Pulse Ox 97% ; tl3 17:35 BP 133 / 90; Pulse 74; Resp 18; Pulse Ox 96% on R/A; tl3 ED Course: 13:49 Patient arrived in ED. tl3 13:53 Triage completed. tl3 13:55 Marvel García PA is PHCP. jr8 13:55 Gildardo Florez MD is Attending Physician. jr8 13:56 Arm band placed on right wrist. tl3 13:58 Patient has correct armband on for positive identification. oracle brm developer on. Pulse tl3 ox on. NIBP on. 13:58 No provider procedures requiring assistance completed. Patient maintains SpO2 tl3 saturation greater than 95% on room air. 14:00 EKG done, by ED staff. tl3 14:41 X-ray completed. Portable x-ray completed in exam room. Patient tolerated procedure ag1 well. 14:44 XRAY Chest (1 view) In Process Unspecified. EDMS 15:05 Tonia Lee, RN is Primary Nurse. tl3 16:22 Patient did not have IV access during this emergency room visit. tl3 Administered Medications: No medications were administered Outcome: 16:17 Discharge ordered by . brady 17:35 Discharged to home via wheelchair. tl3 17:35 Condition: stable 17:35 Discharge instructions given to patient, Instructed on discharge instructions, follow up and referral plans. Demonstrated understanding of instructions, follow-up care. 17:37 Patient left the ED. tl3 Signatures: Dispatcher [employer] EDMS Marvel García PA PA jr8 [place], Ashley ag1 Tonia Lee, RN RN tl3
--- NOTE | 2018-02-27 16:18 | EDPHYS ---
Physician Documentation [facility] Name: Liya Sullivan Age: 62 yrs Sex: Female : 1955 Arrival Date: 02/27/2018 Time: 13:49 Bed 28 Private MD: ED Physician Gildardo Florez HPI: 02/27 14:43 This 62 yrs old Black Female presents to ER via EMS with complaints of Chest Pain. jr8 14:43 The patient or guardian reports chest pain that is located primarily in the substernal jr8 area. Onset: acutely, today. The pain does not radiate. Associated signs and symptoms: The patient has no apparent associated signs or symptoms. The chest pain is described as sharp. Duration: The patient or guardian reports a single episode, that is now resolved. Modifying factors: The symptoms are alleviated by nothing. the symptoms are aggravated by nothing. Severity of pain: At its worst the pain was mild in the emergency department the pain has resolved. The patient has experienced a previous episode. The patient has not recently seen a physician. Patient while at dialysis had sudden onset chest pain. Since has resolved. Historical: - Allergies: 13:56 Aspirin; tl3 13:56 butorphanol tartrate; tl3 13:56 Clonidine; tl3 13:56 Codeine; tl3 13:56 Compazine; tl3 13:56 Darvocet-N 100; tl3 13:56 Demerol; tl3 13:56 diphenhydramine HCl; tl3 13:56 Hydromorphone; tl3 13:56 hydroxyzine HCl; tl3 13:56 Levaquin; tl3 13:56 Levofloxacin; tl3 13:56 Morphine; tl3 13:56 Ondansetron HCl; tl3 13:56 pantoprazole sodium; tl3 13:56 promethazine HCl; tl3 13:56 Protonix; tl3 13:56 Stadol; tl3 13:56 tramadol; tl3 - Home Meds: 13:56 Acetaminophen Oral [Active]; clopidogrel 75 mg Oral tab 1 tab once daily [Active]; tl3 gabapentin 300 mg Oral cap 1 cap every night [Active]; latanoprost 0.005 % ophthalmic drop 1 drop once daily [Active]; midodrine 15mg Oral tab 1 tab twice a day [Active]; timolol maleate 0.5 % Opht drop 1 drop to both eyes every morning [Active]; - PMHx: 13:56 CVA; Diabetes - IDDM; Dialysis; ESRD; tl3 - PSHx: 13:56 Unable to obtain; tl3 - Immunization history:: Adult Immunizations up to date. - Social history:: Smoking status: unknown. - Ebola Screening: : No symptoms or risks identified at this time. ROS: 14:43 Eyes: Negative for injury, pain, redness, and discharge, ENT: Negative for injury, jr8 pain, and discharge, Neck: Negative for injury, pain, and swelling, Respiratory: Negative for shortness of breath, cough, wheezing, and pleuritic chest pain, Abdomen/GI: Negative for abdominal pain, nausea, vomiting, diarrhea, and constipation, Back: Negative for injury and pain, MS/Extremity: Negative for injury and deformity, Skin: Negative for injury, rash, and discoloration, Neuro: Negative for headache, weakness, numbness, tingling, and seizure. 14:43 Cardiovascular: Positive for chest pain, Negative for edema, orthopnea, palpitations, paroxysmal nocturnal dyspnea. Exam: 14:43 Eyes: Pupils equal round and reactive to light, extra-ocular motions intact. Lids and jr8 lashes normal. Conjunctiva and sclera are non-icteric and not injected. Cornea within normal limits. Periorbital areas with no swelling, redness, or edema. ENT: Nares patent. No nasal discharge, no septal abnormalities noted. Tympanic membranes are normal and external auditory canals are clear. Oropharynx with no redness, swelling, or masses, exudates, or evidence of obstruction, uvula midline. Mucous membranes moist. Neck: Trachea midline, no thyromegaly or masses palpated, and no cervical lymphadenopathy. Supple, full range of motion without nuchal rigidity, or vertebral point tenderness. No Meningismus. Chest/axilla: Normal chest wall appearance and motion. Nontender with no deformity. No lesions are appreciated. Cardiovascular: Regular rate and rhythm with a normal S1 and S2. No gallops, murmurs, or rubs. Normal PMI, no JVD. No pulse deficits. Respiratory: Lungs have equal breath sounds bilaterally, clear to auscultation and percussion. No rales, rhonchi or wheezes noted. No increased work of breathing, no retractions or nasal flaring. Abdomen/GI: Soft, non-tender, with normal bowel sounds. No distension or tympany. No guarding or rebound. No evidence of tenderness throughout. Back: No spinal tenderness. No costovertebral tenderness. Full range of motion. Skin: Warm, dry with normal turgor. Normal color with no rashes, no lesions, and no evidence of cellulitis. MS/ Extremity: Pulses equal, no cyanosis. Neurovascular intact. Full, normal range of motion. Neuro: Awake and alert, GCS 15, oriented to person, place, time, and situation. Cranial nerves II-XII grossly intact. Motor strength 5/5 in all extremities. Sensory grossly intact. Cerebellar exam normal. Normal gait. Vital Signs: 13:56 BP 124 / 68; Pulse 75; Resp 18; Pulse Ox 96% on R/A; tl3 15:05 BP 130 / 79; Pulse 76; Resp 18; Pulse Ox 96% on R/A; tl3 16:22 BP 131 / 77; Pulse 72; Resp 18; Pulse Ox 97% ; tl3 17:35 BP 133 / 90; Pulse 74; Resp 18; Pulse Ox 96% on R/A; tl3 MDM: 14:03 Patient medically screened. phil 16:16 Data reviewed: vital signs, nurses notes, lab test result(s), EKG, radiologic studies, jr8 plain films. Data interpreted: Pulse oximetry: on room air is 96 %. Interpretation: normal. 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 ED course: Patient still without chest pain. Negative troponin. Will send home. If she were to change or worsen to come back. Otherwise to f/u with cardiology and FM. Patient good with this plan . 02/27 14:04 Order name: Basic Metabolic Panel; Complete Time: 15:55 jr8 02/27 14:04 Order name: CBC with Diff; Complete Time: 15:31 jr8 02/27 14:04 Order name: LFT's; Complete Time: 15:55 jr8 02/27 14:04 Order name: Magnesium; Complete Time: 15:55 [facility] 02/27 14:04 Order name: NT PRO-BNP; Complete Time: 15:55 [facility] 02/27 14:04 Order name: PT-INR; Complete Time: 15:31 02/27 14:04 Order name: Troponin (emerg Dept Use Only); Complete Time: 15:55 [facility] 02/27 14:04 Order name: XRAY Chest (1 view) [facility] 02/27 14:04 Order name: EKG; Complete Time: 14: 02/27 14:04 Order name: Cardiac monitoring; Complete Time: 15: [facility] 02/27 14:04 Order name: EKG - Nurse/Tech; Complete Time: 15: [facility] 02/27 14:04 Order name: Labs collected and sent; Complete Time: 15: [facility] 02/27 14:04 Order name: O2 Per Protocol; Complete Time: 15: [facility] 02/27 14:04 Order name: O2 Sat Monitoring; Complete Time: 15: [facility] Administered Medications: No medications were administered Disposition: 02/27/18 16:17 Discharged to Home. Impression: Chest pain, unspecified. - Condition is Stable. - Discharge Instructions: Nonspecific Chest Pain. - Medication Reconciliation Form, Thank You Letter, Antibiotic Education, Prescription Opioid Use form. - Follow up: Private Physician; When: 1 - 2 days; Reason: Recheck today's complaints, Continuance of care, Re-evaluation by your physician. - Problem is new. - Symptoms have improved. Addendum: 03/02/2018 08:12 Co-signature as Attending Physician, Gildardo Florez MD I agree with the assessment and c bates plan of care. Signatures: Dispatcher [employer] Gildardo Abraham MD MD cha Roszak, Josh, PA PA jr8 Tonia Lee RN RN tl3 Corrections: (The following items were deleted from the chart) 02/27 17:37 16:17 02/27/2018 16:17 Discharged to Home. Impression: Chest pain, unspecified. tl3 Condition is Stable. Forms are Medication Reconciliation Form, Thank You Letter, Antibiotic Education, Prescription Opioid Use. Follow up: Private Physician; When: 1 - 2 days; Reason: Recheck today's complaints, Continuance of care, Re-evaluation by your physician. Problem is new. Symptoms have improved. jr8
--- NOTE | 2018-02-27 17:55 | RAD REPORT ---
EXAM DESCRIPTION: RAD - Chest Single View - 02/27/2018 2:45 pm CLINICAL HISTORY: Chest pain COMPARISON: December 01 TECHNIQUE: AP portable chest image was obtained 1441 hours . FINDINGS: No peripheral mass or consolidation. No significant degree of pulmonary edema. Cardiomegal y is present and there is vascular engorgement. Trachea is midline. Dialysis catheter is in place. Ca theter has been replaced or repositioned since the comparison. No measurable pleural effusion and no pneumothorax. No acute bony abnormality seen. No acute aortic findings suspected. IMPRESSION: Cardiomegaly with mild volume overload pattern.
[2018-02-27 18:53] VITALS: BP 133/90; O2SAT 96
--- NOTE | 2018-02-28 07:02 | EKG ---
Test Date: 2018-02-27 Test Time: 13:54:37 Ui Lead Developer: MEASUREMENT RESULTS: Intervals: Rate: 72 ME: 234 QRSD: 158 QT: 462 QTc: 505 [place]: P: 64 ME: 234 QRS: -61 T: 28 INTERPRETIVE STATEMENTS: Sinus rhythm with 1st degree AV block Right bundle branch block Left axis Abnormal ECG Compared to ECG 12/01/2017 11:04:44 First degree AV block now present Electronically Signed On 02-28-18 07:01:04 BRICK SETTER OPERATOR by Charles Jaimes
== END 2018-02-27 17:37 | disposition home or self-care (01) ==
LOC: ER 13:49
DX: R07.9 Chest pain, unspecified (principal); E11.22 Type 2 diabetes mellitus with diabetic chronic kidney disease; N18.6 End stage renal disease; Z88.1 Allergy status to other antibiotic agents; Z88.5 Allergy status to narcotic agent; Z88.6 Allergy status to analgesic agent; Z88.8 Allergy status to other drugs, medicaments and biological substances; Z99.2 Dependence on renal dialysis; Z86.73 Personal history of transient ischemic attack (TIA), and cerebral infarction without residual deficits
CPT/HCPCS: 36415; 71045; 80048; 80076; 83735; 83880; 84484; 85025; 85610; 93005; 99285

== ENCOUNTER 2018-12-25 19:34 | Emergency (ER) | payer OTHER ==
--- OUTSIDE RECORDS SUMMARY | 2018-12-25 19:37 | XMS REPORT | Clinical Summary ---
:1955 Author Organization [facility] Address [address] [place] [address] Care Team Providers Name Role Phone Asked, [...] Refills Start Date End Date Status gabapentin (NEURONTIN) Take 300 mg by 0 Active 300 mg capsule mouth nightly. clopidogrel (PLAVIX) 75 Take 75 mg by 0 Active mg tablet mouth daily. Every other day, taken midodrine (PROAMATINE) Take 15 mg by 0 Active 10 MG tablet mouth 2 (two) times a day. Active Problems Problem Noted Date Pain 04/24/2017 Low blood pressure 04/22/2017 Hypotension 04/21/2017 Social History Tobacco Use Types Packs/Day Years Used Date Never Smoker Smokeless Tobacco: Never Used Sex Assigned at Date Recorded Not on file Job Start Date Occupation Industry Not on file Not on file Not on file Travel History Travel Start Travel End No recent travel history available. Last Filed Vital Signs Not on file Plan of Treatment Health Maintenance Due Date Last Done Comments CERVICAL CANCER SCREENING 1976 COLONOSCOPY SCREENING 2005 SHINGLES VACCINES (#1) 2005 BREAST CANCER SCREENING 09/01/2010 09/01/2008 INFLUENZA VACCINE 11/05/2018 Implants Implanted Type Area Egg Pasteurizer Device Shelf Model / Identifier Expiration Serial / Date Lot Catheter Emboltmy Nenita 5fr 80cm Artrl Tube Pack - [id number] Surgical Left : THURMAN 11/05/2018 [id number] / Implanted: Qty: 1 on 04/21/2017 by Hernesto Mcclendon MD at [facility] Implants; Arm LIFESCIENCES / Expanders; Extenders; Surgical Wires Tray Cath Dialys Straight 3lumen 24cm 13fr Power-Trialysis - [id number] Surgical Right: BARD ACCESS 09/04/2017 [id number] / Implanted: Qty: 1 on 04/21/2017 by Isaura Parikh MD at [facility] Implants; Arm SYSTEMS / Expanders; Extenders; Surgical Wires Results Not on fileafter 12/24/2017 Insurance Payer Benefit Plan / Subscriber ID Effective Dates Phone Address Type Group MEDICARE MEDICARE PART A xxxxxxxxxxx 2007-Present [place], [place] Medicare AND B Advance Directives For more information, please contact: [phone] Type Date Recorded 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
--- OUTSIDE RECORDS SUMMARY | 2018-12-25 19:38 | XMS REPORT ---
:1955 Author Organization [facility] Address [address] [place] [address] Care Team Providers Name Role Phone UNKNOWN, [...] the Main Lab for Analysis. POC Glucose, [id number] 16:22:00 Test Item Value Reference Range Comments POC Glucose (test 82 mg/dL 70-115 If you consider your patient code=POCGLUC) critically ill, the Finn Accu-Chek InformII metershould not be used for Glucose determinations.Draw a venous Glucose and send to the Main Lab for Analysis. POC Glucose, [id number] 08:07:00 Test Item Value Reference Range Comments POC Glucose (test 76 mg/dL 70-115 If you consider your patient code=POCGLUC) critically ill, the Finn Accu-Chek InformII metershould not be used for Glucose determinations.Draw a venous Glucose and send to the Main Lab for Analysis. POC Glucose, [id number] 20:48:00 Test Item Value Reference Range Comments POC Glucose (test 107 mg/dL 70-115 If you consider your patient code=POCGLUC) critically ill, the Finn Accu-Chek InformII metershould not be used for Glucose determinations.Draw a venous Glucose and send to the Main Lab for Analysis. POC Glucose, [id number] 07:18:00 Test Item Value Reference Range Comments POC Glucose (test 75 mg/dL 70-115 If you consider your patient code=POCGLUC) critically ill, the Finn Accu-Chek InformII metershould not be used for Glucose determinations.Draw a venous Glucose and send to the Main Lab for Analysis. POC Glucose, [id number] 21:10:00 Test Item Value Reference Range Comments POC Glucose (test 129 mg/dL 70-115 If you consider your patient code=POCGLUC) critically ill, the Finn Accu-Chek InformII metershould not be used for Glucose determinations.Draw a venous Glucose and send to the Main Lab for Analysis. POC Glucose, [id number] 07:44:00 Test Item Value Reference Range Comments POC Glucose (test 91 mg/dL 70-115 If you consider your patient code=POCGLUC) critically ill, the Finn Accu-Chek InformII metershould not be used for Glucose determinations.Draw a venous Glucose and send to the Main Lab for Analysis. US ABD B-SCAN, [id number] 09:21:21DICTATION LOCATION: [id number]: distended. COMPARISON: None available.TECHNIQUE: Sonography ofthe abdomen. [...] Status post cholecystectomy.4. Abdominopelvic ascites.XR ABDOMEN KUB [id number] 07: 58:20EXAM: KUBLocation: [id number]: DistendedCOMPARISON: NoneDISCUSSION:A frontal view of the abdomen is submitted.There is overall increased density of the abdomen with relativelycentralized bowel gas and obscured abdominal fat planes, suggestive ofascites. Right upper quadrant surgical clips suggest priorcholecystectomy. No bowel obstruction or gross evidence ofintra-abdominal free air is seen. No acute bony or normalities areidentified.IMPRESSION: Findings suggest ascites. No evidence of bowel obstructionor intraperitoneal free air.POC Glucose, [id number] 20:27:00 Test Item Value Reference Range Comments POC Glucose (test 107 mg/dL 70-115 If you consider your patient code=POCGLUC) critically ill, the Finn Accu-Chek InformII metershould not be used for Glucose determinations.Draw a venous Glucose and send to the Main Lab for Analysis. POC Glucose, [id number] 21:14:00 Test Item Value Reference Range Comments POC Glucose (test 141 mg/dL 70-115 If you consider your patient code=POCGLUC) critically ill, the Finn Accu-Chek InformII metershould not be used for Glucose determinations.Draw a venous Glucose and send to the Main Lab for Analysis. Comprehensive Metabolic [id number] 06:45:00 Test Item Value Reference Range Comments [...] race is not provided, and the patient isAfrican-Maltese, multiply by 1.212. If sex is not [...] the National Kidney Foundation,http://nkdep.nih. gov CBC with [id number] 06:27:00 Test Item Value Reference Range Comments [...] Lymph Abs (test code=ALYMPH) 1.1 K/cumm 0.5-4.6 [place] Abs (test code=AMONO) 0.4 K/cumm 0.0-1.2 Eos Abs (test code=AEOS) 0.16 K/cumm 0.00-0.74 Baso Abs (test code=ABASO) 0.0 K/cumm 0.00-0.21 Hypochromic (test code=HYPO) Slight Hep B Surface [id number] 21:04:00 Test Item Value Reference Range Comments Hep Bs Ag (test code=HBSAG) Nonreactive Non-Reactive [id number] 14:36:00 Test Item Value Reference Range Comments NT ProBnp (test code=PBNP) >23631 pg/mL 0-124 Troponin [id number] 14:36:00 Test Item Value Reference Range Comments Troponin T (test code=AARON) 0.040 ng/mL 0.000-0.090 CBC with [id number] 14:14:00 Test Item Value Reference Range Comments [...] Neutro Abs (test code=ANEUT) 2.1 K/cumm 1.6-7.4 [place] Abs (test code=AMONO) 0.5 K/cumm 0.0-1.2 Eos Abs (test code=AEOS) 0.17 K/cumm 0.00-0.74 Baso Abs (test code=ABASO) 0.0 K/cumm 0.00-0.21 RBC Morphology (test code=RBCMRPH) Normal Platelet Est (test code=PLTEST) Normal Platelet on Smear Prothrombin [id number] 14:07:00 Test Item Value Reference Range Comments PT (test code=PT) 13.30 seconds 9.78-13.35 INR (test code=INR) 1.17 Ratio 0.6-1.2 Partial Thromboplastin [id number] 14:07:00 Test Item Value Reference Range Comments aPTT (test code=PTT) 37.50 seconds 24.39-37.25 Basic Metabolic [id number] 13:57:00 Test Item Value Reference Range Comments [...] race is not provided, and the patient isAfrican-Maltese, multiply by 1.212. If sex is not [...] National Kidney Foundation,http://nkdep.nih. gov XR CHEST 1 [id number] 13:31:50CLINICAL INFORMATION: End-stage renal disease. Missed dialysis [...]
--- NOTE | 2018-12-25 20:06 | RAD REPORT ---
EXAM DESCRIPTION: [place] Single View12/25/2018 7:58 pm CLINICAL HISTORY: Chest pain COMPARISON: none FINDINGS: The lungs appear clear of acute infiltrate. The heart is mildly to moderately enlarged A central venous catheter remains in place IMPRESSION: No acute abnormalities displayed
[2018-12-25 20:34] LABS: Basophils % 1.1 % (0-1.3); Hematocrit 42.7 % (36.0-45.0); MPV 9.1 fL (7.6-11.3); RBC Red Blood Cell Count 4.75 M/uL (3.86-4.86)
[2018-12-25 20:35] LABS: Protime INR 1.06
[2018-12-25 21:29] LABS: Albumin 3.6 g/dL (3.4-5.0); Bilirubin Direct 0.1 mg/dL (0-0.2); Bilirubin Total 0.3 mg/dL (0.2-1.0); Protein, Total 8.6 g/dL (6.4-8.2); Troponin (Emerg Dept Use Only) 0.02 ng/mL (0.0-0.045)
[2018-12-25] MEDS ORDERED: FENTANYL CITR 100 MCG/2 ML ONE ×2 (21:35→22:13)
[2018-12-25] MEDS ORDERED: CEFTRIAXONE/SWI 1gm 1 GM/10 ML SYR ONE (21:55)
[2018-12-25] MEDS ORDERED: ONDANSETRON 4 MG/2 ML VIAL ONE (22:04)
--- NOTE | 2018-12-25 22:36 | ER ---
Nurse's Notes [facility] Name: Liya Sullivan Age: 63 yrs Sex: Female : 1955 Arrival Date: 12/25/2018 Time: 19:36 Bed 8 Private MD: Diagnosis: Headache;Acute sinusitis;Chest pain, unspecified Presentation: 12/25 19:25 Presenting complaint: EMS states: that they were toned for pt having headache, chest fc pain and shortness of breath. Upon arrival pt had sats of 78% on roomair. Upon arrival here pt continued to have pain but denies SOB, nausea or vomiting. Pt is on dialysis MWF and does no longer urinate. Transition of care: patient was not received from another setting of care. Onset of symptoms was December 23, 2018. Risk Assessment: Do you want to hurt yourself or someone else? Patient reports no desire to harm self or others. Initial Sepsis Screen: Does the patient meet any 2 criteria? No. Patient's initial sepsis screen is negative. Does the patient have a suspected source of infection? No. Patient's initial sepsis screen is negative. Care prior to arrival: Glucose check: 74. 19:25 Method Of Arrival: EMS: [facility] fc 19:25 Acuity: STEPHANIE 3 fc Historical: - Allergies: 19:56 Aspirin; fc 19:56 butorphanol tartrate; fc 19:56 promethazine HCl; fc 19:56 Morphine; fc 19:56 Darvocet-N 100; fc 19:56 Levaquin; fc 19:56 Levofloxacin; fc 19:56 Clonidine; fc 19:56 Compazine; fc 19:56 Stadol; fc 19:56 Klonopin; fc 19:56 Protonix; fc 19:56 Demerol; fc 19:56 tramadol; fc 19:56 Codeine; fc 19:56 diphenhydramine HCl; fc 19:56 Hydromorphone; fc 19:56 hydroxyzine HCl; fc 19:56 Ondansetron HCl; fc 19:56 pantoprazole sodium; fc - Home Meds: 19:56 midodrine 10 mg oral tab 1 tab [Active]; clopidogrel 75 mg Oral tab 1 tab once daily fc [Active]; 19:57 gabapentin 300 mg Oral cap 1 cap [Active]; timolol maleate 0.5 % Opht drop 1 drop fc [Active]; Durezol 0.05 % ophthalmic drop 1 drop [Active]; - PMHx: 19:56 CVA; Dialysis; Diabetes - IDDM; ESRD; Hypotention; Blind; fc - PSHx: 19:56 Left arm fistula; Right chest redd; fc - Immunization history:: Last tetanus immunization: up to date. - Social history:: Smoking status: Patient/guardian denies using tobacco, Patient/guardian denies using alcohol, street drugs. - Ebola Screening: : Patient negative for fever greater than or equal to 101.5 degrees Fahrenheit, and additional compatible Ebola Virus Disease symptoms Patient denies exposure to infectious person Patient denies travel to an Ebola-affected area in the 21 days before illness onset. Screenin:25 Abuse screen: Denies threats or abuse. Nutritional screening: No deficits noted. fc Tuberculosis screening: No symptoms or risk factors identified. Fall Risk No fall in past 12 months (0 pts). Secondary diagnosis (15 points) CVA, No IV (0 pts). Ambulatory Aid- Crutches/Cane/Walker (15 pts). Gait- Weak (10 pts.). Mental Status- Overestimates/Forgets Limitations (15 pts.). Total Lopez Fall Scale indicates High Risk Score (45 or more points). Fall prevention measures have been instituted. Side Rails Up X 2 Placed Close to Nursing Station Frequent Obs/Assessments Occuring As available patient and family educated on Fall Prevention Program and Strategies. Assessment: 20:14 General: Appears ill, Behavior is calm, cooperative. Pain: Complains of pain in chest ak1 Pain does not radiate. 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 Neuro: Level of Consciousness is awake, alert, obeys commands, Oriented to person, place, time, situation, Appropriate for age Pressing Machine Operator are equal bilaterally Moves all extremities. pt ambulates with walker. Speech is normal. Cardiovascular: Heart tones S1 S2 present Rhythm is sinus rhythm. Respiratory: Airway is patent Respiratory effort is even, unlabored. GI: Abdomen is round non-distended, Bowel sounds present X 4 quads. : No signs and/or symptoms were reported regarding the genitourinary system. EENT: No signs and/or symptoms were reported regarding the EENT system. Derm: No signs and/or symptoms reported regarding the dermatologic system. Musculoskeletal: No signs and/or symptoms reported regarding the musculoskeletal system. 21:24 Reassessment: Patient appears in no apparent distress at this time. No changes from ak1 previously documented assessment. Patient and/or family updated on plan of care and expected duration. Pain level reassessed. Patient is alert, oriented x 3, equal unlabored respirations, skin warm/dry/pink. pt given orange juice for 61 FSBG. 22:06 Reassessment: pt began vomiting after medication administration, provider notified. pt ak1 c/o increased headache now. 22:24 Reassessment: pt oxygen at 66% on room air, provider notified. pt placed on 2L oxygen ak1 via NC with improved O2 saturation to 96%. 23:05 Reassessment: Patient and/or family updated on plan of care and expected duration. Pain ak1 level reassessed. pt stated her headache is "better" provider notified. Patient states feeling better. Patient states symptoms have improved. Vital Signs: 19:25 BP 138 / 68; Pulse 70; Resp 18; Temp 98.1(O); Pulse Ox 100% on R/A; Weight 81.65 kg fc (R); Height 5 ft. 3 in. (160.02 cm) (R); Pain 8/10; 20:43 BP 105 / 83; Pulse 79; Resp 16; Pulse Ox 97% on R/A; ak1 21:24 Pulse 81; Resp 14; Pulse Ox 100% on R/A; ak1 21:29 BP 143 / 84; Pulse 82; Resp 11; Pulse Ox 97% on R/A; ak1 22:24 BP 94 / 58; Pulse 81; Resp 11; Temp 98.3; Pulse Ox 95% on 2 lpm NC; ak1 23:06 BP 99 / 63; Pulse 84; Resp 12; Temp 98.2; Pulse Ox 96% on R/A; ak1 19:25 Body Mass Index 31.89 (81.65 kg, 160.02 cm) ED Course: 19:25 Arm band placed on Patient placed in an exam room, on a stretcher. fc 19:25 Patient has correct armband on for positive identification. Placed in gown. Bed in low fc position. Call light in reach. Side rails up X2. monitor worker on. Pulse ox on. NIBP on. 19:25 No provider procedures requiring assistance completed. fc 19:36 Patient arrived in ED. ds1 19:37 Jose Houston, EVAN is PHCP. pm1 19:37 Gildardo Florez MD is Attending Physician. pm1 19:41 Melly Aparicio, RN is Primary Nurse. ak1 19:48 Triage completed. fc 20:00 XRAY Chest (1 view) In Process Unspecified. EDMS 20:14 Patient maintains SpO2 saturation greater than 95% on room air. ak1 20:23 Initial lab(s) drawn, by me, sent to lab. Inserted 18 gauge 10 cm midline to right fc upper brachial vein on first attempt. Line with good blood return and flushes well. 21:01 CT Head Brain wo Cont In Process Unspecified. EDMS 21:29 Notified Nurse Practitioner and/or Physician Cardiac Technologist of a critical lab result(s), fc creat of 5.75. 23:29 IV discontinued, intact, bleeding controlled, No redness/swelling at site. Pressure ak1 dressing applied. Administered Medications: 21:36 Drug: fentaNYL (PF) 25 mcg {Note: RASS 0.} Route: IVP; Site: right upper arm; ak1 21:46 Follow up: Response: RASS: Alert and Calm (0) ak1 21:52 Drug: Rocephin - (cefTRIAXone) 1 grams {Note: pt began to vomit after administration, ak1 provider notified. .} Route: IVPB; Infused Over: 30 mins; Site: right upper arm; 23:06 Follow up: Response: medication induced vomiting.; IV Status: Completed infusion; IV ak1 Intake: 10ml 22:05 Drug: Zofran 4 mg {Note: pt stated she can only take zofran.} Route: IVP; Site: right ak1 upper arm; 22:14 Follow up: Response: No adverse reaction ak1 22:14 Drug: fentaNYL (PF) 25 mcg Route: IVP; Site: right upper arm; ak1 22:25 Follow up: Response: Pain is decreased; Nausea is decreased; Other; RASS: Light ak1 sedation (-2); RASS: Light sedation (-2) oxygen saturation decreased and pt placed on 2L via NC. provider notified. Point of Care Testing: Blood Glucose: 20:28 Blood Glucose: 61 mg/dL; cc3 Ranges: Intake: 23:06 IV: 10ml; Total: 10ml. ak1 Outcome: 22:34 Discharge ordered by . pm1 23:07 Condition: improved ak1 23:29 Discharged to home via wheelchair, with family, pt did not wish to stay in ER8 but to ak1 wait in wheelchair in lobby for her sister. 23:29 Discharge instructions given to patient, Instructed on discharge instructions, follow up and referral plans. medication usage, Demonstrated understanding of instructions, follow-up care, medications, Prescriptions given X 1. 23:30 Patient left the ED. ak1 Signatures: Dispatcher [employer] EDMS Liat Pace RN RN fc Sanford, Demi ds1 Krenek, Amber, RN RN ak1 Jose Houston, EVAN SWITCHBOARD WIRE WORKER HELPER pm1 Syeda Kang cc3
--- NOTE | 2018-12-25 22:36 | EDPHYS ---
Physician Documentation [facility] Name: Liya Sullivan Age: 63 yrs Sex: Female : 1955 Arrival Date: 12/25/2018 Time: 19:36 Bed 8 Private MD: BEE Physician Gildardo Florez HPI: 12/25 19:45 This 63 yrs old Black Female presents to ER via EMS with complaints of Chest Pain, pm1 Headache. 19:45 The patient or guardian reports chest pain that is located primarily in the mid-sternal pm1 area. Onset: 1 week(s) ago. The pain does not radiate. Associated signs and symptoms: Pertinent positives: headache, sinus congestion and pain for 2 weeks on left side, Pertinent negatives: cough, nausea, palpitations, shortness of breath, vomiting. The chest pain is described as aching. Duration: The patient or guardian reports a single episode, that is still ongoing. Modifying factors: The symptoms are alleviated by nothing. the symptoms are aggravated by nothing. Severity of pain: in the emergency department the pain is unchanged. Patient completed dialysis today. Historical: - Allergies: 19:56 Aspirin; fc 19:56 butorphanol tartrate; fc 19:56 promethazine HCl; fc 19:56 Morphine; fc 19:56 Darvocet-N 100; fc 19:56 Levaquin; fc 19:56 Levofloxacin; fc 19:56 Clonidine; fc 19:56 Compazine; fc 19:56 Stadol; fc 19:56 Klonopin; fc 19:56 Protonix; fc 19:56 Demerol; fc 19:56 tramadol; fc 19:56 Codeine; fc 19:56 diphenhydramine HCl; fc 19:56 Hydromorphone; fc 19:56 hydroxyzine HCl; fc 19:56 Ondansetron HCl; fc 19:56 pantoprazole sodium; fc - Home Meds: 19:56 midodrine 10 mg oral tab 1 tab [Active]; clopidogrel 75 mg Oral tab 1 tab once daily fc [Active]; 19:57 gabapentin 300 mg Oral cap 1 cap [Active]; timolol maleate 0.5 % Opht drop 1 drop fc [Active]; Durezol 0.05 % ophthalmic drop 1 drop [Active]; - PMHx: 19:56 CVA; Dialysis; Diabetes - IDDM; ESRD; Hypotention; Blind; fc - PSHx: 19:56 Left arm fistula; Right chest redd; fc - Immunization history:: Last tetanus immunization: up to date. - Social history:: Smoking status: Patient/guardian denies using tobacco, Patient/guardian denies using alcohol, street drugs. - Ebola Screening: : Patient negative for fever greater than or equal to 101.5 degrees Fahrenheit, and additional compatible Ebola Virus Disease symptoms Patient denies exposure to infectious person Patient denies travel to an Ebola-affected area in the 21 days before illness onset. ROS: 19:45 Constitutional: Negative for fever, chills, and weight loss, Eyes: Negative for injury, pm1 pain, redness, and discharge, ENT: Negative for injury, pain, and discharge, Neck: Negative for injury, pain, and swelling, Respiratory: Negative for shortness of breath, cough, wheezing, and pleuritic chest pain, Abdomen/GI: Negative for abdominal pain, nausea, vomiting, diarrhea, and constipation. 19:45 Back: Negative for injury and pain, MS/Extremity: Negative for injury and deformity, Skin: Negative for injury, rash, and discoloration. 19:45 Cardiovascular: Positive for chest pain, Negative for edema, palpitations. 19:45 Neuro: Positive for headache, Negative for numbness, tingling. Exam: 19:45 Constitutional: This is a well developed, well nourished patient who is awake, alert, pm1 and in no acute distress. Eyes: Pupils equal round and reactive to light, extra-ocular motions intact. Lids and lashes normal. Conjunctiva and sclera are non-icteric and not injected. Cornea within normal limits. Periorbital areas with no swelling, redness, or edema. ENT: Nares patent. No nasal discharge, no septal abnormalities noted. Tympanic membranes are normal and external auditory canals are clear. Oropharynx with no redness, swelling, or masses, exudates, or evidence of obstruction, uvula midline. Mucous membranes moist. Neck: Trachea midline, no thyromegaly or masses palpated, and no cervical lymphadenopathy. Supple, full range of motion without nuchal rigidity, or vertebral point tenderness. No Meningismus. Chest/axilla: Normal chest wall appearance and motion. Nontender with no deformity. No lesions are appreciated. Cardiovascular: Regular rate and rhythm with a normal S1 and S2. No gallops, murmurs, or rubs. Normal PMI, no JVD. No pulse deficits. Respiratory: Lungs have equal breath sounds bilaterally, clear to auscultation and percussion. No rales, rhonchi or wheezes noted. No increased work of breathing, no retractions or nasal flaring. Abdomen/GI: Soft, non-tender, with normal bowel sounds. No distension or tympany. No guarding or rebound. No evidence of tenderness throughout. Back: No spinal tenderness. No costovertebral tenderness. Full range of motion. Skin: Warm, dry with normal turgor. Normal color with no rashes, no lesions, and no evidence of cellulitis. MS/ Extremity: Pulses equal, no cyanosis. Neurovascular intact. Full, normal range of motion. 19:45 Head/face: Sinus tenderness, that is moderate, is located over the left frontal sinus and left maxillary sinus. 19:45 Neuro: Orientation: is normal, Mentation: is normal, Motor: is normal, moves all fours, Sensation: is normal, no obvious gross deficits. Vital Signs: 19:25 BP 138 / 68; Pulse 70; Resp 18; Temp 98.1(O); Pulse Ox 100% on R/A; Weight 81.65 kg fc (R); Height 5 ft. 3 in. (160.02 cm) (R); Pain 8/10; 20:43 BP 105 / 83; Pulse 79; Resp 16; Pulse Ox 97% on R/A; ak1 21:24 Pulse 81; Resp 14; Pulse Ox 100% on R/A; ak1 21:29 BP 143 / 84; Pulse 82; Resp 11; Pulse Ox 97% on R/A; ak1 22:24 BP 94 / 58; Pulse 81; Resp 11; Temp 98.3; Pulse Ox 95% on 2 lpm NC; ak1 23:06 BP 99 / 63; Pulse 84; Resp 12; Temp 98.2; Pulse Ox 96% on R/A; ak1 19:25 Body Mass Index 31.89 (81.65 kg, 160.02 cm) MDM: 19:37 Patient medically screened. pm1 22:10 Data reviewed: vital signs. Data interpreted: Pulse oximetry: on room air is 97 %. pm1 Interpretation: normal. Counseling: I had a detailed discussion with the patient and/or guardian regarding: the historical points, exam findings, and any diagnostic results supporting the discharge/admit diagnosis, lab results, radiology results, the need for outpatient follow up, to return to the emergency department if symptoms worsen or persist or if there are any questions or concerns that arise at home. 22:10 ED course: CT head report: No acute intracranial findings, senescent changes with pm1 chronic microvascular ischemia. 12/25 19:38 Order name: Basic Metabolic Panel; Complete Time: 21:44 pm1 12/25 19:38 Order name: CBC with Diff; Complete Time: 21:44 pm1 12/25 19:38 Order name: LFT's; Complete Time: 21:44 pm1 12/25 19:38 Order name: Magnesium; Complete Time: 21:44 pm1 12/25 19:38 Order name: NT PRO-BNP; Complete Time: 21:44 pm1 12/25 19:38 Order name: PT-INR; Complete Time: 20:59 pm12/25 19:38 Order name: Troponin (emerg Dept Use Only); Complete Time: 21:44 pm1 12/25 19:38 Order name: XRAY Chest (1 view); Complete Time: 20:09 pm12/25 19:38 Order name: EKG; Complete Time: 19:40 pm1 12/25 20:08 Order name: CT Head Brain wo Cont pm12/25 19:38 Order name: Cardiac monitoring; Complete Time: 20:01 pm12/25 19:38 Order name: EKG - Nurse/Tech; Complete Time: 20:02 pm12/25 19:38 Order name: IV Saline Lock; Complete Time: 20:28 pm12/25 19:38 Order name: Labs collected and sent; Complete Time: 20:28 pm12/25 19:38 Order name: O2 Per Protocol; Complete Time: 20:01 pm12/25 19:38 Order name: O2 Sat Monitoring; Complete Time: 20:01 pm1 Administered Medications: 21:36 Drug: fentaNYL (PF) 25 mcg {Note: RASS 0.} Route: IVP; Site: right upper arm; ak1 21:46 Follow up: Response: RASS: Alert and Calm (0) ak1 21:52 Drug: Rocephin - (cefTRIAXone) 1 grams {Note: pt began to vomit after administration, ak1 provider notified. .} Route: IVPB; Infused Over: 30 mins; Site: right upper arm; 23:06 Follow up: Response: medication induced vomiting.; IV Status: Completed infusion; IV ak1 Intake: 10ml 22:05 Drug: Zofran 4 mg {Note: pt stated she can only take zofran.} Route: IVP; Site: right ak1 upper arm; 22:14 Follow up: Response: No adverse reaction ak1 22:14 Drug: fentaNYL (PF) 25 mcg Route: IVP; Site: right upper arm; ak1 22:25 Follow up: Response: Pain is decreased; Nausea is decreased; Other; RASS: Light ak1 sedation (-2); RASS: Light sedation (-2) oxygen saturation decreased and pt placed on 2L via NC. provider notified. Point of Care Testing: Blood Glucose: 20:28 Blood Glucose: 61 mg/dL; cc3 Ranges: Critical Glucose Levels:Adult <50 mg/dl or >400 mg/dl <40 mg/dl or >180 mg/dl Disposition: 12/25/18 22:34 Discharged to Home. Impression: Headache, Acute sinusitis, Chest pain, unspecified. - Condition is Stable. - Discharge Instructions: Nonspecific Chest Pain, General Headache Without Cause, Sinusitis, Adult. - Prescriptions for Amoxicillin 500 mg Oral Capsule - take 1 capsule by ORAL route every 8 hours for 10 days; 30 tablet. - Medication Reconciliation Form, Thank You Letter, Antibiotic Education, Prescription Opioid Use form. - Follow up: Emergency Department; When: As needed; Reason: Worsening of condition. Follow up: Private Physician; When: 2 - 3 days; Reason: Recheck today's complaints, Continuance of care, Re-evaluation by your physician. - Problem is new. - Symptoms have improved. Addendum: 12/28/2018 09:18 Co-signature as Attending Physician, Gildardo Florez MD I agree with the assessment and c bates plan of care. Signatures: Dispatcher [employer] Gildardo Abraham MD MD cha Chretien, Felicia RN RN Melly Aparicio RN RN ak Jose Houston, PIPE FINISHING SUPERVISOR PIPE FINISHING SUPERVISOR pm1 Corrections: (The following items were deleted from the chart) 12/25 23:30 22:34 12/25/2018 22:34 Discharged to Home. Impression: Headache; Acute sinusitis; Chest ak1 pain, unspecified. Condition is Stable. Forms are Medication Reconciliation Form, Thank You Letter, Antibiotic Education, Prescription Opioid Use. Follow up: Emergency Department; When: As needed; Reason: Worsening of condition. Follow up: Private Physician; When: 2 - 3 days; Reason: Recheck today's complaints, Continuance of care, Re-evaluation by your physician. Problem is new. Symptoms have improved. pm1
[2018-12-25 23:41] VITALS: BP 99/63; TEMP 98.2; O2SAT 96
--- NOTE | 2018-12-26 14:15 | EKG ---
Test Date: 2018-12-25 Test Time: 19:35:53 Metallurgist Helper: LUIS MEASUREMENT RESULTS: Intervals: Rate: 78 NC: 262 QRSD: 152 QT: 456 QTc: 519 [place]: P: 67 NC: 262 QRS: 253 T: 41 INTERPRETIVE STATEMENTS: Sinus rhythm with 1st degree AV block Right bundle branch block Abnormal ECG Compared to ECG 02/27/2018 13:54:37 No significant changes Electronically Signed On 12-26-18 14:13:32 CDT by Casimiro Nixon
--- NOTE | 2018-12-28 11:19 | RAD REPORT ---
EXAM DESCRIPTION: CT HEAD WITHOUT IV CONTRAST CLINICAL HISTORY: Headache. COMPARISON: None. TECHNIQUE: CT scan of the brain without IV contrast. This exam was performed according to our depa rtmental dose-optimization program, which includes automated exposure control, adjustment of the mA a nd/or kV according to patient size and/or use of iterative reconstruction technique. FINDINGS: There are scattered areas of hypoattenuation within the periventricular white matter, whic h likely represent chronic microvascular ischemia. No evidence of acute infarction, intracranial hemo rrhage, extra-axial fluid collection, or midline shift. No air-fluid levels are seen in the paranasal sinuses to suggest acute sinusitis. No depressed skull fracture. IMPRESSION: 1. No acute intracranial findings. 2. Senescent changes with chronic microvascular ischemia. Electronically signed by: Valente Rubin MD 12/25/2018 9:34 PM CDT Due to temporary technical issues with the PACS/Fluency reporting system, reports are being signed by the in house radiologist as a courtesy to ensure prompt reporting. The interpreting radiologist is f ully responsible for the content of the report.
== END 2018-12-25 23:30 | disposition home or self-care (01) ==
LOC: ER 19:34
DX: J01.90 Acute sinusitis, unspecified (principal); R07.9 Chest pain, unspecified; E11.22 Type 2 diabetes mellitus with diabetic chronic kidney disease; N18.6 End stage renal disease; Z99.2 Dependence on renal dialysis; I95.9 Hypotension, unspecified; Z88.1 Allergy status to other antibiotic agents; Z88.3 Allergy status to other anti-infective agents; Z88.5 Allergy status to narcotic agent; Z88.6 Allergy status to analgesic agent; Z88.8 Allergy status to other drugs, medicaments and biological substances
CPT/HCPCS: 96365; 93005; 85025; 80048; 36415; 83735; 85610; 82962; 80076; 84484; 83880; 70450; 71045; 96375; 99285; J3010 ×2; J0696; J2405

== ENCOUNTER 2018-12-28 11:35 | Observation (INO) | payer OTHER ==
--- OUTSIDE RECORDS SUMMARY | 2018-12-28 12:02 | XMS REPORT | Clinical Summary ---
:1955 Author Organization [facility] Address [address] [place] [address] Care Team Providers Name Role Phone Asked, [...] INFLUENZA VACCINE 11/05/2018 Implants Implanted Type Area Yard Worker Device Shelf Model / Identifier Expiration Serial / Date Lot Catheter Emboltmy Nenita 5fr 80cm Artrl Tube Pack - [id number] Surgical Left : THURMAN 11/05/2018 [id number] / Implanted: Qty: 1 on 04/21/2017 by Hernesto Mcclendon MD at [facility] Implants; Arm [employer]IF[employer]CI[employer]ES / Expanders; Extenders; Surgical Wires Tray Cath Dialys Straight 3lumen 24cm 13fr Power-Trialysis - [id number] Surgical Right: BARD ACCESS 09/04/2017 [id number] / Implanted: Qty: 1 on 04/21/2017 by Isaura Parikh MD at [facility] Implants; Arm SYSTEMS / Expanders; Extenders; Surgical Wires Results Not on fileafter 12/27/2017 Insurance Payer Benefit Plan / Subscriber ID Effective Dates Phone Address Type Group MEDICARE MEDICARE PART A xxxxxxxxxxx 2007-Present [place], [place] Medicare AND B Advance Directives For more information, please contact: [phone] Type Date Recorded Patient Welfare Interviewer Explanation Advance Directives, Living Will and Medical Power of Urban Design Consultant
--- OUTSIDE RECORDS SUMMARY | 2018-12-28 12:03 | XMS REPORT ---
:1955 [facility] [address] [place] [address] Care Team Providers Name Role Phone UNKNOWN, [...] the Main Lab for Analysis. POC Glucose, [id number] 16:22:00 Test Item Value Reference Range Comments POC Glucose (test 82 mg/dL 70-115 If you consider your patient code=POCGLUC) critically ill, the Finn Accu-Chek InformII metershould not be used for Glucose determinations.Draw a venous Glucose and send to the Main Lab for Analysis. POC Glucose, [id number] 08:07:00 Test Item Value Reference Range Comments POC Glucose (test 76 mg/dL 70-115 If you consider your patient code=POCGLUC) critically ill, the Finn Accu-Chek InformII metershould not be used for Glucose determinations.Draw a venous Glucose and send to the Main Lab for Analysis. POC Glucose, [id number] 20:48:00 Test Item Value Reference Range Comments POC Glucose (test 107 mg/dL 70-115 If you consider your patient code=POCGLUC) critically ill, the Finn Accu-Chek InformII metershould not be used for Glucose determinations.Draw a venous Glucose and send to the Main Lab for Analysis. POC Glucose, [id number] 07:18:00 Test Item Value Reference Range Comments POC Glucose (test 75 mg/dL 70-115 If you consider your patient code=POCGLUC) critically ill, the Finn Accu-Chek InformII metershould not be used for Glucose determinations.Draw a venous Glucose and send to the Main Lab for Analysis. POC Glucose, [id number] 21:10:00 Test Item Value Reference Range Comments POC Glucose (test 129 mg/dL 70-115 If you consider your patient code=POCGLUC) critically ill, the Finn Accu-Chek InformII metershould not be used for Glucose determinations.Draw a venous Glucose and send to the Main Lab for Analysis. POC Glucose, [id number] 07:44:00 Test Item Value Reference Range Comments POC Glucose (test 91 mg/dL 70-115 If you consider your patient code=POCGLUC) critically ill, the Finn Accu-Chek InformII metershould not be used for Glucose determinations.Draw a venous Glucose and send to the Main Lab for Analysis. US ABD B-SCAN, [id number] 09:21:21DICTATION LOCATION: [id number]: distended. COMPARISON: None available.TECHNIQUE: Sonography ofthe abdomen. [...] Status post cholecystectomy.4. Abdominopelvic ascites.XR ABDOMEN KUB [id number] 07: 58:20EXAM: KUBLocation: [id number]: DistendedCOMPARISON: NoneDISCUSSION:A frontal view of the abdomen is submitted.There is overall increased density of the abdomen with relativelycentralized bowel gas and obscured abdominal fat planes, suggestive ofascites. Right upper quadrant surgical clips suggest priorcholecystectomy. No bowel obstruction or gross evidence ofintra-abdominal free air is seen. No acute bony or normalities areidentified.IMPRESSION: Findings suggest ascites. No evidence of bowel obstructionor intraperitoneal free air.POC Glucose, [id number] 20:27:00 Test Item Value Reference Range Comments POC Glucose (test 107 mg/dL 70-115 If you consider your patient code=POCGLUC) critically ill, the Finn Accu-Chek InformII metershould not be used for Glucose determinations.Draw a venous Glucose and send to the Main Lab for Analysis. POC Glucose, [id number] 21:14:00 Test Item Value Reference Range Comments POC Glucose (test 141 mg/dL 70-115 If you consider your patient code=POCGLUC) critically ill, the Finn Accu-Chek InformII metershould not be used for Glucose determinations.Draw a venous Glucose and send to the Main Lab for Analysis. Comprehensive Metabolic [id number] 06:45:00 Test Item Value Reference Range Comments [...] race is not provided, and the patient isAfrican-Ivorian, multiply by 1.212. If sex is not [...] the National Kidney Foundation,http://nkdep.nih. gov CBC with [id number] 06:27:00 Test Item Value Reference Range Comments [...] Lymph Abs (test code=ALYMPH) 1.1 K/cumm 0.5-4.6 [place] Abs (test code=AMONO) 0.4 K/cumm 0.0-1.2 Eos Abs (test code=AEOS) 0.16 K/cumm 0.00-0.74 Baso Abs (test code=ABASO) 0.0 K/cumm 0.00-0.21 Hypochromic (test code=HYPO) Slight Hep B Surface [id number] 21:04:00 Test Item Value Reference Range Comments Hep Bs Ag (test code=HBSAG) Nonreactive Non-Reactive [id number] 14:36:00 Test Item Value Reference Range Comments NT ProBnp (test code=PBNP) >18242 pg/mL 0-124 Troponin [id number] 14:36:00 Test Item Value Reference Range Comments Troponin T (test code=AARON) 0.040 ng/mL 0.000-0.090 CBC with [id number] 14:14:00 Test Item Value Reference Range Comments [...] Neutro Abs (test code=ANEUT) 2.1 K/cumm 1.6-7.4 [place] Abs (test code=AMONO) 0.5 K/cumm 0.0-1.2 Eos Abs (test code=AEOS) 0.17 K/cumm 0.00-0.74 Baso Abs (test code=ABASO) 0.0 K/cumm 0.00-0.21 RBC Morphology (test code=RBCMRPH) Normal Platelet Est (test code=PLTEST) Normal Platelet on Smear Prothrombin [id number] 14:07:00 Test Item Value Reference Range Comments PT (test code=PT) 13.30 seconds 9.78-13.35 INR (test code=INR) 1.17 Ratio 0.6-1.2 Partial Thromboplastin [id number] 14:07:00 Test Item Value Reference Range Comments aPTT (test code=PTT) 37.50 seconds 24.39-37.25 Basic Metabolic [id number] 13:57:00 Test Item Value Reference Range Comments [...] race is not provided, and the patient isAfrican-Ivorian, multiply by 1.212. If sex is not [...] National Kidney Foundation,http://nkdep.nih. gov XR CHEST 1 [id number] 13:31:50CLINICAL INFORMATION: End-stage renal disease. Missed dialysis [...]
[2018-12-28 12:55] LABS: Absolute Lymphocytes (CBC) 0.9 K/uL (0.7-4.9); Basophils % 0.8 % (0-1.3); Hematocrit 39.9 % (36.0-45.0); Lymphocytes % 16.2 % (15.3-44.8); MPV 9.9 fL (7.6-11.3); RBC Red Blood Cell Count 4.43 M/uL (3.86-4.86)
--- NOTE | 2018-12-28 12:56 | RAD REPORT ---
EXAM DESCRIPTION: Laith Single View12/28/2018 12:45 pm CLINICAL HISTORY: Chest pain COMPARISON: December 25, 2018 FINDINGS: The lungs appear clear of acute infiltrate. The heart is mildly to moderately enlarged. Central venous catheter remains in place IMPRESSION: No acute abnormalities displayed
[2018-12-28 13:16] LABS: Protime INR 1.01
--- NOTE | 2018-12-28 13:34 | EKG ---
Test Date: 2018-12-28 Test Time: 11:40:42 Indexer: LIZZY MEASUREMENT RESULTS: Intervals: Rate: 76 ID: [id number] QRSD: 160 QT: 464 QTc: 522 [place]: P: 68 ID: [id number] QRS: -49 T: 11 INTERPRETIVE STATEMENTS: Sinus rhythm with 1st degree AV block Left axis deviation Right bundle branch block Abnormal ECG Compared to ECG 12/25/2018 19:35:53 Left-axis deviation now present Electronically Signed On 12-28-18 13:33:59 CDT by Charles Jaimes
[2018-12-28 15:10] LABS: ALT/SGPT 11 U/L (12-78); AST/SGOT 10 U/L (15-37); Albumin 3.6 g/dL (3.4-5.0); Alkaline Phosphatase 435 U/L (45-117); BUN Blood Urea Nitrogen 48 mg/dL (7-18); Bicarbonate 18 mmol/L (21-32); Bilirubin Direct < 0.1 mg/dL (0-0.2); Bilirubin Total 0.3 mg/dL (0.2-1.0); Glucose Level 77 mg/dL (74-106); Magnesium 2.3 mg/dL (1.8-2.4); Protein, Total 8.3 g/dL (6.4-8.2); Sodium Level 135 mmol/L (136-145); Troponin (Emerg Dept Use Only) < 0.02 ng/mL (0.0-0.045)
[2018-12-28 15:20] LABS: NT PRO-BNP 31679 pg/mL (<125)
[2018-12-28 15:24] LABS: Potassium 6.3 mmol/L (3.5-5.1)
[2018-12-28] MEDS ORDERED: INSULIN -REGULAR HUMAN 50 UNIT/0.5 ML ML ONE (16:07)
[2018-12-28] MEDS ORDERED: D50W 25 GM/50 ML SYRINGE IV ONE ×2 (16:08→19:48)
[2018-12-28] MEDS ORDERED: CALCIUM GLUCONATE 1gm/100 ML NS (4.65 mEq/100mL) IV ONE ×2 (17:00)
--- NOTE | 2018-12-28 17:22 | EDPHYS ---
Physician Documentation [facility] Name: Liya Sullivan Age: 63 yrs Sex: Female : 1955 Arrival Date: 12/28/2018 Time: 11:40 Bed 2 Private MD: ED Physician Adid Espinal HPI: 12/28 17:09 This 63 yrs old Black Female presents to ER via EMS with complaints of Chest Pain > 30 gs y/o. 17:09 The patient or guardian reports chest pain that is located primarily in the anterior gs chest wall. Onset: 4 day(s) ago. The pain does not radiate. Associated signs and symptoms: Pertinent positives: shortness of breath. The chest pain is described as a heaviness, a pressure. Duration: The patient or guardian reports multiple episodes, that are intermittent, that wax and wane. Modifying factors: The symptoms are alleviated by nothing. the symptoms are aggravated by nothing. Severity of pain: At its worst the pain was severe in the emergency department the pain has improved markedly. The patient has experienced similar episodes in the past, multiple times. The patient has been recently seen at the [facility] Emergency Department, last week, for similar complaints labs were performed, X-rays were performed. Historical: - Allergies: 11:51 Aspirin; jl7 11:51 butorphanol tartrate; jl7 11:51 Clonidine; jl7 11:51 Codeine; jl7 11:51 Compazine; jl7 11:51 Darvocet-N 100; jl7 11:51 Demerol; jl7 11:51 diphenhydramine HCl; jl7 11:51 Hydromorphone; jl7 11:51 hydroxyzine HCl; jl7 11:51 Klonopin; jl7 11:51 Levaquin; jl7 11:51 Levofloxacin; jl7 11:51 Morphine; jl7 11:51 Ondansetron HCl; jl7 11:51 pantoprazole sodium; jl7 11:51 promethazine HCl; jl7 11:51 Protonix; jl7 11:51 Stadol; jl7 11:51 tramadol; jl7 - Home Meds: 11:51 clopidogrel 75 mg Oral tab 1 tab once daily [Active]; alprazolam 0.25 mg Oral tab jl7 [Active]; cinacalcet oral oral [Active]; midodrine 10 mg Oral tab 1 tab [Active]; Fosrenol 1,000 mg oral pwpk [Active]; gabapentin 300 mg Oral cap 1 cap [Active]; Tums Oral [Active]; Humulin R 100 unit/mL soln [Active]; Zemplar 4 mcg oral cap 1 cap once daily [Active]; Humulin N Sub-Q [Active]; latanoprost 0.005 % ophthalmic drop 1 drop once daily [Active]; - PMHx: 11:51 BLIND; CVA; Diabetes - IDDM; Dialysis; ESRD; Hypotention; jl7 - Immunization history:: Adult Immunizations unknown. - Social history:: Smoking status: Patient/guardian denies using tobacco. - Ebola Screening: : No symptoms or risks identified at this time. ROS: 17:09 All other systems are negative. gs Exam: 17:09 Head/Face: Normocephalic, atraumatic. Eyes: Pupils equal round and reactive to light, gs extra-ocular motions intact. Lids and lashes normal. Conjunctiva and sclera are non-icteric and not injected. Cornea within normal limits. Periorbital areas with no swelling, redness, or edema. ENT: Nares patent. No nasal discharge, no septal abnormalities noted. Tympanic membranes are normal and external auditory canals are clear. Oropharynx with no redness, swelling, or masses, exudates, or evidence of obstruction, uvula midline. Mucous membranes moist. Neck: Trachea midline, no thyromegaly or masses palpated, and no cervical lymphadenopathy. Supple, full range of motion without nuchal rigidity, or vertebral point tenderness. No Meningismus. Chest/axilla: Normal chest wall appearance and motion. Nontender with no deformity. No lesions are appreciated. Cardiovascular: Regular rate and rhythm with a normal S1 and S2. No gallops, murmurs, or rubs. Normal PMI, no JVD. No pulse deficits. Respiratory: Lungs have equal breath sounds bilaterally, clear to auscultation and percussion. No rales, rhonchi or wheezes noted. No increased work of breathing, no retractions or nasal flaring. Abdomen/GI: Soft, non-tender, with normal bowel sounds. No distension or tympany. No guarding or rebound. No evidence of tenderness throughout. Back: No spinal tenderness. No costovertebral tenderness. Full range of motion. Skin: Warm, dry with normal turgor. Normal color with no rashes, no lesions, and no evidence of cellulitis. MS/ Extremity: Pulses equal, no cyanosis. Neurovascular intact. Full, normal range of motion. Neuro: Awake and alert, GCS 15, oriented to person, place, time, and situation. Cranial nerves II-XII grossly intact. Motor strength 5/5 in all extremities. Sensory grossly intact. Cerebellar exam normal. Normal gait. 17:09 Constitutional: The patient appears alert, awake. 17:09 ECG was reviewed by the Attending Physician. Vital Signs: 11:51 BP 125 / 80; Pulse 77; Resp 19 S; Pulse Ox 100% on R/A; Weight 83 kg; Pain 5/10; jl7 12:29 BP 125 / 78; Pulse 73; Resp 18; Pulse Ox 100% on 2 lpm NC; jl7 16:00 BP 153 / 100; Pulse 69; Resp 16 S; Pulse Ox 100% on 2 lpm NC; jl7 17:00 BP 147 / 100; Pulse 77; Resp 16 S; Pulse Ox 100% on 2 lpm NC; jl7 18:00 BP 132 / 85; Pulse 82; Resp 16 S; Pulse Ox 100% on 2 lpm NC; jl7 19:00 BP 142 / 85; Pulse 82; Resp 16 S; Pulse Ox 100% on 2 lpm NC; jl7 MDM: 12:39 Patient medically screened. 17:09 Differential diagnosis: acute myocardial infarction, coronary artery disease chest wall gs pain, congestive heart failure. Data reviewed: vital signs, nurses notes, lab test result(s), EKG, radiologic studies. Response to treatment: the patient's symptoms have mildly improved after treatment. ED course: connor says ok to use catheter, wants to dialyze. 12/28 11:59 Order name: Basic Metabolic Panel; Complete Time: 15:30 12/28 11:59 Order name: CBC with Diff; Complete Time: 13:37 12/28 11:59 Order name: LFT's; Complete Time: 15:30 12/28 11:59 Order name: Magnesium; Complete Time: 15:30 12/28 11:59 Order name: NT PRO-BNP; Complete Time: 15:30 12/28 11:59 Order name: PT-INR; Complete Time: 13:37 12/28 11:59 Order name: Troponin (emerg Dept Use Only); Complete Time: 15:30 12/28 11:59 Order name: XRAY Chest (1 view); Complete Time: 13:37 12/28 17:31 Order name: Troponin I [facility] 12/28 17:31 Order name: Troponin I [facility] 12/28 17:31 Order name: Troponin I [facility] 12/28 19:45 Order name: Glucose jd3 12/28 11:59 Order name: EKG; Complete Time: 12:01 12/28 11:59 Order name: Cardiac monitoring; Complete Time: 12:28 12/28 11:59 Order name: EKG - Nurse/Tech; Complete Time: 12:28 12/28 11:59 Order name: IV Saline Lock; Complete Time: 12:28 12/28 11:59 Order name: Labs collected and sent; Complete Time: 12:28 12/28 11:59 Order name: O2 Per Protocol; Complete Time: 12:28 12/28 11:59 Order name: O2 Sat Monitoring; Complete Time: 12:28 12/28 16:44 Order name: Diet 2 Gm Sodium; Complete Time: 16:45 sg 12/28 17:32 Order name: CONS Physician Consult [facility] 12/28 17:32 Order name: CONS Physician Consult [facility] 12/28 17:32 Order name: Consistent Carb (ADA) [address] [facility] 12/28 17:32 Order name: EKG Electrocardiogram [facility] 12/28 17:32 Order name: EKG Electrocardiogram [facility] 12/28 12:56 Order name: Labs - recollect needed; Complete Time: 14:00 hb 12/28 13:43 Order name: Labs - recollect needed; Complete Time: 14:00 bd EC:09 Rate is 76 beats/min. Rhythm is regular. MI interval is prolonged. QRS interval is gs prolonged. T waves are Peaked. T waves are Inverted. Clinical impression: Abnormal EKG without significant change. Interpreted by me. Administered Medications: 17:43 Drug: D50W 50 ml {Note: Dialysis Catheter.} Route: IVP; Site: Other; 19:27 Follow up: Response: No adverse reaction jl7 17:45 Drug: Insulin Regular Human 10 units {Co-Signature: sg (Ivan Redd RN).} {Note: jl7 Dialysis Catheter.} Route: IVP; Site: Other; 19:28 Follow up: Response: No adverse reaction jl7 17:49 Drug: Calcium Gluconate 1 grams {Note: Dialysis Catheter.} Route: IVPB; Infused Over: jl7 60 mins; Site: Other; 18:50 Follow up: Response: No adverse reaction; IV Status: Completed infusion jl7 19:52 Drug: D50W 50 ml {Note: given in right upper chest port..} Route: IVP; Site: Other; jd3 19:59 Follow up: Response: No adverse reaction jd3 19:52 CANCELLED (Duplicate Order): D50W 50 ml IVP once; (1 amp) jd3 Disposition: 12/28/18 17:21 Hospitalization ordered by Vern Kovacs for Inpatient Admission. Preliminary diagnosis are Hyperkalemia, Precordial pain. - Bed requested for Telemetry/MedSurg (Inpatient). - Status is Inpatient Admission. jd3 - Condition is Stable. - Problem is new. - Symptoms have improved. UTI on Admission? No Signatures: Dispatcher [employer] EDMS Sharon Almanza Diana RN RN Melly Aparicio RN RN ak1 Nargis Pak, RN RN Lynn Hardin RN RN jl7 Addi Espinal MD MD gs Davies, Jonathon, RN RN jgreg Redd RN sg Corrections: (The following items were deleted from the chart) 17:51 17:21 Hospitalization Ordered by Vern Kovacs MD for Inpatient Admission. Preliminary diagnosis is Hyperkalemia; Precordial pain. Bed requested for Telemetry/MedSurg (Inpatient). Status is Inpatient Admission. Condition is Stable. Problem is new. Symptoms have improved. UTI on Admission? No. 19:52 19:52 D50W 50 ml IVP once; (1 amp) ordered. jd3 jd3 20:02 17:51 12/28/2018 17:21 Hospitalization Ordered by Vern Kovacs MD for Inpatient jd3 Admission. Preliminary diagnosis is Hyperkalemia; Precordial pain. Bed requested for Telemetry/MedSurg (Inpatient). Status is Inpatient Admission. Condition is Stable. Problem is new. Symptoms have improved. UTI on Admission? No. dw
--- NOTE | 2018-12-28 17:22 | ER ---
Nurse's Notes [facility] Name: Liya Sullivan Age: 63 yrs Sex: Female : 1955 Arrival Date: 12/28/2018 Time: 11:40 Bed 2 Private MD: Diagnosis: Hyperkalemia;Precordial pain Presentation: 12/28 11:40 Presenting complaint: EMS states: Pt at dialysis and started c/o non-radiating chest jl7 pressure, hurts worse with palpation, gave 2 sprays of SL nitro, pt reports MEIER post nitro administration. Transition of care: patient was received from another setting of care (ambulatory specialty care practice), Dialysis. Onset of symptoms was December 28, 2018. Risk Assessment: Do you want to hurt yourself or someone else? Patient reports no desire to harm self or others. Initial Sepsis Screen: Does the patient meet any 2 criteria? No. Patient's initial sepsis screen is negative. Does the patient have a suspected source of infection? No. Patient's initial sepsis screen is negative. Care prior to arrival: Medication(s) given: Nitro sublingual x 2. 11:40 Method Of Arrival: EMS: [facility] jl7 11:40 Acuity: STEPHANIE 3 jl7 Triage Assessment: 11:51 General: Appears in no apparent distress. uncomfortable, Behavior is calm, cooperative, jl7 appropriate for age. Pain: Complains of pain in mid-sternal area Pain does not radiate. Pain currently is 5 out of 10 on a pain scale. Quality of pain is described as pressure, Pain began 30 min ago. Is continuous. EENT: No signs and/or symptoms were reported regarding the EENT system. pt is blind. Neuro: Level of Consciousness is awake, alert, obeys commands, Oriented to person, place, time, situation. Cardiovascular: Heart tones present Patient's skin is warm and dry. Respiratory: Airway is patent Respiratory effort is even, unlabored, Respiratory pattern is regular, symmetrical. GI: No signs and/or symptoms were reported involving the gastrointestinal system. : No signs and/or symptoms were reported regarding the genitourinary system. Derm: Skin is dry, Skin is normal, Skin temperature is warm. Musculoskeletal: No signs and/or symptoms reported regarding the musculoskeletal system. Historical: - Allergies: 11:51 Aspirin; jl7 11:51 butorphanol tartrate; jl7 11:51 Clonidine; jl7 11:51 Codeine; jl7 11:51 Compazine; jl7 11:51 Darvocet-N 100; jl7 11:51 Demerol; jl7 11:51 diphenhydramine HCl; jl7 11:51 Hydromorphone; jl7 11:51 hydroxyzine HCl; jl7 11:51 Klonopin; jl7 11:51 Levaquin; jl7 11:51 Levofloxacin; jl7 11:51 Morphine; jl7 11:51 Ondansetron HCl; jl7 11:51 pantoprazole sodium; jl7 11:51 promethazine HCl; jl7 11:51 Protonix; jl7 11:51 Stadol; jl7 11:51 tramadol; jl7 - Home Meds: 11:51 clopidogrel 75 mg Oral tab 1 tab once daily [Active]; alprazolam 0.25 mg Oral tab jl7 [Active]; cinacalcet oral oral [Active]; midodrine 10 mg Oral tab 1 tab [Active]; Fosrenol 1,000 mg oral pwpk [Active]; gabapentin 300 mg Oral cap 1 cap [Active]; Tums Oral [Active]; Humulin R 100 unit/mL soln [Active]; Zemplar 4 mcg oral cap 1 cap once daily [Active]; Humulin N Sub-Q [Active]; latanoprost 0.005 % ophthalmic drop 1 drop once daily [Active]; - PMHx: 11:51 BLIND; CVA; Diabetes - IDDM; Dialysis; ESRD; Hypotention; jl7 - Immunization history:: Adult Immunizations unknown. - Social history:: Smoking status: Patient/guardian denies using tobacco. - Ebola Screening: : No symptoms or risks identified at this time. Screenin:28 Abuse screen: Denies threats or abuse. Denies injuries from another. Nutritional jl7 screening: No deficits noted. Tuberculosis screening: No symptoms or risk factors identified. Fall Risk Assessment: 12:29 Reassessment: Lab coming to draw labs. jl7 12:30 Reassessment: Bowling Alley Operator Elizabeth at bedside to obtain a blood specimen at this time, sg pt reports she is a difficult stick at this time. 13:00 Reassessment: print production coordinator at bedside for attempt at obtaining a recollect of initial sg lab draw. 13:55 Reassessment: a second recollect is needed due to hemolyzed specimen, will attempt to sg obtain IV access at this time. 14:00 Reassessment: pt reports " what is really going on here? Two different people liz my sg blood already." pt educated that the lab is reporting that the specimens are hemolyzed at this time. 16:30 Reassessment: KRISTINA Hemphill attempted US IV, unsuccessful. Dr. Espinal notified and went to jl7 pt to see about putting an EJ in but reports she doesn't have a good option and orders for her dialysis port to be accessed. Pt voiced concern for her port to be accessed. Dr. Espinal notified. 17:00 Reassessment: Dr. Espinal at bedside, he talked to Dr. Ashley so we can access the pt's jl7 dialysis port, pt verbalized understanding. 17:27 Reassessment: Patient appears in no apparent distress at this time. Patient and/or sg family updated on plan of care and expected duration. Pain level reassessed. pt reports "having the diabetes, and havent eaten at all today.". 19:15 General: Appears in no apparent distress. uncomfortable, Behavior is calm, cooperative, jd3 appropriate for age. Pain: Complains of pain in chest Quality of pain is described as pressure. Neuro: Level of Consciousness is awake, alert, obeys commands, Oriented to person, place, time, situation. Cardiovascular: Capillary refill < 3 seconds Patient's skin is warm and dry. Rhythm is sinus rhythm. Respiratory: Airway is patent Respiratory effort is even, unlabored, Respiratory pattern is regular, symmetrical. GI: No signs and/or symptoms were reported involving the gastrointestinal system. : No signs and/or symptoms were reported regarding the genitourinary system. EENT: Reports being legally blind. Derm: Skin is intact, Skin is dry, Skin is normal, Skin temperature is warm. Musculoskeletal: Circulation, motion, and sensation intact. Range of motion: intact in all extremities. 19:43 Reassessment: Patient appears in no apparent distress at this time. Patient and/or jd3 family updated on plan of care and expected duration. Pain level reassessed. Patient is alert, oriented x 3, equal unlabored respirations, skin warm/dry/pink. report given to Ángel ACEVEDO. 19:58 Reassessment: pt medicated for low blood sugar and given juice. Ángel ACEVEDO on 2nd floor jd3 updated. Vital Signs: 11:51 BP 125 / 80; Pulse 77; Resp 19 S; Pulse Ox 100% on R/A; Weight 83 kg; Pain 5/10; jl7 12:29 BP 125 / 78; Pulse 73; Resp 18; Pulse Ox 100% on 2 lpm NC; jl7 16:00 BP 153 / 100; Pulse 69; Resp 16 S; Pulse Ox 100% on 2 lpm NC; jl7 17:00 BP 147 / 100; Pulse 77; Resp 16 S; Pulse Ox 100% on 2 lpm NC; jl7 18:00 BP 132 / 85; Pulse 82; Resp 16 S; Pulse Ox 100% on 2 lpm NC; jl7 19:00 BP 142 / 85; Pulse 82; Resp 16 S; Pulse Ox 100% on 2 lpm NC; jl7 ED Course: 11:40 Patient arrived in ED. hb 11:40 Lynn Hagen, KRISTINA is Primary Nurse. jl7 11:40 EKG done, by master fire control technician. reviewed by Gildardo Florez MD. at1 11:43 Triage completed. jl7 11:51 Arm band placed on right wrist. jl7 12:01 Addi Espinal MD is Attending Physician. gs 12:20 Missed attempt(s): 22 gauge in right antecubital area. Bleeding controlled, band aid jl7 applied, catheter tip intact. 12:22 Missed attempt(s): 24 gauge in right hand. Bleeding controlled, band aid applied, jl7 catheter tip intact. Oxygen administration via nasal cannula \\T\\ 2L/min Response to oxygen therapy: symptoms remain unchanged. 12:28 Patient has correct armband on for positive identification. Bed in low position. Call jl7 light in reach. Side rails up X2. teletypesetter monitor on. Pulse ox on. NIBP on. 12:44 X-ray completed. Portable x-ray completed in exam room. Patient tolerated procedure jb2 well. 12:48 XRAY Chest (1 view) In Process Unspecified. EDMS 14:20 Missed attempt(s): 22 gauge in right antecubital area. Bleeding controlled, band aid dh3 applied, catheter tip intact. 17:21 Vern Kovacs MD is Hospitalizing Provider. gs 17:46 Accessed BioFlo DuraMax Dialysis Catheter using ,sterile technique, Clean \\T\\ dry. jl7 Dressing intact. Good blood return. Flushes easily. 19:44 No provider procedures requiring assistance completed. Patient admitted, IV remains in jd3 place. Administered Medications: 17:43 Drug: D50W 50 ml {Note: Dialysis Catheter.} Route: IVP; Site: Other; jl7 19:27 Follow up: Response: No adverse reaction jl7 17:45 Drug: Insulin Regular Human 10 units {Co-Signature: sg (Ivan Redd RN).} {Note: jl7 Dialysis Catheter.} Route: IVP; Site: Other; 19:28 Follow up: Response: No adverse reaction jl7 17:49 Drug: Calcium Gluconate 1 grams {Note: Dialysis Catheter.} Route: IVPB; Infused Over: jl7 60 mins; Site: Other; 18:50 Follow up: Response: No adverse reaction; IV Status: Completed infusion jl7 19:52 Drug: D50W 50 ml {Note: given in right upper chest port..} Route: IVP; Site: Other; jd3 19:59 Follow up: Response: No adverse reaction jd3 19:52 CANCELLED (Duplicate Order): D50W 50 ml IVP once; (1 amp) jd3 Outcome: 17:21 Decision to Hospitalize by Provider. 19:56 Admitted to Med/surg accompanied by tech, via wheelchair, room 213, with chart, Report jd3 called to Ángel ACEVEDO 19:56 Condition: stable 19:56 Instructed on the need for admit, Demonstrated understanding of instructions. 20:02 Patient left the ED. jd3 Signatures: Dispatcher [employer] EDMS Ivan Redd RN RN sg Buechter, Jesse jb2 Tess Oneil, test manager EKG Tat1 Nargis Pak RN RN hb Leal, Jahala, RN RN jl7 Vee Paredes 3 Addi Espinal MD MD gs Davies, Jonathon, RN RN jd3 Steven Gay RN sg Corrections: (The following items were deleted from the chart) 19:32 17:00 BP 142 / 85; Pulse 82bpm; Resp 16bpm; Spontaneous; Pulse Ox 100% 2 lpm Nasal jl7 Cannula; jl7 19:45 19:44 Condition: stable jd3 jd3
[2018-12-28] MEDS ORDERED: NA CHLORIDE 0.9% 1,000 ML IV PRN (18:31)
[2018-12-28] MEDS ORDERED: MANNITOL 25% 12.5 GM/50 ML VIAL IV PRN (18:31)
[2018-12-28] MEDS ORDERED: ALBUMIN HUMAN 25% 50 ML IV SCH (19:00)
[2018-12-28] MEDS ORDERED: SOD POLYSTYREN SUL 15 GM/60 ML UCUP PO ONE (21:25)
[2018-12-28] MEDS ORDERED: D50W 25 GM/50 ML SYRINGE IV PRN (22:09)
[2018-12-28] MEDS ORDERED: GLUCAGON 1 MG/VIAL IM PRN (22:09)
[2018-12-29] MEDS: ACETAMINOPHEN 500 MG TAB PO PRN ×3 (02:22→21:13)
[2018-12-29 06:14] LABS: Potassium 5.1 mmol/L (3.5-5.1)
[2018-12-29] MEDS: INSULIN -REGULAR HUMAN 50 UNIT/0.5 ML ML SQ SCH ×4 (07:30→21:00)
--- NOTE | 2018-12-29 08:27 | EKG ---
Test Date: 2018-12-29 Test Time: 03:13:38 Application Analyst: RT Ch MEASUREMENT RESULTS: Intervals: Rate: 86 WA: 230 QRSD: 166 QT: 456 QTc: 545 [place]: P: 72 WA: 230 QRS: 254 T: 47 INTERPRETIVE STATEMENTS: Sinus rhythm with 1st degree AV block Right bundle branch block Inferior infarct, age undetermined T wave abnormality, consider lateral ischemia Abnormal ECG Compared to ECG 12/28/2018 11:40:42 Myocardial infarct finding now present T-wave abnormality now present Possible ischemia now present Left-axis deviation no longer present Electronically Signed On 12-29-18 08:26:49 CDT by Casimiro Nixon
--- NOTE | 2018-12-29 11:21 | CON ---
Date of Consultation: 12/29/[address] Kovacs on 12/28/2018, I saw the patient on 12/29/2018. Reason For Consultation: Chest pain. History Of Present Illness: Ms. Sullivan is a 63-year-old woman with history of blindness, CVA, diabete s, end-stage renal disease, on hemodialysis. She was not feeling that well yesterday when she went t o dialysis and was sent during dialysis to the emergency room because of chest pain and nausea. Zachary ed any diaphoresis, PND, orthopnea, pedal edema, palpitations, or syncope. OH has been ruled out. H er troponin is negative. She had an elevated BNP at 31,679. Her potassium was 6.3, her creatinine i s 5.47. She is now pain free. Chest pain is very atypical. It is right-sided. It is described as an ache, sharp nonradiating, nonexertional. Past Medical History: As stated above. Allergies: MULTIPLE AND INCLUDE LEVAQUIN, MORPHINE, PROTONIX, STADOL, CLONIDINE, CODEINE, AND ATARAX . Home Medications: Plavix, insulin, Keppra, and Neurontin. Review of Systems: Negative. Social History: Negative. Family History: Noncontributory. Physical Examination: General: Ms. Sullivan was in no acute distress when I saw her. Vital Signs: Stable. She was afebrile. She was obviously blind. HEENT: Negative. Neck: Supple. No bruit, lymphadenopathy, JVD, or thyromegaly. Chest: Clear to auscultation and percussion. Cardiac: Exam revealed a regular rhythm and rate with an S4 gallop and a tricuspid regurgitation murmur. Abdomen: Benign. Extremities: Revealed no clubbing, cyanosis, or edema. Diagnostic Data: Available to us include an EKG showing sinus rhythm with right bundle-branch block. Chest x-ray was negative. Rest of the blood work was mentioned earlier. Echocardiogram in 2017 sh owed severe pulmonary hypertension with moderate aortic stenosis. Impression And Plan: 1.The patient with history of aortic stenosis that is moderate to severe pulmonary hypertension. At ypical chest pain. Last echocardiogram was in 2017. I would like to repeat another echocardiogram o n her today. 2.End-stage renal disease, on hemodialysis. 3.History of blindness. 4.History of cerebrovascular accident, stable. 5.Diabetes, well controlled. 6.Multiple allergies. 7.Hyperkalemia, secondary to end-stage renal disease. 8.Elevated BNP secondary to pulmonary hypertension as well as renal disease. It would be nice to do a stress test on Ms. Sullivan. Ordered an Lexiscan. IV access may be a problem as far as the Lexiscan . Central line is pending. Lexiscan cannot be done with the central line because of the size of the vein. We will see if we can get that resolved. If not, we will see what the echocardiogram shows p rior to making final decisions. The patient was requesting fentanyl for pain as she stated this is t he only thing that works for her. I will discuss the case further with Dr. Kovacs. KALINA/KURT Voice ID: [id number] Report ID: [id number]
--- NOTE | 2018-12-29 12:41 | ECHO ---
HEIGHT: 5 ft 3 in WEIGHT: 185 lb 1.6 oz DATE OF STUDY: 12/29/[address]: Casimiro Nixon MD 2-DIMENSIONAL: YES M.MODE: YES DOPPLER: YES COLOR FLOW: YES TDS: NO PORTABLE: NO DEFINITY: NO BUBBLE STUDY: NO DIAGNOSIS: CHEST PAIN CARDIAC HISTORY: CATHERIZATION: NO SURGERY: NO PROSTHETIC VALVE: NO PACEMAKER: NO MEASUREMENTS (cm) DIASTOLIC (NORMALS) SYSTOLIC (NORMALS) IVSd 1.1 (0.6-1.2) LA Diam 3.2 (1.9-4.0) LVEF 69% LVIDd 3.2 (3.5-5.7) LVIDs 2.0 (2.0-3.5) %FS 37% LVPWd 1.3 (0.6-1.2) Ao Diam 2.7 (2.0-3.7) 2 DIMENSIONAL ASSESSMENT: RIGHT ATRIUM: NORMAL LEFT ATRIUM: NORMAL RIGHT VENTRICLE: NORMAL LEFT VENTRICLE: NORMAL SIZE TRICUSPID VALVE: NORMAL MITRAL VALVE: MITRAL ANNULAR CALCIFICATION PULMONIC VALVE: NORMAL AORTIC VALVE: SCLEROSIS PERICARDIAL EFFUSION: NONE AORTIC ROOT: NORMAL LEFT VENTRICULAR WALL MOTION: NORMAL LEFT VENTRICULAR EJECTION FRACTION. DECREASED LEFT VENTRICULAR COMPLIANCE. DOPPLER/COLOR FLOW: MODERATE TRICUSPID REGURGITATION. MODERATE TO SEVERE PULMONARY HYPERTENSION. COMMENTS: MODERATE TO SEVERE PULMONARY HYPERTENSION. RIGHT VENTRICULAR SYSTOLIC PRESSURE 58mmHg. AORTIC SCLEROSIS WITH NO STENOSIS. DECREASED LEFT VENTRICULAR COMPLIANCE. MITRAL ANNULAR CALCIFICATION. NORMAL LEFT VENTRICULAR EJECTION FRACTION AND SIZE. TECHNOLOGIST: Maria G RAMIREZ
--- NOTE | 2018-12-29 19:37 | HP ---
Date of Admission: 12/28/2018 History Of Present Illness: A -kgka-grs female, end-stage renal disease on dialysis, been skipping dialysis settings. Came to emergency room with a complaint of chest pain, substernal, and n ot feeling well. She was also found to be volume overloaded and she was admitted for that. Review of Systems: Cardiovascular: No palpitation, no dizziness. Respiratory: No increased shortness of breath. No cough. Gastrointestinal: No complaints. Genitourinary: No complaints. Skeletomuscular: Chronic osteoarthritic pains in different joints, off and on, mild. Neurological: No complaint. Past Medical History: Includes: 1.As above. 2.Hypertension. 3.Type 2 diabetes. 4.Anemia of chronic illness. 5.Systolic congestive heart failure. 6.Anxiety. 7.Peripheral neuropathy. Social History: No smoking, alcohol, or drug abuse history. Family History: Noncontributing. Medications: Include alprazolam 0.25 mg p.o. daily p.r.n., timolol and brimonidine eye drops, calciu m carbonate 2 tablets 3 times a day, Sensipar 60 mg p.o. daily, Plavix 75 mg p.o. daily, vitamin D2 5 0,000 units, Flonase, gabapentin 300 mg at bedtime, Humulin N 20 units subcutaneous daily, Fosrenol 1 000 mg 2 tablets t.i.d., Keppra 500 mg p.o. b.i.d., midodrine 10 mg p.o. b.i.d., Zemplar 4 mg p.o. da kaylin. Allergies: PROMETHAZINE, LEVOFLOXACIN, ASPIRIN, BARBITURATE, BUTORPHANOL. Physical Examination: Vital Signs: Blood pressure 110/50, pulse 70, temperature 97.0, room air oxygen saturation 100%. He art: Regular rate and rhythm. Chest: Clear to auscultation. Abdomen: Soft, nontender. No peritoneal signs. Normoactive. Extremities: 1+ edema pitting bilateral and pedal. No cyanosis. Neurological: Alert, oriented, nonfocal. Grossly intact. Imaging: Head CT done showed chronic microvascular ischemia changes, but no acute changes. Chest x- ray, no acute abnormality. Laboratory Data: CBC noted. Chemistry: BUN 22, creatinine 5.47. This is after dialysis in this ho spital. Troponin 0.02. Assessment And Plan: 1.Substernal chest pain. The patient had risk for coronary artery disease. Dr. Nixon, Cardiology , being consulted and he recommended a stress echo. Pending result of that, patient on telemetry. 2.End-stage renal disease. The patient is being dialyzed by Nephrology. We will follow the recomme ndations. 3.Hypertension. The rest of her chronic medical problems. We will manage also diabetes and put her on sliding scale for regular insulin. Look orders for details. MFS/MODL Voice ID: [id number]
--- NOTE | 2018-12-29 23:03 | CON ---
Date of Consultation: 12/29/2018 Reason For Consultation: Elevated BUN and creatinine, hyperkalemia, over volume. History Of Present Illness: This is a pleasant and unfortunate 63-year-old female, well known to me from the dialysis with significant past medical history of end-stage renal disease, on hemodialysis; hypertension; hyperlipidemia; coronary artery disease with congestive heart failure; peripheral vascu lar disease; diabetes. Patient was in her regular state of health, came to the hospital for dialysis , started having chest pain, did not finish her dialysis, referred to the hospital. In the hospital, found to have hyperkalemia with potassium 6.5 and slightly over volume. For that reason, we have be en consulted. We took the patient for urgent dialysis. We managed to remove 2.5. Patient was dialy zed on low-potassium bath, tolerated the procedure. Patient today still complaining some chest pain, otherwise, no other symptoms. Shortness of breath has been subsided significantly. Hyperkalemia re solved. Past Medical History: 1.Diabetes. 2.Hypertension. 3.Hyperlipidemia. 4.End-stage renal disease, on hemodialysis. 5.Secondary hyperparathyroidism. 6.Edema. 7.Coronary artery disease with congestive heart failure. Social History: Denies smoking. Denies drinking. Denies drug abuse. Family History: Positive for diabetes. Past Surgical History: PermCath placement. Home Medications: Alprazolam, pamidronate, calcium carbonate 2 tablets with each meal, Sensipar 60 d aily, Plavix 75, vitamin D, gabapentin, insulin, Keppra, and midodrine. Allergies: LEVAQUIN, ASPIRIN, BARBITURATE, AND PROMETHAZINE. Review of Systems: Head and Neck: No red eye. No ear pain. GI: Has nausea. : No polyuria, no dysuria, no hematuria. POWDER NIPPER: No vaginal discharge. Respiratory: Has shortness of breath. Cardiovascular: Has chest pain. Neuro: Has neuropathy. Musculoskeletal: No joint pain. Endocrine: No polydipsia. Skin: No rash. Physical Examination: General: When I saw the patient, patient lying in bed. Vital Signs: Blood pressure 127/59, pulse of 82. Chest: Faint crackles on the base. Heart: S1, S2. Regular. Systolic murmur. Abdomen: Soft, nontender. Extremities: Trace edema. Current Medications: Current medications in the hospital include heparin, calcium gluconate, melaton in. Assessment And Plan: 1.End-stage renal disease with hyperkalemia and acidosis with over volume. Patient already received dialysis on low-potassium bath and challenge. We will repeat the session tomorrow. 2.Hypertension, currently hypotensive. We will use midodrine for ultrafiltration. 3.Hyperkalemia, has been resolved. Continue dialysis on low-potassium bath. 4.Over volume. Patient will be challenged. We will use midodrine to allow more ultrafiltration. 5.Chest pain. We will follow up with Cardiology. 6.Diabetes, as by primary. CATHRYN/NICHOLEL Voice ID: [id number] Report ID: [id number]
[2018-12-30 04:20] VITALS: BMI 32.7
[2018-12-30] MEDS ORDERED: GLUCAGON 1 MG/VIAL IM PRN ×2 (06:58→07:00)
[2018-12-30] MEDS ORDERED: D50W 25 GM/50 ML SYRINGE IV PRN (07:00)
[2018-12-30] MEDS ORDERED: ACETAMINOPHEN 500 MG TAB PO PRN (07:01)
[2018-12-30] MEDS ORDERED: MANNITOL 25% 12.5 GM/50 ML VIAL IV PRN (07:03)
[2018-12-30] MEDS: INSULIN -REGULAR HUMAN 50 UNIT/0.5 ML ML SQ SCH ×4 (07:30→21:00)
[2018-12-30] MEDS ORDERED: ALBUMIN HUMAN 25% 100 ML IV SCH (08:00)
[2018-12-30] MEDS: ENSURE HIGH PROTEIN 237 ML CAN PO SCH ×2 (09:00→21:14)
[2018-12-30] MEDS ORDERED: DIPHENHYDRAMINE 25 MG TAB/CAP PO ONE (10:14)
[2018-12-30] MEDS: SEVELAMER CARBONATE 800 MG TABLET PO SCH ×2 (11:51→16:36)
[2018-12-30] MEDS ORDERED: FENTANYL 25 MCG/PATCH TD ONE (14:09)
--- NOTE | 2018-12-30 18:49 | PN ---
Subjective: The patient complains of low back pain, chronic and also headache off and on which is ch ronic. Other than that, no new complaints. Patient's vital signs stable. On physical exam, basical ly no change. Cardiac echo done showed left ventricular ejection fraction of 69%. Moderate to sever e pulmonary hypertension, right ventricular systolic pressure, and aortic sclerosis with decreased ve ntricular compliance. Blood sugar fingersticks noted at 168. CBC noted. Assessment And Plan: 1.End-stage renal disease with volume overload. The patient is being dialyzed and managed by Nephro logy. 2.Chest pain. Cardiac echo at this time is non revealing, pending further Cardiology recommendation s on that. The patient, however, is not having chest pain. She is having skeletomuscular pain from her low back, which is chronic. 3.Type 2 diabetes. Continue the patient on regular insulin sliding scale, which shows controlled le vels. 4.The rest of medical problems stable. MFS/MODL Voice ID: [id number] Report ID: [id number]
--- NOTE | 2018-12-31 04:14 | PN ---
Date of Progress Note: 12/30/2018 Subjective: The patient was admitted with hyperkalemia, over volume. Patient is status post dialysis day before. Patient tolerated dialysis very well. Patient came today still feeling weak. Patient seen on dialysis. Objective: Vital Signs: Blood pressure of 111/56, pulse of 83. Chest: Faint crackles bilateral base. Heart: S1-S2. Systolic murmur. Abdomen: Soft nontender. Extremities: Trace edema. Laboratory Data: H and H 13/39.9. Sodium of 139, potassium 5.1, bicarb 23, BUN 22, creatinine 5.4, calcium 8.3. Current Medications: Include diphenhydramine, heparin, fentanyl, Renvela. Assessment And Plan: 1. End-stage renal disease, over volume, hyperkalemia. We will arrange for dialysis again today. 2. Hyperkalemia. This is going to be treated with dialysis dialysis control currently normal volume. 3. Hypertension, currently hypotension, off all blood pressure medication. We will monitor. 4. Anemia of chronic kidney disease. No need for BRITTANY. 5. Secondary hyperparathyroid. Continue binder. Patient cleared from the renal standpoint for discharge planning. JACKLYN Voice ID: [id number] Report ID: [id number]
[2018-12-31 06:26] LABS: Albumin 3.5 g/dL (3.4-5.0); Phosphorus 5.8 mg/dL (2.5-4.9); Potassium 4.2 mmol/L (3.5-5.1)
[2018-12-31] MEDS: INSULIN -REGULAR HUMAN 50 UNIT/0.5 ML ML SQ SCH ×3 (07:30→16:30)
[2018-12-31] MEDS: SEVELAMER CARBONATE 800 MG TABLET PO SCH ×3 (09:33→17:00)
[2018-12-31] MEDS: ENSURE HIGH PROTEIN 237 ML CAN PO SCH (09:34)
[2018-12-31 17:12] VITALS: O2SAT 94
[2018-12-31 18:33] VITALS: BP 117/62; TEMP 98.8
--- NOTE | 2018-12-31 19:36 | PN ---
Date of Progress Note: 12/30/2018 Subjective: The patient was seen for atypical chest pain. She was admitted by Dr. Kovacs on 2018. On 12/30/2018, patient was asymptomatic. No further chest pain. It was impossible to do a Le xiscan on her because of venous access. Only a central line was used for her other therapy. As ment ioned earlier Lexiscan cannot be done through a central line. She has a difficult IV access. Echoca rdiogram which was done yesterday was fairly unremarkable. I am comfortable with her going home. I think her chest pain becomes more typical. We would consider catheterization, but her symptoms at th is point are very atypical and probably musculoskeletal. We will sign off the case. KALINA/KURT Voice ID: [id number] Report ID: [id number]
--- NOTE | 2018-12-31 23:33 | PN ---
Date of Progress Note: 12/31/2018 Subjective: Patient was admitted with over volume. Patient was dialyzed, tolerated the dialysis reagan y well. Physical Examination: Vital Signs: Blood pressure 113/58, pulse of 80. Chest: Crackles on the left base. Heart: S1, S2. Systolic murmur. Abdomen: Soft, nontender. Extremities: Trace edema. Laboratory Data: H and H 13/39.9. Sodium 137, potassium 4.2, bicarb 26, BUN 21, creatinine 6.1, andrey cium 8.9, phosphorus 5.8. Current Medications: The patient on is include insulin, Renvela. Assessment And Plan: 1.End-stage renal disease, over volume, hyperkalemia. Continue dialysis schedule. 2.Hyperkalemia, resolved. Continue dialysis on low-potassium bath. 3.Over volume. We will keep challenging the patient. 4.Congestive heart failure, currently stable. We will follow up with the primary. Patient cleared from the renal standpoint for discharge planning to follow up with dialysis. JACKLYN Voice ID: [id number] Report ID: [id number]
--- NOTE | 2019-01-01 03:19 | DS ---
Date of Discharge: 12/31/2018 History Of Present Illness: Patient is a 63-year-old female on dialysis, end-stage renal disease, wa s admitted because of volume overload and she had a complaint of chest pain at the beginning of the d ay of her admission. Past Medical History: As per admit note. Social History: As per admit note. Family History: As per admit note. Medications: As per admit note. Allergies: PER ADMIT NOTE. Physical Examination: As per admit note. Diagnostic Data: As per admit note. Hospital Course: Patient was admitted to the hospital. Nephrology was consulted and the patient had 3 times of dialysis while in the hospital. Her symptoms have improved to her baseline. She did not have any more chest pain. Cardiology, Dr. Nixon was consulted. I wanted to do a stress nuclear s tress test, however, they went ahead and ordered cardiac echo instead because of IV access and her ec ho showed moderate to severe pulmonary hypertension with right ventricular systolic pressure 58 with aortic sclerosis, but no stenosis along with decreased ventricular compliance. The patient continued to do well. Cardiology have elected with this echo result not to do any further workup and the antwan ent has no symptoms and Nephrology said that the patient can be discharged also with followup as an o utpatient for dialysis at this time. The patient was stable enough to be discharged, also while in [facility] we will put her on sliding scale for regular insulin and monitor her blood sugar and continue her on her home medications. Look discharge orders for details. MFS/MODL Voice ID: [id number] Report ID: [id number]
[2019-01-01 20:50] LABS: HBsAG Nonreactive (Nonreactive)
== END 2018-12-31 17:29 | disposition home or self-care (01) ==
LOC: ER 11:35 → INTOOBSV 17:26 → ERHOLD 17:26 → 2ND 19:44
PROVIDERS: ADMIT Internal Medicine; ATTEND Internal Medicine
PROC: 5A1D70Z Performance of Urinary Filtration, Intermittent, Less than 6 Hours Per Day (ICD-10-PCS; principal; 2018-12-28)
PROC: 5A1D70Z Performance of Urinary Filtration, Intermittent, Less than 6 Hours Per Day (ICD-10-PCS; 2018-12-30)
DX: R07.2 Precordial pain (principal); E87.5 Hyperkalemia; I27.20 Pulmonary hypertension, unspecified; E11.22 Type 2 diabetes mellitus with diabetic chronic kidney disease; N18.6 End stage renal disease; I13.2 Hypertensive heart and chronic kidney disease with heart failure and with stage 5 chronic kidney disease, or end stage renal disease; I50.20 Unspecified systolic (congestive) heart failure; F41.9 Anxiety disorder, unspecified; G62.9 Polyneuropathy, unspecified; E78.5 Hyperlipidemia, unspecified; N25.81 Secondary hyperparathyroidism of renal origin; I25.10 Atherosclerotic heart disease of native coronary artery without angina pectoris; D63.1 Anemia in chronic kidney disease; H54.7 Unspecified visual loss; Z99.2 Dependence on renal dialysis; Z86.73 Personal history of transient ischemic attack (TIA), and cerebral infarction without residual deficits
CPT/HCPCS: 96365 ×2; 93005 ×3; 93306; 85025 ×2; 80048 ×3; 36415 ×4; 83735 ×2; 82947; 85610 ×2; 82962 ×18; 80076 ×2; 80069; 84484 ×4; 86704; 86317; 83880 ×2; 87340; 86706; 70450; 71045 ×2; 90935 ×5; 96375 ×2; 99285 ×2; J0610; J3010 ×2; J1644 ×2; J0696; G0378 ×6; J2405

== ENCOUNTER 2019-01-06 02:19 | Observation (INO) | payer OTHER ==
[2019-01-06] MEDS ORDERED: NA CHLORIDE 0.9% 1,000 ML ONE (03:25)
[2019-01-06] MEDS ORDERED: METOCLOPRAMIDE 10 MG/2mL INJ ONE (03:40)
[2019-01-06] MEDS ORDERED: FENTANYL CITR 100 MCG/2 ML ONE ×2 (03:42→06:03)
[2019-01-06 03:52] LABS: Absolute Lymphocytes (CBC) 1.3 K/uL (0.7-4.9); Basophils % 0.6 % (0-1.3); Hematocrit 39.4 % (36.0-45.0); Lymphocytes % 23.7 % (15.3-44.8); MPV 9.3 fL (7.6-11.3); Protime INR 1.04; RBC Red Blood Cell Count 4.39 M/uL (3.86-4.86)
[2019-01-06 04:14] LABS: ALT/SGPT 12 U/L (12-78); AST/SGOT 10 U/L (15-37); Albumin 3.6 g/dL (3.4-5.0); Alkaline Phosphatase 439 U/L (45-117); BUN Blood Urea Nitrogen 36 mg/dL (7-18); Bicarbonate 26 mmol/L (21-32); Bilirubin Direct < 0.1 mg/dL (0-0.2); Bilirubin Total 0.3 mg/dL (0.2-1.0); Glucose Level 100 mg/dL (74-106); NT PRO-BNP 17723 pg/mL (<125); Potassium 4.6 mmol/L (3.5-5.1); Protein, Total 8.1 g/dL (6.4-8.2); Sodium Level 136 mmol/L (136-145); Troponin (Emerg Dept Use Only) < 0.02 ng/mL (0.0-0.045)
--- NOTE | 2019-01-06 06:11 | EDPHYS ---
Physician Documentation [facility] Name: Liya Sullivan Age: 63 yrs Sex: Female : 1955 Arrival Date: 01/06/2019 Time: 02:21 Bed 16 Private MD: ED Physician Gildardo Florez HPI: 01/06 03:11 This 63 yrs old Black Female presents to ER via EMS with complaints of Headache. phil 03:11 The patient complains of pain to the top of head, forehead, left eye, left frontal phil area, left side of the back of head, left occipital area, right frontal area, right side of the back of head and right occipital area. The patient describes the headache as a pressure. Onset: The symptoms/episode began/occurred yesterday, 9 hour(s) ago. Associated signs and symptoms: The patient has no apparent associated signs or symptoms. Severity of symptoms: At its worst the pain was moderate, severe, in the emergency department the pain is unchanged. Headache History: Denies prior headaches. The symptoms are alleviated by nothing. the symptoms are aggravated by nothing. The patient has not experienced similar symptoms in the past. Historical: - Allergies: 02:41 Aspirin; jb4 02:41 butorphanol tartrate; jb4 02:41 Clonidine; jb4 02:41 Codeine; jb4 02:41 Darvocet-N 100; jb4 02:41 Demerol; jb4 02:41 diphenhydramine HCl; jb4 02:41 Compazine; jb4 02:41 Hydromorphone; jb4 02:41 hydroxyzine HCl; jb4 02:41 Klonopin; jb4 02:41 Levaquin; jb4 02:41 Levofloxacin; jb4 02:41 Morphine; jb4 02:41 Ondansetron HCl; jb4 02:41 pantoprazole sodium; jb4 02:41 promethazine HCl; jb4 02:41 Protonix; jb4 02:41 Stadol; jb4 02:41 tramadol; jb4 - Home Meds: 02:41 clopidogrel 75 mg Oral tab 1 tab once daily [Active]; midodrine 10 mg Oral tab 1 tab jb4 [Active]; gabapentin 300 mg Oral cap 1 cap [Active]; lanthanum oral 1000mg oral [Active]; - PMHx: 02:41 BLIND; CVA; Dialysis; Diabetes - IDDM; ESRD; Hypotention; jb4 - PSHx: 02:41 None; jb4 - Immunization history:: Adult Immunizations up to date. - Social history:: Smoking status: Patient/guardian denies using tobacco, Patient/guardian denies using alcohol. - Ebola Screening: : No symptoms or risks identified at this time. ROS: 03:15 Constitutional: Negative for fever, chills, and weight loss, ENT: Negative for injury, phil pain, and discharge, Neck: Negative for injury, pain, and swelling, Cardiovascular: Negative for chest pain, palpitations, and edema, Respiratory: Negative for shortness of breath, cough, wheezing, and pleuritic chest pain, Abdomen/GI: Negative for abdominal pain, nausea, vomiting, diarrhea, and constipation, Back: Negative for injury and pain, : Negative for injury, bleeding, discharge, and swelling, MS/Extremity: Negative for injury and deformity, Skin: Negative for injury, rash, and discoloration, Psych: Negative for depression, anxiety, suicide ideation, homicidal ideation, and hallucinations, Allergy/Immunology: Negative for hives, rash, and allergies, Endocrine: Negative for neck swelling, polydipsia, polyuria, polyphagia, and marked weight changes, Hematologic/Lymphatic: Negative for swollen nodes, abnormal bleeding, and unusual bruising. 03:15 Eyes: Positive for pain. 03:15 Neuro: Positive for headache, of the face. Exam: 03:15 Constitutional: This is a well developed, well nourished patient who is awake, alert, phil and in no acute distress. Head/Face: Normocephalic, atraumatic. ENT: Nares patent. No nasal discharge, no septal abnormalities noted. Tympanic membranes are normal and external auditory canals are clear. Oropharynx with no redness, swelling, or masses, exudates, or evidence of obstruction, uvula midline. Mucous membranes moist. Neck: Trachea midline, no thyromegaly or masses palpated, and no cervical lymphadenopathy. Supple, full range of motion without nuchal rigidity, or vertebral point tenderness. No Meningismus. Chest/axilla: Normal chest wall appearance and motion. Nontender with no deformity. No lesions are appreciated. Cardiovascular: Regular rate and rhythm with a normal S1 and S2. No gallops, murmurs, or rubs. Normal PMI, no JVD. No pulse deficits. Respiratory: Lungs have equal breath sounds bilaterally, clear to auscultation and percussion. No rales, rhonchi or wheezes noted. No increased work of breathing, no retractions or nasal flaring. Abdomen/GI: Soft, non-tender, with normal bowel sounds. No distension or tympany. No guarding or rebound. No evidence of tenderness throughout. Back: No spinal tenderness. No costovertebral tenderness. Full range of motion. Female : Normal external genitalia. Skin: Warm, dry with normal turgor. Normal color with no rashes, no lesions, and no evidence of cellulitis. MS/ Extremity: Pulses equal, no cyanosis. Neurovascular intact. Full, normal range of motion. Neuro: Awake and alert, GCS 15, oriented to person, place, time, and situation. Cranial nerves II-XII grossly intact. Motor strength 5/5 in all extremities. Sensory grossly intact. Cerebellar exam normal. Normal gait. Psych: Awake, alert, with orientation to person, place and time. Behavior, mood, and affect are within normal limits. 03:15 Eyes: Pupils: irregularly shaped, in the left eye, Extraocular movements: intact throughout, Conjunctiva: injected, Corneas: no acute changes, Sclera: injected, Anterior chamber: normal, Lids and lashes: appear normal, Nystagmus: is not appreciated. 03:15 Neck: External neck: is normal, no acute changes, ROM/movement: no acute changes, phil Meningeal signs: are not present, Kernig's sign is negative, Brudzinski's sign is negative, nuchal rigidity, is not appreciated. Vital Signs: 02:15 BP 139 / 75; Pulse 79; Resp 18; Temp 97.4(TE); Pulse Ox 100% on R/A; Weight 81.65 kg jb4 (R); Height 5 ft. 3 in. (160.02 cm); Pain 10/10; 03:15 BP 130 / 65; Pulse 71; Resp 15 S; Pulse Ox 100% on R/A; cc3 04:41 BP 113 / 55; Pulse 75; Resp 12 S; Pulse Ox 100% on 3 lpm NC; Pain 4/10; cc3 05:19 BP 126 / 70; Pulse 75; Resp 13 S; Pulse Ox 100% on 3 lpm NC; cc3 06:12 BP 123 / 62; Pulse 76; Resp 14 S; Pulse Ox 98% on 2 lpm NC; Pain 8/10; cc3 06:44 BP 140 / 73; Pulse 78; Resp 12 S; Pulse Ox 98% on 2 lpm NC; Pain 4/10; cc3 07:06 BP 135 / 76; Pulse 78; Resp 14; Pulse Ox 100% on 2 lpm NC; sv 02:15 Body Mass Index 31.89 (81.65 kg, 160.02 cm) jb4 Procedures: 03:27 Peripheral line: by aseptic technique a peripheral line was placed in the right [facility] external jugular vein. MDM: 02:45 Patient medically screened. [facility] 03:17 Data reviewed: vital signs, nurses notes, lab test result(s), EKG, radiologic studies, [facility] CT scan, plain films. 01/06 03:11 Order name: Basic Metabolic Panel; Complete Time: 04:26 [facility] 01/06 03:11 Order name: CBC with Diff; Complete Time: 04:26 [facility] 01/06 03:11 Order name: LFT's; Complete Time: 04:26 [facility] 01/06 03:11 Order name: Magnesium; Complete Time: 04:26 [facility] 01/06 03:11 Order name: NT PRO-BNP; Complete Time: 04:26 [facility] 01/06 03:11 Order name: PT-INR; Complete Time: 04:26 [facility] 01/06 03:11 Order name: Troponin (emerg Dept Use Only); Complete Time: 04:26 [facility] 01/06 03:11 Order name: XRAY Chest (1 view) [facility] 01/06 03:11 Order name: CT Head Brain wo Cont [facility] 01/06 03:14 Order name: Urine Culture [facility] 01/06 05:59 Order name: Sed Rate [facility] 01/06 05:59 Order name: CRP [facility] 01/06 03:11 Order name: EKG; Complete Time: 03:13 [facility] 01/06 03:11 Order name: Cardiac monitoring; Complete Time: 03:31 [facility] 01/06 03:11 Order name: EKG - Nurse/Tech; Complete Time: 03:31 [facility] 01/06 03:11 Order name: IV Saline Lock; Complete Time: 03:31 [facility] 01/06 03:11 Order name: Labs collected and sent; Complete Time: 03:31 [facility] 01/06 03:11 Order name: O2 Per Protocol; Complete Time: 03: [facility] 01/06 03:11 Order name: O2 Sat Monitoring; Complete Time: 03: [facility] 01/06 06:29 Order name: CONS Physician Consult EDMS 01/06 06:29 Order name: CONS Physician Consult EDMS Administered Medications: 03:25 Drug: NS 0.9% 1000 ml Route: IV; Rate: 75 ml/hr; Site: right jugular; cc3 06:32 Follow up: Response: No adverse reaction; IV Status: Infusion continued upon admission cc3 03:40 Drug: Reglan 10 mg {Note: right EJ.} Route: IVP; Site: Other; cc3 04:40 Follow up: Response: No adverse reaction; Pain is decreased cc3 03:46 Drug: fentaNYL (PF) 50 mcg {Note: right EJ, RASS 0.} Route: IVP; Site: Other; cc3 04:40 Follow up: Response: No adverse reaction; Pain is decreased; RASS: Alert and Calm (0) cc3 06:07 Drug: fentaNYL (PF) 25 mcg {Note: right EJ, RASS 0.} Route: IVP; Site: Other; cc3 06:32 Follow up: Response: No adverse reaction; Pain is decreased; RASS: Alert and Calm (0) cc3 Disposition: 01/06/19 06:09 Hospitalization ordered by Vern Kovacs for Inpatient Admission. Preliminary diagnosis are End stage renal disease, Ocular pain, left eye, Headache, Blindness, one eye. - Bed requested for Telemetry/MedSurg (Inpatient). - Status is Inpatient Admission. sv - Condition is Fair. - Problem is new. - Symptoms have improved. UTI on Admission? No Signatures: Dispatcher [employer] EDYumiko Guerrero RN RN sv Webb, Martha, RN RN mw Anderson, Corey, MD MD cha Bryson, James, RN RN jb4 Cordel, Charlene cc3 Corrections: (The following items were deleted from the chart) 06:14 06:09 Hospitalization Ordered by Mitchell Prakash DO for Inpatient Admission. Preliminary phil diagnosis is End stage renal disease; Ocular pain, left eye; Headache. Bed requested for Telemetry/MedSurg (Inpatient). Status is Inpatient Admission. Condition is Fair. Problem is new. Symptoms have improved. UTI on Admission? No. phil 06:19 06:14 01/06/2019 06:09 Hospitalization Ordered by Mitchell Prakash DO for Inpatient phil Admission. Preliminary diagnosis is End stage renal disease; Ocular pain, left eye; Headache; Blindness, one eye. Bed requested for Telemetry/MedSurg (Inpatient). Status is Inpatient Admission. Condition is Fair. Problem is new. Symptoms have improved. UTI on Admission? No. phil 06:42 06:19 01/06/2019 06:09 Hospitalization Ordered by Vern Kovacs MD for Inpatient Admission. Preliminary diagnosis is End stage renal disease; Ocular pain, left eye; Headache; Blindness, one eye. Bed requested for Telemetry/MedSurg (Inpatient). Status is Inpatient Admission. Condition is Fair. Problem is new. Symptoms have improved. UTI on Admission? No. phil 08:02 06:42 01/06/2019 06:09 Hospitalization Ordered by Vern Kovacs MD for Inpatient Admission. Preliminary diagnosis is End stage renal disease; Ocular pain, left eye; Headache; Blindness, one eye. Bed requested for Telemetry/MedSurg (Inpatient). Status is Inpatient Admission. Condition is Fair. Problem is new. Symptoms have improved. UTI on Admission? No. mw
--- NOTE | 2019-01-06 06:11 | ER ---
Nurse's Notes [facility] Name: Liya Sullivan Age: 63 yrs Sex: Female : 1955 Arrival Date: 01/06/2019 Time: 02:21 Bed 16 Private MD: Diagnosis: End stage renal disease;Ocular pain, left eye;Headache;Blindness, one eye Presentation: 01/06 02:15 Presenting complaint: EMS states: She reports having a headache on top of her head that jb4 has been there for the majority of the day, pt reports feeling like she is having a stroke. 02:15 Method Of Arrival: EMS: [facility] jb4 02:15 Transition of care: patient was not received from another setting of care. Onset of jb4 symptoms. Risk Assessment: Do you want to hurt yourself or someone else? Patient reports no desire to harm self or others. Initial Sepsis Screen: Does the patient meet any 2 criteria? No. Patient's initial sepsis screen is negative. Does the patient have a suspected source of infection? No. Patient's initial sepsis screen is negative. Care prior to arrival: None. 02:15 Acuity: STEPHANIE 3 jb4 Triage Assessment: 04:00 Headache History: The patient has had previous headaches and this one is more severe cc3 than previous episodes. General: Appears in no apparent distress. uncomfortable. General: Appears Behavior is cooperative. Pain: Complains of pain in top of head Pain began 1 day ago. Also complains of no other associated symptoms. Historical: - Allergies: 02:41 Aspirin; jb4 02:41 butorphanol tartrate; jb4 02:41 Clonidine; jb4 02:41 Codeine; jb4 02:41 Darvocet-N 100; jb4 02:41 Demerol; jb4 02:41 diphenhydramine HCl; jb4 02:41 Compazine; jb4 02:41 Hydromorphone; jb4 02:41 hydroxyzine HCl; jb4 02:41 Klonopin; jb4 02:41 Levaquin; jb4 02:41 Levofloxacin; jb4 02:41 Morphine; jb4 02:41 Ondansetron HCl; jb4 02:41 pantoprazole sodium; jb4 02:41 promethazine HCl; jb4 02:41 Protonix; jb4 02:41 Stadol; jb4 02:41 tramadol; jb4 - Home Meds: 02:41 clopidogrel 75 mg Oral tab 1 tab once daily [Active]; midodrine 10 mg Oral tab 1 tab jb4 [Active]; gabapentin 300 mg Oral cap 1 cap [Active]; lanthanum oral 1000mg oral [Active]; - PMHx: 02:41 BLIND; CVA; Dialysis; Diabetes - IDDM; ESRD; Hypotention; jb4 - PSHx: 02:41 None; jb4 - Immunization history:: Adult Immunizations up to date. - Social history:: Smoking status: Patient/guardian denies using tobacco, Patient/guardian denies using alcohol. - Ebola Screening: : No symptoms or risks identified at this time. Screenin:15 Abuse screen: Denies threats or abuse. Nutritional screening: No deficits noted. jb4 Tuberculosis screening: No symptoms or risk factors identified. Fall Risk Secondary diagnosis (15 points) CVA, IV access (20 points). Total Lopez Fall Scale indicates Low Risk Score (25-44 pts). Fall prevention measures have been instituted. Side Rails Up X 2 Placed close to Nursing Station Frequent Obs/Assesments occuring As available Patient and Family Educated on Fall Prevention Program and strategies. Assessment: 02:15 General: Appears in no apparent distress. uncomfortable, Behavior is calm, cooperative, jb4 appropriate for age. Pain: Complains of pain in Top of the head Pain does not radiate. Pain currently is 10 out of 10 on a pain scale. Quality of pain is described as throbbing. Neuro: Level of Consciousness is awake, alert, obeys commands, Oriented to person, place, time, situation, Moves all extremities. Full function Gait is steady, Speech is normal, Facial symmetry appears normal. Cardiovascular: Patient's skin is warm and dry. Respiratory: Airway is patent Respiratory effort is even, unlabored, Respiratory pattern is regular, symmetrical. GI: No deficits noted. No signs and/or symptoms were reported involving the gastrointestinal system. : No deficits noted. No signs and/or symptoms were reported regarding the genitourinary system. EENT: No deficits noted. No signs and/or symptoms were reported regarding the EENT system. Derm: Skin is intact, Skin is pink, warm \T\ dry. Musculoskeletal: Circulation, motion, and sensation intact. Range of motion: intact in all extremities. 03:34 Reassessment: Patient appears in no apparent distress at this time. No changes from jb4 previously documented assessment. Patient and/or family updated on plan of care and expected duration. Pain level reassessed. Report given to KRISTINA Landa. 04:00 Reassessment: PT desating to 69% after Fentanyl administration with apneic periods jb4 noted. Awakens easily to verbal stimuli, O2 sats return to to 95% on RA. PT placed on 2LNC. Provider and primary nurse notified. 04:06 Reassessment: PT sating at 97% on 2LNC, desating to 88% during apneic periods. Provider jb4 okayed pt to be transported to CT with oxygen. 04:15 Reassessment: Patient taken to CT scan by the equipment engineering technician by bobo. Laboratory staff cc3 Elio called and relayed critical result of Creatinine 7.85 Dr. Florez informed. 04:38 Reassessment: Patient appears in no apparent distress at this time. Patient and/or cc3 family updated on plan of care and expected duration. Pain level reassessed. Patient came back from CT scan department awaiting result, patient said she's not passing urine since [address] Florez informed. Patient denies pain at this time. Patient states feeling better. Patient states symptoms have improved. 05:17 Reassessment: Patient appears in no apparent distress at this time. patient sleeping, cc3 kept undisturbed. 06:05 Reassessment: Patient appears in no apparent distress at this time. Patient and/or cc3 family updated on plan of care and expected duration. Pain level reassessed. Patient is alert, oriented x 3, equal unlabored respirations, skin warm/dry/pink. Dr. Florez added CRP and sed rate, called lab at 1108 and spoke with staff Elio and he said he'll do the new orders from the previous blood sample taken. 06:12 Reassessment: Patient appears in no apparent distress at this time. Patient and/or cc3 family updated on plan of care and expected duration. Pain level reassessed. Patient is alert, oriented x 3, equal unlabored respirations, skin warm/dry/pink. 06:34 Reassessment: Patient's ordered for admission, awaiting admission orders. cc3 Vital Signs: 02:15 BP 139 / 75; Pulse 79; Resp 18; Temp 97.4(TE); Pulse Ox 100% on R/A; Weight 81.65 kg jb4 (R); Height 5 ft. 3 in. (160.02 cm); Pain 10/10; 03:15 BP 130 / 65; Pulse 71; Resp 15 S; Pulse Ox 100% on R/A; cc3 04:41 BP 113 / 55; Pulse 75; Resp 12 S; Pulse Ox 100% on 3 lpm NC; Pain 4/10; cc3 05:19 BP 126 / 70; Pulse 75; Resp 13 S; Pulse Ox 100% on 3 lpm NC; cc3 06:12 BP 123 / 62; Pulse 76; Resp 14 S; Pulse Ox 98% on 2 lpm NC; Pain 8/10; cc3 06:44 BP 140 / 73; Pulse 78; Resp 12 S; Pulse Ox 98% on 2 lpm NC; Pain 4/10; cc3 07:06 BP 135 / 76; Pulse 78; Resp 14; Pulse Ox 100% on 2 lpm NC; sv 02:15 Body Mass Index 31.89 (81.65 kg, 160.02 cm) jb4 ED Course: 02:15 Arm band placed on left wrist. jb4 02:15 Patient has correct armband on for positive identification. Bed in low position. Call jb4 light in reach. Side rails up X 1. Pulse ox on. NIBP on. 02:21 Patient arrived in ED. ds1 02:28 Cheng Dudley RN is Primary Nurse. jb4 02:36 Triage completed. jb4 02:45 Gildardo Florez MD is Attending Physician. phil 03:25 Inserted saline lock: 18 gauge in right EJ, using aseptic technique. Blood collected. cc3 inserted by Dr. Florez. 03:31 Basic Metabolic Panel Sent. jb4 03:31 CBC with Diff Sent. jb4 03:31 LFT's Sent. jb4 03:31 Magnesium Sent. jb4 03:31 NT PRO-BNP Sent. jb4 03:32 PT-INR Sent. jb4 03:32 Troponin (emerg Dept Use Only) Sent. jb4 03:34 Report given to KRISTINA Landa. jb4 03:40 XRAY Chest (1 view) In Process Unspecified. EDMS 04:26 CT Head Brain wo Cont In Process Unspecified. EDMS 04:41 Syeda Kang is Primary Nurse. cc3 06:07 Mitchell Prakash DO is Hospitalizing Provider. phil 06:19 Vern Kovacs MD is Hospitalizing Provider. phil 06:59 Report given to KRISTINA Calderon. cc3 07:06 No provider procedures requiring assistance completed. Patient admitted, IV remains in sv place. intact. Administered Medications: 03:25 Drug: NS 0.9% 1000 ml Route: IV; Rate: 75 ml/hr; Site: right jugular; cc3 06:32 Follow up: Response: No adverse reaction; IV Status: Infusion continued upon admission cc3 03:40 Drug: Reglan 10 mg {Note: right EJ.} Route: IVP; Site: Other; cc3 04:40 Follow up: Response: No adverse reaction; Pain is decreased cc3 03:46 Drug: fentaNYL (PF) 50 mcg {Note: right EJ, RASS 0.} Route: IVP; Site: Other; cc3 04:40 Follow up: Response: No adverse reaction; Pain is decreased; RASS: Alert and Calm (0) cc3 06:07 Drug: fentaNYL (PF) 25 mcg {Note: right EJ, RASS 0.} Route: IVP; Site: Other; cc3 06:32 Follow up: Response: No adverse reaction; Pain is decreased; RASS: Alert and Calm (0) cc3 Outcome: 06:09 Decision to Hospitalize by Provider. [facility] 07:35 Admitted to Med/surg accompanied by tech, via wheelchair, room 215, with oxygen, with sv chart, Report called to Julee ACEVEDO 07:35 Condition: stable 07:35 Instructed on the need for admit. 08:02 Patient left the ED. sv Signatures: Dispatcher [facility] Yumiko Ohara RN RN sv Anderson, Corey, MD MD cha Sanford, Demi ds1 Cheng Dudley RN RN Syeda Mancia cc3 Corrections: (The following items were deleted from the chart) 03:35 03:34 Abuse screen: Denies threats or abuse. [place] [id number] 03:35 03:34 Nutritional screening: No deficits noted. [place] [id number] 03:35 03:34 Tuberculosis screening: No symptoms or risk factors identified. [place] [id number] 03:35 03:34 Fall Risk Secondary diagnosis (15 points) CVA, IV access (20 points). Total Lopez jb4 Fall Scale indicates Low Risk Score (25-44 pts). Fall prevention measures have been instituted. Side Rails Up X 2 Placed close to Nursing Station Frequent Obs/Assesments occuring As available Patient and Family Educated on Fall Prevention Program and strategies. jb4 04:13 04:00 Reassessment: PT desating to 69% after Fentanyl administration with apneic jb4 periods noted. Awakens easily to verbal stimuli, O2 sats return to to 95% on RA. PT placed on 2LNC. Provider notified. jb4 06:45 06:12 BP 123 / 62; Pulse 76bpm; Resp 14bpm; Spontaneous; Pulse Ox 98% 2 lpm Nasal cc3 Cannula; cc3
[2019-01-06] MEDS ORDERED: METOCLOPRAMIDE 10 MG/2mL INJ IV PRN (07:40)
[2019-01-06] MEDS ORDERED: IPRATROPIUM BROM 0.5MG/2.5ML NEB PRN (07:40)
[2019-01-06] MEDS ORDERED: ALBUTEROL 2.5 MG/3 ML NEB SOL NEB PRN (07:40)
[2019-01-06] MEDS ORDERED: MOXIFLOXACIN HCL 0.5% 3ML OPTH OPTH SCH (08:00)
[2019-01-06 08:51] VITALS: BMI 31.6
--- NOTE | 2019-01-06 08:51 | RAD REPORT ---
EXAM DESCRIPTION: [place] Single View01/06/2019 3:40 am CLINICAL HISTORY: Cough COMPARISON: December 2018 FINDINGS: The lungs appear clear of acute infiltrate. The heart is moderately enlarged. Central titus ous catheter remains in place IMPRESSION: No acute abnormalities displayed
--- NOTE | 2019-01-06 09:52 | RAD REPORT ---
EXAM DESCRIPTION: CT - Head Brain Wo Cont - 01/06/2019 5:15 am CLINICAL HISTORY: HEADACHE COMPARISON: CT head without contrast 12/25/2018. TECHNIQUE: Axial [address] imaging of the brain. Reformatted coronal and sagittal images ob tained. This examination was performed according to our departmental dose optimization program, which include s automated exposure control, adjustment of the mA and/or kV according to patient size and/or use of iterative reconstruction technique. FINDINGS: Moderately prominent ventricles and sulci due to cortical volume loss. There is no intrapa renchymal or extra-axial hemorrhage. Moderate decreased white matter attenuation due to chronic micro vascular ischemic change. There are bilateral basal ganglia dystrophic ossification. No edema, mass o r midline shift. No large territorial infarction. No hyperdense vessel. Small focus of left occipital encephalomalacia due to remote infarct. Normal cerebellum and vermis. Fourth ventricle is midline. Prepontine cisterns are not effaced. Sol l sella contents. Intraorbital contents appear normal. Included paranasal sinuses and mastoid air cells are clear. Unre markable skull base and calvarium. IMPRESSION: 1. Moderate senescent brain changes. Small remote left occipital infarct. No intracrania l acute finding. Electronically signed by: Darling Muniz DO 01/06/2019 5:03 AM CDT Due to temporary technical issues with the PACS/Fluency reporting system, reports are being signed by the in house radiologist as a courtesy to ensure prompt reporting. The interpreting radiologist is f ully responsible for the content of the report.
[2019-01-06] MEDS: ACETAMINOPHEN 325 MG TABLET PO PRN ×2 (10:00→20:08)
[2019-01-06] MEDS: FAMOTIDINE 20 MG/2 ML VIAL IV SCH ×2 (10:01→22:10)
[2019-01-06] MEDS: GENTAMICIN OPTH SCH ×26 (10:05→23:09)
[2019-01-06] MEDS: SODIUM CHLORIDE 0.9% OPTH SCH ×24 (10:06→23:09)
[2019-01-06] MEDS: VANCOMYCIN 250 MG OPTH SCH ×24 (10:06→23:09)
[2019-01-06] MEDS ORDERED: D50W 25 GM/50 ML SYRINGE IV PRN (10:48)
[2019-01-06] MEDS ORDERED: GLUCAGON 1 MG/VIAL IM PRN (10:48)
[2019-01-06] MEDS: INSULIN -REGULAR HUMAN 50 UNIT/0.5 ML ML SQ SCH ×3 (11:30→21:00)
--- NOTE | 2019-01-06 11:37 | EKG ---
Test Date: 2019-01-06 Test Time: 03:28:41 Outpatient Physical Therapist Assistant: MARIN MEASUREMENT RESULTS: Intervals: Rate: 68 MS: 254 QRSD: 164 QT: 488 QTc: 518 [place]: P: 60 MS: 254 QRS: -47 T: 39 INTERPRETIVE STATEMENTS: Sinus rhythm with 1st degree AV block Right bundle branch block Abnormal ECG Compared to ECG 12/29/2018 03:13:38 T-wave abnormality no longer present Myocardial infarct finding no longer present Electronically Signed On 01-06-19 11:37:29 CDT by Charles Jaimes
--- NOTE | 2019-01-06 14:18 | CON ---
History Of Present Illness: Ms. Sullivan presented to the ER with severe pain in the left eye. The pain radiates to the top of her head. She states that it started a couple days ago and has worsened. Past Ocular History: Positive for diabetic retinopathy, cataracts. Past Ocular Procedures: Positive for pars plana vitrectomy. She believes she has had a cataract extraction in the left eye and glaucoma surgery in the right eye, but she is unsure. Allergies: INCLUDE PROMETHAZINE FOR HIVES; LEVOTHYROXINE, UNKNOWN; ASPIRIN, UNKNOWN; STADOL, HIVES. CLONIDINE, HIVES; CODEINE, SEIZURES; HYDROXYZINE, ITCHING AND HIVES; MEPERIDINE, HIVES; MORPHINE, HIVES; PANTOPRAZOLE, HIVES; PROCHLORPERAZINE, HIVES; PROPOXYPHENE, HIVES; HYDROMORPHONE; HALLUCINATIONS; ZOFRAN, NAUSEA OR VOMITING; PROCHLORPERAZINE, UNKNOWN. Past Medical History: Positive for diabetes, high blood pressure, acid reflux, dialysis. Medications: Include albuterol every 4 hours, famotidine 20 mg IV during the hospital b.i.d. She is on fentanyl as needed for pain, Atrovent q.4 hours p.r.n., Reglan 10 mg IV q.6 hours p.r.n. She was started on moxifloxacin by me every hour in the left eye. Home medications include midodrine 10 mg daily, lanthanum 1000 mg b.i.d., gabapentin 300 mg p.o. at night, clopidogrel 75 mg daily, and insulin on schedule. Family History: Positive for cataract and diabetes in both parents. Social History: She does not smoke. Review of Systems: Ear, Nose, Throat: Negative. Cardiovascular: Negative. Lungs: Negative for respiratory and COPD. GI: Acid reflux. : Negative. Musculoskeletal: Negative. Skin and Breasts: Negative. Neurologic: Negative. Endocrine: Diabetes. Hematologic: Negative. Immunologic: Negative. Psychologic: Negative. Ocular Examination: She is alert and oriented x3. Her visual acuity is hand motion in the right eye and hand motion barely in the left eye. Tactile intraocular pressure was within normal limits. Her right pupil was round and reactive, however, I could not visualize the left pupil. Her motility was normal. She was orthophoric. Visual field unable to obtain. Her lids were normal. Conjunctiva clear in the right eye. 2+ injection in the left eye. Cornea clear in the right eye. There is a corneal ulcer that is about a millimeter inferiorly. However, there is an infiltrate that covers the bottom half of the cornea. Anterior chamber formed in the right eye. Anterior chamber left eye unable to see. The iris is normal in the right eye. Unable to see the iris in the left eye. Lens: posterior chamber IOL in the right eye and the left eye unable to see. Dilation is contraindicated because of the patient's pain. Impression: The patient has a corneal ulcer in the left eye. She has been admitted for pain control and she is to start Vigamox every hour in the left eye , vancomycin 25 mg/mL and gentamicin 14 mg/mL were ordered and once those are compounded, those will be used every hour instead of the Vigamox. The nurse is to discuss the patient's Levaquin allergy with her and to let her know that the Vigamox is in the same class of drugs. However, this is globe saving medication until the fortified antibiotics can be obtained. The patient is going to be following up with me tomorrow in the office. JOSE/KURT Voice ID: [id number] Report ID: [id number] GRACIA
[2019-01-06] MEDS ORDERED: NA CHLORIDE 0.9% 1,000 ML IV PRN (16:30)
[2019-01-06] MEDS: LANTHANUM 1000 MG TAB PO SCH (17:03)
--- NOTE | 2019-01-06 21:24 | CON ---
Date of Consultation: 01/06/2019 Reason For Consultation: Electrolyte imbalance, over volume, hypertension, end-stage renal disease. History Of Present Illness: This is a pleasant 63-year-old female, well known to me from the [facility] with significant past medical history of hypertension; diabetes, complicated with neuropathy and re tinopathy, nephropathy; end-stage renal disease, on hemodialysis, Friday, Friday, Friday at [facility]; secondary hyperparathyroid; edema; coronary artery disease, complicated wit h congestive heart failure. Patient came to the hospital complaining of ear pain and tolerated the p ain with nausea without any vomiting. Primary workup showed elevation in BUN and creatinine. The sonam moran is due for dialysis today. For that reason, we have been consulted. Past Medical History: 1.Diabetes, complicated with neuropathy, retinopathy, and nephropathy. 2.Hypertension. 3.Hyperlipidemia. 4.End-stage renal disease, on hemodialysis, Friday, Friday, Friday. 5.Secondary hyperparathyroidism. 6.Edema. 7.Coronary artery disease complicated with congestive heart failure. Social History: Denies smoking, denies drinking, denies drugs abuse. Family History: Positive for diabetes. Past Surgical History: PermCath placement. Allergies: TO LEVAQUIN, ASPIRIN, CARVEDILOL, AND PROMETHAZINE. Review of Systems: Head And Neck: Had headache. Had ear pain. GI: Has nausea, no vomiting. : No polyuria, no dysuria, no hematuria. 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 Respiratory: No shortness of breath. Cardiovascular: No chest pain. Endocrine: No polydipsia. Skin: No rash. Neurology: Has neuropathy. Musculoskeletal: Has low back pain. Physical Examination: General: When I saw the patient, blood pressure of 112/60, pulse of 88. Chest: Clear in the upper zone. Crackles on the bilateral base. Heart: S1, S2, systolic murmur. Abdomen: Soft, nontender. Extremity: No ulcer, trace edema. Medications: Home medications include midodrine, Fosrenol, gabapentin. Current medications in the hospital include vancomycin, metoclopramide, Fosrenol, gabapentin, Pepcid. Laboratory Data: WBC 5.3, H and H 12.9/39.4. Sodium 136, potassium 4.6, bicarb 26, BUN 36, creatini ne 7.8, calcium 7.8. BNP 17,700. Chest x-ray, cardiomegaly with congestion. Assessment And Plan: 1.End-stage renal disease with electrolyte imbalance, over volume. We will take the patient to the dialysis today. We will challenge the patient. We will dialyze the patient on sodium module to esta blish better blood pressure for ultra filtration. 2.Hypertension, currently low blood pressure. Continue midodrine. 3.Over volume. We will challenge the patient today. The patient is going to be dialyzed on low tem perature and sodium module. 4.Anemia of chronic kidney disease. No need for binder. 5.Alkalosis; going to be corrected with dialysis. 6.Secondary hyperparathyroid. Continue binder. JACKLYN Voice ID: [id number] Report ID: [id number]
[2019-01-06] MEDS: FENTANYL CITR 100 MCG/2 ML IV PRN (22:10)
[2019-01-06] MEDS: GABAPENTIN 300 MG CAP PO SCH (22:10)
--- NOTE | 2019-01-06 22:57 | HP ---
Date of Admission: 01/06/2019 History Of Present Illness: A 63-year-old female with end-stage renal disease, on dialysis, just bee n discharged from the hospital because of fluid overload along with chest pain. She came back to the emergency room with a complaint of bad headache, being going on with her for the past 2 days all ove r her head, said about 6/10 to 7/10, and it has been intractable. So I went ahead and admitted the p atient for that. Past Medical History: Look her recent admit and discharge summaries please. Social History: Look her recent admit and discharge summaries please. Family History: Look her recent admit and discharge summaries please. Medications: Look her recent admit and discharge summaries please. Allergies: LOOK HER RECENT ADMIT AND DISCHARGE SUMMARIES PLEASE. Physical Examination: Vital Signs: Blood pressure 136/86, pulse 70, temperature 97.3. Heart: Regular rate and rhythm. Chest: Clear to auscultation. Abdomen: Soft, nontender. No hepatosplenomegaly. Bowel sounds normoactive. Extremities: No edema. No cyanosis. Peripheral pulses are felt. NEUROLOGICAL: Alert, oriented. Cranial nerves 2 through 12 intact. Sensory intact. Motor 5/5. Ne gative Babinski. Laboratory Data: EKG: Sinus rhythm with first-degree AV block and right bundle-branch block. Chest x-ray: No acute pathology. Head CT showed no bleeding and no acute pathology. CBC was noted. Lulu leyla: Patient has a BUN of 36, creatinine 7.85. Assessment/plan: Intractable headache all over. Her workup was unrevealing so far. Went ahead and admitted the patient, put her on fentanyl 25 mcg IV q.4 hours p.r.n. as the patient said it was only thing that works with her pain. She was continued on her home medications with gabapentin and the re st of her home medicines and we will monitor her blood sugar fingersticks, put her on sliding scale. We will also have consulted Dr. Galicia, Neurology, for her headache and also Nephrology to continu e her dialysis. Look orders for details. MFS/MODL Voice ID: [id number]
[2019-01-07] MEDS: GENTAMICIN OPTH SCH ×48 (00:30→23:16)
[2019-01-07] MEDS: SODIUM CHLORIDE 0.9% OPTH SCH ×48 (00:30→23:16)
[2019-01-07] MEDS: VANCOMYCIN 250 MG OPTH SCH ×48 (00:30→23:16)
[2019-01-07] MEDS: FENTANYL CITR 100 MCG/2 ML IV PRN ×4 (02:00→20:31)
[2019-01-07 06:50] LABS: Absolute Lymphocytes (CBC) 1.1 K/uL (0.7-4.9); Basophils % 0.8 % (0-1.3); Hematocrit 38.9 % (36.0-45.0); Lymphocytes % 23.3 % (15.3-44.8); MPV 9.5 fL (7.6-11.3); RBC Red Blood Cell Count 4.35 M/uL (3.86-4.86)
[2019-01-07 06:57] LABS: Potassium 4.3 mmol/L (3.5-5.1)
[2019-01-07] MEDS: INSULIN -REGULAR HUMAN 50 UNIT/0.5 ML ML SQ SCH ×4 (07:30→20:32)
[2019-01-07] MEDS: LANTHANUM 1000 MG TAB PO SCH ×2 (08:00→16:33)
--- NOTE | 2019-01-07 08:26 | RAD REPORT ---
EXAM DESCRIPTION: RAD - Chest Single View - 01/07/2019 5:53 am CLINICAL HISTORY: Chest Pain Chest pain. COMPARISON: Chest Single View dated 01/06/2019; Chest Single View dated 12/28/2018; Chest Single View dated 12/25/2018; Chest Single View dated 02/27/2018 FINDINGS: Portable technique limits examination quality. The lungs are grossly clear. The heart is mildly enlarged in size. Right-sided venous catheter has ti p in the SVC near the right atrium junction. IMPRESSION: No acute intrathoracic process suspected.
[2019-01-07] MEDS: CLOPIDOGREL 75 MG TABLET PO SCH (09:23)
[2019-01-07] MEDS: MIDODRINE HCL 5 MG TABLET PO SCH (09:24)
[2019-01-07] MEDS: FAMOTIDINE 20 MG/2 ML VIAL IV SCH ×2 (09:24→20:30)
--- NOTE | 2019-01-07 09:41 | EKG ---
Test Date: 2019-01-07 Test Time: 08:03:10 Form Layer: LIZZY MEASUREMENT RESULTS: Intervals: Rate: 79 VT: 218 QRSD: 160 QT: 444 QTc: 509 [place]: P: 42 VT: 218 QRS: -44 T: 13 INTERPRETIVE STATEMENTS: Sinus rhythm with 1st degree AV block Left axis deviation Right bundle branch block Abnormal ECG Compared to ECG 01/06/2019 03:28:41 Left-axis deviation now present Electronically Signed On 01-07-19 09:40:34 CDT by Charles Jaimes
--- NOTE | 2019-01-07 15:01 | PN ---
Date of Progress Note: 01/07/2019 Subjective: Patient was admitted with headache, missed her dialysis. The patient is doing well. Th e patient was found to have corneal ulcer on the left eye. Patient was started on treatment. Patien t had dialysis yesterday. Tolerated the dialysis well. Physical Examination: Vital Signs: Blood pressure 114/59, pulse of 90, afebrile. We managed to remove 2 L on the dialysis yesterday. Chest: Clear to auscultation. Heart: S1, S2. Regular. Systolic murmur. Abdomen: Soft, nontender. Extremity: No edema. Neurologic: Alert, oriented, no focal. Laboratory Data: WBC 4.6, H and H 12.7/38.9, platelets 152. Sodium 138, potassium 4.3, bicarb 24, B UN 20, creatinine 5, calcium 8.4. BNP 15,154. Current Medications: The patient on include: 1.Midodrine. 2.Albuterol. 3.Plavix. 4.Tylenol. 5.Gabapentin. 6.Pepcid. Assessment And Plan: 1.End-stage renal disease. We will continue the patient on dialysis. We will schedule the patient for dialysis tomorrow. 2.Over volume, currently normal volume. Continue dialysis Friday, Friday, Friday. 3.Hypertension, currently hypotensive. We will keep utilizing midodrine predialysis. Maintain the patient on sodium module during the dialysis. 4.Secondary hyperparathyroid. Continue binder, Fosrenol. 5.Corneal ulcer. Follow up with Ophthalmology. JACKLYN Voice ID: [id number] Report ID: [id number]
[2019-01-07] MEDS: GABAPENTIN 300 MG CAP PO SCH (20:30)
[2019-01-08] MEDS: GENTAMICIN OPTH SCH ×34 (00:15→16:07)
[2019-01-08] MEDS: VANCOMYCIN 250 MG OPTH SCH ×34 (00:15→16:07)
[2019-01-08] MEDS: SODIUM CHLORIDE 0.9% OPTH SCH ×34 (00:15→16:07)
[2019-01-08 01:04] VITALS: O2SAT 97
[2019-01-08] MEDS: INSULIN -REGULAR HUMAN 50 UNIT/0.5 ML ML SQ SCH ×2 (07:30→11:30)
[2019-01-08] MEDS: FENTANYL CITR 100 MCG/2 ML IV PRN ×2 (07:46→12:48)
[2019-01-08] MEDS: LANTHANUM 1000 MG TAB PO SCH (07:52)
[2019-01-08] MEDS: MIDODRINE HCL 5 MG TABLET PO SCH (09:15)
[2019-01-08] MEDS: FAMOTIDINE 20 MG/2 ML VIAL IV SCH (09:15)
[2019-01-08] MEDS: CLOPIDOGREL 75 MG TABLET PO SCH (09:15)
[2019-01-08 09:20] VITALS: BP 119/60; TEMP 98.2
[2019-01-08] MEDS: ACETAMINOPHEN 325 MG TABLET PO PRN (10:59)
--- NOTE | 2019-01-08 12:38 | P.PN ---
Subjective Date of Service: 01/08/19 Pt with ESRD , admitted geovany headache Today headache improved stable VS HD today can be discharged from nephrology point of view after HD today Physical Examination - Vital Signs Temperature: 98.2 F Blood Pressure: 119/60 Pulse: 73 Respirations: 15 Pulse Ox (%): 95 - Physical Exam General: In no apparent distress, Oriented x3 HEENT: Atraumatic, Other (poor vision, rt eye surgery ) Neck: Supple, Without JVD or thyroid abnormality Respiratory: Clear to auscultation bilaterally Cardiovascular: No edema, Regular rate/rhythm, Normal S1 S2 Assessment And Plan - Plan End-stage renal disease. HD today Cont Midodrine before HD Fluid overload Cont HD MBD COt binders Headache improving Corneal ulcer. on Abx Follow up with Ophthalmology.
[2019-01-08] MEDS: ALBUMIN HUMAN 25% 50 ML IV SCH ×2 (14:00→14:23)
--- NOTE | 2019-01-08 19:04 | PN ---
Subjective: Patient's headache is controlled with the fentanyl. Feeling otherwise well. No new com plaints. Objective: Vital Signs: Blood pressure 120/60, pulse 70, temperature 98.8. Heart: Regular rate and rhythm. Chest: Clear to auscultation. Abdomen: Soft. NEUROLOGIC: Alert and oriented, grossly intact. Assessment And Plan: 1.Generalized headache all over. Dr. Galicia has just seen the patient, pending his recommendation we will continue current treatment. 2.Type 2 diabetes. Continue sliding scale. 3.End-stage renal disease with diabetes. The patient is on dialysis. We will continue that and fol low up Nephrology's recommendations . Look orders for details. MFS/MODL Voice ID: [id number] Report ID: [id number]
--- NOTE | 2019-01-25 22:14 | CON ---
Date of Consultation: 01/08/2019 History Of Present Illness: Ms. Sullivan was admitted for a corneal ulcer and severe pain in her left eye. She has been taking fortified vancomycin and gentamicin every hour and states her eye is feeling better. Her visual acuities are hand motion in the right eye, and barely hand motion in the left eye. Her lids are within normal limits in both eyes. Her conjunctiva is clear in the right eye. There is 1+ injection of the conjunctiva on the left eye. The cornea is clear in the right eye. There is a corneal ulcer that is about a millimeter in size inferiorly; there is an infiltrate that covers the bottom half of the cornea in the left eye. The epithelium has healed over the left infiltrate. The anterior chamber is formed in the right eye. I am unable to see the anterior chamber in the left eye. The iris is normal in the right eye. Unable to see the iris in the left eye. A posterior chamber IOL in the right eye. I am unable to say the lens in the left eye. Impression: Ms. Sullivan has a corneal ulcer that is improving. She is to continue for fortified vancomycin and gentamicin and to follow up with me in the office tomorrow. JOSE/KURT Voice ID: [id number] Report ID: [id number] GRACIA
== END 2019-01-08 17:14 | disposition home or self-care (01) ==
LOC: ER 02:19 → INTOOBSV 06:57 → ERHOLD 06:57 → 2ND 07:33
PROVIDERS: ADMIT Internal Medicine; ATTEND Internal Medicine
DX: R51 Headache (principal); N18.6 End stage renal disease; I12.0 Hypertensive chronic kidney disease with stage 5 chronic kidney disease or end stage renal disease; N25.81 Secondary hyperparathyroidism of renal origin; H16.009 Unspecified corneal ulcer, unspecified eye; I95.9 Hypotension, unspecified; E11.22 Type 2 diabetes mellitus with diabetic chronic kidney disease
CPT/HCPCS: 96361; 93005 ×2; 85025 ×2; 80048 ×2; 36415 ×3; 83735; 85610; 82962 ×10; 80076; 85652; 84484 ×3; 83880 ×2; 86140; 70450; 71045 ×2; 90935; 96375; 96374; 99285; J2765; J1580 ×2; J3010 ×9; J1644 ×3; G0378 ×5; P9047; J7030; G0257

== ENCOUNTER 2020-04-12 14:09 | Inpatient (IN) | payer OTHER ==
--- OUTSIDE RECORDS SUMMARY | 2020-04-12 14:20 | XMS REPORT | Clinical Summary ---
:1955 Author Organization [facility] Address [address] [place] [address] Care Team Providers Name Role Phone Asked, No Pcp Primary Care Provider Unavailable Allergies Active Allergy Reactions Severity Noted Date Comments Aspirin 04/21/2017 On Plavix Clonidine 04/21/2017 Nausea, vomitin g Codeine 04/21/2017 Hallucinations Prochlorperazine Edisylate 04/21/2017 N ausea, vomiting Propoxyphene N-Acetaminophen Other (See Comments) 04/07 drowsiness Meperidine Other (See Comments) 04/21/2017 halluci nations Hydromorphone Other (See Comments) 04/21/2017 halluc inations Hydroxyzine 04/21/2017 Levofloxacin 04/21/2017 hallucinations Morphine Other (See Comments) 04/21/2017 halluci nations No Known Drug Allergies 08/19/2015 Ondansetron 04/21/2017 Nausea, vomiton g Pantoprazole 04/21/2017 Nausea, vomitin g Promethazine 04/21/2017 Nausea, vomitin g Tramadol 04/21/2017 Hallucinations Medications Medication Sig Dispensed [...] 04/24/2017 Low blood pressure 04/22/2017 Hypotension 04/21/2017 Surgical History Surgery Date Site/Laterality Comments REVISION, ARTERIOVENOUS GRAFT, 04/21/2017 Arm Upper/Left P rocedure: LEFT ARM WITH ANGIOGRAPHY ARTERIOVENOUS G RAFT EXCISION, LEFT FEMORAL JUANJOSE LYSIS CATHETER PLACEME NT; Surgeon: Hernesto pierre MD; Location: [facility] OR; Service: General ; Laterality: Left ; Medical devices from this surgery are in t he Implants section. CATHETER REMOVAL, TUNNELED 04/24/2017 N/A Proce dure: INSERTION OF CENTRAL VENOUS, WITH PORT TUNNEL ED DIALYSIS CATHETER WITH C-ARM; Vicky geon: Hernesto Mcclendon MD; Location: [facility] OR; Servic e: General; Laterality: N/A; Medical History Medical History Date Comments Diabetes mellitus (HCC) Neuropathy Renal disorder ESRD-left arm fistul a-last diaysis on Friday Hypotension CVA (cerebral vascular accident) (HCC) 2005 ESRD (end stage renal disease) ([facility]) Social History Tobacco Use Types Packs/Day Years Used Date Never Smoker Smokeless Tobacco: Never Used Sex Assigned at Date Recorded Not on file Last Filed Vital Signs Not on file Plan of Treatment Health Maintenance Due Date Last Done Comments DIABETES: RETINAL EYE EXAM 1965 DIABETIC FOOT EXAM 1965 URINE MICROALBUMIN 1965 COVID-19 VACCINE (#1) 1971 CERVICAL CANCER SCREENING 1976 COLONOSCOPY SCREENING 2005 SHINGLES VACCINES (#1) 2005 BREAST CANCER SCREENING 09/01/2010 09/01/2008 INFLUENZA VACCINE 11/06/2019 65+ PNEUMOCOCCAL VACCINE (1 of - PPSV23) 2020 Implants Implanted Type Area Manager Of Radiology Device Shelf Model / Identifier Expiration Serial / Date Lot Catheter Emboltmy Nenita 5fr 80cm Artrl Tube Pack - [id number] S urgical Left: THURMAN 11/05/2018 [id number] / Implanted: Qty: 1 on 04/21/2017 by Hernesto Mcclendon MD at [facility] Implants; Arm [employer]IFESCIENCES / Expanders; Extenders; Surgical Wires Tray Cath Dialys Straight 3lumen 24cm 13fr Power-Trialysis - [id number] Surgical Right: BARD ACCESS 09/04/2017 [id number] / Implanted: Qty: 1 on 04/21/2017 by Isaura Parikh MD at [facility] Implants; Arm SYSTEMS / Expanders; Extenders; Surgical Wires Results Not on fileafter 04/12/2019 Insurance Payer Benefit Plan / Subscriber ID Effective Dates Phone Addre ss Type Group MEDICARE MEDICARE PART A [id number] 2007-Present NAKITA SPENCE Medicare AND B Advance Directives For more information, please contact: [phone] Type Date Recorded Patient Credit And Collection Manager Explanati on Advance Directives, Living Will and Medical Power of Printing Grey Cloth Tender
--- OUTSIDE RECORDS SUMMARY | 2020-04-12 14:21 | XMS REPORT | Continuity of Care Document ---
:[address] [facility] t Address [address] [place] [address] Care Team Providers Name Role Phone UNKNOWN Primary Care Physician Unavailable NOWCONSTANTINO Attending Clinician Unavailable REINALDO Admitting Clinician Unavailable Problems Condition Condition Condition Status Onset Resolution Last Treating Co mments Source Name Details Category Date Date Treatment Clinician Date Pain Pain Disease Active [place] 18 Methodi 00:00: st 00 Low blood Low blood Disease Active [place] pressure pressure 1-16 Method i 00:00: st 00 Hypotensio Hypotensio Disease Active [place] n 1-15 Methodi 00:00: st 00 Allergies, Adverse Reactions, Alerts Allergy Allergy Status Severity Reaction(s) Onset Inactive Treating Comm ents Source Name Type Date Date Clinician Aspirin Propensi Active On Plavix [place] to 1-15 Method[facility] adverse 00:00: st reaction 00 s to drug Clonidin Propensi Active Nausea, [place] ty to 1-15 vomiting Methodi adverse 00:00: st reaction 00 s to drug Codeine Propensi Active Hallucina [place] to 1-15 tions [facility] adverse 00:00: st reaction 00 s to drug Prochlor Propensi Active Nausea, [place] perazine ty to 1-15 vomiting Method i Edisylat adverse 00:00: st e reaction 00 s to drug Propoxyp Propensi Active Other (See drowsines [facility] ty to Comments) 1-15 s Methodi N-Acetam adverse 00:00: st inophen reaction 00 s to drug Meperidi Propensi Active Other (See ines [place] ne ty to Comments) 1-15 tions Methodi adverse 00:00: st reaction 00 s to drug Hydromor Propensi Active Other (See ines [place] phone ty to Comments) 15 tions Methodi adverse 00:00: st reaction 00 s to drug Hydroxyz Propensi Active [place] ty to 115 Methodi adverse 00:00: st reaction 00 s to drug Levoflox Propensi Active hallucina [place] acin ty to 1-15 tions Methodi adverse 00:00: st reaction 00 s to drug Morphine Propensi Active Other (See ines [place] ty to Comments) 115 tions Methodi adverse 00:00: st reaction 00 s to drug Ondanset Propensi Active Nausea, [place]y ty to 1-15 vomitong Methodi adverse 00:00: st reaction 00 s to drug Pantopra Propensi Active Nausea, [place] zole ty to 1-15 vomiting Methodi adverse 00:00: st reaction 00 s to drug Prometha Propensi Active Nausea, [place] zine ty to 1-15 vomiting Methodi adverse 00:00: st reaction 00 s to drug Tramadol Propensi Active Ines [place] ty to 1-15 tions Methodi adverse 00:00: st reaction 00 s to drug Social History Social Habit Start Date Stop Date Quantity Comments Source Sex Assigned At [facility] ethodist Tobacco use and 2018-08-23 2018-08-23 Never used [facility] ethodist exposure 00:00:00 00:00:00 Smoking Status Start Date Stop Date Source Never smoker [facility] Medications Ordered Filled Start Stop Current Ordering Indication Dosage Frequency Signature Comments Components Source Medication Medication Date Date Medication? Clinician (SIG) Name Name gabapentin Yes 300mg QD Take 300 [place] (NEURONTIN) 1-20 mg by Methodi 300 mg 16:06: mouth st capsule 38 nightly. clopidogrel Yes 75mg QD Take 75 mg [place] (PLAVIX) 75 1-20 by mouth Meth karla mg tablet 16:06: daily. st 38 Every other day, taken midodrine Yes 15mg Q.5D Take 15 mg [place] (PROAMATINE 1-20 by mouth 2 Ms thodi ) 10 MG 16:06: (two) st tablet 38 times a day. Procedures This patient has no known procedures. Plan of Care Planned Activity Planned Date Details Comments Source Future Scheduled 2020 65+ PNEUMOCOCCAL [place] [facility] Test 00:00:00 VACCINE (1 of 1 - PPSV23) [code = 65+ PNEUMOCOCCAL VACCINE (1 of 1 - PPSV23)] Future Scheduled 2019-11-06 INFLUENZA VACCINE [place] [facility] 00:00:00 [code = INFLUENZA VACCINE] Future Scheduled 2010-09-01 [facility] SCREENING [code = BREAST CANCER SCREENING] Future Scheduled 2005 COLONOSCOPY SCREENING [place] [facility] Test 00:00:00 [code = COLONOSCOPY SCREENING] Future Scheduled 2005 SHINGLES VACCINES (#1) [place] [facility] Test 00:00:00 [code = SHINGLES VACCINES (#1)] Future Scheduled 1976 [facility]:00 malignant neoplasm of cervix (procedure) [code = 184136307] Future Scheduled 1971 COVID-19 VACCINE (#1) [place] [facility] Test 00:00:00 [code = COVID-19 VACCINE (#1)] Future Scheduled 1965 DIABETES: RETINAL EYE [place] [facility] Test 00:00:00 EXAM [code = DIABETES: RETINAL EYE EXAM] Future Scheduled 1965 DIABETIC FOOT EXAM [place] [facility] Test 00:00:00 [code = DIABETIC FOOT EXAM] Future Scheduled 1965 URINE MICROALBUMIN [place] [facility] Test 00:00:00 [code = URINE MICROALBUMIN] Encounters Start End Encounter Admission Attending Care Care Encounter Source Date/Time Date/Time Type Type Clinicians Facility Department ID 2019-01-08 2019-01-08 Emergency E [facility] 0[facility] 20:54:00 20:54:00 Results Test Description Test Time Test Comments Results Result Comments Source POC Glucose, Blood 2016-12-09 21:00:00 Test Item Value Reference Range Interpretation Comme nts POC Glucose (test code = 102 mg/dL 70-115 N If you consider your patient POCGLUC) critically ill, the Finn Accu-Chek InformII meters hould not be used for Glucose determi nations.Draw a venous Glucose and sen d to the Main Lab for Analysis. POC Glucose, [id number] 16:22:00 Test Item Value Reference Range Interpretation Comments POC Glucose (test 82 mg/dL 70-115 N If you con offset duplicating machine operator your code = POCGLUC) patient crit ically ill, the Finn Accu- Chek InformII meters hould not be used for Glu cose determinations. Draw a venous Glucose and send to the Main Lab for Analysis. POC Glucose, [id number] 08:07:00 Test Item Value Reference Range Interpretation Comments POC Glucose (test 76 mg/dL 70-115 N If you con offset duplicating machine operator your code = POCGLUC) patient crit ically ill, the Finn Accu- Chek InformII meters hould not be used for Glu cose determinations. Draw a venous Glucose and send to the Main Lab for Analysis. POC Glucose, [id number] 20:48:00 Test Item Value Reference Range Interpretation Comments POC Glucose (test 107 mg/dL 70-115 N If you con offset duplicating machine operator your code = POCGLUC) patient crit ically ill, the [place] Accu- Chek InformII meters hould not be used for Glu cose determinations. Draw a venous Glucose and send to the Main Lab for Analysis. POC Glucose, [id number] 07:18:00 Test Item Value Reference Range Interpretation Comments POC Glucose (test 75 mg/dL 70-115 N If you con offset duplicating machine operator your code = POCGLUC) patient crit ically ill, the Finn Accu- Chek InformII meters hould not be used for Glu cose determinations. Draw a venous Glucose and send to the Main Lab for Analysis. POC Glucose, [id number] 21:10:00 Test Item Value Reference Range Interpretation Comments POC Glucose (test 129 mg/dL 70-115 H If you con offset duplicating machine operator your code = POCGLUC) patient crit ically ill, the [place] Accu- Chek InformII meters hould not be used for Glu cose determinations. Draw a venous Glucose and send to the Main Lab for Analysis. POC Glucose, [id number] 07:44:00 Test Item Value Reference Range Interpretation Comments POC Glucose (test 91 mg/dL 70-115 N If you con offset duplicating machine operator your code = POCGLUC) patient crit ically ill, the [place] Accu- Chek InformII meters hould not be used for Glu cose determinations. Draw a venous Glucose and send to the Main Lab for Analysis. US ABD B-SCAN, [id number] 09:21:21DICTATION LOCATION: [id number]: distended. COMPARISON: None available.TECHNIQUE: Sonography ofthe abdomen. [...] grayscale evaluation of the aorta and IVC areunrem arkable. IMPRESSION: 1. Hepatomegaly with heterogeneous echotexture. Findings may representhepatic steatosis or underlying hepatic dysfunction. Correlateclinically with LFTs.2. Renal cortical atrophywith increased cortical echogenicitycompatible with medical renal disease. No hydronephrosis.3. Status post cholecystectomy.4. Abdominopelvic ascites.XR ABDOMEN KUB [id number] 07:58:20EXAM: KUBLocation: [id number]: DistendedCOMPARISON: NoneDISCUSSION:A frontal view of the abdomen is submitted.There is overall increased density of the abdomen with relativelycentralized bowel gas and obscured abdominal fat planes, suggestive ofascites. Right upper quadrant surgical clips suggest pr iorcholecystectomy. No bowel obstruction or gross evidence ofintra-abdominal free air is seen. No acute bony or normalities areidentified.IMPRESSION: Findings suggest ascites. No evidence of bowel obstructionor intraperitoneal free air.POC Glucose, [id number] 20:27:00 Test Item Value Reference Range Interpretation Comments POC Glucose (test 107 mg/dL 70-115 N If you con offset duplicating machine operator your code = POCGLUC) patient crit ically ill, the Finn Accu- Chek InformII meters hould not be used for Glu cose determinations. Draw a venous Glucose and send to the Main Lab for Analysis. POC Glucose, [id number] 21:14:00 Test Item Value Reference Range Interpretation Comments POC Glucose (test 141 mg/dL 70-115 H If you con offset duplicating machine operator your code = POCGLUC) patient crit ically ill, the Finn Accu- Chek InformII meters hould not be used for Glu cose determinations. Draw a venous Glucose and send to the Main Lab for Analysis. Comprehensive Metabolic [id number] 06:45:00 Test Item Value Reference Range Interpretation Comments Sodium (test code = 135 mmol/L 135-145 N NA) Potassium (test 4.5 mmol/L 3.5-5.1 N code = K) Chloride (test code 94 mmol/L 98-105 L = CL) Carbon Dioxide 27 mmol/L 22-29 N (test code = CO2) Glucose (test code 90 mg/dL 70-115 N = GLU) Blood Urea Nitrogen 28 mg/dL 8-23 H (test code = BUN) Creatinine (test 6.6 mg/dL 0.5-0.9 H code = CREAT) Calcium (test code 9.2 mg/dL 8.3-10.5 N = CA) Prot Total (test 8.7 g/dL 6.4-8.3 H code = TP) Albumin (test code 4.2 g/dL 3.5-5.2 N = ALB) A/G Ratio (test 0.9 Ratio code = AGRATIO) Globulin (test code 4.5 2.9-3.1 H = GLOB) Bili Total (test 0.6 mg/dL 0.1-0.9 N code = TBIL) Alk Phos (test code 83 U/L 35-104 N = APHOS) AST (test code = 11 U/L 1-32 N AST) ALT (test code = 7 U/L 1-33 N ALT) BUN/Creatinine 4.2 Ratio (test code = BCRATIO) Anion Gap (test 14 mmol/L 7-16 N code = AGAP) Estimated GFR (test 8 eGFR (es timated code = GFR) mL/min/1.73m2 Glomerular Raphael tration Rate) is an est imated value,calculate d from the patient's s bee creatinine usin g the MDRD equation.I t is NOT the patient 's actual GFR. The eGFR provides a more clinicallyusefu l measure of kidn ey disease than se rum creatinine alone.This calculation arnaldo es sex and race into account, if the informationis provided. If th e race is not provided , and the patient isAfrican-Ameri can, multiply by 1.2 12. If sex is not prov ided, and thepatient is female, multipl y by 0.742. Results for patients <18 ye ars ofage have not been validated by th e MDRD study and shoul d be interpretedwith caution.eGFR Re sult Interpretation: eGFR > or = 60 is in t he Normal RangeeGF R < 60 may mean kidney diseaseeGFR < 1 5 may mean kidney failureRange s recommended by the National Kidney Foundation,http ://nkd ep.nih.gov CBC with [id number] 06:27:00 Test Item Value Reference Range Interpretation Comments WBC (test code = WBC) 4.2 K/cumm 4.4-10.5 L RBC (test code = RBC) 4.34 M/cumm 3.75-5.20 N Hemoglobin (test code = HGB) 11.8 gm/dL 12.2-14.8 L Hematocrit (test code = HCT) 39.4 % 36.5-44.4 N MCV (test code = MCV) 90.9 fL 80-100 N MCH (test code = MCH) 27.2 pg 27.0-32.5 N MCHC (test code = MCHC) 29.9 g/dL 32.0-37.5 L RDW (test code = RDW) 17.2 % 11.5-14.5 H Platelet Count (test code = 146 K/cumm 140-440 N PLTCT) MPV (test code = MPV) 9.1 fL Diff Method (test code = DIFFM) Auto Neutrophil (test code = NEUT) 60.0 % 36-70 N Lymphocyte (test code = LYMPH) 27.5 % 12-44 N Monocyte (test code = MONO) 8.2 % 0-11 N Eosinophil (test code = EOS) 3.8 % 0-7 N Basophil (test code = BASO) 0.4 % 0-2 N Neutro Abs (test code = ANEUT) 2.5 K/cumm 1.6-7.4 N Lymph Abs (test code = ALYMPH) 1.1 K/cumm 0.5-4.6 N [place] Abs (test code = AMONO) 0.4 K/cumm 0.0-1.2 N Eos Abs (test code = AEOS) 0.16 K/cumm 0.00-0.74 N Baso Abs (test code = ABASO) 0.0 K/cumm 0.00-0.21 N Hypochromic (test code = HYPO) Slight Hep B Surface [id number] 21:04:00 Test Item Value Reference Range Interpretation Comments Hep Bs Ag (test code = HBSAG) Nonreactive Non-Reactive A [id number] 14:36:00 Test Item Value Reference Range Interpretation Comments NT ProBnp (test code = PBNP) >75309 pg/mL 0-124 H Troponin [id number] 14:36:00 Test Item Value Reference Range Interpretation Comments Troponin T (test code = AARON) 0.040 ng/mL 0.000-0.090 N CBC with [id number] 14:14:00 Test Item Value Reference Range Interpretation Comments WBC (test code = WBC) 4.0 K/cumm 4.4-10.5 L RBC (test code = RBC) 4.45 M/cumm 3.75-5.20 N Hemoglobin (test code = 12.0 gm/dL 12.2-14.8 L HGB) Hematocrit (test code = 41.8 % 36.5-44.4 N HCT) MCV (test code = MCV) 94.0 fL 80-100 N MCH (test code = MCH) 26.9 pg 27.0-32.5 L MCHC (test code = MCHC) 28.6 g/dL 32.0-37.5 L RDW (test code = RDW) 18.4 % 11.5-14.5 H Platelet Count (test 137 K/cumm 140-440 L code = PLTCT) MPV (test code = MPV) 10.7 fL Diff Method (test code = Manual DIFFM) Neutrophil (test code = 53.0 % 36-70 N NEUT) Lymphocyte (test code = 28.8 % 12-44 N LYMPH) Monocyte (test code = 13.5 % 0-11 H MONO) Eosinophil (test code = 4.2 % 0-7 N EOS) Basophil (test code = 0.5 % 0-2 N BASO) Neutro Abs (test code = 2.1 K/cumm 1.6-7.4 N ANEUT) [place] Abs (test code = 0.5 K/cumm 0.0-1.2 N AMONO) Eos Abs (test code = 0.17 K/cumm 0.00-0.74 N AEOS) Baso Abs (test code = 0.0 K/cumm 0.00-0.21 N ABASO) RBC Morphology (test Normal code = RBCMRPH) Platelet Est (test code Normal Platelet on = PLTEST) Smear Prothrombin [id number] 14:07:00 Test Item Value Reference Range Interpretation Comments PT (test code = PT) 13.30 seconds 9.78-13.35 N INR (test code = INR) 1.17 Ratio 0.6-1.2 N Partial Thromboplastin [id number] 14:07:00 Test Item Value Reference Range Interpretation Comments aPTT (test code = PTT) 37.50 seconds 24.39-37.25 H Basic Metabolic [id number] 13:57:00 Test Item Value Reference Range Interpretation Comments Sodium (test code = 132 mmol/L 135-145 L NA) Potassium (test 5.8 mmol/L 3.5-5.1 H code = K) Chloride (test code 95 mmol/L 98-105 L = CL) Carbon Dioxide 23 mmol/L 22-29 N (test code = CO2) Glucose (test code 97 mg/dL 70-115 N = GLU) Blood Urea Nitrogen 47 mg/dL 8-23 H (test code = BUN) Creatinine (test 8.2 mg/dL 0.5-0.9 H code = CREAT) Calcium (test code 9.0 mg/dL 8.3-10.5 N = CA) BUN/Creatinine 5.7 Ratio (test code = BCRATIO) Anion Gap (test 14 mmol/L 7-16 N code = AGAP) Estimated GFR (test 5 eGFR (es timated code = GFR) mL/min/1.73m2 Glomerular Raphael tration Rate) is an est imated value,calculate d from the patient's s bee creatinine usin g the MDRD equation.I t is NOT the patient 's actual GFR. The eGFR provides a more clinicallyusefu l measure of kidn ey disease than se rum creatinine alone.This calculation arnaldo es sex and race into account, if the informationis provided. If th e race is not provided , and the patient isAfrican-Ameri can, multiply by 1.2 12. If sex is not prov ided, and thepatient is female, multipl y by 0.742. Results for patients <18 ye ars ofage have not been validated by th e MDRD study and radhaul d be interpretedwith caution.eGFR Re sult Interpretation: eGFR > or = 60 is in t he Normal RangeeGF R < 60 may mean kidney diseaseeGFR < 1 5 may mean kidney failureRange s recommended by the National Kidney Foundation,http ://nkd ep.nih.gov XR CHEST 1 [id number] 13:31:50CLINICAL INFORMATION: End-stage renal disease. Missed dialysis recently.Dictation Location: R 16Comparison: No prior study available at this time. Technique: Portable AP upright 1255 hoursFINDINGS: There is globular cardiomegaly with central vascularprominence. Mild aortic tortuosity. Elevated right hemidiaphragm.Nonspecific increase in lung markings. No destructive bone lesionidentified.Impression:1. Changes in the chest suggest cardiac decompensation or fluidoverload.2. Chronic appearing elevated right hemidiaphragm.
[2020-04-12] MEDS ORDERED: NA CHLORIDE 0.9% 250 ML ONE (15:00)
--- NOTE | 2020-04-12 15:05 | RAD REPORT ---
EXAM DESCRIPTION: CT - Head Brain Wo Cont - 04/12/2020 2:57 pm CLINICAL HISTORY: MENTAL STATUS CHANGE Headache, drowsiness COMPARISON: Head Brain Wo Cont dated 01/06/2019; Head Brain Wo Cont dated 12/25/2018 TECHNIQUE: All CT scans are performed using dose optimization technique as appropriate and may inclu de automated exposure control or mA/KV adjustment according to patient size. FINDINGS: No intracranial hemorrhage, hydrocephalus or extra-axial fluid collection.Mild generalized brain atrophy is present with moderate periventricular and deep white matter chronic microvascular i schemic changes.No areas of brain edema or evidence of midline shift. The paranasal sinuses and mastoids are clear. The calvarium is intact. IMPRESSION: No acute intracranial abnormality.
--- NOTE | 2020-04-12 16:03 | RAD REPORT ---
EXAM DESCRIPTION: RAD - Chest Single View - 04/12/2020 3:45 pm CLINICAL HISTORY: AMS Chest pain. COMPARISON: Chest Single View dated 01/07/2019; Chest Single View dated 01/06/2019; Chest Single View dated 12/28/2018; Chest Single View dated 12/25/2018 FINDINGS: Portable technique limits examination quality. The lungs are grossly clear. The heart is moderately enlarged in size. No displaced fractures.Right-s ided venous catheter has its tip in the right atrium.
[2020-04-12] MEDS ORDERED: NA CHLORIDE 0.9% 1,000 ML ONE (16:30)
[2020-04-12] MEDS ORDERED: LIDOCAINE 1% MPF 30 ML VIAL ONE (17:05)
[2020-04-12] MEDS ORDERED: D50W 25 GM/50 ML SYRINGE IV ONE (17:50)
[2020-04-12] MEDS ORDERED: CEFEPIME/SWI 1gm 10 ML ONE (17:51)
[2020-04-12] MEDS ORDERED: ONDANSETRON 4 MG/2 ML VIAL ONE (17:58)
[2020-04-12] MEDS ORDERED: METOCLOPRAMIDE 10 MG/2mL INJ ONE (17:59)
[2020-04-12] MEDS ORDERED: NA CHLORIDE 0.9% 50 ML ONE (17:59)
[2020-04-12 18:12] LABS: Absolute Lymphocytes (CBC) 0.9 K/uL (0.7-4.9); Basophils % 0.8 % (0-1.3); Hematocrit 39.8 % (36.0-45.0); Lymphocytes % 26.4 % (15.3-44.8); MPV 9.7 fL (7.6-11.3); RBC Red Blood Cell Count 4.48 M/uL (3.86-4.86)
[2020-04-12 18:15] LABS: ALT/SGPT 7 U/L (12-78); AST/SGOT 4 U/L (15-37); Albumin 3.5 g/dL (3.4-5.0); Alkaline Phosphatase 599 U/L (45-117); BUN Blood Urea Nitrogen 22 mg/dL (7-18); Bicarbonate 25 mmol/L (21-32); Bilirubin Direct 0.1 mg/dL (0-0.2); Bilirubin Total 0.4 mg/dL (0.2-1.0); Glucose Level 75 mg/dL (74-106); Magnesium 2.1 mg/dL (1.8-2.4); NT PRO-BNP 33272 pg/mL (<125); Potassium 3.6 mmol/L (3.5-5.1); Protein, Total 7.7 g/dL (6.4-8.2); Sodium Level 139 mmol/L (136-145); Troponin (Emerg Dept Use Only) < 0.02 ng/mL (0.0-0.045)
[2020-04-12 18:32] LABS: Anisocytosis 1+; Blood Morphology Comment NOTED (NOT SEEN); Platelet Estimate DECR; White Blood Cell Scan OK (OK)
--- NOTE | 2020-04-12 19:25 | EDPHYS ---
Physician Documentation [facility] Name: Liya Sullivan Age: 65 yrs Sex: Female : 1955 Arrival Date: 04/12/2020 Time: 14:14 Bed 5 Private MD: ED Physician Derek Lizama HPI: 04/12 14:45 This 65 yrs old Black Female presents to ER via EMS with complaints of Altered Mental cp Status. 14:45 The patient presents with decreased responsiveness. cp 14:45 Onset: The symptoms/episode began/occurred today. Possible causes: unknown. Associated cp signs and symptoms: Pertinent negatives: abdominal pain, chest pain, combativeness, headache, fever. Current symptoms: In the emergency department the patient's symptoms are unchanged from the initial presentation. Patient's baseline: Neuro: alert and fully oriented, Ambulation: walks with assist only, Speech: normal. 14:45 Patient arrived to ED via EMS after being found to have low blood pressure while at dialysis today. Patient dialyzed only 300 mLs before dialysis was discontinued due to low blood pressure. Historical: - Allergies: 14:24 Aspirin; tw2 14:24 butorphanol tartrate; tw2 14:24 Clonidine; tw2 14:24 Codeine; tw2 14:24 Compazine; tw2 14:24 Darvocet-N 100; tw2 14:24 Demerol; tw2 14:24 diphenhydramine HCl; tw2 14:24 Hydromorphone; tw2 14:24 hydroxyzine HCl; tw2 14:24 Klonopin; tw2 14:24 Levaquin; tw2 14:24 Levofloxacin; tw2 14:24 Morphine; tw2 14:24 Ondansetron HCl; tw2 14:24 pantoprazole sodium; tw2 14:24 promethazine HCl; tw2 14:24 Protonix; tw2 14:24 Stadol; tw2 14:24 tramadol; tw2 - Home Meds: 14:24 alprazolam 0.25 mg Oral tab [Active]; cinacalcet Oral [Active]; clopidogrel 75 mg Oral tw2 tab 1 tab once daily [Active]; Durezol 0.05 % ophthalmic drop 1 drop [Active]; Fosrenol 1,000 mg Oral pwpk [Active]; gabapentin 300 mg Oral cap 1 cap [Active]; Humulin N Sub-Q [Active]; Humulin R 100 unit/mL soln [Active]; lanthanum 1000mg Oral [Active]; Zemplar 4 mcg Oral cap 1 cap once daily [Active]; timolol maleate 0.5 % Opht drop 1 drop [Active]; midodrine 10 mg Oral tab 1 tab [Active]; latanoprost 0.005 % ophthalmic drop 1 drop once daily [Active]; Tums Oral [Active]; - PMHx: 14:24 BLIND; CVA; Diabetes - IDDM; Dialysis; ESRD; Hypotention; tw2 - PSHx: 14:24 None; tw2 - Immunization history:: Adult Immunizations. - Social history:: Smoking status: . ROS: 14:50 Constitutional: Negative for body aches, chills, fever, poor PO intake. cp 14:50 Cardiovascular: Negative for chest pain, palpitations. cp 14:50 Respiratory: Negative for cough, shortness of breath, wheezing. 14:50 Abdomen/GI: Negative for abdominal pain, nausea, vomiting, and diarrhea, black/tarry stool, rectal bleeding. 14:50 Neuro: Positive for weakness, Negative for headache. 14:50 All other systems are negative. Exam: 14:54 Constitutional: The patient appears in no acute distress, alert, awake, cp non-diaphoretic, non-toxic, well developed, well nourished, obese. 14:54 Head/Face: Normocephalic, atraumatic. cp 14:54 Eyes: Periorbital structures: appear normal, Conjunctiva: exudate, in the left eye, injected, in the left eye, Lids and lashes: appear normal, bilaterally. 14:54 ENT: External ear(s): are unremarkable, Nose: is normal, Mouth: Lips: dry, Oral mucosa: dry, Posterior pharynx: Airway: no evidence of obstruction, patent. 14:54 Neck: ROM/movement: is normal, is supple, without pain, no range of motions limitations, no meningismus. 14:54 Chest/axilla: Inspection: normal, Palpation: is normal, no crepitus, no tenderness. 14:54 Cardiovascular: Rate: normal, Rhythm: regular, Edema: is not appreciated, JVD: is not appreciated. 14:54 Respiratory: the patient does not display signs of respiratory distress, Respirations: normal, no use of accessory muscles, no retractions, Breath sounds: decreased breath sounds, that are mild, throughout, wheezing: is not appreciated. 14:54 Abdomen/GI: Inspection: obese Palpation: abdomen is soft and non-tender, in all quadrants. 14:54 Skin: no rash present. 14:54 Neuro: Orientation: to person, place \T\ time. Mentation: able to follow commands, slow to respond, Motor: moves all fours, general weakness without focal deficits, Sensation: no obvious gross deficits. 14:56 ECG was reviewed by the Attending Physician. Vital Signs: 14:14 BP 91 / 39; Pulse 70; Resp 16; Pulse Ox 97% on R/A; Weight 99.79 kg; Height 5 ft. 3 in. tw2 (160.02 cm); 14:14 Temp 97.9(TE); tw2 16:07 BP 77 / 37; Pulse 66; Resp 14; Pulse Ox 95% on 2 lpm NC; tw2 17:04 BP 85 / 56; Pulse 57; Resp 20; Pulse Ox 94% on 2 lpm NC; ph 18:21 BP 113 / 76; Pulse 70; Resp 18; Pulse Ox 98% on 2 lpm NC; ph /08 20:03 Temp 98.2; ds4 01/ 14:14 Body Mass Index 38.97 (99.79 kg, 160.02 cm) tw2 01/06 14:14 provider notified tw2 16:07 provider notified. tw2 Procedures: 18:00 Central Line: the site was prepped with Betadine, in sterile fashion, a triple lumen cp catheter was inserted, in the right femoral vein, in 2 attempts. placement was verified, by blood return, the site was dressed with using sterile technique, the patient tolerated the procedure, well. MDM: 14:41 Patient medically screened. 19:01 Physician consultation: Vern Kovacs MD was called at 19:01, regarding admission, to the ICU, left message on voicemail. 19:25 Data reviewed: vital signs, nurses notes, lab test result(s), EKG, radiologic studies, cp CT scan, plain films, I have discussed the patient's presentation/case with the attending Emergency Department Physician; and as a result, I will admit patient. 19:25 Physician consultation: Vern Kovacs MD was contacted at 19:15, regarding admission, cp to the ICU, patient's condition. 04/12 14:38 Order name: Basic Metabolic Panel; Complete Time: 18:33 cp 04/12 18:33 Interpretation: Normal except: BUN 22; CRE 6.25; GFR 8; CA 8.0. cp 04/12 14:38 Order name: CBC with Diff; Complete Time: 18:53 cp 04/12 21:39 Interpretation: Normal except: WBC 3.5; MCH 26.8; MCHC 30.1; PLT 102; RDW 20.2. cp 04/12 14:38 Order name: LFT's; Complete Time: 18:33 cp 04/12 14:38 Order name: Magnesium; Complete Time: 18:33 cp 04/12 14:38 Order name: NT PRO-BNP; Complete Time: 18:33 cp 04/12 14:38 Order name: PT-INR; Complete Time: 19:52 cp 04/12 14:38 Order name: Troponin (emerg Dept Use Only); Complete Time: 18:33 cp 04/12 14:38 Order name: Lactate; Complete Time: 17:35 cp 04/12 14:38 Order name: Procalcitonin; Complete Time: 18:53 cp 04/12 14:38 Order name: Blood Culture Adult (2) cp 04/12 17:43 Order name: Glucose, Ancillary Testing; Complete Time: 18:13 EDMS 04/12 18:33 Order name: CBC Smear Scan; Complete Time: 18:53 EDMS 04/12 19:25 Order name: Glucose, Ancillary Testing; Complete Time: 19:52 EDMS 04/12 20:33 Order name: Basic Metabolic Panel EDMS 04/12 20:33 Order name: Basic Metabolic Panel; Complete Time: 21:51 EDMS 04/12 20:33 Order name: CBC with Automated Diff EDMS 04/12 20:33 Order name: CBC with Automated Diff; Complete Time: 21:51 EDMS 04/12 22:35 Order name: Vancomycin Level Trough EDMS 04/12 22:35 Order name: Vancomycin Peak EDMS 04/12 23:09 Order name: SARS-COV-2 RT PCR; Complete Time: 01:57 EDMS 04/13 00:09 Order name: Glucose, Ancillary Testing; Complete Time: 01:57 EDMS 04/13 01:01 Order name: ABG ea 04/13 01:07 Order name: ABG Arterial Blood Gas; Complete Time: 01:57 EDMS 04/13 09:18 Order name: Glucose, Ancillary Testing; Complete Time: 21:51 EDMS 04/13 11:57 Order name: Glucose, Ancillary Testing; Complete Time: 21:51 EDMS 04/13 18:22 Order name: Glucose, Ancillary Testing; Complete Time: 21:51 EDMS 04/14 00:19 Order name: Glucose, Ancillary Testing EDMS 04/14 08:10 Order name: Glucose, Ancillary Testing EDMS 04/14 11:58 Order name: Glucose, Ancillary Testing EDMS 04/12 14:38 Order name: CT Head Brain wo Cont; Complete Time: 17:35 cp 04/12 14:38 Order name: XRAY Chest (1 view); Complete Time: 17:35 cp 04/12 14:38 Order name: EKG; Complete Time: 14:39 cp 04/12 14:38 Order name: Cardiac monitoring; Complete Time: 15:43 cp 04/12 14:38 Order name: EKG - Nurse/Tech; Complete Time: 15:43 cp 04/12 20:35 Order name: Renal EDSD 04/12 22:35 Order name: CONS Pharmacy Consult EDSD 04/13 00:58 Order name: BIPAP ea 04/14 16:50 Order name: Glucose, Ancillary Testing EDSD 04/15 01:07 Order name: Glucose, Ancillary Testing EDSD 04/15 07:45 Order name: Glucose, Ancillary Testing EDSD 04/15 11:57 Order name: Glucose, Ancillary Testing EDMS 04/15 16:57 Order name: Glucose, Ancillary Testing EDMS 04/15 22:37 Order name: Glucose, Ancillary Testing EDSD 04/16 08:00 Order name: Glucose, Ancillary Testing EDSD 04/16 11:50 Order name: Glucose, Ancillary Testing EDMS 04/16 16:56 Order name: Glucose, Ancillary Testing EDMS 04/17 05:30 Order name: CBC with Automated Diff EDMS 04/17 07:38 Order name: Glucose, Ancillary Testing EDMS 04/17 12:20 Order name: Glucose, Ancillary Testing EDMS 04/17 16:38 Order name: Glucose, Ancillary Testing EDMS 04/17 17:44 Order name: Diet Renal: ALERGIC TO TURKEY; Complete Time: 17:45 mh5 04/17 20:35 Order name: Glucose, Ancillary Testing EDMS 04/12 14:38 Order name: IV Saline Lock; Complete Time: 15:43 cp 04/12 14:38 Order name: Labs collected and sent; Complete Time: 15:43 cp 04/12 14:38 Order name: O2 Per Protocol; Complete Time: 15:43 cp 04/12 14:38 Order name: O2 Sat Monitoring; Complete Time: 15:43 cp EC:56 Rate is 66 beats/min. Rhythm is regular. WI interval is prolonged at 224 msec. QRS cp interval is normal. QT interval is normal. T waves are Inverted in leads aVR, V4, V5. Interpreted by me. Reviewed by me. Administered Medications: 15:40 Drug: NS 0.9% 250 ml Route: IV; Rate: bolus; Site: right hand; tw2 16:30 Follow up: Response: No adverse reaction; IV Status: Completed infusion; IV Intake: ph 250ml 16:50 Drug: NS 0.9% 1000 ml Route: IV; Rate: 1000 ml; Site: right hand; ph 18:15 Follow up: Response: No adverse reaction; IV Status: Completed infusion; IV Intake: ph 1000ml 17:50 Drug: Cefepime 1 grams Route: IVPB; Rate: 200 ml/hr; Infused Over: 30 mins; Site: right ph femoral; 18:00 Follow up: Response: No adverse reaction; IV Status: Completed infusion ph 17:50 Drug: D50W 50 ml Route: IVP; Site: right femoral; ph 18:36 Follow up: Response: No adverse reaction ph 17:51 Drug: Reglan 10 mg Route: IVP; Site: right femoral; ph 18:36 Follow up: Response: No adverse reaction; Nausea is decreased ph 18:04 Drug: Norepinephrine (4 mg/250 mL D5W) 4 mcg/min {Note: initiated at 5 mg/min.} Route: ph IV; Rate: calculated rate; Site: right femoral; 22:30 Drug: NARcan 0.4 mg Route: IVP; Site: right hand; ea 22:40 Follow up: Response: No adverse reaction mg2 22:32 Drug: Zosyn 2.25 grams Route: IVPB; Infused Over: 60 mins; Site: right femoral; ea 04/13 00:35 Follow up: Response: No adverse reaction; IV Status: Completed infusion ea 04/12 23:00 Drug: vancoMYCIN 1 grams Route: IVPB; Infused Over: 2 hrs; Site: right femoral; 04/13 01:02 Follow up: Response: No adverse reaction; IV Status: Completed infusion; IV Intake: ea 250ml Disposition: 04/17 07:34 Co-signature as Attending Physician, Derek Lizama MD I agree with the assessment and kdr plan of care. Disposition: 04/12/20 19:24 Hospitalization ordered by Vern Kovacs for Inpatient Admission. Preliminary diagnosis are Other sepsis, Hypotension. - Bed requested for [facility] ER HOLD. - Status is Inpatient Admission. sg - Condition is Serious. - Problem is new. - Symptoms have improved. Signatures: Dispatcher [employer] EDSD Lucia Nguyen RN RN dm5 Ivan eRdd RN RN Mikey Santana MD MD pkl Rittger, Kevin, MD MD [facility] Uyen Arango RN RN ph Gildardo Ríos, [place] PA Tessa Duran RN KRISTINA Mayuri Dewey RN RN tw2 Chastity Mccracken RN RN ea Habalo, Winsy RN KRISTINA Bala Garcia RN [facility] [place] Corrections: (The following items were deleted from the chart) 04/12 18:33 18:33 Normal except: BUN 22; CRE 6.25; GFR 8. cp cp 21:21 19:24 Hospitalization Ordered by Vern Kovacs MD for Inpatient Admission. Preliminary cg diagnosis is Other sepsis; Hypotension. Bed requested for Telemetry/MedSurg (Inpatient). Status is Inpatient Admission. Condition is Serious. Problem is new. Symptoms have improved. cp 22:14 20:32 CORONAVIRUS+MR.LAB.BRZ ordered. [facility] EDSD 04/17 21:28 04/12 21:21 04/12/2020 19:24 Hospitalization Ordered by Vern Kovacs MD for Inpatient sg Admission. Preliminary diagnosis is Other sepsis; Hypotension. Bed requested for [facility] ER HOLD. Status is Inpatient Admission. Condition is Serious. Problem is new. Symptoms have improved. cg
--- NOTE | 2020-04-12 19:25 | ER ---
Nurse's Notes [facility] Name: Liya Sullivan Age: 65 yrs Sex: Female : 1955 Arrival Date: 04/12/2020 Time: 14:14 Bed 5 Private MD: Diagnosis: Other sepsis;Hypotension Presentation: 04/12 14:14 Chief complaint: EMS states: pt was at at [facility], family dropped her off, tw2 states she didn't sleep last night and arrived to dialysis lethargic, dialysis told us that she is at least 3 liters overloaded but they were only able to get 300 ml out because pts blood pressure dropped, they said normally it does drop during dialysis but they we uncomfortable continuing, bp 104/60 bgl 98. Coronavirus screen: At this time, unable to obtain information related to travel outside the [place] unknown. Ebola Screen: Patient denies travel to an Ebola-affected area in the 21 days before illness onset. Initial Sepsis Screen: Does the patient meet any 2 criteria? No. Patient's initial sepsis screen is negative. Does the patient have a suspected source of infection? No. Patient's initial sepsis screen is negative. Risk Assessment: Do you want to hurt yourself or someone else? Patient reports no desire to harm self or others. Onset of symptoms was April 12, 2020. 14:14 Method Of Arrival: EMS: [facility] tw2 14:14 Acuity: STEPHANIE 2 tw2 Historical: - Allergies: 14:24 Aspirin; tw2 14:24 butorphanol tartrate; tw2 14:24 Clonidine; tw2 14:24 Codeine; tw2 14:24 Compazine; tw2 14:24 Darvocet-N 100; tw2 14:24 Demerol; tw2 14:24 diphenhydramine HCl; tw2 14:24 Hydromorphone; tw2 14:24 hydroxyzine HCl; tw2 14:24 Klonopin; tw2 14:24 Levaquin; tw2 14:24 Levofloxacin; tw2 14:24 Morphine; tw2 14:24 Ondansetron HCl; tw2 14:24 pantoprazole sodium; tw2 14:24 promethazine HCl; tw2 14:24 Protonix; tw2 14:24 Stadol; tw2 14:24 tramadol; tw2 - Home Meds: 14:24 alprazolam 0.25 mg Oral tab [Active]; cinacalcet Oral [Active]; clopidogrel 75 mg Oral tw2 tab 1 tab once daily [Active]; Durezol 0.05 % ophthalmic drop 1 drop [Active]; Fosrenol 1,000 mg Oral pwpk [Active]; gabapentin 300 mg Oral cap 1 cap [Active]; Humulin N Sub-Q [Active]; Humulin R 100 unit/mL soln [Active]; lanthanum 1000mg Oral [Active]; Zemplar 4 mcg Oral cap 1 cap once daily [Active]; timolol maleate 0.5 % Opht drop 1 drop [Active]; midodrine 10 mg Oral tab 1 tab [Active]; latanoprost 0.005 % ophthalmic drop 1 drop once daily [Active]; Tums Oral [Active]; - PMHx: 14:24 BLIND; CVA; Diabetes - IDDM; Dialysis; ESRD; Hypotention; tw2 - PSHx: 14:24 None; tw2 - Immunization history:: Adult Immunizations. - Social history:: Smoking status: . Screenin:25 Abuse screen: Denies threats or abuse. Nutritional screening: No deficits noted. tw2 Tuberculosis screening: No symptoms or risk factors identified. Fall Risk Secondary diagnosis (15 points) impaired mobility, CVA. Assessment: 14:57 Reassessment: pt transported to [place] via stretcher with [employer] at this time. tw2 16:07 Reassessment: provider notified of need for central line placement d/t BP, supplies for tw2 central line at bedside. Reassessment: provider LA Calderon still at bedside trying for central line placement and RAGINI,RN at bedside at this time. 17:04 Reassessment: Patient appears in no apparent distress at this time. Gildardo P unable to ph access femoral for central line placement, Dr Lizama at bedside to assist. 18:25 Reassessment: Patient appears in no apparent distress at this time. Patient and/or ph family updated on plan of care and expected duration. Pain level reassessed. Pt awake but lethargic, falls asleep easily, BP improving w/ Levophed. 19:14 General: Appears in no apparent distress. Behavior is appropriate for age. Pain: Unable ea to use pain scale. FLACC scale score is 0 out of 10. Neuro: Level of Consciousness is awake, alert, obeys commands, Oriented to person, place, time, situation. Cardiovascular: Patient's skin is warm and dry. Respiratory: Airway is patent Respiratory effort is even. Derm: Skin is dry, Skin is normal, Skin temperature is warm. 04/17 14:51 Reassessment: Rounding on client: client lying supine, on director general appears to be sr5 1st degree heart block, HR 84, BP 113/78 on Levophed drip at 5mcg/min on IV pump via femoral central line.92% on 3L per NC. Bed locked and low. Vital Signs: 04/12 14:14 BP 91 / 39; Pulse 70; Resp 16; Pulse Ox 97% on R/A; Weight 99.79 kg; Height 5 ft. 3 in. tw2 (160.02 cm); 14:14 Temp 97.9(TE); tw2 16:07 BP 77 / 37; Pulse 66; Resp 14; Pulse Ox 95% on 2 lpm NC; tw2 17:04 BP 85 / 56; Pulse 57; Resp 20; Pulse Ox 94% on 2 lpm NC; ph 18:21 BP 113 / 76; Pulse 70; Resp 18; Pulse Ox 98% on 2 lpm NC; ph 04/14 20:03 Temp 98.2; ds4 04/12 14:14 Body Mass Index 38.97 (99.79 kg, 160.02 cm) tw2 04/12 14:14 provider notified tw2 16:07 provider notified. tw2 ED Course: 14:14 Patient arrived in ED. tw2 14:14 Bed in low position. Side rails up X2. electric switch repairer on. Pulse ox on. NIBP on. tw2 Notified ED physician of Notified Nurse Practitioner and/or Physician Film Painter of pts arrival to ER, pts condition and VS status. 14:22 Triage completed. tw2 14:24 Arm band placed on. tw2 14:26 Mayuri Dewey, KRISTINA is Primary Nurse. tw2 14:28 Gildardo Ríos PA is PHCP. cp 14:28 Derek Lizama MD is Attending Physician. cp 14:56 CT Head Brain wo Cont In Process Unspecified. EDMS 15:20 Missed attempt(s): 22 gauge in right antecubital area. per [employer]. Bleeding tw2 controlled, band aid applied, catheter tip intact. 15:30 Inserted saline lock: 24 gauge in right hand, using aseptic technique. Blood collected. tw2 15:45 XRAY Chest (1 view) In Process Unspecified. EDMS 17:30 Assisted provider with central line placement. Set up central line tray. Triple lumen ph line placed in right femoral. Line placed by Derek Lizama MD Placement verified by blood return, Dressed with Tegaderm, Blood was collected. Patient tolerated well. 18:40 Patient admitted, IV remains in place. ph 19:24 Vern Kovacs MD is Hospitalizing Provider. cp 04/13 14:30 Diet: Patient given ice chips. Patient given juice. Tolerated well. jp3 04/15 06:46 Primary Nurse role handed off by Mayuri Dweey RN eb 07:10 Joby Mohan, KRISTINA is Primary Nurse. bp 04/16 07:00 Report received from KRISTINA Haywood. [email or web address] 04/17 07:31 Primary Nurse role handed off by Joby Mohan RN bd 07:38 Alberto Landeros, KRISTINA is Primary Nurse. em 19:07 Primary Nurse role handed off by Alberto Landeros, KRISTINA mw2 20:29 Diallo Collado, RN is Primary Nurse. rr5 Administered Medications: 04/12 15:40 Drug: NS 0.9% 250 ml Route: IV; Rate: bolus; Site: right hand; tw2 16:30 Follow up: Response: No adverse reaction; IV Status: Completed infusion; IV Intake: ph 250ml 16:50 Drug: NS 0.9% 1000 ml Route: IV; Rate: 1000 ml; Site: right hand; ph 18:15 Follow up: Response: No adverse reaction; IV Status: Completed infusion; IV Intake: ph 1000ml 17:50 Drug: Cefepime 1 grams Route: IVPB; Rate: 200 ml/hr; Infused Over: 30 mins; Site: right ph femoral; 18:00 Follow up: Response: No adverse reaction; IV Status: Completed infusion ph 17:50 Drug: D50W 50 ml Route: IVP; Site: right femoral; ph 18:36 Follow up: Response: No adverse reaction ph 17:51 Drug: Reglan 10 mg Route: IVP; Site: right femoral; ph 18:36 Follow up: Response: No adverse reaction; Nausea is decreased ph 18:04 Drug: Norepinephrine (4 mg/250 mL D5W) 4 mcg/min {Note: initiated at 5 mg/min.} Route: ph IV; Rate: calculated rate; Site: right femoral; 22:30 Drug: NARcan 0.4 mg Route: IVP; Site: right hand; ea 22:40 Follow up: Response: No adverse reaction mg2 22:32 Drug: Zosyn 2.25 grams Route: IVPB; Infused Over: 60 mins; Site: right femoral; ea 04/13 00:35 Follow up: Response: No adverse reaction; IV Status: Completed infusion ea 04/12 23:00 Drug: vancoMYCIN 1 grams Route: IVPB; Infused Over: 2 hrs; Site: right femoral; 04/13 01:02 Follow up: Response: No adverse reaction; IV Status: Completed infusion; IV Intake: ea 250ml Intake: 04/12 16:30 IV: 250ml; Total: 250ml. ph 18:15 IV: 1000ml; Total: 1250ml. ph 04/13 01:02 IV: 250ml; Total: 1500ml. ea Outcome: 04/12 19:24 Decision to Hospitalize by Provider. cp 04/17 21:28 Patient left the ED. sg 21:34 Admitted to ICU accompanied by nurse, via stretcher, room ER Room 9, Report called to dmFernando Cazares RN Signatures: Dispatcher [employer] EDMS Sharon Almanza Deana, RN KRISTINA dm5 Ivan Redd RN RN Alberto Sterling RN Dillon Darden ds4 Uyen Arango RN KRISTINA ph Gildardo Ríos, PA PA cp Mayuri Dewey RN RN tw2 David Anderson RN RN sr5 Lynn Hagen RN RN jl7 Chastity Mccracken RN RN ea Habalo, Winsy, RN RN wh Peltier, Brian RN Mike Duff mw2 Inna Giang Michele, RN RN mg2 [place] 3 Diallo Collado RN RN rr5 Corrections: (The following items were deleted from the chart) 04/12 15:45 14:30 Inserted saline lock: 24 gauge in right hand, using aseptic technique. Blood tw2 collected. tw2 15:45 14:20 Missed attempt(s): 22 gauge in right antecubital area. per [employer]. Bleeding tw2 controlled, band aid applied, catheter tip intact. tw2 18:23 18:21 BP 113 / 76; Pulse 70bpm; Resp 18bpm; Pulse Ox 98% RA; ph ph
[2020-04-12 19:44] LABS: Protime INR 1.13
[2020-04-12] MEDS ORDERED: GLUCAGON 1 MG/VIAL IM PRN (20:33)
[2020-04-12] MEDS ORDERED: D50W 25 GM/50 ML SYRINGE IV PRN (20:33)
[2020-04-12] MEDS: INSULIN -REGULAR HUMAN 50 UNIT/0.5 ML ML SQ SCH (21:00)
[2020-04-12] MEDS ORDERED: Pharmacy Consult 1 EA XX PRN (22:33)
[2020-04-12] MEDS ORDERED: VANCOMYCIN 2.5 GM in NA CHLORIDE 0.9% 500 ML IVPB ONE (23:00)
[2020-04-13] MEDS ORDERED: VANCOMYCIN 1.5 GM in NA CHLORIDE 0.9% 500 ML IVPB ONE (01:00)
[2020-04-13] MEDS ORDERED: PIPER/TAZO/NS 2.25gm 2.25 GM/50 ML BAG IVPB SCH (01:00)
[2020-04-13 01:04] LABS: Arterial Blood Carboxyhemoglob 1.4 % (0-1.5); Blood Gas Oxyhemoglobin 94.8 % (94-97); Blood O2 Saturation 96.9 % (92-98.5)
[2020-04-13] MEDS ORDERED: VANCOMYCIN 1 GM/VIAL ONE (02:54)
[2020-04-13] MEDS ORDERED: NA CHLORIDE 0.9% 500 ML ONE (02:54)
[2020-04-13 06:25] LABS: Potassium 3.8 mmol/L (3.5-5.1)
[2020-04-13 06:39] LABS: Absolute Lymphocytes (CBC) 0.9 K/uL (0.7-4.9); Basophils % 0.3 % (0-1.3); Hematocrit 42.5 % (36.0-45.0); Lymphocytes % 20.3 % (15.3-44.8); MPV 9.7 fL (7.6-11.3)
[2020-04-13] MEDS: INSULIN -REGULAR HUMAN 50 UNIT/0.5 ML ML SQ SCH ×4 (07:30→16:30)
[2020-04-13] MEDS ORDERED: VANCOMYCIN/NS 1 gm 1 GM/250 ML BAG IV SCH (08:15)
[2020-04-13] MEDS: PIPER/TAZO/NS 2.25gm 2.25 GM/50 ML BAG IVPB SCH ×2 (09:00→17:00)
[2020-04-13] MEDS ORDERED: CLOPIDOGREL 75 MG TABLET ONE (09:59)
[2020-04-13] MEDS ORDERED: PIPER/TAZO/NS 2.25gm 2.25 GM/50 ML BAG ONE ×2 (09:59→18:20)
[2020-04-13] MEDS: NOREPINEPHRINE 4 MG in D5W 250 ML IV PRN (12:10)
--- NOTE | 2020-04-13 14:12 | HP ---
Date of Admission: 04/12/2020 History Of Present Illness: A 65-year-old female with end-stage renal failure, on dialysis. Apparen osmin, she took some Ativan before going to dialysis yesterday and while they were trying to dialyze he r, she became unresponsive and had altered mental status. She was brought to the hospital emergency room here, and she was found to be hypotensive also. The patient was admitted for altered mental sta tus and hypotension. Also suspicion of infection is entertained. The patient today at the time of i nterviewing her, she was alert, oriented x4, and she gave no other symptoms. She said she is feeling well. Review of Systems: Neurological: As above. Cardiovascular: No complaints. Genitourinary: No complaints. Skeletomuscular: No complaints. Respiratory: No complaints. Gastrointestinal: No complaints. Past Medical History: 1.As mentioned above, dialysis patient. 2.Type 2 diabetes mellitus. 3.History of CVA. 4.History of hypertension also in the past. 5.The patient had advanced diabetic retinopathy for which she is legally blind. Social History: No smoking, alcohol, or drug use history. Family History: Noncontributing. Medications: Include Ativan 0.25 mg p.o. daily p.r.n. She is on Plavix 75 mg p.o. daily, gabapentin 300 mg p.o. daily, Humulin N subcutaneous and Humulin-R p.r.n. She is on Zemplar 4 mcg p.o. daily a nd on midodrine 10 mg p.o. daily. She is on ophthalmic solutions. Allergies: PROMETHAZINE, LEVOFLOXACIN, ASPIRIN, BUTORPHANOL, CLONIDINE, AND CODEINE. Physical Examination: General: The patient is in bed, comfortable, oriented x4. Vital signs: Blood pressure was 80/40, pulse 67, temperature 97.9. Heart: Regular rate and rhythm. Chest: Clear to auscultation. Abdomen: Soft. Benign. Neurologic: As mentioned, the patient is alert, oriented x4. Moves all her extremities. Extremities: No trace edema, bilateral pedal and tibial. Diagnostic Data: Chest x-ray showed cardiomegaly, otherwise no acute process. Head CT showed no acu te abnormality. Blood cultures pending. Lab: White cell count 4.3, hemoglobin 12.8, hematocrit 42.5, and platelets 116. Chemistries; creati nine 6.67, BUN 25. Blood sugar fingersticks noted. Assessment/plan: 1.Altered mental status. I think most likely secondary to Ativan. She has improved after Dr. Gasper lynch gave her an amp of Narcan, however, also with her prolactin being high at 0.21, we are going to c ontinue the patient on IV antibiotics pending blood cultures. 2.The patient is on Levophed vasopressor for her hypotension. Expect that to improve. 3.At this time, Nephrology is as following the patient with us and we will see if needed dialysis. They will install that as needed. We will continue the rest of her home medicines. 4.Look orders for details. MFS/MODL Voice ID: [id number]
[2020-04-13] MEDS ORDERED: INSULIN -REGULAR HUMAN 50 UNIT/0.5 ML ML ONE (18:49)
[2020-04-14] MEDS: NOREPINEPHRINE 4 MG in D5W 250 ML IV PRN ×2 (00:21→15:00)
[2020-04-14] MEDS ORDERED: NOREPINEPHRINE 4mg/D5W 250mL 4 MG/250 ML BAG IV ONE ×2 (00:27→14:24)
--- NOTE | 2020-04-14 00:34 | CON ---
Reason For Consultation: Elevated BUN and creatinine, over volume, end-stage renal disease. History Of Present Illness: This is a pleasant 65-year-old female with significant past medical history of end-stage renal disease, on hemodialysis, Friday, Friday, Friday at [facility]; diabetes; CVA; hypertension; hyperlipidemia; coronary artery disease complicated with congestive heart failure. Patient was in her regular state of health. Apparently, patient yesterday had difficulty her night sleep. For that reason when she arrived to dialysis apart of that, she took extra of her Xanax and seizure medication in the dialysis, patient was sleepy, difficulty to wake up, had a couple of incident of low blood pressure. Her blood pressure down to the 50s and hypoglycemia. Blood sugar down to the 80s. After dialysis, patient did not wake up. For that reason, patient was directed to the ER. In the ER, patient continued to be low blood pressure. Patient was started on Levophed. After giving the patient Narcan, patient completely awake. Past Medical History: Include: 1. End-stage renal disease, on hemodialysis Friday, Friday, Friday at [facility]. 2. Diabetes, complicated with neuropathy, retinopathy, and nephropathy. 3. Hypertension. 4. Hyperlipidemia. 5. Secondary hyperparathyroidism. 6. CVA. 7. Coronary artery disease complicated with congestive heart failure. 8. Seizure. Social History: Denies smoking. Denies drinking. Denies drugs abuse. Family History: Positive for diabetes. Past Surgical History: Include PermCath placement. Allergies: LEVAQUIN, ASPIRIN, CARVEDILOL, AND PROMETHAZINE. Review of Systems: Head and Neck: No red eye. No ear pain. GI: No nausea, no vomiting. : No polyuria, no dysuria, no hematuria. Budget Examiner: No vaginal discharge. Respiratory: No shortness of breath. Cardiovascular: Has leg swelling. Endocrine: No polydipsia. Skin: No rash. Neuro: Pleasantly confused. Musculoskeletal: No joint pain. Home Medications: Include: 1. Ativan. 2. Plavix. 3. Gabapentin. 4. Insulin. 5. Zemplar. 6. Midodrine. Physical Examination: Vital Signs: When I saw the patient, patient is lying on the stretcher, awake. Blood pressure of 91/59, pulse of 81, afebrile. Chest: Crackles bilateral. Heart: S1, S2. Systolic murmur. Abdomen: Soft, nontender. Extremities: +1 edema. Neurologic: Alert. No focality. Laboratory Data: Chest x-ray cardiomegaly with congestion. WBC 4.3, H and H are 12.8/42.5. Sodium 137, potassium 3.8, bicarb 22, BUN 25, creatinine 6.6, calcium 8.2. ABG, pH 7.2, CO2 59, O2 115. Assessment And Plan: 1. End-stage renal disease, over volume with a questionable sepsis. I am going to arrange for dialysis tomorrow. We will give midodrine to maintain good blood pressure medication. I agree with current antibiotic cover. We will follow up with the primary. 2. Diabetes as per primary. 3. Altered mental status secondary to opioid over dose. Continue neuro watch. We will follow up after dialysis tomorrow. p.r.n. Narcan if needed. 4. Cerebrovascular accident. Continue supportive care. 5. Coronary artery disease with congestive heart failure. We will try to establish better volume control after dialysis. 6. Hypertension. Currently blood pressure on the lower side. Hold all blood pressure medication. We will start the patient on midodrine. Thank you, Dr. Kovacs, for allowing us to participate in the care of your patient. Time spent discussing with the patient, [id number], using the translation, discussing with the staff and placing an order, discussing with over subspecialty and hospitalist 75 minutes. JACKLYN Voice ID: [id number] Report ID: [id number] GRACIA
[2020-04-14] MEDS ORDERED: NA CHLORIDE 0.9% 250 ML ONE (00:45)
[2020-04-14] MEDS: PIPER/TAZO/NS 2.25gm 2.25 GM/50 ML BAG IVPB SCH ×3 (01:00→17:00)
[2020-04-14] MEDS ORDERED: PIPER/TAZO/NS 2.25gm 2.25 GM/50 ML BAG ONE ×3 (02:20→18:32)
[2020-04-14] MEDS: INSULIN -REGULAR HUMAN 50 UNIT/0.5 ML ML SQ SCH ×4 (07:30→21:00)
[2020-04-14] MEDS: MIDODRINE HCL 5 MG TABLET PO SCH ×3 (09:00→21:00)
[2020-04-14] MEDS ORDERED: PNEUMOCOCCAL VACCINE 0.5 ML IMVAC ONE (10:00)
--- NOTE | 2020-04-14 13:05 | PN ---
Subjective: The patient is alert and oriented. Has no new complaints. Objective: Vital Signs: Blood pressure 85/60, pulse 90, temperature 98.4. Heart: Regular rate and rhythm. Chest: Mild bilateral crackles. Abdomen: Soft. Benign. Neurologic: Alert, oriented x4. Grossly intact. Extremities: Trace edema, pedal, bilateral. Laboratory Data: CBC noted. White cell count at 4.3, hemoglobin 12.8, hematocrit 42.5, and platelet s 116. Blood sugar fingersticks noted. Assessment And Plan: 1.Hypotension, multifactorial from kidney failure and possible effect of medication. Ativan. After Narcan, the patient's mental status back to normal, however, normal baseline for her. As still she is hypotensive, we are also considering sepsis for which she is on antibiotics. We will continue olimpia t and her hypotension is also secondary to her chronic medical problems including her chronic renal f ailure, coronary artery disease. Well, at this time, we will hold her blood pressure medicines and e xpecting the blood pressure to gradually improve. Meanwhile, Nephrology is following the case with u s. Whenever her blood pressure allows, she is going to be dialyzed. 2.Continue current treatment with antibiotics, electrolyte monitoring and dialysis as permitted. Lyn jo orders for details. MFS/MODL Voice ID: [id number] Report ID: [id number]
--- NOTE | 2020-04-14 13:41 | P.PN ---
Subjective Date of Service: 04/14/20 Subjective A 65-year-old female on hemodialysis, Friday, Friday, Friday at [facility], diabetes; CVA; hypertension; hyperlipidemia; coronary artery disease complicated with congestive heart failure. Pt was sent from HD Unit for hypotension , AMS and hypoglycemia today mentally improved but still on Levophed will do dialysis tomorrow , once pt is morte stable F/U Cultures ESRd on HD MWF via Rt IJ catheter will do dialysis tomorrow , once pt is morte stable renal dose meds monitor vanco elevl Shock unclar reason, septic? cont BAx Midodrine and levophed AMS resolved due to opiates and hypoglycemia DM SSI hypoglycemia on admission , But BS is better controlled now total time spent 40minn Physical Examination - Vital Signs Temperature: 98.4 F Blood Pressure: 98/62 Pulse: 90 Respirations: 16 Pulse Ox (%): 95 - Studies Microbiology Data (last 24 hrs): 04/12/20 20:11 Blood - Blood Anaerobic Blood Culture - Final 04/12/20 15:30 Blood - Blood Anaerobic Blood Culture - Final
[2020-04-14] MEDS ORDERED: D50W 25 GM/50 ML VIAL IV PRN (17:37)
[2020-04-14] MEDS: GABAPENTIN 300 MG CAP PO SCH (21:35)
[2020-04-14] MEDS ORDERED: GABAPENTIN 300 MG CAP ONE (21:42)
[2020-04-15] MEDS: PIPER/TAZO/NS 2.25gm 2.25 GM/50 ML BAG IVPB SCH ×3 (00:45→17:00)
[2020-04-15] MEDS ORDERED: NOREPINEPHRINE 4mg/D5W 250mL 4 MG/250 ML BAG IV ONE (00:48)
[2020-04-15] MEDS ORDERED: PIPER/TAZO/NS 2.25gm 2.25 GM/50 ML BAG ONE ×3 (01:14→17:15)
[2020-04-15] MEDS: INSULIN -REGULAR HUMAN 50 UNIT/0.5 ML ML SQ SCH ×4 (07:30→21:00)
[2020-04-15] MEDS: CLOPIDOGREL 75 MG TABLET PO SCH (09:00)
[2020-04-15] MEDS ORDERED: ALBUMIN HUMAN 25% 100 ML IV ONE (09:00)
[2020-04-15] MEDS: MIDODRINE HCL 5 MG TABLET PO SCH ×3 (09:00→21:00)
[2020-04-15] MEDS ORDERED: CLOPIDOGREL 75 MG TABLET ONE (10:19)
[2020-04-15] MEDS ORDERED: INSULIN -REGULAR HUMAN 50 UNIT/0.5 ML ML ONE ×2 (12:47→17:15)
--- NOTE | 2020-04-15 13:27 | PN ---
Subjective: Patient continues to do well. Her blood pressures have improved markedly to 134/84, and she is well alert and oriented. At this time, she is going to have dialysis today. Objective: As mentioned, alert and oriented x4. The rest is no change. Patient's temperature of 97 .1, pulse 93. Blood sugar fingersticks noted less than 200 and more than 100. Assessment/plan: The patient will have dialysis today as per Nephrology, and she continues to be sta ble. Plan is to discharge her. Look orders for details. MFS/MODL Voice ID: [id number] Report ID: [id number]
[2020-04-15] MEDS ORDERED: INFLUENZA VACCINE (for 3y+) 0.5 ML DOSE IMVAC ONE (14:00)
--- NOTE | 2020-04-15 18:16 | P.PN ---
Subjective Date of Service: 04/15/20 Subjective A 65-year-old female on hemodialysis, Friday, Friday, Friday at [facility], diabetes; CVA; hypertension; hyperlipidemia; coronary artery disease complicated with congestive heart failure. Pt was sent from HD Unit for hypotension , AMS and hypoglycemia today mentally at baseline tolerated HD with no complications Cont on levophed , BP improved no, will titrate levophed down F/U Cultures Cont Abx ESRd on HD MWF via Rt IJ catheter tolerated HD with no complications renal dose meds monitor vanco level Shock unclar reason, septic? cont BAx cont Midodrine titrate down levophed AMS resolved due to opiates and hypoglycemia DM SSI BS controlled now total time spent 40minn Physical Examination - Vital Signs Temperature: 97.1 F Blood Pressure: 125/71 Pulse: 96 Respirations: 18 Pulse Ox (%): 92
[2020-04-15] MEDS: GABAPENTIN 300 MG CAP PO SCH (21:00)
[2020-04-15] MEDS ORDERED: GABAPENTIN 300 MG CAP PO SCH (21:00)
[2020-04-15] MEDS ORDERED: GABAPENTIN 300 MG CAP ONE (22:57)
[2020-04-16] MEDS: PIPER/TAZO/NS 2.25gm 2.25 GM/50 ML BAG IVPB SCH ×3 (01:00→17:00)
[2020-04-16] MEDS ORDERED: NOREPINEPHRINE 4mg/D5W 250mL 4 MG/250 ML BAG IV ONE ×2 (02:07→13:33)
[2020-04-16] MEDS ORDERED: PIPER/TAZO/NS 3.375gm 3.375 GM/100 ML BAG ONE (02:08)
[2020-04-16] MEDS: INSULIN -REGULAR HUMAN 50 UNIT/0.5 ML ML SQ SCH ×4 (07:30→21:00)
[2020-04-16] MEDS: MIDODRINE HCL 5 MG TABLET PO SCH ×3 (09:00→21:00)
[2020-04-16] MEDS: CLOPIDOGREL 75 MG TABLET PO SCH (09:00)
[2020-04-16] MEDS ORDERED: PIPER/TAZO/NS 2.25gm 2.25 GM/50 ML BAG ONE ×2 (09:13→17:49)
[2020-04-16] MEDS ORDERED: CLOPIDOGREL 75 MG TABLET ONE (09:13)
[2020-04-16] MEDS ORDERED: INSULIN -REGULAR HUMAN 50 UNIT/0.5 ML ML ONE (12:06)
--- NOTE | 2020-04-16 13:20 | P.PN ---
Subjective Date of Service: 04/16/20 Subjective A 65-year-old female on hemodialysis, Friday, Friday, Friday at [facility], diabetes; CVA; hypertension; hyperlipidemia; coronary artery disease complicated with congestive heart failure. Pt was sent from HD Unit for hypotension , AMS and hypoglycemia today still on levophed last vanco dose on 04/13, will give another dose today will give vancomycin today HD tomorrow Physical exam general: AAOX3, NAD , obese Neck; Supple, No elevated JVD , Rt IJ catheter hear: RRR, normal S1,2 no murmur or rub Chest: CTAB, no rlaes or wheezes Abdomen: Soft , Nt Extremities No edema or ulcer ESRd on HD MWF via Rt IJ catheter tolerated HD with no complications renal dose meds will give vancomycin today Shock unclar reason, septic? cont BAx cont Midodrine titrate down levophed AMS resolved due to opiates and hypoglycemia DM SSI BS controlled now total time spent 40minn Physical Examination - Vital Signs Temperature: 97.2 F Blood Pressure: 95/60 Pulse: 76 Respirations: 17 Pulse Ox (%): 99
[2020-04-16] MEDS ORDERED: VANCOMYCIN 1.25 GM in NA CHLORIDE 0.9% 250 ML IVPB ONE (14:00)
--- NOTE | 2020-04-16 19:25 | PN ---
Subjective: Patient is currently stable, alert, and oriented. She had dialysis yesterday. Objective: VITAL SIGNS: Blood pressure right now is 95/60, pulse 76, temperature 97.2. Rest of her physical exam is no changed. Laboratory Data: Blood sugar fingersticks noted, less than 200, more than 100. Assessment And Plan: 1.End-stage renal disease, has been dialyzed yesterday, doing better now. 2.Acute mental status change, resolved. I think it was secondary to Narcan. However, a suspicion o f infection and sepsis has been considered, although likely blood cultures have grown nothing until n ow. Patient is afebrile. We will monitor patient today and if she continues to do well and her bloo d pressure holds at about 100 systolic or more, then we can discharge the patient if it is okay with her and meanwhile continue current treatment. MFS/MODL Voice ID: [id number] Report ID: [id number]
[2020-04-16] MEDS: GABAPENTIN 300 MG CAP PO SCH (21:00)
[2020-04-17] MEDS ORDERED: NOREPINEPHRINE 4mg/D5W 250mL 4 MG/250 ML BAG IV ONE ×2 (00:39→10:45)
[2020-04-17] MEDS: PIPER/TAZO/NS 2.25gm 2.25 GM/50 ML BAG IVPB SCH ×3 (01:00→17:00)
[2020-04-17 05:10] LABS: Absolute Lymphocytes (CBC) 0.8 K/uL (0.7-4.9); Basophils % 1.2 % (0-1.3); Hematocrit 40.4 % (36.0-45.0); Lymphocytes % 16.3 % (15.3-44.8); MPV 9.2 fL (7.6-11.3); RBC Red Blood Cell Count 4.55 M/uL (3.86-4.86)
[2020-04-17] MEDS: INSULIN -REGULAR HUMAN 50 UNIT/0.5 ML ML SQ SCH ×4 (07:30→20:56)
[2020-04-17] MEDS ORDERED: CLOPIDOGREL 75 MG TABLET ONE (08:38)
[2020-04-17] MEDS ORDERED: PIPER/TAZO/NS 2.25gm 2.25 GM/50 ML BAG ONE (08:38)
[2020-04-17] MEDS: CLOPIDOGREL 75 MG TABLET PO SCH (09:00)
[2020-04-17] MEDS: MIDODRINE HCL 5 MG TABLET PO SCH ×3 (09:00→20:37)
[2020-04-17] MEDS ORDERED: ACETAMINOPHEN 500 MG TAB ONE (09:03)
[2020-04-17] MEDS: ACETAMINOPHEN 500 MG TAB PO PRN (09:05)
[2020-04-17] MEDS ORDERED: GABAPENTIN 300 MG CAP ONE (20:05)
[2020-04-17] MEDS: GABAPENTIN 300 MG CAP PO SCH (20:37)
[2020-04-17] MEDS ORDERED: INSULIN -REGULAR HUMAN 50 UNIT/0.5 ML ML ONE (21:09)
[2020-04-17 23:07] LABS: Potassium 4.3 mmol/L (3.5-5.1)
--- NOTE | 2020-04-18 01:02 | PN ---
Date of Progress Note: 04/17/2020 Chief Complaint: End-stage renal disease, on dialysis. History Of Present Illness: Patient is undergoing dialysis on Friday, , Friday. Patient has a history of diabetes mellitus, hypertension. She came to the hospital, because of altered menta l status. Patient had complicated history of congestive heart failure. Patient remains on pressors and received vancomycin for underlying infection. Review of Systems: No new complaints. Physical Examination: Lungs: Diminished breath sounds at bases. Heart: S1, S2. Abdomen: Soft, benign. Extremities: Minimal swelling in both legs. Impression And Plan: 1.End-stage renal disease. Dialysis will be ordered as soon as possible. Continue dialysis 3 times per week. Monitor lab work. Plan is to obtain basic metabolic panel today to control potassium lev el. 2.Hypotension. Patient was on Levophed. Patient may need to take midodrine for blood pressure supp ort. 3.Possible bacteremia sepsis. Microbiology is pending. The patient as screened for bacteremia. Bl ood culture showed no growth for up to 5 days. 4.Anemia and chronic kidney disease. Monitor hemoglobin level and adjust BRITTANY. EB/MODL Voice ID: [id number] Report ID: [id number]
[2020-04-18] MEDS: PIPER/TAZO/NS 2.25gm 2.25 GM/50 ML BAG IVPB SCH ×4 (02:46→17:18)
[2020-04-18] MEDS ORDERED: PIPER/TAZO/NS 2.25gm 2.25 GM/50 ML BAG ONE ×2 (02:59→17:30)
[2020-04-18] MEDS: MIDODRINE HCL 5 MG TABLET PO SCH ×3 (10:03→19:53)
[2020-04-18] MEDS: CLOPIDOGREL 75 MG TABLET PO SCH (10:03)
[2020-04-18] MEDS: INSULIN -REGULAR HUMAN 50 UNIT/0.5 ML ML SQ SCH ×4 (10:22→19:52)
[2020-04-18] MEDS ORDERED: INSULIN -REGULAR HUMAN 50 UNIT/0.5 ML ML ONE (10:36)
[2020-04-18] MEDS: NOREPINEPHRINE 4 MG in D5W 250 ML IV PRN ×2 (12:09→22:39)
--- NOTE | 2020-04-18 12:45 | PN ---
Subjective: The patient is doing dialysis. She is well alert and oriented. Knows that she is havin g dialysis in hospital, knew my name. Has no new complaint. Objective: Blood pressure during dialysis around 100 systolic, diastolic about 50-60. The patient i s afebrile. Rest of physical examination, no change. Assessment And Plan: 1.Mental status change, resolved. 2.Hypotension, better today. 3.She has been able to be dialyzed. Should she continue to have systolic blood pressure around 100 and she is feeling well, will be able to discharge her. Blood sugar fingersticks noted. We will con tinue her current treatment. Look orders for details. MFS/MODL Voice ID: [id number] Report ID: [id number]
--- NOTE | 2020-04-18 18:40 | PN ---
Date of Progress Note: 04/18/2020 Subjective: The patient was admitted with altered mental status, hypoglycemia, low blood pressure. Physical Examination: Vital Signs: Blood pressure 82/71, confuse, pulse of 90. Chest: Clear to auscultation. Heart: S1, S2. Regular. Abdomen: Soft, nontender. Extremity: Trace edema. Neurologic: Alert, confused. Laboratory Data: H and H 12.2/40.4. Sodium 138, potassium 4.3, bicarb 24, BUN 39, creatinine 8.3, calcium 7.9. Current Medications: The patient on include midodrine 5 t.i.d., Zosyn, vancomycin, gabapentin. Assessment And Plan: 1. End-stage renal disease. We will continue the patient on dialysis per her schedule. 2. Secondary hyperparathyroidism. Continue binder. 3. Hypertension, currently hypotension. We will continue using midodrine for blood pressure support. 4. Hypoglycemia, resolved. 5. Hyperkalemia, resolved. The patient cleared from the Renal standpoint for discharge planning. 6- sepsis / septic : will levophped Time spent discussing with the patient, [id number], using the translation, discussing with the staff and placing an order, discussing with over subspecialty and hospitalist 45 minutes. JACKLYN Voice ID: [id number] Report ID: [id number] GRACIA
[2020-04-18] MEDS: GABAPENTIN 300 MG CAP PO SCH (19:51)
[2020-04-18] MEDS ORDERED: GABAPENTIN 300 MG CAP ONE (19:58)
[2020-04-19] MEDS: PIPER/TAZO/NS 2.25gm 2.25 GM/50 ML BAG IVPB SCH ×3 (02:00→17:46)
[2020-04-19] MEDS ORDERED: PIPER/TAZO/NS 3.375gm 3.375 GM/100 ML BAG ONE (02:57)
[2020-04-19] MEDS: INSULIN -REGULAR HUMAN 50 UNIT/0.5 ML ML SQ SCH ×4 (07:18→21:00)
[2020-04-19] MEDS ORDERED: CLOPIDOGREL 75 MG TABLET ONE (08:58)
[2020-04-19] MEDS: CLOPIDOGREL 75 MG TABLET PO SCH (09:00)
[2020-04-19] MEDS ORDERED: NACL 0.9% IRR SOLN 2,000 ML IRR ONE (09:00)
[2020-04-19] MEDS: MIDODRINE HCL 5 MG TABLET PO SCH ×3 (09:00→21:28)
--- NOTE | 2020-04-19 13:47 | PN ---
Subjective: The patient is alert and oriented, doing well. No new complaints. Objective: VITAL SIGNS: Blood pressure 96/65, pulse 96, temperature 97.2. Rest of physical examination is stable. No change. Blood sugar fingersticks noted. Assessment And Plan: The patient is clinically stable. However, she is still on Levophed at very sm all dose. We will try to step her down. Her blood pressure keeps holding systolic around 90 and abo ve. She is doing well. We can discharge her from the Urology standpoint. She is going to stay with unscheduled dialysis as per Nephrology. Look orders for details. MFS/MODL Voice ID: [id number] Report ID: [id number]
[2020-04-19] MEDS: ACETAMINOPHEN 500 MG TAB PO PRN (17:17)
[2020-04-19] MEDS ORDERED: ACETAMINOPHEN 500 MG TAB ONE (17:26)
[2020-04-19] MEDS ORDERED: PIPER/TAZO/NS 2.25gm 2.25 GM/50 ML BAG ONE (17:48)
[2020-04-19] MEDS: GABAPENTIN 300 MG CAP PO SCH (21:27)
[2020-04-19] MEDS ORDERED: GABAPENTIN 300 MG CAP ONE (21:32)
--- NOTE | 2020-04-19 23:44 | PN ---
Date of Progress Note: 04/19/2020 Subjective: The patient was admitted with sepsis, septic shock, altered mental status. The patient required to be on Levophed. We placed her on midodrine, still blood pressure on the lower side. The patient is more awake. Objective: Vital Signs: Blood pressure 99/58, pulse of 86. Chest: Faint rales bilateral. Heart: S1, S2. Regular. Abdomen: Soft, nontender. Extremities: Plus edema. Neuro: Sleepy. Patient had dialysis yesterday. We managed to remove 2 L. Laboratory Data: H and H 12.2/40.4. Sodium 138, potassium 4.3, bicarb 24, BUN 39, creatinine 8, calcium 7.9. Current Medications: The patient on include Zosyn, vancomycin, Levophed, currently on 3 mcg, Plavix, heparin, gabapentin. Assessment And Plan: 1. End-stage renal disease. We will continue the patient on dialysis. We will arrange for dialysis tomorrow. 2. Hypertension, currently hypotension. I am going to go ahead and increase midodrine to 10 mg. We will continue to taper the Levophed. The patient used to have low blood pressure. We will accept above 60 and we will follow up the patient. 3. Sepsis. Culture still negative. Continue coverage giving the high risk. Dose appropriate. 4. Congestive heart failure. We will try to establish better volume control with dialysis. 5. Diabetes, as by primary. Time spent discussing with the patient, [id number], using the translation, discussing with the staff and placing an order, discussing with over subspecialty and hospitalist 45 minutes. JACKLYN Voice ID: [id number] Report ID: [id number] MTDJing
[2020-04-20] MEDS: PIPER/TAZO/NS 2.25gm 2.25 GM/50 ML BAG IVPB SCH ×3 (00:31→16:45)
[2020-04-20] MEDS ORDERED: PIPER/TAZO/NS 3.375gm 3.375 GM/100 ML BAG ONE (00:34)
[2020-04-20] MEDS ORDERED: ALBUMIN HUMAN 25% 50 ML IV ONE (06:38)
[2020-04-20] MEDS: INSULIN -REGULAR HUMAN 50 UNIT/0.5 ML ML SQ SCH ×4 (07:30→21:00)
[2020-04-20] MEDS: CLOPIDOGREL 75 MG TABLET PO SCH (08:02)
[2020-04-20] MEDS ORDERED: CLOPIDOGREL 75 MG TABLET ONE (08:09)
[2020-04-20] MEDS: MIDODRINE HCL 5 MG TABLET PO SCH ×3 (08:20→21:02)
[2020-04-20] MEDS ORDERED: PIPER/TAZO/NS 2.25gm 2.25 GM/50 ML BAG ONE ×3 (09:01→20:56)
--- NOTE | 2020-04-20 15:03 | PN ---
Date of Progress Note: 04/20/2020 Subjective: The patient was admitted with altered mental status, overdose on the pain medications. The patient has been on low blood pressure, found to be sepsis. The patient was started on midodrine and Levophed. Physical Examination: Vital Signs: When I saw the patient; blood pressure of 96/62, pulse of 91. Chest: Faint rales bilateral base. Heart: S1, S2. Regular. Abdomen: Soft, nontender. Extremities: +1 edema. Neuro: Alert. Sleepy. Laboratory Data: H and H 12.2/40.4. Sodium 138, potassium 4.3, bicarb 24, BUN 39, creatinine 8.3, calcium 7.9. Assessment And Plan: 1. End-stage renal disease with marginal low blood pressure. The patient had dialysis today. Managed to remove 2 L. Tolerated the dialysis very well. The patient looked to me still on the wet side. I am going to go ahead and do a chest x-ray and we will do another session of sequential dialysis tomorrow and we will follow up. The patient will try to avoid using any Levophed to establish better stabilization on the condition of the patient. 2. Hypertension, currently hypotension. We will try to dialyze the patient on sodium bath with sodium module. 3. Anemia. Continue to hold BRITTANY. 4. Secondary hyperparathyroidism, stable. 5. Septic shock. Continue current antibiotic. We just increased the midodrine. We will continue to wean off the Levophed. Our MAP goal is 60-65. Time spent discussing with the patient, [id number], using the translation, discussing with the staff and placing an order, discussing with over subspecialty and hospitalist 45 minutes. JACKLYN Voice ID: [id number] Report ID: [id number] GRACIA
--- NOTE | 2020-04-20 15:41 | RAD REPORT ---
EXAM DESCRIPTION: Laith Single View04/20/2020 3:26 pm CLINICAL HISTORY: Shortness of breath COMPARISON: April 12, 2020 FINDINGS: Mild bilateral pulmonary opacities The heart is moderately enlarged. Central venous catheter in place IMPRESSION: Mild bilateral pulmonary opacities probably mild interstitial pulmonary edema
--- NOTE | 2020-04-20 18:00 | PN ---
Subjective: The patient has had dialysis today. Has no new complaint; however, the patient is too w eak to ambulate on her own. She needs assistance with that because of generalized weakness and fatig ue. Objective: VITAL SIGNS: Her blood pressure is holding after dialysis at 105/65, pulse 90, temperatu re 98.1. Heart: Regular rate and rhythm. Chest: Clear to auscultation. Abdomen: Soft, benign. Neurological: Alert, oriented x4. Grossly intact. Assessment And Plan: Hypotension, improved blood pressure after dialysis holding or systolic more th an 100. We will continue to monitor her blood pressure and hold systolic around this range. We have asked also the Rehab to consider transferring the patient up there for physical therapy for ambulati on. Meanwhile, her blood sugar fingersticks have been noted and blood sugars controlled and the rest of her medical problems are stable. MFS/MODL Voice ID: [id number] Report ID: [id number]
[2020-04-20] MEDS ORDERED: GABAPENTIN 300 MG CAP ONE (20:56)
[2020-04-20] MEDS: GABAPENTIN 300 MG CAP PO SCH (21:02)
[2020-04-21] MEDS: PIPER/TAZO/NS 2.25gm 2.25 GM/50 ML BAG IVPB SCH ×3 (01:04→16:47)
[2020-04-21] MEDS: INSULIN -REGULAR HUMAN 50 UNIT/0.5 ML ML SQ SCH ×4 (07:30→20:29)
[2020-04-21] MEDS: MIDODRINE HCL 5 MG TABLET PO SCH ×3 (08:02→20:28)
[2020-04-21] MEDS: CLOPIDOGREL 75 MG TABLET PO SCH (08:02)
[2020-04-21] MEDS ORDERED: CLOPIDOGREL 75 MG TABLET ONE (08:17)
[2020-04-21] MEDS ORDERED: PIPER/TAZO/NS 2.25gm 2.25 GM/50 ML BAG ONE ×3 (10:30→20:31)
--- NOTE | 2020-04-21 13:22 | PN ---
Subjective: The patient has no new complaint other than having problems ambulating because of genera lized weakness. Objective: Vital Signs: Her blood pressure is holding at 113/62, pulse 96, temperature 99.8. Heart: Regular rate and rhythm. Chest: Mild bilateral crackles. Abdomen: Soft, benign. Neurological: Alert, oriented. Grossly intact. Extremities: Show trace edema, bilateral. Diagnostic Data: Chest x-ray, mild bilateral pulmonary interstitial opacities consistent with CHF. Blood sugar fingersticks noted between 77 and 100. Assessment And Plan: 1.Altered mental status, resolved. 2.End-stage renal disease, on dialysis. Plan is to be dialyzed also today. Nephrology thinks that the patient is still on the wet side. 3.The patient's blood pressure is holding off on Levophed with no hypotension. 4.Anemia of chronic illness, clinically stable. 5.Congestive heart failure, systolic, acute on chronic. I think that will by continued dialysis. 6.We will continue current antibiotics for occult infection. 7.Generalized weakness. The patient is going to need physical therapy for ambulation to be able to move around. Have requested rehab floor to see the patient and will act accordingly from that standpoint. MFS/MODL Voice ID: [id number] Report ID: [id number]
[2020-04-21 16:35] LABS: Arterial Blood Carboxyhemoglob 1.4 % (0-1.5); Blood Gas Oxyhemoglobin 88.5 % (94-97); Blood O2 Saturation 90.6 % (92-98.5)
[2020-04-21] MEDS ORDERED: D50W 25 GM/50 ML SYRINGE IV ONE (16:53)
[2020-04-21] MEDS ORDERED: D10W 250 ML IV ONE (17:02)
[2020-04-21] MEDS: GABAPENTIN 300 MG CAP PO SCH (20:28)
[2020-04-21] MEDS ORDERED: GABAPENTIN 300 MG CAP ONE (20:31)
--- NOTE | 2020-04-21 21:23 | P.PN ---
Subjective Date of Service: 04/21/20 Subjective A 65-year-old female on hemodialysis, Friday, Friday, Friday at [facility], diabetes; CVA; hypertension; hyperlipidemia; coronary artery disease complicated with congestive heart failure. Pt was sent from HD Unit for hypotension , AMS and hypoglycemia today no change in clinical status BP stable , off levophed CXR reviewed : mild congestion HD tomorrow , Physical exam general: AAOX3, NAD , obese Neck; Supple, No elevated JVD , Rt IJ catheter hear: RRR, normal S1,2 no murmur or rub Chest: CTAB, no rales or wheezes Abdomen: Soft , Nt Extremities No edema or ulcer ESRd on HD TTsat via Rt IJ catheter HD tomorrow cont midodrine Shock unclar reason, septic? cont BAx cont Midodrine off pressers cultures so gfar ngeative AMS resolved due to opiates and hypoglycemia DM SSI pt also have hypoglycemic episodes BS controlled now debility Pt/OT total time spent 40minn Physical Examination - Vital Signs Temperature: 98.0 F Blood Pressure: 113/73 Pulse: 90 Respirations: 18 Pulse Ox (%): 92
[2020-04-22] MEDS: PIPER/TAZO/NS 2.25gm 2.25 GM/50 ML BAG IVPB SCH ×3 (00:23→17:47)
[2020-04-22] MEDS: INSULIN -REGULAR HUMAN 50 UNIT/0.5 ML ML SQ SCH ×3 (07:30→16:30)
[2020-04-22] MEDS: ALBUMIN HUMAN 25% 100 ML IV ONE ×2 (07:46→09:12)
[2020-04-22] MEDS: MIDODRINE HCL 5 MG TABLET PO SCH ×3 (09:16→20:42)
[2020-04-22] MEDS: CLOPIDOGREL 75 MG TABLET PO SCH (09:16)
[2020-04-22] MEDS ORDERED: ALBUMIN HUMAN 25% 100 ML IV ONE (09:23)
[2020-04-22] MEDS ORDERED: PIPER/TAZO/NS 2.25gm 2.25 GM/50 ML BAG ONE ×3 (09:25→22:10)
[2020-04-22] MEDS ORDERED: CLOPIDOGREL 75 MG TABLET ONE (09:25)
[2020-04-22] MEDS: DIGOXIN 0.25 MG/ML AMP IV SCH (10:26)
[2020-04-22 10:30] LABS: Absolute Lymphocytes (CBC) 0.7 K/uL (0.7-4.9); Basophils % 0.7 % (0-1.3); Hematocrit 36.6 % (36.0-45.0); Lymphocytes % 11.8 % (15.3-44.8); MPV 9.2 fL (7.6-11.3); RBC Red Blood Cell Count 4.17 M/uL (3.86-4.86)
[2020-04-22 10:41] LABS: Magnesium 2.3 mg/dL (1.8-2.4); Phosphorus 5.6 mg/dL (2.5-4.9); Potassium 3.5 mmol/L (3.5-5.1)
[2020-04-22] MEDS: D10W 250 ML IV PRN ×2 (11:02→11:20)
[2020-04-22] MEDS ORDERED: D10W 250 ML IV ONE (11:15)
--- NOTE | 2020-04-22 11:53 | PN ---
Date of Progress Note: 04/22/2020 Subjective: The patient was admitted with sepsis, hypotension. The patient was started on antibiotic. The patient is started on Levophed, weaned day before yesterday. Physical Examination: Vital Signs: Blood pressure 100/65, pulse of 89. Chest: Crackles at bilateral base. Heart: S1, S2. Systolic murmur. Abdomen: Soft, nontender. Extremities: Plus edema. Neuro: Alert, sleepy. Laboratory Data: H and H 11.3/36.6. Sodium 141, potassium 3.5, bicarb 27, BUN 26, creatinine 6, calcium 8, phosphorus 5.6, magnesium 2.3. Vancomycin trough 21. Last dose of vancomycin was on the 6th. Current Medications: Include Zosyn, vancomycin as I mentioned, last dose on the . Heparin, Tylenol, midodrine. Assessment And Plan: 1. End-stage renal disease, over volume. We will continue daily evaluation for her fluid status. We will use sodium module and midodrine to support the blood pressure and we will monitor the patient closely. 2. Sepsis. Culture so far negative. I am going to continue to monitor the patient. Continue current antibiotic. Keep holding vancomycin. We will follow up with trough level. 3. Shock. Continue midodrine. 4. Over volume. We will try to establish better volume control with dialysis. time spend discussing with the patient face to face , placing order , discusse with the patient and other long line teamster inculding hospitalist 45 min. JACKLYN Voice ID: [id number] Report ID: [id number] GRACIA
--- NOTE | 2020-04-22 13:08 | PN ---
Date of Progress Note: 04/22/2020 Subjective: The patient is seen on dialysis. This is dialysis note. The patient had marginal low blood pressure on the dialysis. The patient had 2 episodes of SVT for almost 1 minute each. Currently patient more awake. The patient did not require any Levophed. Objective: Vital Signs: Blood pressure currently 100/82, pulse of 88. Chest: Faint crackles bilateral base. Heart: S1, S2. Systolic murmur. Abdomen: Soft, nontender. Extremity: Plus edema. Neurologic: Alert, no focal. Patient sleepy. Laboratory Data: Reviewed. Medications: Midodrine 10 t.i.d., Zosyn and Vancomycin. Last vancomycin back on the , currently level is 21. Assessment And Plan: 1. End-stage renal disease, over volume. We will continue dialysis given the incident of the supraventricular tachycardia, decreased blood flow to 250. I going to dose the patient with digoxin 0.25 to control the rate and we will maintain the patient. We will arrange for another session of dialysis Friday as extra dialysis with sequential. 2. Hypertension. Currently hypotension use midodrine for blood pressure support. We using on dialysis low temperature on sodium module. 3. Sepsis. Blood culture negative. Continue vancomycin and Zosyn currently. Vancomycin on hold as trough is 21. time spend discussing with the patient face to face , placing order , discusse with the patient and other marine steam fitter helper including hospitalist 45 min. JACKLYN Voice ID: [id number] Report ID: [id number] GRACIA
--- NOTE | 2020-04-22 19:28 | PN ---
Subjective: The patient is alert and oriented x4, has no new complaint. Objective: VITAL SIGNS: Blood pressure 96/65, pulse 89, temperature 98.1. Rest of her physical examination is basically no change. Assessment And Plan: Altered mental status. The patient goes off and on what is described by nurses as confusion barely when she wakes up from sleep, however, she regains full awareness after some sahra e, maybe few minutes to half an hour or so, but she is lucid, and she is alert and oriented now x4. The patient's hypotension, multifactorial including possible sepsis, although offending organism is n ot known. Antibiotics are continued. Vancomycin has been managed by pharmacy and it is on hold for now because of a high trough. The patient is also fluid overloaded. Dialysis has been continued. T he patient has congestive heart failure, which I think also is aiding to the patient being hypotensiv e. Expect that to improve with continued dialysis and antibiotic treatment. Her blood sugar fingers ticks are on the low side. We are going to hold on the sliding scale. For now, the patient is on D1 0 and dripped very gentle to keep her blood sugar high. Look orders for details. MFS/MODL Voice ID: [id number] Report ID: [id number]
[2020-04-22] MEDS ORDERED: GABAPENTIN 300 MG CAP ONE (19:37)
[2020-04-22] MEDS: GABAPENTIN 300 MG CAP PO SCH (20:41)
[2020-04-23] MEDS: PIPER/TAZO/NS 2.25gm 2.25 GM/50 ML BAG IVPB SCH ×2 (00:24→09:00)
[2020-04-23 06:13] LABS: AST/SGOT 9 U/L (15-37); Albumin 2.9 g/dL (3.4-5.0); Alkaline Phosphatase 276 U/L (45-117); BUN Blood Urea Nitrogen 24 mg/dL (7-18); Bicarbonate 27 mmol/L (21-32); Bilirubin Total 0.5 mg/dL (0.2-1.0); Glucose Level 109 mg/dL (74-106); Potassium 3.5 mmol/L (3.5-5.1); Protein, Total 8.6 g/dL (6.4-8.2); Sodium Level 139 mmol/L (136-145)
[2020-04-23 06:21] LABS: ALT/SGPT < 6 U/L (12-78)
[2020-04-23] MEDS: MIDODRINE HCL 5 MG TABLET PO SCH ×3 (08:39→20:26)
[2020-04-23] MEDS: CLOPIDOGREL 75 MG TABLET PO SCH (08:39)
[2020-04-23] MEDS ORDERED: CLOPIDOGREL 75 MG TABLET ONE (08:46)
[2020-04-23] MEDS ORDERED: ALBUMIN HUMAN 25% 100 ML IV ONE (09:39)
[2020-04-23] MEDS: DIGOXIN 0.25 MG/ML AMP IV SCH (11:00)
--- NOTE | 2020-04-23 12:38 | RAD REPORT ---
EXAM DESCRIPTION: RAD - Chest Single View - 04/23/2020 12:06 pm CLINICAL HISTORY: COPD COMPARISON: Portable April 20 TECHNIQUE: AP portable chest image was obtained 04/23/2020 12:06 pm . FINDINGS: Chronic interstitial opacification is present similar to comparison. Patchy airspace opaci ties are present in the right upper lobe abutting the minor fissure. Cardiomegaly is present. Vascula ture is prominent. Dialysis catheter is in place. No pneumothorax or large pleural effusion. No acute bony abnormality seen. No acute aortic findings suspected. IMPRESSION: CHF/volume overload pattern not substantially different from prior imaging. Superimposed pneumonia cannot be excluded.
--- NOTE | 2020-04-23 13:00 | PN ---
Date of Progress Note: 04/23/2020 Subjective: The patient seen on dialysis. The patient yesterday did not complete her dialysis because of machine malfunction. Physical Examination: Vital Signs: Today on dialysis; blood pressure of 98/50, pulse of 88. Chest: Faint rales bilateral base. Heart: S1, S2. Systolic murmur. Abdomen: Soft, nontender. Extremities: Trace edema. Neuro: Alert. Sleepy. No focality. Laboratory Data: WBC 5.7, H and H 11.3/36.6, platelets 158. Sodium 139, potassium 3.5, bicarb 27, BUN 24, creatinine 6.1, calcium 8.3. Current Medications: The patient on include midodrine 10 t.i.d., Plavix, digoxin received yesterday, gabapentin 300. Assessment And Plan: 1. End-stage renal disease, stable. Currently tolerating dialysis without pressor, on sodium module and low temperature using midodrine. I am going to continue dialysis today. If the patient stays stable after dialysis, okay to be transferred to telemetry floor. 2. Sepsis. Questionable culture has been negative so far. I am going to repeat culture today. Discontinue Zosyn. We will follow up the patient. 3. Hypertension, currently hypotension. Continue midodrine. 4. Hyperkalemia, resolved. 5. Over volume, currently more volume, stable. I am going to go ahead and get a chest x-ray for better evaluation of the fluid status. 6. Atrial fibrillation. I am going to start the patient on digoxin every other day and we will follow up the patient. time spend discussing with the patient face to face , placing order , discusse with the patient and other fast food team member including hospitalist 45 min. JACKLYN Voice ID: [id number] Report ID: [id number] GRACIA
[2020-04-23] MEDS ORDERED: DIGOXIN 0.25 MG TABLET ONE (13:15)
[2020-04-23] MEDS: DIGOXIN 0.125 MG TABLET PO SCH (13:32)
--- NOTE | 2020-04-23 14:21 | PN ---
Subjective: The patient is alert, oriented x4, said feeling well. Objective: Vital Signs: Her blood pressure 109/68, pulse 80, temperature 97.8. Heart: Regular rate and rhythm. Chest: Clear to auscultation. Abdomen: Soft, benign. Neurological: Grossly intact. Extremities: Trace bilateral pedal and tibial edema. Laboratory Data: Chest x-ray showed volume overload pattern, not much different from before. Blood sugar fingersticks noted between 190 to 111. Assessment And Plan: 1.Hypertension. The patient is off vasopressors. Blood pressure holding between 90 to 109. Consid eration of sepsis with her known bacterium is also considered, so we will continue current antibiotic s. 2.End-stage renal disease, on dialysis, with volume overload. Plan by Nephrology to continue dialyz ing the patient. 3.Rest of the patient's medical problems stable. We are waiting on the rehab for the patient to hav e physical therapy as because of her weakness, she is not able to ambulate on her own right now. Exp ect transfer the patient to a telemetry bed after dialysis if her blood pressure continues to hold, n eeding vasopressors. Look orders for details. MFS/MODL Voice ID: [id number] Report ID: [id number]
[2020-04-23] MEDS ORDERED: VANCOMYCIN 1 GM/VIAL ONE (20:02)
[2020-04-23] MEDS ORDERED: NA CHLORIDE 0.9% 250 ML ONE (20:03)
[2020-04-23] MEDS: GABAPENTIN 100 MG CAP PO SCH (20:25)
[2020-04-24] MEDS ORDERED: THIAMINE HCL 100 MG TABLET ONE (08:58)
[2020-04-24] MEDS ORDERED: VITAMIN D 1000 UNIT TAB ONE (08:59)
[2020-04-24] MEDS ORDERED: FAMOTIDINE 20 MG/2 ML VIAL IV ONE (08:59)
[2020-04-24] MEDS ORDERED: APIXABAN 5 MG TABLET ONE (08:59)
[2020-04-24] MEDS ORDERED: KCL 20 MEQ/100 mL IVPB 20 MEQ/100 ML BAG IV ONE (08:59)
[2020-04-24] MEDS ORDERED: ZINC SULFATE 220 MG CAP ONE (08:59)
[2020-04-24] MEDS ORDERED: Ringers Lactate 1,000 ML IV ONE (08:59)
[2020-04-24] MEDS: CLOPIDOGREL 75 MG TABLET PO SCH (09:32)
[2020-04-24] MEDS ORDERED: CLOPIDOGREL 75 MG TABLET ONE (09:39)
[2020-04-24] MEDS: D10W 250 ML IV PRN (10:18)
[2020-04-24] MEDS: MIDODRINE HCL 5 MG TABLET PO SCH ×3 (10:20→20:14)
[2020-04-24] MEDS ORDERED: D10W 250 ML IV ONE (10:32)
--- NOTE | 2020-04-24 11:43 | PN ---
Subjective: The patient is clinically stable, however, after dialysis, her blood pressure down to 80 /50, pulse 90, temperature 99. Objective: Heart: Regular rate and rhythm. Chest: Mild bilateral crackles. Abdomen: Soft, benign. Neurologic: Alert, oriented, intact. Assessment And Plan: 1.Hypotension after dialysis. The patient is still needing vasodepressors. We will continue that. 2.Volume overload in the patient with congestive heart failure, systolic. 3.Chronic renal failure, on dialysis. Continue dialysis. Expect more to improve with continued kenia lysis. 4.Suspicion of sepsis with hypotension. We will continue current antibiotic. 5.Look orders for details. MFS/MODL Voice ID: [id number] Report ID: [id number]
[2020-04-24] MEDS: GABAPENTIN 100 MG CAP PO SCH (20:14)
[2020-04-24] MEDS: ENSURE HIGH PROTEIN 237 ML CAN PO SCH ×2 (20:15→21:00)
[2020-04-24] MEDS ORDERED: GABAPENTIN 300 MG CAP ONE (20:17)
--- NOTE | 2020-04-24 21:12 | PN ---
Date of Progress Note: 04/24/2020 Chief Complaint: End-stage renal disease, hypotension. Subjective: The patient is on midodrine for blood pressure support. Yesterday, she received dialysi s for metabolic clearance. The patient has multiple medical problems including history of end-stage renal disease and chronic hypotension, congestive heart failure, atrial fibrillation, hypertensive he art and kidney disease. The patient remains in ICU due to hypotension and sepsis. The patient is tr eated with antibiotics and has midodrine for blood pressure support. Review of Systems: Denies chest pain, palpitation. Objective: Lungs: Diminished breath sounds at bases. Heart: S1, S2. 2/6 systolic murmur at the left lower sternal border. Abdomen: Soft, obese, nontender. Extremities: Trace edema. Impression And Plan: 1.End-stage renal disease. Next dialysis tomorrow. Monitor electrolytes. Adjust the treatment acc ordingly and adjust dialysate to current lab work results. 2.Sepsis. We will continue Zosyn with broad-spectrum antibiotic coverage. 3.Hypertension. The patient currently has hypotension. Continue midodrine. 4.Hyperkalemia, resolved. Monitor electrolytes. EB/MODL Voice ID: [id number] Report ID: [id number]
[2020-04-25 05:33] LABS: Absolute Lymphocytes (CBC) 0.9 K/uL (0.7-4.9); Basophils % 0.5 % (0-1.3); Hematocrit 32.3 % (36.0-45.0); Lymphocytes % 13.8 % (15.3-44.8); MPV 9.5 fL (7.6-11.3); RBC Red Blood Cell Count 3.63 M/uL (3.86-4.86)
[2020-04-25 05:47] LABS: Potassium 3.7 mmol/L (3.5-5.1)
[2020-04-25 05:56] VITALS: BMI 34.2
[2020-04-25] MEDS: ENSURE HIGH PROTEIN 237 ML CAN PO SCH (09:00)
[2020-04-25] MEDS: CLOPIDOGREL 75 MG TABLET PO SCH (09:22)
[2020-04-25] MEDS: MIDODRINE HCL 5 MG TABLET PO SCH ×2 (09:22→13:31)
[2020-04-25] MEDS ORDERED: CLOPIDOGREL 75 MG TABLET ONE (09:35)
--- NOTE | 2020-04-25 12:04 | P.PN ---
Subjective Date of Service: 04/25/20 Subjective A 65-year-old female on hemodialysis, Friday, Friday, Friday at [facility], diabetes; CVA; hypertension; hyperlipidemia; coronary artery disease complicated with congestive heart failure. Pt was sent from HD Unit for hypotension , AMS and hypoglycemia today no change in clinical status poor oral intake with hypoglycemia, cont D10 rales on exam , HD today accepted by LT[facility] Physical exam general: AAOX3, NAD , obese Neck; Supple, No elevated JVD , Rt IJ catheter hear: RRR, normal S1,2 no murmur or rub Chest: diffuse rales Abdomen: Soft , Nt Extremities No edema or ulcer A/P ESRd on HD TTsat via Rt IJ catheter HD today cont midodrine Shock unclar reason, septic? cont BAx cont Midodrine off pressers cultures so gfar ngeative AMS resolved due to opiates and hypoglycemia DM now hypoglycemic cont D10 debility Pt/OT total time spent 40minn Physical Examination - Vital Signs Temperature: 98.2 F Blood Pressure: 102/63 Pulse: 88 Respirations: 15 Pulse Ox (%): 92
[2020-04-25] MEDS ORDERED: ALBUMIN HUMAN 25% 100 ML IV ONE (12:15)
[2020-04-25] MEDS ORDERED: ALBUMIN HUMAN 25% 100 ML IV PRN (13:00)
[2020-04-25] MEDS: DIGOXIN 0.125 MG TABLET PO SCH (13:31)
[2020-04-25] MEDS: D10W 250 ML IV PRN (15:19)
[2020-04-25] MEDS ORDERED: D10W 250 ML IV ONE (15:33)
[2020-04-25 15:50] VITALS: BP 94/65; TEMP 98; O2SAT 96
[2020-04-26 20:05] LABS: HBsAG Nonreactive (Nonreactive)
--- NOTE | 2020-05-04 17:54 | DS ---
Date of Discharge: 04/25/2020 History Of Present Illness: Liya Sullivan was admitted to the hospital because of hypotension when it w as noted while she was doing dialysis. Was sent from dialysis to the emergency room and she was also found to be hypotensive where systolic blood pressure was down to the 70s and 60s. Past Medical History: As per admit note. Social History: As per admit note. Family History: As per admit note. Medications: As per admit note. Allergies: PER ADMIT NOTE. Physical Examination: As per admit note. Diagnostic Data: As per admit note. Hospital Course: The patient was admitted to the hospital. She was put on Levophed, vasopressor, an d we continued the rest of her home medications, but we held on her blood pressure medicines. Nephro logy for dialysis was also consulted because needed dialysis and electrolyte management. We also mon itored the blood sugar fingersticks and put her on sliding scale. The patient was considered to may have had sepsis and occult infection so she was put on vancomycin, antibiotics. The patient was in [facility] because her blood pressure had improved slightly to about a systolic 90-100; however, she still has down to the 70s and 80s and she still required . The patient initial ly was noted to have altered mental status; however, after interviewing her and following her up in [facility], the patient remained alert, oriented x4. The patient was dialyzed few times while in [facility]. It was thought that the patient is going to the need a long-term acute care facility to improve her vitals and her blood pressure and to continue her acute care, and LTAC was consulted and she had a bed and was accepted and was transferred to long-term acute care facility. She was stable at the time of her transfer. Look orders for details. MFS/MODL Voice ID: [id number] Report ID: [id number]
== END 2020-04-25 16:23 | DRG 871 ==
LOC: ER 14:09 → ERHOLD 23:00 → OBSVTOIN 04-14 08:29 → ERHOLD 04-17 21:01
PROVIDERS: ADMIT Internal Medicine; ATTEND Internal Medicine
PROC: 06HY33Z Insertion of Infusion Device into Lower Vein, Percutaneous Approach (ICD-10-PCS; principal; 2020-04-14)
PROC: 5A1D70Z Performance of Urinary Filtration, Intermittent, Less than 6 Hours Per Day (ICD-10-PCS; 2020-04-15)
DX: A41.9 Sepsis, unspecified organism (principal); N18.6 End stage renal disease; R65.21 Severe sepsis with septic shock; I50.23 Acute on chronic systolic (congestive) heart failure; N25.81 Secondary hyperparathyroidism of renal origin; I13.2 Hypertensive heart and chronic kidney disease with heart failure and with stage 5 chronic kidney disease, or end stage renal disease; I47.1 Supraventricular tachycardia; E11.22 Type 2 diabetes mellitus with diabetic chronic kidney disease; E11.319 Type 2 diabetes mellitus with unspecified diabetic retinopathy without macular edema; E11.649 Type 2 diabetes mellitus with hypoglycemia without coma; E11.40 Type 2 diabetes mellitus with diabetic neuropathy, unspecified; I25.10 Atherosclerotic heart disease of native coronary artery without angina pectoris; I48.91 Unspecified atrial fibrillation; E87.5 Hyperkalemia; D63.1 Anemia in chronic kidney disease; H54.8 Legal blindness, as defined in USA; E78.5 Hyperlipidemia, unspecified; R41.82 Altered mental status, unspecified; T40.2X1A Poisoning by other opioids, accidental (unintentional), initial encounter; Z88.8 Allergy status to other drugs, medicaments and biological substances; Z88.5 Allergy status to narcotic agent; Z79.4 Long term (current) use of insulin; Z79.02 Long term (current) use of antithrombotics/antiplatelets; Z79.899 Other long term (current) drug therapy; Z86.73 Personal history of transient ischemic attack (TIA), and cerebral infarction without residual deficits; Z20.822 Contact with and (suspected) exposure to COVID-19
CPT/HCPCS: 36415; 70450; 71045; 80048; 80053; 80076; 80202; 82805; 82947; 83605; 83735; 83880; 84100; 84145; 84484; 85025; 85610; 87040; 87340; 90935; 93005; 94660; 97112; 97161; 97530; 99291; J0692; J1160; J1644; J2405; J2543; J2765; J3370; J3480; J7030; J7040; J7050; J7060; J7120; P9047; U0003